=== PATIENT | female | born 1990 | race Caucasian/White ===

== ENCOUNTER 2017-08-19 09:55 | Inpatient (IN) | payer OTHER ==
[~2017-08-19] VITALS: Ht 152.4 cm; Wt 53.3 kg
[~2017-08-19 09:55] MED LIST: FLUO10CA48 PO; MULT-506 PO
[2017-08-19] MEDS ORDERED: BUSP-8 PO (10:30)
[2017-08-19] MEDS ORDERED: FLUO20CA35 PO (10:30)
[2017-08-19] MEDS ORDERED: [UNRECOGNIZED DRUG - CODE] PO (10:30)
[2017-08-19 11:17] LABS: URINE APPEARANCE CLEAR (CLEAR); URINE BILIRUBIN NEG (NEG); URINE COLOR YELLOW; URINE EPITHELIAL CELL AUTO >30 /lpf (0-5); URINE NITRITE NEG (NEG); URINE SPECIFIC GRAVITY 1.012 (1.000-1.030); UROBILINOGEN NEG (NEG)
[2017-08-19 11:21] LABS: MANUAL MICROSCOPIC REQUIRED? NO; REVIEW REQ? YES
[2017-08-19 11:46] LABS: BASO % 0.9 %; BASO ABS # 0.07 K/uL (0-0.2); COMPLETE YES; EOS % 10.1 %; HEMATOCRIT 40.1 % (37-47); IG% 0.3 %; LYMPH % 22.4 %; LYMPH ABS # 1.79 K/uL (1.2-3.4); MEAN CELL VOLUME 90.9 fL (80-100); MEAN CORPUSCULAR HEMOGLOBIN 32.9 pg (25-34); MEAN CORPUSCULAR HGB CONC 36.2 g/dl (32-36); MEAN PLATELET VOLUME 12.7 fL (7.4-10.4); MONO % 4.8 %; NEUT % 61.5 %; PLATELET COUNT 154 K/uL (130-400); RED BLOOD COUNT 4.41 M/uL (4.2-5.4); WHITE BLOOD COUNT 7.99 K/uL (4.8-10.8)
[2017-08-19 11:50] LABS: BENZODIAZEPINE, URINE NEG (NEG); COCAINE,URINE NEG (NEG); PHENCYCLIDINE, URINE NEG (NEG)
[2017-08-19 12:06] LABS: BUN/CREATININE RATIO 10.6 (10-20); CALCIUM 8.7 mg/dl (8.5-10.1); CREATININE 0.82 mg/dl (0.60-1.20); POTASSIUM 3.9 mmol/L (3.5-5.1)
[2017-08-19 12:17] LABS: ALB/GLOB RATIO 1.3 (0.9-2); THYROID STIMULATING HORMONE 1.3 uIu/ml (0.300-4.500)
[2017-08-19] MEDS ORDERED: MAGNESIUM HYDROXIDE SUSP 30 ML UDC PO PRN (13:15)
[2017-08-19] MEDS ORDERED: SODIUM CHLORIDE 0.65% NA SOLN 45 ML (OCEAN) PRN (13:15)
[2017-08-19] MEDS ORDERED: ALUMINUM/MAGNESIUM SUSP 30 ML UDC PO PRN (13:15)
[2017-08-19] MEDS ORDERED: BISMUTH SUBSALICYLATE PER ML OMNICELL CHARGE PO PRN (13:15)
[2017-08-19] MEDS ORDERED: hydrOXYzine HCL 25 MG TAB PO PRN ×2 (13:15)
[2017-08-19] MEDS ORDERED: NICOTINE 21 MG/24 HR TDSY ONE (13:43)
[2017-08-19 13:56] VITALS: O2SAT 97
--- NOTE | 2017-08-19 14:08 | Psychiatric History & Physical ---
History Date of Service Aug 19, 2017. Identifying Data Negra Mcclellan is a 27-year-old female who currently lives in [place], reports a history of depression, anxiety, and dissociative disorder for which she sees Dr. Lara, and was admitted on a 201 voluntary commitment after family brought her in for homicidal ideation. Chief Complaint "I've had different issues over the years...today I was hearing and feeling stuff I did not like, I was thinking of hurting somebody, and was thinking it might actually happen". History of Present Illness According to emergency room records, the patient presented to the emergency room with auditory hallucinations telling her to kill her coworker. She said she always hears voices that are usually mumbling and incoherent, but over the past 2 weeks they have been telling her to kill her coworker by stabbing him or pushing him down the steps. She does not like her coworker because he is lazy, but she says they've never had a confrontation, and he has no idea she feels this way about him. She did not feel safe leaving the hospital, as she was concerned she would act on the command hallucinations. She came in due to worsening thoughts about hurting a coworker, as she feels he doesn't do his job. These have been going on for 2 months, but worsened today, and was hearing voices telling her to hurt him. She felt she might actually act on them, as "I just felt like I really wanted it to happen." She had thought about pushing him down the stairs or stabbing him with something. She was at work today and felt unable to stop herself from acting, so left and called her mother, who brought her into the hospital. She says she is diagnosed with dissociative disorder, depression, and panic disorder for which she sees a psychiatrist at [facility], but has no therapist or case reviewer. She reports auditory hallucinations "since I was little, as long I can remember." They usually mumble incoherently, but have commanded her to hurt herself, others, and her pets in the past. Sometimes they make derogatory comments about her. They usually occur a few times a day. For the past month, they have been telling her that her male coworker is "useless, shouldn't be allowed to live or have a job, and I should get rid of him." She describes 7 voices, both male and female, and denies that they are people she knows. She also reports VH of "shadow people," as well as "scary shit," although she typically is aware that they are not there. She reports paranoia, says she often feels people are following her when she's driving, and has gotten paranoid about people plotting against her in the past (sometimes thinks friends are against her, for example a friend who is "acting really weird," and says she worries that he would hurt himself, as it seems like he is hiding something.") She denies thought insertion , thought reading, or ideas of reference. She reports uncertain mood, "I feel like nothing's real, just christ blah." She denies tearfulness, anhedonia ( enjoys writing, photography, watching movies, her animals- dogs, cats, hamster, and rats). She denies suicidal thoughts, changes in appetite (but thinks she lost a few lbs unintentionally), problems with sleep. She reports panic with shakiness, heart racing, inability to talk, which has occurred 5 times in the past 3 months. She usually calls her mother to pick her up when it happens, and says it is triggered by work. She says her mental health issues have been present all her life, but had gotten better once she started treatment, and then decompensated when she started working at [employer] about a year ago, which she attributes to being around a lot of people and feeling bored with her job. She says there is not enough work for you to do, but she has to stay in her building all day. She has been on fluoxetine for a year or two, and buspirone and haloperidol were just started a couple weeks ago. She says they were started for anxiety and voices, and she has not noticed any improvement. She denies a history of negra. Her goals of treatment are "to figure out what exactly is going on, why I feel this way." Outpatient records from some point [facility] reviewed: Patient saw Dr. Mathews there from June 2014 through December 2015. She was referred there after an emergency room visit for a panic attack. At her initial evaluation, she reported increasingly frequent and severe episodes of depression and anxiety, with mood swings, irritability, and anger outbursts. She also reported problems with focus, motivation, energy, memory, and self-criticism. She reported increasingly frequent "out of body" experiences since age 12, feeling like she did not have control of her body, which caused increased anxiety. She endorsed hearing auditory hallucinations of whispered voices for the past 5 years, usually incoherent, recently yelling obscenities at her, telling her she should , and that she should hurt herself. She reported eat having years of episodes where she loses time, had memory gaps, or would suddenly "come to" without recalling how she got where she was. She often looked into mirrors and did not recognize herself. She had been on sertraline 50 mg, which was increased to 100 mg daily. Diagnosis was panic disorder without agoraphobia and unspecified dissociative disorder. She saw Dr. Mathews for therapy and medications on a weekly basis, and after many months, told her that she thought she was having side effects from the sertraline which included "feeling like a zombie," so was switched to fluoxetine. When she left the clinic in December 2015, her diagnoses were recurrent depression, moderate, panic disorder without agoraphobia, and unspecified dissociative and conversion disorders. Past Psychiatric History Current OP Treatment: psychiatrist (Dr. Knight at [facility]; no therapist or case reviewer ) Prior OP Treatment: psychiatrist (Dr. Mathews at [facility] [phone], and some sort of treatment with mother at age 13 or 14) Prior Psych Hospitalizations: none (Has been seen in the ER for mental health evaluations in 2013 and 2015, but was discharged to home) Access to a Gun: No (family has guns, but they are locked and she doesn't have access.) Suicide Attempts: No Past Medication Trials sertraline - "zombie" for a month, then improved as adjusted to it. Additional Notes Life-long symptoms, but only started treatment 2 years ago, due to lack of insurance/financial concerns. Past Medical/Surgical History History of Concussion/Seizure: No (1) Pain, dental Not sexually active. No sexually active. Allergies Allergies: Coded Allergies: Codeine (Verified Allergy, Unknown, SOB-"RESTLESSNESS", 04/21/16) Home Medications Scheduled Buspirone Hcl (Buspirone Hcl), 10 MG PO BID Fluoxetine (Prozac), 30 MG PO DAILY Haloperidol (Haloperidol), 0.5 MG PO HS Family History FH: heart disease Hypertension History of Suicide: No History of Substance Abuse: Yes (on mother's side) Psychiatric History: Yes ("not sure, we don't really talk about it," but per [facility] records, mother has a history of depression and anxiety ) Alcohol Use Alcohol Use In Past 12 Months: Yes (drinks once a month, 2 beers, denies it has ever been a problem) Smoking Use Smoking Status: Former Smoker Substance History Denies other substance abuse. Personal History Lives in: [place] with her mother and "her , I don't need a dad." Childhood: From [place], then moved to [place] at age [age] years old. Raised by mother, and never knew father. Has sister who is 9 years older, doesn't like her. 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 Relationship History: never ("I don't date," but has dated both men and women in the past. Says no interest in romantic relationship currently, "I have no sexual feelings.") Children: None. Spiritual Affiliation: "I'm macdonald and a satanist." Legal History: none Psychological Trauma History: Denies Hx Traumatic Event ("Not that I'm aware of." ) Review of Systems 10 systems reviewed, negative except as stated above. Examination Physical Examination A physical exam was performed in the ER prior to admission to the unit. I accept that physical as correct/medical clearance for the inpatient physical exam. Vital Signs Vital Signs Past 12 Hours Date Time Temp Pulse Resp B/P (MAP) Pulse Ox O2 Delivery O2 Flow Rate FiO2 08/19/17 13:56 82 18 116/81 97 08/19/17 11:50 87 20 108/79 100 Room Air 08/19/17 09:57 36.5 110 16 128/85 96 Room Air Laboratory Results Last 24 Hours Test 08/19/17 10:23 08/19/17 11:04 08/19/17 11:05 Urine Color YELLOW Urine Appearance CLEAR Urine pH 5.0 Urine Specific [place] 1.012 Urine Protein NEG Urine Glucose (UA) NEG Urine Ketones NEG Urine Occult Blood NEG Urine Nitrite NEG Urine Bilirubin NEG Urine Urobilinogen NEG Urine Leukocyte Esterase SMALL Urine WBC (Auto) 10-30 /hpf Urine RBC (Auto) 5-10 /hpf Urine Hyaline Casts (Auto) 1-5 /lpf Urine Epithelial Cells (Auto) >30 /lpf Urine Bacteria (Auto) NEG Urine Yeast (Auto) BUDDING Urine Test NEG Urine Opiates Screen NEG Urine Methadone, Qualitative NEG Urine Barbiturates NEG Urine Phencyclidine (PCP) Level NEG Ur Amphetamine/Methamphetamine NEG MDMA (Ecstasy) Screen NEG Urine Benzodiazepines Screen NEG Urine Cocaine Metabolite NEG Urine Marijuana (THC) NEG Bedside Glucose 92 mg/dl White Blood Count 7.99 K/uL Red Blood Count 4.41 M/uL Hemoglobin 14.5 g/dL Hematocrit 40.1 % Mean Corpuscular Volume 90.9 fL Mean Corpuscular Hemoglobin 32.9 pg Mean Corpuscular Hemoglobin Concent 36.2 g/dl Platelet Count 154 K/uL Mean Platelet Volume 12.7 fL Neutrophils (%) (Auto) 61.5 % Lymphocytes (%) (Auto) 22.4 % Monocytes (%) (Auto) 4.8 % Eosinophils (%) (Auto) 10.1 % Basophils (%) (Auto) 0.9 % Neutrophils # (Auto) 4.92 K/uL Lymphocytes # (Auto) 1.79 K/uL Monocytes # (Auto) 0.38 K/uL Eosinophils # (Auto) 0.81 K/uL Basophils # (Auto) 0.07 K/uL RDW Standard Deviation 42.2 fL RDW Coefficient of Variation 12.7 % Immature Granulocyte % (Auto) 0.3 % Immature Granulocyte # (Auto) 0.02 K/uL Sodium Level 137 mmol/L Potassium Level 3.9 mmol/L Chloride Level 105 mmol/L Carbon Dioxide Level 26 mmol/L Anion Gap 6.0 mmol/L Blood Urea Nitrogen 9 mg/dl Creatinine 0.82 mg/dl Est Creatinine Clear Calc Drug Dose 73.4 ml/min Estimated GFR () 112.9 Estimated GFR (Non- 97.4 BUN/Creatinine Ratio 10.6 Random Glucose 85 mg/dl Calcium Level 8.7 mg/dl Total Bilirubin 0.4 mg/dl Direct Bilirubin 0.1 mg/dl Aspartate Amino Transf (AST/SGOT) 11 U/L Alanine Aminotransferase (ALT/SGPT) 11 U/L Alkaline Phosphatase 54 U/L Total Protein 6.9 gm/dl Albumin 3.9 gm/dl Globulin 3.0 gm/dl Albumin/Globulin Ratio 1.3 Thyroid Stimulating Hormone (TSH) 1.300 uIu/ml Ethyl Alcohol mg/dL < 3.0 mg/dl Mental Examination During interview pt is: alert and oriented, cooperative Appearance: disheveled, other (petite white female, wearing paper scrubs, smudged eye makeup, multiple piercings and tattoos.) Eye contact is: good Motor behavior is: steady gait & station, no abnormal motor movements Speech: normal in rate, rhythm & volume Affect: mood congruent, euthymic, other (incongruent with stated mood) Mood is: anxious Thought process: goal directed, linear, logical Thought content: reality based without delusions Suicidal thought are: denied Homicidal thoughts are: present, Plan: present, Intent: present Hallucinations: auditory, visual Cognition: memory grossly intact, attention grossly intact, language grossly intact Intelligence estimated to be: average Insight: impaired Judgement: impaired Impression / Recommendations Impression 27-year-old single female from [place], [place], who has a history of recurrent depression, panic disorder, and unspecified dissociative and conversion disorders, and presents with homicidal thoughts toward a coworker and command auditory hallucinations. She is unable to contract for safety outside of the hospital, and treatment is indicated due to the risk for harm to others. She was recently started on buspirone and haloperidol, and is on very low doses, so these can be titrated while coordinating with her outpatient psychiatrist. Inventory Assets Strengths: Willing for treatment, has an outpatient psychiatrist, supportive mother Risk Factors Assessment : Yes /single/: No Higher / Fall in social status: No Access to guns: No (states there are guns in the home, but they are locked) Health problems: No Mental Health Diagnoses: Yes Substance use disorders: No Previous attempt: No Family history of suicide: No Previous psychiatric stay: No Hopelessness: No Smoker: Yes Protective Factors Assessment Faith beliefs: Yes : No Responsible for young children: No Employed: Yes Stable relationships: No Supportive family: Yes Recommendations (1) Homicidal ideation Admit to the inpatient unit, safety checks. Encourage group attendance and participation. Work on healthy coping skills and the discharge safety plan. No need for a private room, as homicidal thoughts are directed toward a specific coworker. Continue to gather information to determine duty to warn. Request records from her outpatient psychiatrist, and coordinate care. (2) Psychosis Recently started on haloperidol 0.5 mg daily at bedtime, which she is tolerating well, but has not been effective. We will increase this to 1.5 mg daily at bedtime, and continue to titrate as tolerated. (3) Panic disorder without agoraphobia Increase fluoxetine to 40 mg daily, and continue buspirone 10 mg twice a day. (4) Dissociative and conversion disorder, unspecified Coordinate with outpatient provider. She would benefit from therapy, unclear what she does not have an individual therapist. (5) Depression The patient denies that mood has been depressed recently, but SSRI is being increased to target panic. CPT Code Initial Hospital Care: [id number]
[2017-08-19 15:19] VITALS: BP 118/82; PULSE 84; TEMP 36.7; Ht 152.4 cm; Wt 53.3 kg
--- NOTE | 2017-08-19 17:18 | EMERGENCY ROOM VISIT NOTE ---
History Report prepared by Dax: Ayleen Strange Under the Supervision of: Dr. Arias Chand M.D. First contact with patient: 10:14 Chief Complaint: MENTAL HEALTH EVALUATION Stated Complaint: NEGATIVE THOUGHTS, ANXIETY History of Present Illness The patient is a 27 year old female who presents to the Emergency Room with complaints of persistent thoughts of wanting to hurt others starting 0600 today. The patient has a history of anxiety, depression, and dissociative disorder. She has had thoughts of wanting to hurt others intermittently for several years. 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 She states that her symptoms have worsened since then. Her mother is concerned that she might be being exposed to something environmental. Her thoughts of hurting others today started soon after she arrived to work. A coworker made her angry today, making her have thoughts of hurting him. She has never acted on these thoughts or hurt others before. She has not been hospitalized for this before. She decided to come to the ED because she felt her thoughts were worse today. She is scheduled to see her psychiatrist in 3 days. She does not have any thoughts of hurting herself. She has been having more frequent anxiety attacks since working at this job. She is having a panic attack monthly. She is having auditory hallucinations that tell her to harm people. Her hallucinations have been attributed to dissociative disorder. She denies any fever, chills, cough, congestion, nausea, or vomiting. She denies any chance of . She denies any drug or alcohol use. She started 2 new psych medications 2 weeks ago. She was started on BuSpar and haloperidol for anxiety and negative thoughts. Source of History: patient Onset: 0600 today Position: other (mental health) Quality: other (thoughts of hurting others) Timing: other (persistent) Associated Symptoms: No fevers, No chills, No cough, No nausea, No vomiting Note: Pt reports anxiety, hallucinations. Pt denies congestion. Review of Systems See HPI for pertinent positives and negatives. A total of ten systems were reviewed and were otherwise negative. Past Medical & Surgical Medical Problems: (1) Depression (2) Dissociative and conversion disorder, unspecified (3) Homicidal ideation (4) Panic disorder without agoraphobia (5) Psychosis Family History FH: heart disease Hypertension Social History Smoking Status: Former Smoker Alcohol Use: none Drug Use: none Marital Status: single Housing Status: lives with family Occupation Status: employed Current/Historical Medications Scheduled Buspirone Hcl (Buspirone Hcl), 10 MG PO BID Fluoxetine (Prozac), 30 MG PO DAILY Haloperidol (Haloperidol), 0.5 MG PO HS Allergies Coded Allergies: Codeine (Verified Allergy, Unknown, SOB-"RESTLESSNESS", 04/21/16) Physical Exam Vital Signs Date Time Temp Pulse Resp B/P (MAP) Pulse Ox O2 Delivery O2 Flow Rate FiO2 08/19/17 11:50 87 20 108/79 100 Room Air 08/19/17 09:57 36.5 110 16 128/85 96 Room Air Physical Exam GENERAL: Awake, alert, somewhat colorful appearance, in no distress HENT: Normocephalic, atraumatic. Oropharynx unremarkable. EYES: Normal conjunctiva. Sclera non-icteric. NECK: Supple. No nuchal rigidity. FROM. No JVD. RESPIRATORY: Clear to auscultation. CARDIAC: Regular rate, normal rhythm. Extremities warm and well perfused. Pulses equal. ABDOMEN: Soft, non-distended. No tenderness to palpation. No rebound or guarding. No masses. RECTAL: Deferred. MUSCULOSKELETAL: Chest examination reveals no tenderness. The back is symmetrical on inspection without obvious abnormality. There is no CVA tenderness to palpation. No joint edema. LOWER EXTREMITIES: Calves are equal size bilaterally and non-tender. No edema. No discoloration. NEURO: Normal sensorium. No sensory or motor deficits noted. SKIN: No rash or jaundice noted. Medical Decision & Procedures Laboratory Results 08/19/17 11:05 Red Blood Count 4.41, Mean Corpuscular Volume 90.9, Mean Corpuscular Hemoglobin 32.9, Mean Corpuscular Hemoglobin Concent 36.2, Mean Platelet Volume 12.7, Neutrophils (%) (Auto) 61.5, Lymphocytes (%) (Auto) 22.4, Monocytes (%) (Auto) 4.8, Eosinophils (%) (Auto) 10.1, Basophils (%) (Auto) 0.9, Neutrophils # (Auto ) 4.92, Lymphocytes # (Auto) 1.79, Monocytes # (Auto) 0.38, Eosinophils # (Auto ) 0.81, Basophils # (Auto) 0.07 08/19/17 11:05 Test 08/19/17 10:23 08/19/17 11:04 08/19/17 11:05 Urine Color YELLOW Urine Appearance CLEAR (CLEAR) Urine pH 5.0 (4.5-7.5) Urine Specific [place] 1.012 (1.000-1.030) Urine Protein NEG (NEG) Urine Glucose (UA) NEG (NEG) Urine Ketones NEG (NEG) Urine Occult Blood NEG (NEG) Urine Nitrite NEG (NEG) Urine Bilirubin NEG (NEG) Urine Urobilinogen NEG (NEG) Urine Leukocyte Esterase SMALL (NEG) Urine WBC (Auto) 10-30 /hpf (0-5) Urine RBC (Auto) 5-10 /hpf (0-4) Urine Hyaline Casts (Auto) 1-5 /lpf (0-5) Urine Epithelial Cells (Auto) >30 /lpf (0-5) Urine Bacteria (Auto) NEG (NEG) Urine Yeast (Auto) BUDDING (NONE PRSENT) Urine Test NEG (NEG) Urine Opiates Screen NEG (NEG) Urine Methadone, Qualitative NEG (NEG) Urine Barbiturates NEG (NEG) Urine Phencyclidine (PCP) Level NEG (NEG) Ur Amphetamine/Methamphetamine NEG (NEG) MDMA (Ecstasy) Screen NEG (NEG) Urine Benzodiazepines Screen NEG (NEG) Urine Cocaine Metabolite NEG (NEG) Urine Marijuana (THC) NEG (NEG) Bedside Glucose 92 mg/dl (70-90) White Blood Count 7.99 K/uL (4.8-10.8) Red Blood Count 4.41 M/uL (4.2-5.4) Hemoglobin 14.5 g/dL (12.0-16.0) Hematocrit 40.1 % (37-47) Mean Corpuscular Volume 90.9 fL (80-100) Mean Corpuscular Hemoglobin 32.9 pg (25-34) Mean Corpuscular Hemoglobin Concent 36.2 g/dl (32-36) Platelet Count 154 K/uL (130-400) Mean Platelet Volume 12.7 fL (7.4-10.4) Neutrophils (%) (Auto) 61.5 % Lymphocytes (%) (Auto) 22.4 % Monocytes (%) (Auto) 4.8 % Eosinophils (%) (Auto) 10.1 % Basophils (%) (Auto) 0.9 % Neutrophils # (Auto) 4.92 K/uL (1.4-6.5) Lymphocytes # (Auto) 1.79 K/uL (1.2-3.4) Monocytes # (Auto) 0.38 K/uL (0.11-0.59) Eosinophils # (Auto) 0.81 K/uL (0-0.5) Basophils # (Auto) 0.07 K/uL (0-0.2) RDW Standard Deviation 42.2 fL (36.4-46.3) RDW Coefficient of Variation 12.7 % (11.5-14.5) Immature Granulocyte % (Auto) 0.3 % Immature Granulocyte # (Auto) 0.02 K/uL (0.00-0.02) Anion Gap 6.0 mmol/L (3-11) Est Creatinine Clear Calc Drug Dose 73.4 ml/min Estimated GFR () 112.9 Estimated GFR (Non- 97.4 BUN/Creatinine Ratio 10.6 (10-20) Calcium Level 8.7 mg/dl (8.5-10.1) Total Bilirubin 0.4 mg/dl (0.2-1) Direct Bilirubin 0.1 mg/dl (0-0.2) Aspartate Amino Transf (AST/SGOT) 11 U/L (15-37) Alanine Aminotransferase (ALT/SGPT) 11 U/L (12-78) Alkaline Phosphatase 54 U/L (45-117) Total Protein 6.9 gm/dl (6.4-8.2) Albumin 3.9 gm/dl (3.4-5.0) Globulin 3.0 gm/dl (2.5-4.0) Albumin/Globulin Ratio 1.3 (0.9-2) Thyroid Stimulating Hormone (TSH) 1.300 uIu/ml (0.300-4.500) Ethyl Alcohol mg/dL < 3.0 mg/dl (0-3) Laboratory results reviewed by mo Medications Administered ED Course 1031: The patient was evaluated in room A5. A complete history and physical exam was performed. 1301: The patient has been medically cleared. The psych oil field caser is preparing for a referral to [address] [place] [address]. 1343: Nicotine 1 patch TD. 1352: The patient has been accepted to [address] [place] [address]. Medical Decision I reviewed the patient's past medical history, medications, and the nursing notes as described above. Differential diagnosis: medication side effect, worsening psychosis, homicidal ideation. Patient is a 27-year-old woman with a past medical history of command hallucinations and homicidal ideation recently placed on BuSpar and Haldol by her doctor Gonzalez emergency department with episode of thoughts of hurting a coworker at work this morning per history of present illness. No rise in no acute distress, with a colorful affect, afebrile stable vital signs. She reports her symptoms of each eye and auditory hallucinations telling her to hurt people have increased over the past couple weeks. Patient denies ever acting on these thoughts. Patient denies any attempts to hurt herself recently. Otherwise the patient's exam is unremarkable. Psychiatric clearance labs done and also unremarkable. Patient was medically cleared and was assessed by mental health liaison who agrees for admission for the patient's suicidality. Accepted to 3 S. Medication Reconcilliation Current Medication List: was personally reviewed by me Blood Pressure Screening Patient's blood pressure: Normal blood pressure Blood pressure disposition: Did not require urgent referral Impression Primary Impression: Homicidal ideation Additional Impression: History of command hallucinations Scribe Attestation The scribe's documentation has been prepared under my direction and personally reviewed by me in its entirety. I confirm that the note above accurately reflects all work, treatment, procedures, and medical decision making performed by me. Departure Information Dispostion Mental Health Acute Care Referrals No Doctor, Assigned (PCP) Patient Instructions My [facility] Problem Qualifiers
[2017-08-19] MEDS ORDERED: HALOPERIDOL 1 MG TAB PO SCH (22:00)
[2017-08-20] MEDS: ACETAMINOPHEN 325 MG TAB PO PRN (06:30)
[2017-08-20 06:36] VITALS: BP_SYST 106; BP_SYST 107; BP_DIAS 69; BP_DIAS 71; PULSE 67; PULSE 87; TEMP 36.8
[2017-08-20] MEDS: FLUOXETINE HCL 20 MG CAP PO SCH (08:47)
[2017-08-20] MEDS ORDERED: NICOTINE 21 MG/24 HR TDSY TD SCH (09:00)
--- NOTE | 2017-08-20 09:27 | Psychiatric Progress Notes ---
Progress Note Date of Service Aug 20, 2017. Interval History Negra Mcclellan is a 27-year-old female who currently lives in [place], reports a history of depression, anxiety, and dissociative disorder for which she sees Dr. Lara, and was admitted on a 201 voluntary commitment after family brought her in for homicidal ideation. She submitted her 72 hour notice on the day of admission. Chief Complaint "Tired". Subjective Patient was seen & assessed interval progress reviewed with Nursing. Staff report she submitted her 72 hour notice yesterday shortly after admission to the unit. She attended and participated in group in the afternoon, but went to her room to rest after dinner, saying she was tired. Records were reviewed from [facility]: She is diagnosed with recurrent, severe depression, generalized anxiety disorder, and panic disorder without agoraphobia. She was last seen by Dr. Knight on 08/07/2017, at which point she reported not feeling well, increased anxiety, and thoughts of harming herself and others, specifically a coworker who bothered her. She denied any intent to act on these. She denied hallucinations. She stated she did not have insurance or money to pay for her medications, so was only taking fluoxetine 30 mg, which was continued. She was also given a voucher for Rexulti 0.5 mg every morning for hallucinations. According to her med list, the Rexulti was discontinued 2 days later, and she was prescribed Haldol 0.5 mg daily at bedtime and BuSpar 10 mg twice a day. When she was seen 06/07/2017, she reported having issues with a coworker and anxiety due to being moved around at work. Her fluoxetine was increased from 20 mg to 30 mg daily. Prior to that, she was seen 12/26/2016 and 10/31/2016, and continued on fluoxetine 20 mg. Her initial psychiatric evaluation was done on 08/29/2016, after she transferred her care from [facility] as she lost insurance. She endorsed symptoms of depression and anxiety, but denied psychotic and manic symptoms. She was continued on fluoxetine 20 mg daily. Today, she states she slept "awful," as she doesn't like sleeping in new places and had a headache. Tylenol was effective in alleviating her headache. Mood is "eh, okay, I'm just christ tired." She notes she slept most of the day yesterday as well, as she felt "stressed from being here." She says she doesn't like hospital. She continues to endorse AH of voices, which are less distinct today, "a lot of mumbling." She says she the thoughts of hurting her coworker are "christ going away," as "I don't work there anymore." She says she called the HR office yesterday and was told that [employer] requested her term there be ended. She has to call the HR office to place her in a different area. She says she would prefer not to go back to work, but needs to earn money. 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 Anxiety is "christ of average, it never really goes away." She says she submitted a 72 hour notice as "I don't want to stay here all week." She is willing to have a meeting with her mother, but has not called her to schedule it yet. She is willing for referrals to case management and therapy, and is not sure why she has not already been referred by her outpatient psychiatrist. She says she saw a therapist briefly at [facility] about a year ago, saw her twice, and "she wasn't good, wasn't listening to a word I was saying." She denies side effects to the Haldol and is willing to increase her dose to 5mg qhs. Sleep Information Total Hours of Sleep: 9.00 Meal Information Percent of Dinner Consumed: 100 Mental Status Exam During interview pt is: alert and oriented, cooperative Appearance: disheveled, other (petite white casually dressed, multiple piercings and tattoos.) Eye contact is: good Motor behavior is: steady gait & station, no abnormal motor movements Speech: normal in rate, rhythm & volume Affect: mood congruent, euthymic, other (incongruent with stated mood) Mood is: other ("eh") Thought process: goal directed, linear, logical Thought content: reality based without delusions Suicidal thought are: denied Homicidal thoughts are: present (less intense) Hallucinations: auditory, visual Cognition: memory grossly intact, attention grossly intact, language grossly intact Intelligence estimated to be: average Insight: impaired Judgement: impaired Medication Trials (1) Past Psych Meds sertraline Last Edited By: Charis Vela on Aug 20, 2017 09:12 Impression 27-year-old single female from [place], who has a history of recurrent depression , panic disorder, and unspecified dissociative and conversion disorders, and presents with homicidal thoughts toward a coworker and command auditory hallucinations. She is unable to contract for safety outside of the hospital, and inpatient treatment is indicated due to the risk for harm to others. On admission, fluoxetine was increased to target anxiety and depression. She was recently started on buspirone and low-dose haloperidol, and haloperidol is being increased to target auditory hallucinations. Plan (1) Homicidal ideation Admit to the inpatient unit, safety checks. Encourage group attendance and participation. Work on healthy coping skills and the discharge safety plan. No need for a private room, as homicidal thoughts are directed toward a specific coworker. Continue to gather information to determine duty to warn. Request records from her outpatient psychiatrist, and coordinate care. 08/20 - Continue to mitigate risk factors for harm to others by treating psychosis and anxiety. - Duty to warn coworker. - Family meeting with mother. Ensure no access to guns. - Work on coping skills and safety plan. - Refer for outpatient therapist and immigration case worker. (2) Psychosis Recently started on haloperidol 0.5 mg daily at bedtime, which she is tolerating well, but has not been effective. We will increase this to 1.5 mg daily at bedtime, and continue to titrate as tolerated. 08/20 - Increase Haldol to 5mg qhs to target AH of voices. (3) Panic disorder without agoraphobia Increase fluoxetine to 40 mg daily, and continue buspirone 10 mg twice a day. 08/20 - check cost of fluoxetine, as patient has no insurance and states cost is a barrier, and thinks she has been paying around $20 a month for it. Cost per pharmacy is $9, and buspirone is on the [employer] $4 list. (4) Depression The patient denies that mood has been depressed recently, but SSRI is being increased to target panic. (5) Dissociative and conversion disorder, unspecified Coordinate with outpatient provider. She would benefit from therapy, unclear what she does not have an individual therapist. Discharge / Aftercare Planning Primary Care Physician: Name: No PCP Psychiatrist: Name: Dr Mcneill Date of Appointment: Aug 22, 2017 Time of Appointment: 3:45pm Therapist: Name: None Soils Analyst: Name: None Visit Code E&M Code: 64754 Inventory Assets Strengths: Willing for treatment, has an outpatient psychiatrist, supportive mother Risk Factors Assessment : Yes /single/: No Higher / Fall in social status: No Health problems: No Mental Health Diagnoses: Yes Substance use disorders: No Previous attempt: No Family history of suicide: No Previous psychiatric stay: No Hopelessness: No Smoker: Yes Protective Factors Assessment Pentecostal beliefs: Yes : No Responsible for young children: No Employed: Yes Stable relationships: No Supportive family: Yes Data Vital Signs Last 24 Hrs: Date Time Temp Pulse Resp B/P (MAP) Pulse Ox O2 Delivery O2 Flow Rate FiO2 08/20/17 06:36 36.8 67 16 106/69 87 107/71 08/19/17 15:19 36.7 84 18 118/82 08/19/17 13:56 82 18 116/81 97 08/19/17 11:50 87 20 108/79 100 Room Air 08/19/17 09:57 36.5 110 16 128/85 96 Room Air Meds Administered Last 24 Hrs: Meds Administered (Past 24Hrs) Medications (Trade) Dose Ordered Sig/Karlie Route Start Time Stop Time Status Last Admin Dose Admin Acetaminophen (Tylenol Tab) 650 mg Q4H PRN PO 08/19/17 13:15 09/18/17 13:14 08/20/17 06:30 650 MG Nicotine (Nicoderm Cq 21MG Patch) 1 patch STK-MED ONCE .ROUTE 08/19/17 13:43 08/19/17 13:44 DC 08/19/17 13:45 1 PATCH Haloperidol (Haldol Tab) 1.5 mg HS PO 08/19/17 22:00 09/18/17 21:59 08/19/17 21:30 1.5 MG Buspirone HCl (Buspar Tab) 10 mg BID PO 08/19/17 22:00 09/18/17 21:59 08/19/17 21:30 10 MG Lab Results Last 24 Hrs: Last 24 Hours Test 08/19/17 10:23 08/19/17 11:04 08/19/17 11:05 Urine Color YELLOW Urine Appearance CLEAR Urine pH 5.0 Urine Specific [place] 1.012 Urine Protein NEG Urine Glucose (UA) NEG Urine Ketones NEG Urine Occult Blood NEG Urine Nitrite NEG Urine Bilirubin NEG Urine Urobilinogen NEG Urine Leukocyte Esterase SMALL Urine WBC (Auto) 10-30 /hpf Urine RBC (Auto) 5-10 /hpf Urine Hyaline Casts (Auto) 1-5 /lpf Urine Epithelial Cells (Auto) >30 /lpf Urine Bacteria (Auto) NEG Urine Yeast (Auto) BUDDING Urine Test NEG Urine Opiates Screen NEG Urine Methadone, Qualitative NEG Urine Barbiturates NEG Urine Phencyclidine (PCP) Level NEG Ur Amphetamine/Methamphetamine NEG MDMA (Ecstasy) Screen NEG Urine Benzodiazepines Screen NEG Urine Cocaine Metabolite NEG Urine Marijuana (THC) NEG Bedside Glucose 92 mg/dl White Blood Count 7.99 K/uL Red Blood Count 4.41 M/uL Hemoglobin 14.5 g/dL Hematocrit 40.1 % Mean Corpuscular Volume 90.9 fL Mean Corpuscular Hemoglobin 32.9 pg Mean Corpuscular Hemoglobin Concent 36.2 g/dl Platelet Count 154 K/uL Mean Platelet Volume 12.7 fL Neutrophils (%) (Auto) 61.5 % Lymphocytes (%) (Auto) 22.4 % Monocytes (%) (Auto) 4.8 % Eosinophils (%) (Auto) 10.1 % Basophils (%) (Auto) 0.9 % Neutrophils # (Auto) 4.92 K/uL Lymphocytes # (Auto) 1.79 K/uL Monocytes # (Auto) 0.38 K/uL Eosinophils # (Auto) 0.81 K/uL Basophils # (Auto) 0.07 K/uL RDW Standard Deviation 42.2 fL RDW Coefficient of Variation 12.7 % Immature Granulocyte % (Auto) 0.3 % Immature Granulocyte # (Auto) 0.02 K/uL Sodium Level 137 mmol/L Potassium Level 3.9 mmol/L Chloride Level 105 mmol/L Carbon Dioxide Level 26 mmol/L Anion Gap 6.0 mmol/L Blood Urea Nitrogen 9 mg/dl Creatinine 0.82 mg/dl Est Creatinine Clear Calc Drug Dose 73.4 ml/min Estimated GFR () 112.9 Estimated GFR (Non- 97.4 BUN/Creatinine Ratio 10.6 Random Glucose 85 mg/dl Calcium Level 8.7 mg/dl Total Bilirubin 0.4 mg/dl Direct Bilirubin 0.1 mg/dl Aspartate Amino Transf (AST/SGOT) 11 U/L Alanine Aminotransferase (ALT/SGPT) 11 U/L Alkaline Phosphatase 54 U/L Total Protein 6.9 gm/dl Albumin 3.9 gm/dl Globulin 3.0 gm/dl Albumin/Globulin Ratio 1.3 Thyroid Stimulating Hormone (TSH) 1.300 uIu/ml Ethyl Alcohol mg/dL < 3.0 mg/dl
[2017-08-20] MEDS ORDERED: NICOTINE 21 MG/24 HR TDSY TD ONE (13:21)
[2017-08-20] MEDS: HALOPERIDOL 5 MG TAB PO SCH (21:04)
[2017-08-21 06:45] VITALS: BP_SYST 108; BP_SYST 110; BP_DIAS 69; BP_DIAS 71; PULSE 78; PULSE 81; TEMP 36.4
[2017-08-21] MEDS: NICOTINE 21 MG/24 HR TDSY TD SCH (07:48)
[2017-08-21] MEDS: FLUOXETINE HCL 20 MG CAP PO SCH (07:48)
[2017-08-21] MEDS: ACETAMINOPHEN 325 MG TAB PO PRN (07:52)
--- NOTE | 2017-08-21 12:22 | Psychiatric Progress Notes ---
Progress Note Date of Service Aug 21, 2017. Interval History Negra Mcclellan is a 27-year-old female who currently lives in [place], reports a history of depression, anxiety, and dissociative disorder for which she sees Dr. Lara, and was admitted on a 201 voluntary commitment after family brought her in for homicidal ideation. She submitted her 72 hour notice on the day of admission. Chief Complaint "Ayo, pretty anxious". Subjective Patient was seen & assessed interval progress reviewed with Treatment Team. Staff report the patient has not been willing to rescind her 72 hour notice, stating that she wants to be discharged as soon as possible. She had a family meeting with her mother yesterday, who endorsed concerns about her, and encouraged her to stay in the hospital longer to get more treatment. Mother was very supportive of her, and patient stated she feels comfortable being honest with mother about what is going on with her. Mother also shared that the patient has been hoarding things, her room is full of items, she is not doing the dishes or taking care of the cat litter, which the patient admitted was true. Although she was interested in working with a therapist, she said she could not pay for one, and was unwilling for a referral to [employer] charities, as it conflicts with her Satanic beliefs. She was again informed of the duty to warn, but said she did not know the last name of her coworker whom she has had homicidal thoughts towards. Her mother admitted that there are guns in multiple rooms in the home, and agreed to secure them so the patient would not have access. Today, the patient states that she is feeling more anxious, because "I really want to go home." She states she does not like it in the hospital because she feels "closed in." She is unwilling to try coping skills for this, stating that the only thing that will help us to go outside. She continues to hear auditory hallucinations of voices, which are mumbling indistinctly, and occasionally scream. She denies command hallucinations. She is unable to review her safety plan or what she could do if things got worse after she left, stating "I don't think they will get worse, things will probably get better." She denies homicidal thoughts, and says that she is not having these anymore because she is not thinking about her coworker because she hasn't seen him. She is not sure what she would do if she did see him, eventually says she would "just walk away probably, I have to." She says that he is unaware that she dislikes him or has had thoughts about hurting him. She has not gotten any further information about her work situation, and states that she has to get in touch with her employer first, and won't do this until she leaves the hospital. She denies side effects to medications, and feels they 've been helpful. She was encouraged to work on her discharge safety plan. Sleep Information Total Hours of Sleep: 7.75 Meal Information Percent of Breakfast Consumed: 100 Percent of Lunch Consumed: 25 Percent of Dinner Consumed: 75 Mental Status Exam During interview pt is: alert and oriented, cooperative Appearance: other (petite white female, casually dressed, multiple piercings and tattoos.) Eye contact is: good Motor behavior is: steady gait & station, no abnormal motor movements Speech: normal in rate, rhythm & volume Affect: mood congruent, euthymic, other (incongruent with stated mood) Mood is: other ("ayo, anxious") Thought process: goal directed, linear, logical Thought content: reality based without delusions Suicidal thought are: denied Homicidal thoughts are: denied Hallucinations: auditory Cognition: memory grossly intact, attention grossly intact, language grossly intact Intelligence estimated to be: average Insight: impaired Judgement: impaired Medication Trials (1) Past Psych Meds sertraline Last Edited By: Charis Vela on Aug 20, 2017 09:12 Impression 27-year-old single female from [place], who has a history of recurrent depression , panic disorder, and unspecified dissociative and conversion disorders, and presents with homicidal thoughts toward a coworker and command auditory hallucinations. She was admitted voluntarily due to inability to contract for safety outside of the hospital, and inpatient treatment is indicated due to the risk for harm to others. On admission, fluoxetine was increased to target anxiety and depression. She was recently started on buspirone and low-dose haloperidol, and haloperidol is being increased to target auditory hallucinations. She has improved, but is still hearing voices, has demonstrated a limited ability to utilize healthy coping skills, and mother has expressed concerns about her discharging prematurely. In addition, we have to complete the duty to warn her coworker prior to discharge, and this has not yet been accomplished as we have been unable to identify and locate him. She also has very limited OP supports (only seeing a psychiatrist every 3-6 months, no therapist or case management social worker), and is being referred to the [facility] for case management , and hopefully they can assist with funding for therapy. Plan (1) Homicidal ideation Admit to the inpatient unit, safety checks. Encourage group attendance and participation. Work on healthy coping skills and the discharge safety plan. No need for a private room, as homicidal thoughts are directed toward a specific coworker. Continue to gather information to determine duty to warn. Request records from her outpatient psychiatrist, and coordinate care. 08/20 - Continue to mitigate risk factors for harm to others by treating psychosis and anxiety. - Duty to warn coworker. - Family meeting with mother. Ensure no access to guns. - Work on coping skills and safety plan. - Refer for outpatient therapist and case management social worker. 08/21 - Mother encouraged the patient to stay in the hospital for more treatment, but she remains unwilling to rescind her 72 hour notice, which expires tomorrow. - Mother agreed to secure all of the guns in the home and ensure patient would not have access, and will notify us once that is done. - Social work to complete duty to warn. (2) Psychosis Recently started on haloperidol 0.5 mg daily at bedtime, which she is tolerating well, but has not been effective. We will increase this to 1.5 mg daily at bedtime, and continue to titrate as tolerated. 08/20 - Increase Haldol to 5mg qhs to target AH of voices. (3) Panic disorder without agoraphobia Increase fluoxetine to 40 mg daily, and continue buspirone 10 mg twice a day. 08/20 - check cost of fluoxetine, as patient has no insurance and states cost is a barrier, and thinks she has been paying around $20 a month for it. Cost per pharmacy is $9, and buspirone is on the [employer] $4 list. (4) Depression The patient denies that mood has been depressed recently, but SSRI is being increased to target panic. (5) Dissociative and conversion disorder, unspecified Coordinate with outpatient provider. She would benefit from therapy, unclear what she does not have an individual therapist. Discharge / Aftercare Planning Primary Care Physician: Name: No PCP Psychiatrist: Name: Dr Mcneill Date of Appointment: Aug 22, 2017 Time of Appointment: 3:45pm Therapist: Name: [employer] Cashier: Name: None Visit Code E&M Code: 12190 Inventory Assets Strengths: Willing for treatment, has an outpatient psychiatrist, supportive mother Risk Factors Assessment : Yes /single/: No Higher / Fall in social status: No Health problems: No Mental Health Diagnoses: Yes Substance use disorders: No Previous attempt: No Family history of suicide: No Previous psychiatric stay: No Hopelessness: No Smoker: Yes Protective Factors Assessment Zoroastrianism beliefs: Yes : No Responsible for young children: No Employed: Yes Stable relationships: No Supportive family: Yes Data Vital Signs Last 24 Hrs: Date Time Temp Pulse Resp B/P (MAP) Pulse Ox O2 Delivery O2 Flow Rate FiO2 08/21/17 06:45 36.4 78 16 108/69 81 110/71 Meds Administered Last 24 Hrs: Meds Administered (Past 24Hrs) Medications (Trade) Dose Ordered Sig/Karlie Route Start Time Stop Time Status Last Admin Dose Admin Acetaminophen (Tylenol Tab) 650 mg Q4H PRN PO 08/19/17 13:15 09/18/17 13:14 08/21/17 07:52 650 MG Hydroxyzine HCl (Vistaril Tab) 25 mg Q4H PRN PO 08/19/17 13:15 09/18/17 13:14 08/21/17 09:14 25 MG Nicotine (Nicoderm Cq 21MG Patch) 1 patch STK-MED ONCE .ROUTE 08/19/17 13:43 08/19/17 13:44 DC 08/19/17 13:45 1 PATCH Fluoxetine HCl (Prozac Cap) 40 mg QAM PO 08/20/17 09:00 09/19/17 08:59 08/21/17 07:48 40 MG Haloperidol (Haldol Tab) 1.5 mg HS PO 08/19/17 22:00 08/20/17 09:45 DC 08/19/17 21:30 1.5 MG Buspirone HCl (Buspar Tab) 10 mg BID PO 08/19/17 22:00 09/18/17 21:59 08/21/17 07:48 10 MG Haloperidol (Haldol Tab) 5 mg HS PO 08/20/17 22:00 09/18/17 21:59 08/20/17 21:04 5 MG Nicotine (Nicoderm Cq 21MG Patch) 1 patch QAM TD 08/21/17 09:00 09/20/17 08:59 08/21/17 07:48 1 PATCH Nicotine (Nicoderm Cq 21MG Patch) 1 patch 1321 ONCE TD 08/20/17 13:21 08/20/17 13:29 DC 08/20/17 13:50 1 PATCH
[2017-08-21] MEDS: HALOPERIDOL 5 MG TAB PO SCH (21:10)
[2017-08-22 07:01] VITALS: BP_SYST 100; BP_SYST 104; BP_DIAS 66; BP_DIAS 70; PULSE 70; PULSE 84; TEMP 36.7
[2017-08-22] MEDS: FLUOXETINE HCL 20 MG CAP PO SCH (08:34)
[2017-08-22] MEDS: NICOTINE 21 MG/24 HR TDSY TD SCH (08:34)
[2017-08-22] MEDS ORDERED: HLD5 PO (09:29)
[2017-08-22] MEDS ORDERED: FLUO40CA8 PO (09:29)
--- NOTE | 2017-08-22 10:01 | Discharge Instructions ---
Discharge Information Report Includes Report will include the: Discharge Instructions & Summary Admission Admission Date / Time: Aug 19, 2017 at 13:08 Reason for Admission: Homicidal Ideation Discharge Discharge Diagnosis / Problem: Psychosis not otherwise specified, depression, panic disorder, dissociative Condition at Discharge: Good Discharge Goals Goal(s): Improve function, Improve disease control, Learn about illness, Therapeutic intervention Activity Recommendations Activity Limitations: per Instructions/Follow-up section . Instructions / Follow-Up Instructions / Follow-Up . SPECIAL CARE INSTRUCTIONS: 1. Follow through with your scheduled aftercare appointments. If unable to keep an appointment, please call to reschedule. 2. Take your medication only as prescribed. Medication should not be changed or stopped without the approval of your doctor. In the event of worsening symptoms or concerns about side effects, contact your doctor immediately. 3. Utilize new healthy coping skills, anger management skills, and stress management skills learned during your hospitalization. Journal feelings and process them with a support person. Identify stressors or situations that may result in relapse, deterioration or inappropriate behaviors and develop a plan to deal with those issues. 4. If your coping skills are ineffective and you are in crisis, contact your outpatient providers for direction. If unable to reach your providers, please call the CAN HELP LINE AT or go to the closest Emergency Room. 5. Avoid alcohol and un-prescribed drugs. 6. You have been provided with the Mental Health Advance Directives Pamphlet for your review. AFTERCARE APPOINTMENTS: * Please call your insurance company prior to your scheduled appointment to confirm your aftercare providers are covered. Take your insurance information to your appointments. . Discharge / Aftercare Planning Primary Care Physician: Name: No PCP Appointment Notes: Given copy of Urgent Care Walkin hours Psychiatrist: Name: Dr Mcneill Date of Appointment: Aug 22, 2017 Time of Appointment: 3:45pm Therapist: Name Of Therapist: .You will be referred to a therapist when you meet with Anamaria Specialist Employee Labor Relations: Name: Anamaria Blue Date of Appointment: Aug 23, 2017 Time of Appointment: 9:00am Appointment Notes: Bring in your most recent paystub to your appointment . Follow-Up Care Plan for Follow-Up Care: See above. Current Hospital Diet Patient's current hospital diet: Regular Diet Discharge Diet Recommended Diet: Regular Diet Procedures Procedures Performed: No Pending Studies Pending Studies at Discharge: No Medical Emergencies . Who to Call and When: Medical Emergencies: For questions or emergencies related to your hospital stay, please contact the Inpatient Behavioral Health Unit at [phone]. A vp emerging media is on-call 24/06 for the Behavioral Health Unit for emergencies At any time you feel your situation is an emergency, you may also call 911 immediately. . Non-Emergent Contact Non-Emergency issues call your: Primary Care Provider, Psychiatrist, Therapist , Specialist Employee Labor Relations Advance Directives Existing Advance Directive: No Do You Have an Existing Mental: No Existing Living Will: No Existing Power of Attic Blower: No Advance Directives Info Given: To Pt/S.O. Advance Directives Reason: Declines as Mental Health Visit. Discharge Summary Admission HPI Per the Admitting provider: According to emergency room records, the patient presented to the emergency room with auditory hallucinations telling her to kill her coworker. She said she always hears voices that are usually mumbling and incoherent, but over the past 2 weeks they have been telling her to kill her coworker by stabbing him or pushing him down the steps. She does not like her coworker because he is lazy, but she says they've never had a confrontation, and he has no idea she feels this way about him. She did not feel safe leaving the hospital, as she was concerned she would act on the command hallucinations. She came in due to worsening thoughts about hurting a coworker, as she feels he doesn't do his job. These have been going on for 2 months, but worsened today, and was hearing voices telling her to hurt him. She felt she might actually act on them, as "I just felt like I really wanted it to happen." She had thought about pushing him down the stairs or stabbing him with something. She was at work today and felt unable to stop herself from acting, so left and called her mother, who brought her into the hospital. She says she is diagnosed with dissociative disorder, depression, and panic disorder for which she sees a psychiatrist at [facility], but has no therapist or top case assembler. She reports auditory hallucinations "since I was little, as long I can remember." They usually mumble incoherently, but have commanded her to hurt herself, others, and her pets in the past. Sometimes they make derogatory comments about her. They usually occur a few times a day. For the past month, they have been telling her that her male coworker is "useless, shouldn't be allowed to live or have a job, and I should get rid of him." She describes 7 voices, both male and female, and denies that they are people she knows. She also reports VH of "shadow people," as well as "scary shit," although she typically is aware that they are not there. She reports paranoia, says she often feels people are following her when she's driving, and has gotten paranoid about people plotting against her in the past (sometimes thinks friends are against her, for example a friend who is "acting really weird," and says she worries that he would hurt himself, as it seems like he is hiding something.") She denies thought insertion , thought reading, or ideas of reference. She reports uncertain mood, "I feel like nothing's real, just christ blah." She denies tearfulness, anhedonia ( enjoys writing, photography, watching movies, her animals- dogs, cats, hamster, and rats). She denies suicidal thoughts, changes in appetite (but thinks she lost a few lbs unintentionally), problems with sleep. She reports panic with shakiness, heart racing, inability to talk, which has occurred 5 times in the past 3 months. She usually calls her mother to pick her up when it happens, and says it is triggered by work. She says her mental health issues have been present all her life, but had gotten better once she started treatment, and then decompensated when she started working at [employer] about a year ago, which she attributes to being around a lot of people and feeling bored with her job. She says there is not enough work for you to do, but she has to stay in her building all day. She has been on fluoxetine for a year or two, and buspirone and haloperidol were just started a couple weeks ago. She says they were started for anxiety and voices, and she has not noticed any improvement. She denies a history of negra. Her goals of treatment are "to figure out what exactly is going on, why I feel this way." Outpatient records from [facility] reviewed: Patient saw Dr. Mathews there from June 2014 through December 2015. She was referred there after an emergency room visit for a panic attack. At her initial evaluation, she reported increasingly frequent and severe episodes of depression and anxiety, with mood swings, irritability, and anger outbursts. She also reported problems with focus, motivation, energy, memory, and self-criticism. She reported increasingly frequent "out of body" experiences since age 12, feeling like she did not have control of her body, which caused increased anxiety. She endorsed hearing auditory hallucinations of whispered voices for the past 5 years, usually incoherent, recently yelling obscenities at her, telling her she should , and that she should hurt herself. She reported eat having years of episodes where she loses time, had memory gaps, or would suddenly "come to" without recalling how she got where she was. She often looked into mirrors and did not recognize herself. She had been on sertraline 50 mg, which was increased to 100 mg daily. Diagnosis was panic disorder without agoraphobia and unspecified dissociative disorder. She saw Dr. Mathews for therapy and medications on a weekly basis, and after many months, told her that she thought she was having side effects from the sertraline which included "feeling like a zombie," so was switched to fluoxetine. When she left the clinic in December 2015, her diagnoses were recurrent depression, moderate, panic disorder without agoraphobia, and unspecified dissociative and conversion disorders. Admission Exam Per the Admitting provider: Please see admission H&P. Hospital Course (1) Homicidal ideation Admit to the inpatient unit, safety checks. Encourage group attendance and participation. Work on healthy coping skills and the discharge safety plan. No need for a private room, as homicidal thoughts are directed toward a specific coworker. Continue to gather information to determine duty to warn. Request records from her outpatient psychiatrist, and coordinate care. 08/20 - Continue to mitigate risk factors for harm to others by treating psychosis and anxiety. - Duty to warn coworker. - Family meeting with mother. Ensure no access to guns. - Work on coping skills and safety plan. - Refer for outpatient therapist and top case assembler. 08/21 - Mother encouraged the patient to stay in the hospital for more treatment, but she remains unwilling to rescind her 72 hour notice, which expires tomorrow. - Mother agreed to secure all of the guns in the home and ensure patient would not have access, and will notify us once that is done. - Social work to complete duty to warn. 08/22 - garbage pick up worker contacted [place] police who will complete the duty to warn the patient's coworker. She is now denying thoughts of harming him, and states she does not think these will recur as long as she is not around him. Her employer is moving her to another work location. She is able to review her safety plan, and denies command auditory hallucinations. (2) Psychosis Recently started on haloperidol 0.5 mg daily at bedtime, which she is tolerating well, but has not been effective. We will increase this to 1.5 mg daily at bedtime, and continue to titrate as tolerated. 08/20 - Increase Haldol to 5mg qhs to target AH of voices. 08/22 - doing well on Haldol 5 mg, prescription issued for 30 day supply. Differential diagnosis of psychotic symptoms includes primary thought disorder, personality disorder, and psychotic depression. Psychotic depression is felt to be less likely, as she denies being depressed recently, and has not demonstrated depressive symptoms here in the hospital, with euthymic, bright affect. She does report a long history of auditory hallucinations and "paranormal" experiences, and her mother also believes in the paranormal and states she can see "shadow people," etc. Her auditory hallucinations have improved on the higher dose of Haldol, and her back to their baseline of indistinct whispering voices. She feels able to manage these with her coping skills. - Follow-up with Dr. Knight at [facility] this afternoon at 3:45 PM. Referred for case management services and will meet with Anamaria Blue tomorrow at 9 AM. (3) Panic disorder without agoraphobia Increase fluoxetine to 40 mg daily, and continue buspirone 10 mg twice a day. 08/20 - check cost of fluoxetine, as patient has no insurance and states cost is a barrier, and thinks she has been paying around $20 a month for it. Cost per pharmacy is $9, and buspirone is on the LOAG $4 list. (4) Depression The patient denies that mood has been depressed recently, but SSRI is being increased to target panic. (5) Dissociative and conversion disorder, unspecified Coordinate with outpatient provider. She would benefit from therapy, unclear what she does not have an individual therapist. 08/22 - patient referred to [facility] unit per case management, and hopefully they will be able to assist her in retaining an individual therapist. She does not currently have insurance, and states she cannot pay out of pocket for therapy. Risk Factors Assessment : Yes /single/: No Higher / Fall in social status: No Access to guns: No (mother confirmed that guns will be locked and the patient will not have access to them) Health problems: No Mental Health Diagnoses: Yes Substance use disorders: No Previous attempt: No Family history of suicide: No Previous psychiatric stay: No Hopelessness: No Smoker: Yes Protective Factors Assessment Voodoo beliefs: Yes : No Responsible for young children: No Employed: Yes Stable relationships: No Supportive family: Yes Absence of risk factors above: Yes (risk factors were mitigated by admission to the inpatient unit, adjusting medications to target anxiety and psychotic symptoms, involving her in groups and therapy on the unit, working on healthy coping skills and her discharge safety plan, family meeting with her mother who is her primary support, educating her about her diagnoses and the recommended treatment, referring her for increased outpatient services (case management, who can then assist her in getting an individual therapist), and ensuring that she would not have access to guns at home. Anxiety and psychotic symptoms have improved, she is tolerating medications well, has been calm and cooperative here , and is denying thoughts to harm herself or others. She's been moved to a different work location, so will no longer have to work around the individual whom she was having homicidal thoughts towards, duty to warn will be completed by police. She'll be following up with her outpatient psychiatrist this afternoon, and her new top case assembler tomorrow. She has submitted a 72 hour notice requesting to withdraw from treatment, and as she is no longer at acute risk of harm to herself or others, can be managed as an outpatient at this time. ) Day of Discharge Assessment Hospital course: On admission, the patient's fluoxetine was increased to target anxiety symptoms , and haloperidol was increased to target auditory hallucinations. Outpatient records were reviewed from both [facility] and [facility]. She has never had a diagnosis of a primary thought disorder, and the differential for her psychotic symptoms include psychotic depression, a primary thought disorder, and personality disorder. She consistently denied symptoms of depression while in the hospital, and her affect was bright and euthymic, which made the diagnosis of psychotic depression less likely. She reported a long history of experiencing auditory hallucinations, but stated they are typically of whispered , incoherent mumbling, and only recently became distinct, louder command auditory hallucinations. Her auditory hallucinations returned to baseline with medication adjustments. She also reported a long history of "paranormal" experiences, which was also supported by her mother, who believes she can see paranormal activity as well. The patient attended and participated in groups and activities on the unit, was able to work on healthy coping skills and her discharge safety plan, and completed ADLs independently. She contacted her employer, and stated that she was being moved to another work location, so would no longer be working with the individual whom she had homicidal thoughts about. Attempts were made to contact that individuals complete the duty to warn , but the social service worker was not able to get in touch with him, so instead [place] police were contacted to complete the duty to warn. A family meeting was held with the patient's mother and the social service worker on 08/20/2017. Mother encouraged patient to rescind her 72 hour notice and stay for a few more days, but stated she was comfortable with discharge on the day the noticed the patient was unwilling to do this. The patient shared that her mother is very supportive, and she trusts her and confides in her. Mother shared concerns about the patient's worsening at home, stating she had not been doing her dishes or taking care of the Letter, and the patient admitted that these things have been problems. She was willing to work with a therapist, but has no insurance and did not have the funds to pay for appointments. She declined a referral to [employer] charities as it conflicts with her Satanist beliefs. She was willing for a referral for case management services. Her work situation was discussed, and she stated that she had been informed she would be moved to a different work location, I would no longer have to work with a male coworker she had thoughts of harming. She stated that she had no intent to harm the individual and did not plan on seeing him after discharge. Mother confirmed that they have multiple guns in the home, and agreed to lock them so that the patient would not have access to them. Mother also shared that she believes in the paranormal, and that both of them can see spirits and shadow people. Day of discharge assessment: The patient reports that her mood is "good," and she is happy to be leaving today, as she does not like being in the hospital and feels claustrophobic. She is looking forward to returning home with mother, and denies any safety concerns. She denies thoughts of harming herself or anyone else, and is able to review her safety plan. She states that she will return to work after her employer assigns her a new building, and does not expect that she will see her former coworker again. She states that if she did see him, she would walk away. She continues to have auditory hallucinations of whispered, mumbling voices, but cannot make out they are saying, and denies command auditory hallucinations. Anxiety is improved from admission, and she denies panic attacks since coming into the hospital. She feels her anxiety will be even better when she leaves, as some of her anxiety here has been triggered by being in a closed in unit and around a lot of people. Her 72 hour notice will today. she has appointment with her outpatient psychiatrist this afternoon, and with her new top case assembler tomorrow. Well nourished, well developed WF appearing stated age. Casually dressed and adequately groomed. Calm and cooperative. Seated in NAD, with fair eye contact and no abnormal movements. Speech is normal rate, volume, and tone. Mood is "good," and affect is stable and congruent. Thoughts are linear, logical and goal directed. The patient denied suicidal and homicidal ideation and was able to safety plan. No paranoia or delusions, and did not appear to be responding to internal stimuli. She continues to experience auditory hallucinations of whispered voices, but cannot make out what they are saying, and denies command auditory hallucinations. Cognition was grossly intact. Alert and oriented to person, place and time. Intelligence is consistent with level of education. Insight and and judgment are fair. Laboratory Test 08/19/17 10:23 08/19/17 11:04 08/19/17 11:05 Urine Color YELLOW Urine Appearance CLEAR Urine pH 5.0 Urine Specific Riner 1.012 Urine Protein NEG Urine Glucose (UA) NEG Urine Ketones NEG Urine Occult Blood NEG Urine Nitrite NEG Urine Bilirubin NEG Urine Urobilinogen NEG Urine Leukocyte Esterase SMALL Urine WBC (Auto) 10-30 Urine RBC (Auto) 5-10 Urine Hyaline Casts (Auto) 1-5 Urine Epithelial Cells (Auto) >30 Urine Bacteria (Auto) NEG Urine Yeast (Auto) BUDDING Urine Test NEG Urine Opiates Screen NEG Urine Methadone, Qualitative NEG Urine Barbiturates NEG Urine Phencyclidine (PCP) Level NEG Ur Amphetamine/Methamphetamine NEG MDMA (Ecstasy) Screen NEG Urine Benzodiazepines Screen NEG Urine Cocaine Metabolite NEG Urine Marijuana (THC) NEG POC Glucose 92 White Blood Count 7.99 Red Blood Count 4.41 Hemoglobin 14.5 Hematocrit 40.1 Mean Corpuscular Volume 90.9 Mean Corpuscular Hemoglobin 32.9 Mean Corpuscular Hemoglobin Concent 36.2 Platelet Count 154 Mean Platelet Volume 12.7 Neutrophils (%) (Auto) 61.5 Lymphocytes (%) (Auto) 22.4 Monocytes (%) (Auto) 4.8 Eosinophils (%) (Auto) 10.1 Basophils (%) (Auto) 0.9 Neutrophils # (Auto) 4.92 Lymphocytes # (Auto) 1.79 Monocytes # (Auto) 0.38 Eosinophils # (Auto) 0.81 Basophils # (Auto) 0.07 RDW Standard Deviation 42.2 RDW Coefficient of Variation 12.7 Immature Granulocyte % (Auto) 0.3 Immature Granulocyte # (Auto) 0.02 Sodium Level 137 Potassium Level 3.9 Chloride Level 105 Carbon Dioxide Level 26 Anion Gap 6.0 Blood Urea Nitrogen 9 Creatinine 0.82 Est Creatinine Clear Calc Drug Dose 73.4 Estimated GFR () 112.9 Estimated GFR (Non- 97.4 BUN/Creatinine Ratio 10.6 Random Glucose 85 Calcium Level 8.7 Total Bilirubin 0.4 Direct Bilirubin 0.1 Aspartate Amino Transferase (AST) 11 Alanine Aminotransferase (ALT) 11 Alkaline Phosphatase 54 Total Protein 6.9 Albumin 3.9 Globulin 3.0 Albumin/Globulin Ratio 1.3 Thyroid Stimulating Hormone (TSH) 1.300 Ethyl Alcohol mg/dL < 3.0 Total Time Total Time Spent (min): Greater than 30 minutes Total Time Included: examination of the patient, discharge planning, medication reconciliation Tobacco Cessation at Discharge Smoking Status: Former Smoker FDA approved Prescription: non-smoker
== END 2017-08-22 10:27 | disposition home or self-care (01) | DRG 885 ==
LOC: C.EDB 09:56 → C.MHU 13:08
PROVIDERS: ADMIT Psychiatry & Neurology Psychiatry; ATTEND Psychiatry & Neurology Psychiatry
DX: F29 Unspecified psychosis not due to a substance or known physiological condition (principal); R45.850 Homicidal ideations; F41.0 Panic disorder [episodic paroxysmal anxiety]; F44.9 Dissociative and conversion disorder, unspecified; F32.9 Major depressive disorder, single episode, unspecified; Z79.899 Other long term (current) drug therapy; Z87.891 Personal history of nicotine dependence; Z81.8 Family history of other mental and behavioral disorders

== ENCOUNTER 2017-09-04 10:44 | Emergency (ER) | payer OTHER ==
[~2017-09-04] VITALS: Ht 152.4 cm; Wt 53.4 kg
[~2017-09-04 10:44] MED LIST changes: +BUSP-8 PO; -FLUO10CA48 PO; +FLUO40CA8 PO; +HLD5 PO; -MULT-506 PO
[2017-09-04 10:52] VITALS: TEMP 36.8; Ht 152.4 cm; Wt 53.4 kg
[2017-09-04] MEDS ORDERED: HYDR25CA PO (11:24)
[2017-09-04] MEDS ORDERED: SODIUM CHLORIDE 0.9% 1000ML 1,000 ML IV STA (11:49)
[2017-09-04] MEDS ORDERED: SODIUM CHLORIDE 0.9% 1000ML 1,000 ML IV ONE (11:49)
[2017-09-04] MEDS ORDERED: LORAZEPAM 1 MG TAB SL STA (11:55)
[2017-09-04 12:34] LABS: BASO % 0.8 %; BASO ABS # 0.08 K/uL (0-0.2); COMPLETE YES; EOS % 6.6 %; HEMATOCRIT 41.9 % (37-47); IG% 0.1 %; LYMPH % 21.9 %; MEAN CELL VOLUME 90.3 fL (80-100); MEAN CORPUSCULAR HEMOGLOBIN 32.3 pg (25-34); MEAN CORPUSCULAR HGB CONC 35.8 g/dl (32-36); MEAN PLATELET VOLUME 11.8 fL (7.4-10.4); MONO % 4.9 %; NEUT % 65.7 %; PLATELET COUNT 166 K/uL (130-400); RED BLOOD COUNT 4.64 M/uL (4.2-5.4); WHITE BLOOD COUNT 9.59 K/uL (4.8-10.8)
[2017-09-04 12:55] LABS: PREG INTERNAL NEGATIVE QC NEG CLEAR BACKGROUND; PREG INTERNAL POSITIVE QC POS CONTROL LINE
[2017-09-04 12:56] LABS: CALCIUM 8.9 mg/dl (8.5-10.1); POTASSIUM 3.6 mmol/L (3.5-5.1)
[2017-09-04] MEDS ORDERED: LORAZEPAM 0.5 MG TAB SL STA (13:07)
[2017-09-04] MEDS ORDERED: ATV/1 PO (14:04)
--- NOTE | 2017-09-04 14:10 | EMERGENCY ROOM VISIT NOTE ---
History Report prepared by Dax: Celestine Salinas Under the Supervision of: Dr. Ramiro Benton M.D. First contact with patient: 11:42 Chief Complaint: DIZZY Stated Complaint: DIZZY/CONFUSION Nursing Triage Summary: Pt reports onset of dizziness at work this morning. Pt is anxious, restless. Reports hx of anxiety. Is on medication for anxiety History of Present Illness The patient is a 27 year old female who presents to the Emergency Room with complaints of persistent anxiety beginning today. She has a history of anxiety and psychosis. She states "I just feel really fidgety". The patient notes that she was started on new medication three weeks ago. She also complains of dizziness. She denies any nausea, vomiting, numbness, weakness, headache, or urinary symptoms. The patient denies any recent falls or trauma. She denies any suicidal or homicidal ideation. She denies hallucinations. The patient denies any drug or alcohol use. She denies chance of . She has no history of thyroid problems. Source of History: patient Onset: Today Quality: other (anxiety) Timing: other (persistent) Associated Symptoms: No fevers, No nausea, No vomiting, No urinary symptoms , No weakness, No numbness Note: Additional symptoms: feeling fidgety. Review of Systems See HPI for pertinent positives & negatives. A total of 10 systems reviewed and were otherwise negative. Past Medical & Surgical Medical Problems: (1) Depression (2) Dissociative and conversion disorder, unspecified (3) Homicidal ideation (4) Panic disorder without agoraphobia (5) Past Psych Meds (6) Psychosis Old medical records were reviewed. Nurse's notes were reviewed and I agree with. Family History FH: heart disease Hypertension Social History Smoking Status: Former Smoker Alcohol Use: none Drug Use: none Marital Status: single Housing Status: lives with family Occupation Status: employed Current/Historical Medications Scheduled Buspirone Hcl (Buspirone Hcl), 10 MG PO BID Fluoxetine Hcl (Prozac), 1 CAP PO DAILY Haloperidol (Haloperidol), 5 MG PO HS Hydroxyzine Pamoate (Vistaril), 1 CAP PO BID Scheduled PRN Lorazepam (Ativan), 1 MG PO Q12 PRN for Anxiety/Agitation Allergies Coded Allergies: Codeine (Verified Allergy, Unknown, SOB-"RESTLESSNESS", 04/21/16) Physical Exam Vital Signs Date Time Temp Pulse Resp B/P (MAP) Pulse Ox O2 Delivery O2 Flow Rate FiO2 09/04/17 14:25 78 16 116/70 97 09/04/17 12:36 78 16 118/74 98 Room Air 09/04/17 12:11 71 09/04/17 10:52 36.8 73 18 118/73 98 Room Air Physical Exam General: Well developed well nourished in no acute distress, breathing comfortably on room air. Normal speech. Complaining of feeling anxious. No tremor. HEENT: Normal cephalic atraumatic. Pupils are equal round and reactive to light. Sclerae are anicteric. Extraocular movements are intact. Oropharynx is pink with moist mucous membranes. No swelling of the mouth lips or tongue. Neck: Supple with a midline trachea. No meningeal signs or stiffness, no JVD or bruits. No Stridor. Chest: Clear to auscultation bilaterally. No wheezes or rhonchi. No increased work of breathing. Heart: regular rate and rhythm. Abdomen: Soft nontender, nondistended without rebound guarding or rigidity. Extremities: No cyanosis clubbing or edema. No calf tenderness or assymetry Spine/Back. Non tender to palpation. No CVA tenderness Skin: Good turgor without rashes. Neurologic exam: Cranial nerves two through 12 are intact. Motor and sensation are intact and symmetrical throughout. No tremor. Psych: Denies hallucinations, suicidal ideation or homicidal ideation. Medical Decision & Procedures Laboratory Results 09/04/17 12:11 Red Blood Count 4.64, Mean Corpuscular Volume 90.3, Mean Corpuscular Hemoglobin 32.3, Mean Corpuscular Hemoglobin Concent 35.8, Mean Platelet Volume 11.8, Neutrophils (%) (Auto) 65.7, Lymphocytes (%) (Auto) 21.9, Monocytes (%) (Auto) 4.9, Eosinophils (%) (Auto) 6.6, Basophils (%) (Auto) 0.8, Neutrophils # (Auto) 6.30, Lymphocytes # (Auto) 2.10, Monocytes # (Auto) 0.47, Eosinophils # (Auto) 0.63, Basophils # (Auto) 0.08 09/04/17 12:11 Test 09/04/17 12:11 White Blood Count 9.59 K/uL (4.8-10.8) Red Blood Count 4.64 M/uL (4.2-5.4) Hemoglobin 15.0 g/dL (12.0-16.0) Hematocrit 41.9 % (37-47) Mean Corpuscular Volume 90.3 fL (80-100) Mean Corpuscular Hemoglobin 32.3 pg (25-34) Mean Corpuscular Hemoglobin Concent 35.8 g/dl (32-36) Platelet Count 166 K/uL (130-400) Mean Platelet Volume 11.8 fL (7.4-10.4) Neutrophils (%) (Auto) 65.7 % Lymphocytes (%) (Auto) 21.9 % Monocytes (%) (Auto) 4.9 % Eosinophils (%) (Auto) 6.6 % Basophils (%) (Auto) 0.8 % Neutrophils # (Auto) 6.30 K/uL (1.4-6.5) Lymphocytes # (Auto) 2.10 K/uL (1.2-3.4) Monocytes # (Auto) 0.47 K/uL (0.11-0.59) Eosinophils # (Auto) 0.63 K/uL (0-0.5) Basophils # (Auto) 0.08 K/uL (0-0.2) RDW Standard Deviation 41.1 fL (36.4-46.3) RDW Coefficient of Variation 12.5 % (11.5-14.5) Immature Granulocyte % (Auto) 0.1 % Immature Granulocyte # (Auto) 0.01 K/uL (0.00-0.02) Anion Gap 10.0 mmol/L (3-11) Est Creatinine Clear Calc Drug Dose 60.2 ml/min Estimated GFR () 88.8 Estimated GFR (Non- 76.6 BUN/Creatinine Ratio 11.0 (10-20) Calcium Level 8.9 mg/dl (8.5-10.1) Total Bilirubin 0.5 mg/dl (0.2-1) Direct Bilirubin 0.1 mg/dl (0-0.2) Aspartate Amino Transf (AST/SGOT) 10 U/L (15-37) Alanine Aminotransferase (ALT/SGPT) 20 U/L (12-78) Alkaline Phosphatase 56 U/L (45-117) Total Protein 7.3 gm/dl (6.4-8.2) Albumin 4.4 gm/dl (3.4-5.0) Lipase 142 U/L (73-393) Human Chorionic Gonadotropin, Qual NEG (NEG) Laboratory studies as stated above per my review. Medications Administered Medications (Trade) Dose Ordered Sig/Karlie Route Start Time Stop Time Status Last Admin Dose Admin Sodium Chloride 1,000 ml @ 999 mls/hr Q1H1M STAT IV 09/04/17 11:49 09/04/17 12:49 DC 09/04/17 12:05 999 MLS/HR Sodium Chloride 1,000 ml @ 150 mls/hr Q6H40M ONCE IV 09/04/17 11:49 09/04/17 15:45 DC 09/04/17 11:49 150 MLS/HR Lorazepam (Ativan Tab) 1 mg NOW STAT SL 09/04/17 11:55 09/04/17 11:56 DC 09/04/17 12:04 1 MG ECG Indication: other (anxiety) Rate (beats per minute): 67 Rhythm: normal sinus Findings: no acute ischemic change, no ectopy, other (No prolonged QT) Comparison ECG Date: no prior available ED Course 1145: Past medical records reviewed. The patient was evaluated in room C2, and a complete history and physical examination were performed. 1149: Ordered Sodium Chloride 1000 ml @ 150 mL/hr IV, Sodium Chloride 1000 ml @ 999 mls/hr IV. 1155: Ordered Ativan 1 mg SL. 1307: Ordered Ativan 0.5 mg SL. 1405: Upon reevaluation, the patient is resting comfortably. She feels better. I discussed the results and treatment plan with her. She verbalized agreement of the treatment plan. The patient was discharged home. Medical Decision Differentials include, but are not limited to; anxiety, mediation side effect and electrolyte or metabolic abnormality. This patient comes in as described above. She was placed in room C2. She says she feels anxious. She has been started on some psychiatric medications a couple weeks ago could be related that she is on Vistaril which would help any akathisia potentially. She is on Haldol. She has no evidence to suggest that she has a serotonin syndrome. She looks well otherwise . she denies any suicidal or homicidal ideations or hallucinations and does not feel that she needs acute psychiatric consultation. EKG does not suggest acute coronary syndrome or arrhythmia. she's no acute electrolyte or metabolic abnormalities. She was given Ativan 1 mg IV and felt quite a bit better was given an additional half milligram. I gave her small prescription that she can use if needed for anxiety. I recommend she follow up with her regular doctor or psychiatrist and return if : she has worsening symptoms, any problems concerns. She was happy with plan and discharged to home. Medication Reconcilliation Current Medication List: was personally reviewed by me Blood Pressure Screening Patient's blood pressure: Normal blood pressure Blood pressure disposition: Did not require urgent referral Impression Primary Impression: Anxiety Scribe Attestation The scribe's documentation has been prepared under my direction and personally reviewed by me in its entirety. I confirm that the note above accurately reflects all work, treatment, procedures, and medical decision making performed by me. Departure Information Dispostion Home / Self-Care Prescriptions Lorazepam (ATIVAN) 1 Mg Tab 1 MG PO Q12 Y for Anxiety/Agitation, #6 TAB Prov: Ramiro Benton M.D. 09/04/17 Referrals No Doctor, Assigned (PCP) Forms HOME CARE DOCUMENTATION FORM, IMPORTANT VISIT INFORMATION Patient Instructions My [facility] Additional Instructions Rest. Drink plenty of fluids. May use Ativan 1 mg every 12 hours if needed Do not take Ativan with alcohol or any other medications that make you sleepy Return if: Worsening of symptoms, thoughts of hurting yourself or others, any new problems or concerns.
[2017-09-04 14:25] VITALS: BP 116/70; PULSE 78; O2SAT 97
== END 2017-09-04 14:25 | disposition home or self-care (01) ==
LOC: C.EDB 10:45 → C.EDC 14:25
DX: F41.9 Anxiety disorder, unspecified (principal); R42 Dizziness and giddiness; R41.0 Disorientation, unspecified; F44.9 Dissociative and conversion disorder, unspecified; F32.9 Major depressive disorder, single episode, unspecified; Z79.899 Other long term (current) drug therapy; Z87.891 Personal history of nicotine dependence

== ENCOUNTER 2017-10-29 11:52 | Emergency (ER) | payer OTHER ==
[~2017-10-29] VITALS: Ht 152.4 cm; Wt 53.9 kg
[~2017-10-29 11:52] MED LIST changes: +HYDR25CA PO
[2017-10-29 12:01] VITALS: TEMP 37.2; Ht 152.4 cm; Wt 53.9 kg
[2017-10-29] MEDS ORDERED: BUSP-8 PO (12:17)
[2017-10-29] MEDS ORDERED: FLUO20CA35 PO (12:17)
[2017-10-29] MEDS ORDERED: CETI10TA84 PO (12:43)
[2017-10-29] MEDS ORDERED: PTDOPS OP (12:43)
--- NOTE | 2017-10-29 12:45 | EMERGENCY ROOM VISIT NOTE ---
ED Visit Note First contact with patient: 12:10 CHIEF COMPLAINT: Right eye swelling, allergy symptoms HISTORY OF PRESENT ILLNESS: This 27-year-old female patient presents to the emergency department ambulatory, complaining of itchy, watery eyes and right eye swelling which began this morning. The patient states she has been having issues with her allergies, which are flaring up over the past few weeks. She states last week, she had the same symptoms of left eye swelling, and the swelling improved by the end of the day. She states she woke this morning, and O2 sat her right eye was swollen. She states she does not typically take anything for her allergies, but did take which she believes to be Singulair this morning. The patient states her mother told her to come to the emergency department for evaluation of the swelling in her eye. The patient denies any purulent drainage or pain. She states there is copious watery discharge, but the eye does feel dry. She denies any foreign body sensation. The patient states the swelling is surrounding the eye. She denies any injury or foreign body. She states her symptoms have been associated with pressure behind the eyes, congestion, watery rhinorrhea, and some nausea. The patient denies any fever, chills, vomiting, diarrhea, constipation, sinus pain, otalgia, or other concerning symptoms. REVIEW OF SYSTEMS: A 6 system system review of systems was performed with positives and pertinent negatives listed in the history of present illness. All other systems were reviewed and are negative. ALLERGIES: Codeine MEDICATIONS: Buspirone, Prozac PMH: Anxiety SOCIAL HISTORY: The patient lives locally with family. She denies drug, alcohol use. She admits to smoking cigarettes. PHYSICAL EXAM: VITALS: Vitals are noted on the nurse's note and reviewed by myself. Vital signs stable. GENERAL: This is a 27-year-old white female, in no acute distress, nondiaphoretic, well-developed well-nourished. SKIN: The skin was without rashes, erythema, edema, or bruising. There is no tenting of the skin. Capillary reflex less than 2 seconds. HEAD: Normocephalic atraumatic. EARS: External auditory canals clear, tympanic membranes pearly white without erythema or effusion bilaterally. EYES: Pupils equal round and reactive to light and accommodation. Conjunctivae with mild injection, sclerae without icterus. Extraocular movements intact. There is mild watery drainage from bilateral eyes. There is periorbital swelling surrounding the right eye without evidence of cellulitis or abscess. Pterygiums noted in bilateral eyes, on the outer aspects of the eye, not encroaching over the iris or pupil. NOSE: Patent, turbinates pale, inflamed, and watery rhinorrhea noted. No purulent drainage. No sinus tenderness. MOUTH: Mucous membranes moist. Tonsils are not enlarged. Pharynx without erythema or exudate. Uvula midline. Airway patent. Tongue does not deviate. NECK: Supple without nuchal rigidity. No lymphadenopathy. No thyromegaly. Cervical spine is nontender. No JVD. HEART: Regular rate and rhythm without murmurs gallops or rubs. LUNGS: Clear to auscultation bilaterally without wheezes, rales or rhonchi. No dullness to percussion. No retractions or accessory muscle use. MUSCULOSKELETAL: No muscle atrophy, erythema, or edema noted. Full range of motion without joint tenderness in all extremities. No tenderness to palpation. Normal gait. Strength 5/5 throughout. NEURO: Patient was alert and oriented to person place and time. Normal sensation to light and sharp touch. No focal neurological deficits. EMERGENCY DEPARTMENT COURSE: The patient was seen and evaluated as above. Her symptoms appear to be allergic in nature. The patient has not been treating herself for allergies, despite her chronic history of allergies. I discussed proper management the patient, and encouraged her to follow up with primary care provider. The patient was provided with prescriptions for Zyrtec and Pataday drops. Discharge instructions reviewed, and the patient was discharged home in good condition. DIFFERENTIAL DIAGNOSIS: Allergic conjunctivitis, allergic rhinitis, Acute pharyngitis, URI, Acute conjunctivitis, conjunctival foreign body, tonsilitis, malignancy, and others DIAGNOSIS: Allergic rhinitis and allergic conjunctivitis Problem List Medical Problems: (1) Depression Status: Chronic Current/Historical Medications Scheduled Buspirone Hcl (Buspirone Hcl), 10 MG PO TID Cetirizine (Zyrtec), 10 MG PO DAILY Fluoxetine (Prozac), 20 MG PO DAILY Olopatadine Hydrochloride (Pataday), 1 DROPS OP DAILY Allergies Coded Allergies: Codeine (Verified Allergy, Unknown, SOB-"RESTLESSNESS", 10/29/17) Vital Signs Date Time Temp Pulse Resp B/P (MAP) Pulse Ox O2 Delivery O2 Flow Rate FiO2 10/29/17 12:01 37.2 76 18 124/79 99 Room Air Departure Information Impression Primary Impression: Allergic conjunctivitis and rhinitis Dispostion Home / Self-Care Condition GOOD Prescriptions Olopatadine Hydrochloride (PATADAY) 37 Drops/2.5 Ml Soln 1 DROPS OP DAILY for 30 Days, #1 BTL Prov: Cynthia Olivares PA-C 10/29/17 Cetirizine (Zyrtec) 10 Mg Tab 10 MG PO DAILY for 30 Days, #30 TAB Prov: Cynthia Olivares PA-C 10/29/17 Referrals No Doctor, Assigned (PCP) Patient Instructions ED Allergic Conjunctivitis, [facility] Additional Instructions You were seen and evaluated in the emergency department today for allergic conjunctivitis and rhinitis. Use Cetirizine (Zyrtec) 10mg daily for congestion/runny nose symptoms. Use Pataday as prescribed in the eyes to help with conjunctivitis symptoms. Drink warm tea with honey and lemon, as this will also help to soothe the throat. Gargle with salt water frequently. Ibuprofen(Motrin, Advil) may be used for fever or pain. Use 600mg every six hours as needed. Take with food. Avoid using more than 2400mg in a 24 hour period. Do not use 2400mg per day for more than three consecutive days without physician direction. Prolonged inappropriate use can lead to stomach upset or ulcers. You may take Naproxen 1-2 tablets twice daily in place of ibuprofen. This medication will help with the swelling in your sinuses. (AND/OR) Acetaminophen(Tylenol) may be used for fever or pain. Use 1000mg every six hours as needed. Avoid using more than 3000mg in a 24 hour period. For congestion, you may use Flonase OTC. You may want to consider zinc, echinacea, and vitamin C to help boost your immunity. Please get plenty of rest and drink plenty of fluids. Please return or follow-up with your PCP in 1 week regarding chronic allergy management. Consider follow-up with ophthalmology regarding chronic allergic conjunctivitis which could cause chronic eye problems. Return to the emergency department for coughing up blood, difficulty breathing, chest pain, worsening symptoms, or for other concerns. Problem Qualifiers Primary Impression: Allergic conjunctivitis and rhinitis Laterality: bilateral Qualified Codes: H10.13 - Acute atopic conjunctivitis , bilateral; J30.9 - Allergic rhinitis, unspecified
[2017-10-29 12:53] VITALS: BP 128/78; PULSE 81; O2SAT 100
== END 2017-10-29 12:55 | disposition home or self-care (01) ==
LOC: C.EDB 11:54 → C.EDD 12:55
DX: H10.13 Acute atopic conjunctivitis, bilateral (principal); J30.9 Allergic rhinitis, unspecified; F41.9 Anxiety disorder, unspecified; F32.9 Major depressive disorder, single episode, unspecified; F17.210 Nicotine dependence, cigarettes, uncomplicated; Z79.899 Other long term (current) drug therapy

== ENCOUNTER 2018-03-01 13:54 | Emergency (ER) | payer OTHER ==
[~2018-03-01] VITALS: Ht 152.4 cm; Wt 60.1 kg
[~2018-03-01 13:54] MED LIST changes: +FLUO20CA35 PO; -FLUO40CA8 PO; -HLD5 PO; -HYDR25CA PO
[2018-03-01 13:58] VITALS: TEMP 36.8; Ht 152.4 cm; Wt 60.1 kg
[2018-03-01] MEDS ORDERED: ALBUT/IPRATROP 3MG/0.5MG NEB 3 ML VIAL INH STA ×4 (14:28→15:26)
--- NOTE | 2018-03-01 15:00 | EMERGENCY ROOM VISIT NOTE ---
History Report prepared by Dax: Vincent Gonzalez Under the Supervision of: Dr. Gualberto Valdes M.D. First contact with patient: 14:07 Chief Complaint: CHEST PAIN Stated Complaint: CHEST PAIN,TROUBLE BREATHING Nursing Triage Summary: pt reports chest pain and sob has been fight cold sx has cough with white sputum. has allergies no asthma. no fevers History of Present Illness The patient is a 27 year old female who presents to the Emergency Room with complaints of pleuritic chest pain beginning this morning. The patient states that she first developed her chest pain yesterday, but reports that it was intermittent pain. She also complains of SOB, a cough, and wheezing. She reports that she is coughing up mucus but is not coughing up any blood. She denies any fever, nausea, vomiting, LOC, and chance of . She also denies any recent travel and is not on control. The patient states that her pain worsens when she coughs. She notes that she is not on any blood thinners or exogenous hormones but takes fluoxetine and Seroquel. She reports that she smokes half a pack of cigarettes a day. Source of History: patient Onset: this morning Position: chest Timing: constant Modifying Factors (Worsening): other (coughing) Associated Symptoms: + cough (productive for mucus), + SOB, No LOC, No fevers, No nausea, No vomiting Note: The patient also complains of wheezing. The patient denies coughing up any blood. Review of Systems See HPI for pertinent positives and negatives. A total of ten systems were reviewed and were otherwise negative. Past Medical & Surgical Medical Problems: (1) Depression (2) Dissociative and conversion disorder, unspecified (3) Homicidal ideation (4) Panic disorder without agoraphobia (5) Past Psych Meds (6) Psychosis Family History FH: heart disease Hypertension Social History Smoking Status: Current Every Day Smoker Alcohol Use: none Drug Use: none Marital Status: single Housing Status: lives with family Occupation Status: employed Current/Historical Medications Scheduled Albuterol (Ventolin Hfa), 2 PUFFS INH QID Benzonatate (Tessalon Perles), 100 MG PO TID Buspirone Hcl (Buspirone Hcl), 10 MG PO TID Fluoxetine (Prozac), 20 MG PO HS Prednisone (Prednisone), 50 MG PO DAILY Quetiapine Fumarate (Seroquel), 50 MG PO HS Allergies Coded Allergies: Codeine (Verified Allergy, Unknown, SOB-"RESTLESSNESS", 03/01/18) Physical Exam Vital Signs Date Time Temp Pulse Resp B/P (MAP) Pulse Ox O2 Delivery O2 Flow Rate FiO2 03/01/18 17:24 94 18 99/58 97 Room Air 03/01/18 15:44 91 18 116/68 100 Room Air 03/01/18 14:41 90 18 110/66 100 Room Air 03/01/18 14:18 81 03/01/18 13:58 36.8 91 18 115/76 97 Room Air Physical Exam Physical Exam GENERAL: She is oriented to person, place, and time. She appears well- developed and well-nourished. She does not appear distressed. HENT: Exam performed. Head: Normocephalic and atraumatic. Right Ear: External ear normal. No mastoid tenderness. Left Ear: External ear normal. No mastoid tenderness. Mouth/Throat: The oropharynx is clear and moist. No trismus in the jaw. No dental abscesses or uvula swelling. No oropharyngeal exudate or tonsillar abscesses. EYES: Conjunctivae and EOM are normal. Pupils are equal, round, and reactive to light. Right eye exhibits no discharge. Left eye exhibits no discharge. No scleral icterus. NECK: Normal range of motion. Neck supple. No JVD present. No spinous process tenderness present. No carotid bruit present. No rigidity. No tracheal deviation and normal range of motion present. No Brudzinski's sign and no Kernig 's sign noted. CV: Normal rate, regular rhythm, normal heart sounds and intact distal pulses. There is no peripheral edema. Palpable radial pulses bue. PULM/CHEST: Effort normal. No respiratory distress. No stridor. She has no rales. Diffuse expiratory wheezes. Chest Wall: She exhibits no tenderness. ABD: The abdomen is soft. Bowel sounds are normal. She has no distension. No mass is present. There is no tenderness. There is no rebound, no guarding, no Chung's sign and no tenderness at McBurney's point. Rovsig negative MUSC/SKEL: Normal range of motion. There is no peripheral edema, tenderness or deformity. LYMPH: No cervical adenopathy. NEURO: She is alert and oriented to person, place, and time. She has normal strength. No cranial nerve deficit or sensory deficit. Coordination and gait normal. GCS eye subscore is 4. GCS verbal subscore is 5. GCS motor subscore is 6. Cerebellar tests wnl. SKIN: Skin is warm and dry. She is not diaphoretic. PSYCH: She has a normal mood and affect. Her behavior is normal. Judgment and thought content normal. Medical Decision & Procedures ER Provider Diagnostic Interpretation: Radiology results as stated below per my review and radiologist interpretation: TWO VIEW CHEST FINDINGS: PA and lateral chest radiographs are obtained. No prior studies are available for comparison at the time of dictation. The cardiomediastinal silhouette is unremarkable. The lungs and pleural spaces are clear. Nipple shadows project over the lower lobes. There is no pneumothorax. The bony thorax appears intact. IMPRESSION: No active disease in the chest. Electronically signed by: Edi Gomez M.D. 03/01/2018 3:36 PM Laboratory Results Test 03/01/18 14:39 Influenza Type A Antigen Neg for Influ A (NEG) Influenza Type B Antigen Neg for Influ B (NEG) Laboratory results reviewed by me Medications Administered Medications (Trade) Dose Ordered Sig/Karlie Route Start Time Stop Time Status Last Admin Dose Admin Albuterol/ Ipratropium (Duoneb) 3 ml NOW STAT INH 03/01/18 14:28 03/01/18 14:31 DC 03/01/18 14:34 3 ML Prednisone (PredniSONE TAB) 60 mg NOW STAT PO 03/01/18 14:28 03/01/18 14:31 DC 03/01/18 14:34 60 MG Albuterol/ Ipratropium (Duoneb) 3 ml NOW STAT INH 03/01/18 15:19 03/01/18 15:20 DC 03/01/18 15:32 3 ML ECG Per My Interpretation Indication: chest pain Rate (beats per minute): 78 Rhythm: sinus rhythm Findings: other ([place]/QRS/QTC WNL, no ST elevation/depression) ED Course 1424: The patient was evaluated in room C2. A complete history and physical exam was performed. 1428: Prednisone 60mg PO, Duoneb 3ml INH 1519: Duoneb 3ml INH 1657: Vital signs stable. Influenza and chest x-ray negative. I reevaluated and updated the patient. Her vital signs are stable. Status post 2 Duonebs and all steroids, the patient is no longer wheezing. Feeling peak flow at 300. I will discharge the patient with an albuterol inhaler and prednisone. DISCHARGE - Plan of care discussed with patient and questions answered. The patient was given both verbal and printed discharge instructions. The patient verbalized understanding and ability to comply. The patient is to seek outpatient follow up as noted in the discharge instructions. The patient verbalized understanding and ability to comply. The patient is discharged in stable condition. The patient was instructed to return for worsening symptoms. Medical Decision Vital signs stable. Influenza and chest x-ray negative. I reevaluated and updated the patient. Her vital signs are stable. Status post 2 Duonebs and all steroids, the patient is no longer wheezing. Feeling peak flow at 300. I will discharge the patient with an albuterol inhaler and prednisone. DISCHARGE - Plan of care discussed with patient and questions answered. The patient was given both verbal and printed discharge instructions. The patient verbalized understanding and ability to comply. The patient is to seek outpatient follow up as noted in the discharge instructions. The patient verbalized understanding and ability to comply. The patient is discharged in stable condition. The patient was instructed to return for worsening symptoms. Medication Reconcilliation Current Medication List: was personally reviewed by me Blood Pressure Screening Patient's blood pressure: Normal blood pressure Blood pressure disposition: Did not require urgent referral Impression Primary Impression: URI (upper respiratory infection) Additional Impressions: Cough Wheezing Tobacco abuse Scribe Attestation The scribe's documentation has been prepared under my direction and personally reviewed by me in its entirety. I confirm that the note above accurately reflects all work, treatment, procedures, and medical decision making performed by me. The chart was completed utilizing [employer] Speech voice recognition software. Grammatical errors, random word insertions, pronoun errors, and incomplete sentences are an occasional consequence of this system due to software limitations, ambient noise, and hardware issues. Any formal questions or concerns about the content, text, or information contained within the body of this dictation should be directly addressed to the physician for clarification. Departure Information Dispostion Home / Self-Care Prescriptions Benzonatate (TESSALON PERLES) 100 Mg Cap 100 MG PO TID for Cough, #30 CAP Prov: Gualberto Valdes M.D. 03/01/18 Albuterol (Ventolin Hfa) 60 Puffs/5400 Mcg Aers 2 PUFFS INH QID for 5 Days, #1 INHALER Prov: Gualberto Valdes M.D. 03/01/18 Prednisone (Prednisone) 50 Mg Tab 50 MG PO DAILY for 4 Days, #4 TAB Prov: Gualberto Valdes M.D. 03/01/18 Referrals No Doctor, Assigned (PCP) Forms HOME CARE DOCUMENTATION FORM, IMPORTANT VISIT INFORMATION Patient Instructions [facility] Problem Qualifiers Primary Impression: URI (upper respiratory infection) URI type: unspecified viral URI Qualified Codes: J06.9 - Acute upper respiratory infection, unspecified
[2018-03-01] MEDS ORDERED: QUET5TAB PO (15:05)
[2018-03-01 15:06] LABS: INFLUENZA B ANTIGEN Neg for Influ B (NEG)
--- NOTE | 2018-03-01 15:37 | DIAGNOSTIC IMAGING REPORT ---
TWO VIEW CHEST CLINICAL HISTORY: Dyspnea. Atypical chest pain. FINDINGS: PA and lateral chest radiographs are obtained. No prior studies are available for comparison at the time of dictation. The cardiomediastinal silhouette is unremarkable. The lungs and pleural spaces are clear. Nipple shadows project over the lower lobes. There is no pneumothorax. The bony thorax appears intact. IMPRESSION: No active disease in the chest. Electronically signed by: Edi Gomez M.D. 03/01/2018 3:36 PM Dictated Date/Time: 03/01/2018 3:35 PM
[2018-03-01] MEDS ORDERED: PRVHFAIN INH (16:57)
[2018-03-01] MEDS ORDERED: BENZ100C18 PO (16:57)
[2018-03-01] MEDS ORDERED: PRED50TA PO (16:57)
[2018-03-01 17:24] VITALS: BP 99/58; PULSE 94; O2SAT 97
== END 2018-03-01 17:24 | disposition home or self-care (01) ==
LOC: C.EDB 13:55 → C.EDC 17:24
DX: J06.9 Acute upper respiratory infection, unspecified (principal); R05 Cough; R06.2 Wheezing; R07.81 Pleurodynia; R06.02 Shortness of breath; F32.9 Major depressive disorder, single episode, unspecified; Z79.899 Other long term (current) drug therapy; Z88.5 Allergy status to narcotic agent; Z82.49 Family history of ischemic heart disease and other diseases of the circulatory system; F17.200 Nicotine dependence, unspecified, uncomplicated

== ENCOUNTER 2019-03-05 11:14 | Inpatient (IN) ==
[2019-03-05] MEDS ORDERED: LORazepam 1 MG TAB PO STA (11:39)
[2019-03-05 12:05] LABS: Basophils # (auto) 0.04 K/uL (0-0.2); Basophils % (auto) 0.5 %; Eosinophils # (auto) 1.12 K/uL (0-0.5); Eosinophils % (auto) 13.2 %; Hematocrit (blood only) 40.3 % (37-47); Hemoglobin 14.1 g/dL (12.0-16.0); Immature Granulocytes # (auto) 0.01 K/uL (0.00-0.02); Immature Granulocytes % (auto) 0.1 %; Lymphocytes # (auto) 1.73 K/uL (1.2-3.4); Lymphocytes % (auto) 20.4 %; Mean Corpuscular Volume 92.2 fL (80-100); Mean Platelet Volume 11.3 fL (7.4-10.4); Monocytes % (auto) 4.7 %; Neutrophils # (auto) 5.16 K/uL (1.4-6.5); Neutrophils % (auto) 61.1 %; Platelet Count 184 K/uL (130-400); RDW Coefficient of Variation 12.9 % (11.5-14.5); RDW Standard Deviation 44.1 fL (36.4-46.3); Red Blood Count 4.37 M/uL (4.2-5.4); White Blood Count 8.46 K/uL (4.8-10.8)
[2019-03-05 12:25] LABS: Albumin Level 3.8 gm/dl (3.4-5.0); BUN Creatinine Ratio 8.2 (10-20); Calcium 8.9 mg/dl (8.5-10.1); Creatinine Clr Calc Pharmacy 79.9 ml/min; Est GFR (African American) 98.1; Est GFR (Non-African American) 84.7; Potassium 3.7 mmol/L (3.5-5.1)
[2019-03-05 12:26] LABS: Acetaminophen < 2 ug/ml (10-30); Salicylate < 1.7 mg/dl (2.8-20)
[2019-03-05 12:36] LABS: Albumin Globulin Ratio 1.1 (0.9-2); Bilirubin,Total 0.3 mg/dl (0.2-1); Globulin 3.4 gm/dl (2.5-4.0); Total Protein 7.2 gm/dl (6.4-8.2)
[2019-03-05 12:52] LABS: Appearance Urine Cloudy (Clear); Bilirubin Urine Negative (Negative); Blood Urine Negative (Negative); Color Urine Yellow; Epithelial Cell Urine Auto >30 /lpf (0-5); Glucose Urine UA Negative (Negative); Ketones Urine Negative (Negative); Leukocyte Esterase Urine Trace (Negative); Nitrite Urine Negative (Negative); Protein Urine Negative (Negative); Urobilinogen Urine Negative (Negative)
[2019-03-05 13:05] LABS: Calcium Oxalate Crystals Urine Present (None Prsent)
[2019-03-05 13:06] LABS: RBC Urine Automated 0-4 /hpf (0-4)
[2019-03-05 13:07] LABS: Bacteria Urine Automated 1+ (Negative)
[2019-03-05 13:40] LABS: Amphetamines+Metham, Urine Neg (Neg); Barbiturates, Urine Neg (Neg); Benzodiazepine, Urine Neg (Neg); Cocaine, Urine Neg (Neg); MDMA (Ecstacy), Urine Neg (Neg); Methadone, Urine Neg (Neg); Opiate, Urine Neg (Neg); Phencyclidine, Urine Neg (Neg)
--- NOTE | 2019-03-05 13:51 | Emergency Department Note ---
Entered by Sole Jiang acting as a scribe for Perez Doyle MD History of Present Illness General Chief complaint: Mental Health Evaluation Stated complaint: SUICIDAL,HOMICIDAL THOUGHTS & VOICES Time Seen by Provider: 03/05/19 11:38 Source: patient History of Present Illness Provider complaint: need for mental health evaluation Onset (ago): day(s) 3 Location: head Severity: similar to prior episodes Pain Consistency: + other (episode) Quality: + other (need for mental health evaluation) Associated symptoms: + other (auditory and visual hallucinations, irrational anger. Denies: self-harm) The patient is a 29 year old white female w/ PMHx of depression, anxiety, psychosis, bipolar disorder, and schizoaffective disorder, who presents to the ED w/ CC of an episode of need for mental health evaluation beginning 3 days ago. She reports she has been having auditory hallucinations, which tell her to kill herself and others, and are similar to voices she has heard in the past. The patient notes occasional visual hallucinations of shadowy figures. She notes recent irrational anger over the past 1 to 2 months. The patient states these symptoms are affecting her daily life. The patient denies any desire to harm herself currently, and denies history of self-harm. She notes she does not have access to weapons. The patient reports she began taking Trazodone about 1 month ago. She denies alcohol, tobacco, and drug use. 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 Home Medications Home Medications Medication Instructions Recorded Confirmed Type buspirone 10 mg PO TID 08/24/18 03/05/19 History fluoxetine 20 mg PO DAILY 08/24/18 03/05/19 History quetiapine [Seroquel] 100 mg PO HS 08/24/18 03/05/19 History mirtazapine [Remeron] 15 mg PO HS 03/05/19 03/05/19 History ziprasidone HCl [Geodon] 20 mg PO BID 03/05/19 03/05/19 History Allergies Allergy/AdvReac Type Severity Reaction Status Date / Time codeine Allergy Unknown SOB-"RESTLE Verified 08/08/18 14:03 SSNESS" Past Med/Surg History Medical History Depression (Chronic) Anxiety (Acute) Dissociative and conversion disorder, unspecified Homicidal ideation Panic disorder without agoraphobia Psychosis Thought disorder (Acute) Visual hallucinations (Acute) Family History Other Family history non-contributory Social History Preferred Language: Stateless Communication Ability: Effective Inpatient Pharmacist Required: No Beliefs That Will Affect Care: Spiritual (Catholic and Paganism) Feels Safe at Home: Yes Smoking Status: Former smoker ("on and off" x 14 years - has been tobacco-free for 2 months) Review of Systems See HPI for pertinent positives & negatives. and A total of 10 systems reviewed and were otherwise negative Physical Exam Vital Signs Vital Signs - 24 hr 03/05/19 11:16 03/05/19 13:14 03/05/19 15:00 Temperature 36.4 C L Temperature Source Oral Sepsis Recent Fever Within 48 Hours No Sepsis New/Unexplained Change in Mental Status No Sepsis Action Taken by Nursing No Action Required Pulse Rate 80 Pulse Rate [Left Brachial] Pulse Rate [Left Finger] 63 81 Pulse Rhythm [Left Brachial] Pulse Strength [Left Brachial] Respiratory Rate 20 18 18 Respiratory Effort / Characteristics Non-Labored Spontaneous Respiratory Depth Normal Respiratory Pattern Regular Blood Pressure 115/77 Blood Pressure [Left Arm] 110/69 124/65 Blood Pressure Mean 89 Blood Pressure Mean [Left Arm] 82 84 Blood Pressure Position [Left Arm] Lying Pulse Oximetry 98 100 97 Oxygen Delivery Method Room Air Room Air Room Air 03/05/19 18:15 03/06/19 06:49 03/06/19 06:50 Temperature 37.6 C H 36.7 C Temperature Source Oral Oral Sepsis Recent Fever Within 48 Hours Sepsis New/Unexplained Change in Mental Status Sepsis Action Taken by Nursing Pulse Rate Pulse Rate [Left Brachial] 74 80 Pulse Rate [Left Finger] 82 Pulse Rhythm [Left Brachial] Regular Regular Pulse Strength [Left Brachial] Normal Normal Respiratory Rate 18 16 Respiratory Effort / Characteristics Non-Labored Spontaneous Non-Labored Respiratory Depth Normal Normal Respiratory Pattern Regular Regular Blood Pressure Blood Pressure [Left Arm] 124/65 100/65 101/69 Blood Pressure Mean Blood Pressure Mean [Left Arm] 84 76 79 Blood Pressure Position [Left Arm] Sitting Lying Sitting Pulse Oximetry Oxygen Delivery Method GENERAL: Well appearing, well nourished, NAD, non-toxic. Wearing glasses. EYE EXAM: Normal conjunctiva. PERRL, no anisocoria and EOM's grossly intact w/o pain. OROPHARYNX: Moist MM. NECK: Supple, no nuchal rigidity, no adenopathy, non-tender. No signs of meningismus. LUNGS: Clear to auscultation. Normal chest wall mechanics. HEART: NSR, no MRG. ABDOMEN: Abdomen soft, non-tender, normo-active bowel sounds, no masses, no rebound or guarding. BACK: No CVA TTP. SKIN: No rashes and no bruising. UPPER EXTREMITIES: Upper extremities are grossly normal. LOWER EXTREMITIES: No pitting edema. No calf pain. NEURO EXAM: A and O x3. GCS 15. Moves all 4 extremities on command w/o issue. PSYCH: Depressed mood. Positive SI, positive HI, positive AVH Course 1146: Past medical records reviewed. The patient was evaluated in room A7, and a complete history and physical examination were performed. Administered Medications Buspirone HCl (Buspar) 10 mg PO TID FRANCES Stop: 04/04/19 20:59 Last Admin: 03/05/19 21:08 Dose: 10 mg Documented by: [id number] Mirtazapine (Remeron) 15 mg PO HS FRANCES Stop: 04/04/19 21:59 Last Admin: 03/05/19 21:57 Dose: 15 mg Documented by: [id number] Quetiapine Fumarate (Seroquel) 100 mg PO HS FRANCES Stop: 04/04/19 21:59 Last Admin: 03/05/19 21:08 Dose: 100 mg Documented by: [id number] Discontinued Medications Lorazepam (Ativan) 1 mg PO NOW [facility] Stop: 03/05/19 11:40 Last Admin: 03/05/19 12:00 Dose: 1 mg Documented by: [id number] Medical Decision Making Medical Records Attestation: I reviewed the patient's medical records. Home Medications Current Medication List: was personally reviewed by me Laboratory Data Attestation: I reviewed the patient's lab results. Result diagrams: 03/05/19 11:44 03/05/19 11:44 Lab Results 04/04/19 04/04/19 04/04/19 Range/Units 11:44 11:44 11:44 WBC 8.46 (4.8-10.8) K/uL RBC 4.37 (4.2-5.4) M/uL Hgb 14.1 (12.0-16.0) g/dL Hct 40.3 (37-47) % MCV 92.2 (80-100) fL MCH 32.3 (25-34) pg MCHC 35.0 (32-36) g/dL RDW Std Deviation 44.1 (36.4-46.3) fL RDW Coeff of Jalen 12.9 (11.5-14.5) % Plt Count 184 (130-400) K/uL MPV 11.3 H (7.4-10.4) fL Immature Gran % (Auto) 0.1 % Neut % (Auto) 61.1 % Lymph % (Auto) 20.4 % Metcalfe % (Auto) 4.7 % Eos % (Auto) 13.2 % Baso % (Auto) 0.5 % Immature Gran # (Auto) 0.01 (0.00-0.02) K/uL Neut # (Auto) 5.16 (1.4-6.5) K/uL Lymph # (Auto) 1.73 (1.2-3.4) K/uL Metcalfe # (Auto) 0.40 (0.11-0.59) K/uL Eos # (Auto) 1.12 H (0-0.5) K/uL Baso # (Auto) 0.04 (0-0.2) K/uL Sodium 138 (136-145) mmol/L Potassium 3.7 (3.5-5.1) mmol/L Chloride 106 (98-107) mmol/L Carbon Dioxide 26 (21-32) mmol/L Anion Gap 6.0 (3-11) BUN 8 (7-18) mg/dl Creatinine 0.91 (0.6-1.2) mg/dl Est Cr Clr Drug Dosing 79.9 ml/min Est GFR ( Amer) 98.1 Est GFR (Non-Af Amer) 84.7 BUN/Creatinine Ratio 8.2 L (10-20) Glucose 82 (70-99) mg/dl Calcium 8.9 (8.5-10.1) mg/dl Total Bilirubin 0.3 (0.2-1) mg/dl AST 45 H (15-37) U/L ALT 80 H (12-78) U/L Alkaline Phosphatase 80 (45-117) U/L Total Protein 7.2 (6.4-8.2) gm/dl Albumin 3.8 (3.4-5.0) gm/dl Globulin 3.4 (2.5-4.0) gm/dl Albumin/Globulin Ratio 1.1 (0.9-2) TSH 2.240 (0.300-4.500) uIu/ml Urine Color Urine Appearance (Clear) Urine pH (4.5-7.5) Ur Specific [place] (1.000-1.030) Urine Protein (Negative) Urine Glucose (UA) (Negative) Urine Ketones (Negative) Urine Blood (Negative) Urine Nitrite (Negative) Urine Bilirubin (Negative) Urine Urobilinogen (Negative) Ur Leukocyte Esterase (Negative) Urine WBC (Auto) (0-5) /hpf Urine RBC (Auto) (0-4) /hpf U Hyaline Cast (Auto) (0-5) /lpf U Epithel Cells (Auto) (0-5) /lpf Urine Bacteria (Auto) (Negative) Calcium Oxalate Crystal (None Prsent) Urine Yeast POC Ur Test (NEG) Salicylates < 1.7 L (2.8-20) mg/dl Urine Opiates Screen (Neg) Ur Methadone, Qual (Neg) Acetaminophen < 2 L (10-30) ug/ml Urine Barbiturates (Neg) Ur Phencyclidine (PCP) (Neg) U Amphetamin/Meth Scrn (Neg) MDMA (Ecstasy) Screen (Neg) U Benzodiazepines Scrn (Neg) Ur Cocaine Metabolite (Neg) U Marijuana (THC) Screen (Neg) Ethyl Alcohol mg/dL (0-3) mg/dl 03/05/19 03/05/19 03/05/19 Range/Units 11:44 12:35 12:35 WBC (4.8-10.8) K/uL RBC (4.2-5.4) M/uL Hgb (12.0-16.0) g/dL Hct (37-47) % MCV (80-100) fL MCH (25-34) pg MCHC (32-36) g/dL RDW Std Deviation (36.4-46.3) fL RDW Coeff of Jalen (11.5-14.5) % Plt Count (130-400) K/uL MPV (7.4-10.4) fL Immature Gran % (Auto) % Neut % (Auto) % Lymph % (Auto) % [place] % (Auto) % Eos % (Auto) % Baso % (Auto) % Immature Gran # (Auto) (0.00-0.02) K/uL Neut # (Auto) (1.4-6.5) K/uL Lymph # (Auto) (1.2-3.4) K/uL Metcalfe # (Auto) (0.11-0.59) K/uL Eos # (Auto) (0-0.5) K/uL Baso # (Auto) (0-0.2) K/uL Sodium (136-145) mmol/L Potassium (3.5-5.1) mmol/L Chloride (98-107) mmol/L Carbon Dioxide (21-32) mmol/L Anion Gap (3-11) BUN (7-18) mg/dl Creatinine (0.6-1.2) mg/dl Est Cr Clr Drug Dosing ml/min Est GFR ( Amer) Est GFR (Non-Af Amer) BUN/Creatinine Ratio (10-20) Glucose (70-99) mg/dl Calcium (8.5-10.1) mg/dl Total Bilirubin (0.2-1) mg/dl AST (15-37) U/L ALT (12-78) U/L Alkaline Phosphatase (45-117) U/L Total Protein (6.4-8.2) gm/dl Albumin (3.4-5.0) gm/dl Globulin (2.5-4.0) gm/dl Albumin/Globulin Ratio (0.9-2) TSH (0.300-4.500) uIu/ml Urine Color Urine Appearance (Clear) Urine pH (4.5-7.5) Ur Specific [place] (1.000-1.030) Urine Protein (Negative) Urine Glucose (UA) (Negative) Urine Ketones (Negative) Urine Blood (Negative) Urine Nitrite (Negative) Urine Bilirubin (Negative) Urine Urobilinogen (Negative) Ur Leukocyte Esterase (Negative) Urine WBC (Auto) (0-5) /hpf Urine RBC (Auto) (0-4) /hpf U Hyaline Cast (Auto) (0-5) /lpf U Epithel Cells (Auto) (0-5) /lpf Urine Bacteria (Auto) (Negative) Calcium Oxalate Crystal (None Prsent) Urine Yeast POC Ur Test NEG (NEG) Salicylates (2.8-20) mg/dl Urine Opiates Screen Neg (Neg) Ur Methadone, Qual Neg (Neg) Acetaminophen (10-30) ug/ml Urine Barbiturates Neg (Neg) Ur Phencyclidine (PCP) Neg (Neg) U Amphetamin/Meth Scrn Neg (Neg) MDMA (Ecstasy) Screen Neg (Neg) U Benzodiazepines Scrn Neg (Neg) Ur Cocaine Metabolite Neg (Neg) U Marijuana (THC) Screen Neg (Neg) Ethyl Alcohol mg/dL < 3.0 (0-3) mg/dl 03/05/19 Range/Units 12:35 WBC (4.8-10.8) K/uL RBC (4.2-5.4) M/uL Hgb (12.0-16.0) g/dL Hct (37-47) % MCV (80-100) fL MCH (25-34) pg MCHC (32-36) g/dL RDW Std Deviation (36.4-46.3) fL RDW Coeff of Jalen (11.5-14.5) % Plt Count (130-400) K/uL MPV (7.4-10.4) fL Immature Gran % (Auto) % Neut % (Auto) % Lymph % (Auto) % [place] % (Auto) % Eos % (Auto) % Baso % (Auto) % Immature Gran # (Auto) (0.00-0.02) K/uL Neut # (Auto) (1.4-6.5) K/uL Lymph # (Auto) (1.2-3.4) K/uL [place]fe # (Auto) (0.11-0.59) K/uL Eos # (Auto) (0-0.5) K/uL Baso # (Auto) (0-0.2) K/uL Sodium (136-145) mmol/L Potassium (3.5-5.1) mmol/L Chloride (98-107) mmol/L Carbon Dioxide (21-32) mmol/L Anion Gap (3-11) BUN (7-18) mg/dl Creatinine (0.6-1.2) mg/dl Est Cr Clr Drug Dosing ml/min Est GFR ( Amer) Est GFR (Non-Af Amer) BUN/Creatinine Ratio (10-20) Glucose (70-99) mg/dl Calcium (8.5-10.1) mg/dl Total Bilirubin (0.2-1) mg/dl AST (15-37) U/L ALT (12-78) U/L Alkaline Phosphatase (45-117) U/L Total Protein (6.4-8.2) gm/dl Albumin (3.4-5.0) gm/dl Globulin (2.5-4.0) gm/dl Albumin/Globulin Ratio (0.9-2) TSH (0.300-4.500) uIu/ml Urine Color Yellow Urine Appearance Cloudy H (Clear) Urine pH 6.0 (4.5-7.5) Ur Specific [place] 1.010 (1.000-1.030) Urine Protein Negative (Negative) Urine Glucose (UA) Negative (Negative) Urine Ketones Negative (Negative) Urine Blood Negative (Negative) Urine Nitrite Negative (Negative) Urine Bilirubin Negative (Negative) Urine Urobilinogen Negative (Negative) Ur Leukocyte Esterase Trace H (Negative) Urine WBC (Auto) 1-5 (0-5) /hpf Urine RBC (Auto) 0-4 (0-4) /hpf U Hyaline Cast (Auto) 1-5 (0-5) /lpf U Epithel Cells (Auto) >30 H (0-5) /lpf Urine Bacteria (Auto) 1+ H (Negative) Calcium Oxalate Crystal Present H (None Prsent) Urine Yeast Not Reportable POC Ur Test (NEG) Salicylates (2.8-20) mg/dl Urine Opiates Screen (Neg) Ur Methadone, Qual (Neg) Acetaminophen (10-30) ug/ml Urine Barbiturates (Neg) Ur Phencyclidine (PCP) (Neg) U Amphetamin/Meth Scrn (Neg) MDMA (Ecstasy) Screen (Neg) U Benzodiazepines Scrn (Neg) Ur Cocaine Metabolite (Neg) U Marijuana (THC) Screen (Neg) Ethyl Alcohol mg/dL (0-3) mg/dl Blood Pressure Blood Pressure Findings: Normal blood pressure Blood Pressure Disposition: did not require urgent referral MDM Narrative The patient is a 29 year old white female w/ PMHx of depression, anxiety, psychosis, bipolar disorder, and schizoaffective disorder, who presents to the ED w/ CC of an episode of need for mental health evaluation beginning 3 days ago. Etiologies such as psychiatric disorder, infection, hypoglycemia, electrolyte abnormalities, cardiac sources, intracerebral event, toxicological process, neurologic disorder, as well as others were entertained. Patient was seen and evaluated the bedside. The patient was complaining of SI, HI, and auditory hallucinations. The patient does state that she had some mild medication changes. The patient states that she is currently employed but that she has had increasing work related stresses. Patient denies any acute physical complaints. Patient did have blood work completed was deemed medically clear seen and evaluated by the psychiatric case management director and was subsequently admitted to the inpatient psychiatric service. Impression & Plan Suicidal ideation, Homicidal ideation, Auditory hallucinations Discharge Plan Visit Data *Final* Discharge Date/Time: 03/05/19 15:13 Chief Complaint: Mental Health Evaluation Stated Complaint: SUICIDAL,HOMICIDAL THOUGHTS & VOICES ED Provider: Perez Doyle Discharge Problem: Suicidal ideation, Homicidal ideation, Auditory hallucinations Patient Disposition: Still a Patient Discharge Instructions Interventions: ED Discharge Assessment Last Done: 03/05/19 15:13 The scribe's documentation has been prepared under my direction and personally reviewed by me in its entirety. I confirm that the note above accurately reflects all work, treatment, procedures, and medical decision making performed by me.
[2019-03-05] MEDS ORDERED: ALUMINUM/MAGNESIUM SUSP 30 ML UDC PO PRN (15:38)
[2019-03-05] MEDS ORDERED: BISMUTH SUBSALICYLATE PER ML OMNICELL CHARGE PO PRN (15:38)
[2019-03-05] MEDS ORDERED: ACETAMINOPHEN 325 MG TAB PO PRN (15:38)
[2019-03-05] MEDS ORDERED: MAGNESIUM HYDROXIDE SUSP 30 ML UDC PO PRN (15:38)
[2019-03-05] MEDS ORDERED: SODIUM CHLORIDE 0.65% NA SOLN 45 ML (OCEAN) PRN (15:38)
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
[2019-03-05] MEDS: QUETIAPINE FUMARATE 100 MG TABLET PO SCH (21:08)
[2019-03-05] MEDS: MIRTAZAPINE TAB 15 MG TAB PO SCH (21:57)
[2019-03-06 07:59] LABS: Glucose Fasting 87 mg/dl (70-99)
[2019-03-06] MEDS ORDERED: ZIPRASIDONE HCL 20 MG CAP PO SCH (08:00)
[2019-03-06 08:06] LABS: Chol HDL Ratio 3; Cholesterol 188 mg/dl (0-200); HDL Cholesterol 67 mg/dl; LDL Cholesterol Calculated 106 mg/dl; Triglycerides 73 mg/dl (0-150); VLDL Cholesterol 15 mg/dl
[2019-03-06] MEDS: FLUOXETINE HCL 20 MG CAP PO SCH (08:55)
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
[2019-03-06] MEDS ORDERED: ARIPiprazole 5 MG TAB PO ONE (10:56)
[2019-03-06] MEDS: MIRTAZAPINE TAB 15 MG TAB PO SCH (21:25)
[2019-03-06] MEDS: QUETIAPINE FUMARATE 100 MG TABLET PO SCH (21:25)
[2019-03-06] MEDS ORDERED: ZIPRASIDONE HCL 20 MG CAP PO ONE (22:00)
[2019-03-07] MEDS: ARIPiprazole 15 MG TAB PO SCH (08:50)
[2019-03-07] MEDS: TRIHEXYPHENIDYL HCL 2 MG TAB PO SCH (08:51)
[2019-03-07] MEDS: FLUOXETINE HCL 20 MG CAP PO SCH (08:51)
--- NOTE | 2019-03-07 15:18 | Psychiatric Progress Note ---
Date of Service March 07, 2019 Impression / Recommendations Impression 29-year-old female admitted voluntarily for inpatient psychiatric treatment due to worsening hallucinations with commands to harm herself and her co-workers, but also admits to episodic thoughts to harm strangers as well. Patient has been irritable with peers but not threatening per se, remains on MNPR. Geodon was discontinued in favor of a trial of Abilify. Dr. Art questioned dx of schizoaffective disorder vs bipolar. (1) Suicidal ideation: 03/05 - Admitted to a locked inpatient behavioral health unit, on q15 minute safety checks - Encourage medication initiation/adjustments as indicated - Encourage participation in group and recreational therapies - Gather collateral information from outpatient providers - Suggest family meeting to involve outpatient supports in safety planning - Arrange appropriate aftercare 4/5 - Currently taking Geodon 20 mg BID. Psychotic symptoms persist, as do mood alterations. Rarely effective at higher dosages. Offer a trial of Abilify 5 mg now, and then 15 mg daily. - H/O EPS reported. Include Artane 2 mg daily with Abilify. - Discontinue Geodon after a PM dose this evening. (2) Homicidal ideation: 03/05 - As above, homicide checks ordered - Will have patient in medically necessary private room given reports that thoughts to harm others extends beyond her co-workers; will reassess as patient gets acclimated to the unit and behavior can be observed - Encouraged development of healthy and effective coping strategies to manage anxiety and anger 03/06 - Currently taking Geodon 20 mg BID. Psychotic symptoms persist, as do mood alterations. Rarely effective at higher dosages. Offer a trial of Abilify 5 mg now, and then 15 mg daily. - H/O EPS reported. Include Artane 2 mg daily with Abilify. - Discontinue Geodon after a PM dose this evening. - Encourage patient to use her "Mind over matter" technique (used by her for smoking cessation) to prevent acting upon thoughts of causing physical harm to others. (3) Schizoaffective disorder: 03/05 - Reports diagnosis of schizoaffective disorder, bipolar type - history of manic/hypomanic behavior denied - Request records from outpatient prescriber to gather collateral information and clarify diagnosis; history of dissociative disorder and conversion disorder were also reported in patient's records - Continue current medication regimen through the evening - Explore prior-authorization for lurasidone to determine if it could be considered; recommended by outpatient psychiatrist but not enough formulary trials - Could also consider titration of ziprasidone - Fasting glucose and lipid panel ordered for tomorrow AM 03/06 - Currently taking Geodon 20 mg BID. Psychotic symptoms persist, as do mood alterations. Rarely effective at higher dosages. Offer a trial of Abilify 5 mg now, and then 15 mg daily. - H/O EPS reported. Include Artane 2 mg daily with Abilify. - Discontinue Geodon after a PM dose this evening. 03/07 --tolerating Abilify, appears improved with regards to irritability and thought processes. (4) Panic disorder without agoraphobia: 03/05 - Consider adjustments to fluoxetine, had previously been at 40mg unclear why tapered - Continue buspirone 10mg TID, consider titration - Encourage development of healthy and effective coping strategies Inventory Assets Strengths: support of family, willingness for treatment, outpatient prescriber Needs: Establish with individual therapy; treatment to reduce hallucinations; coping strategies to better manage work-related stressors Risk Factors Assessment Male: No : Yes Do You Have Access To A Gun?: No Health Problems: No Mental Health Diagnoses: Yes Substance Use Disorders: No Previous Attempt: Yes (polydrug overdose) Previous Attempt; Highly Lethal: No Previous Attempt; Planned: No Previous Attempt; Didn't Tell Anyone: Yes Family History of Suicide: No Previous Psychiatric Hospitalization: Yes Hopelessness: Yes (episodic ) Smoker: No (not presently; history of tobacco use "on and off") Protective Factors Assessment Scientology Beliefs: Yes : No Responsible for Young Children: No Employed: Yes (Employed at a local [employer]) Stable Relationships: No Supportive Family: Yes Good Rapport with Provider: Yes Absence of Any Risk Factors Above: No Interval History Chief Complaint "I'm not going to burn anything down, I just still can't tolerate people". Review of Systems Sleep Information Total Hours of Sleep: 6.75 Sleep Comments: pt NPO during the night. pt on q-15 minute checks Meal Information Percent Meal Consumed - Breakfast: 70 Percent Meal Consumed - Lunch: 50 Percent Meal Consumed - Dinner: 60 Subjective Subjective Patient was seen & assessed and interval progress reviewed with Nursing and social work. 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 Tolerating medication changes. Physical Exam Psychiatric Orientation: alert Apperance: appropriately dressed Eye Contact: + fair eye contact Motor Behavior: steady gait and station Speech: normal rate/rhythm/volume of speech Affect: euthymic affect Mood: + irritable mood Thought Process: clear/coherent thought process Thought Content: + preoccupation; no delusions Suicidal Thoughts: denies suicidal thoughts Homicidal Thoughts: denies homicidal thoughts Hallucinations: no auditory hallucinations and no visual hallucinations Cognition: recent memory grossly intact Estimated Intelligence: consistent with education level Insight: + limited insight Judgement: + limited judgement Vital Signs (Past 24 Hours) Last Vital Signs Temp 36.6 C 03/07/19 07:04 Pulse 82 03/07/19 07:05 Resp 18 03/07/19 07:04 BP 112/64 03/07/19 07:05 Pulse Ox 97 03/05/19 15:00 Results & Data Current Inpatient Medications Current Inpatient Medications: Current Inpatient Medications Acetaminophen (Tylenol) 650 mg PO Q4H PRN PRN Reason: Headache or Minor Fever Stop: 04/04/19 15:37 Last Admin: 03/06/19 08:56 Dose: 650 mg Documented by: Al Hydrox/Mg Hydrox/Simethicone (Maalox) 30 ml PO Q4H PRN PRN Reason: GI Upset Stop: 04/04/19 15:37 [facility]) [facility] [place] Stop: 04/06/19 08:59 Last Admin: 03/07/19 08:50 Dose: 15 mg Documented by: Bismuth Subsalicylate (Kaopectate) 15 ml PO PRN PRN PRN Reason: Loose Stool Stop: 04/04/19 15:37 Buspirone HCl (Buspar) 10 mg PO TID [facility] Stop: 04/04/19 20:59 Last Admin: 03/07/19 13:42 Dose: 10 mg Documented by: Fluoxetine HCl (Prozac) 20 mg PO QAM [facility] Stop: 04/05/19 08:59 Last Admin: 03/07/19 08:51 Dose: 20 mg Documented by: Hydroxyzine HCl (Vistaril) 50 mg PO HSZ PRN PRN Reason: Insomnia Stop: 04/04/19 15:37 Hydroxyzine HCl (Vistaril) 25 mg PO Q4H PRN PRN Reason: Anxiety Stop: 04/04/19 15:37 Magnesium Hydroxide (Milk Of Magnesia) 30 ml PO DAILY PRN PRN Reason: Heartburn Stop: 04/04/19 15:37 Mirtazapine (Remeron) 15 mg PO HS [facility] Stop: 04/04/19 21:59 Last Admin: 03/06/19 21:25 Dose: 15 mg Documented by: Quetiapine Fumarate (Seroquel) 100 mg PO HS [facility] Stop: 04/04/19 21:59 Last Admin: 03/06/19 21:25 Dose: 100 mg Documented by: Sodium Chloride (Haring Nasal) 1 - 2 sprays NA PRN PRN PRN Reason: Nasal Dryness/Congestion Stop: 04/04/19 15:37 Trihexyphenidyl HCl (Artane) 2 mg PO QAM [facility] Stop: 04/06/19 08:59 Last Admin: 03/07/19 08:51 Dose: 2 mg Documented by: Post Discharge Appointments Primary Care Physician Name Of Family Doctor: Dr. Danilo Vernon [facility] Psychiatrist Name of Psychiatrist: [facility] Miracle Lara Psychiatrist's Psychiatric Appointment Comment: [address] [facility], [place] [address] Contact Information Discharge Discharge Address: [address] [place] [address] CPT Code CPT Code 51115
[2019-03-07] MEDS: MIRTAZAPINE TAB 15 MG TAB PO SCH (21:16)
[2019-03-07] MEDS: QUETIAPINE FUMARATE 100 MG TABLET PO SCH (21:16)
[2019-03-08] MEDS: TRIHEXYPHENIDYL HCL 2 MG TAB PO SCH (08:35)
[2019-03-08] MEDS: ARIPiprazole 15 MG TAB PO SCH (08:35)
[2019-03-08] MEDS: FLUOXETINE HCL 20 MG CAP PO SCH (08:36)
[2019-03-08] MEDS ORDERED: ARIPiprazole 5 MG TAB PO ONE (09:37)
[2019-03-08] MEDS ORDERED: QUETIAPINE FUMARATE 25 MG TABLET PO PRN (09:37)
--- NOTE | 2019-03-08 09:57 | Psychiatric Progress Note ---
Date of Service March 08, 2019 Impression / Recommendations Impression 29-year-old female admitted voluntarily for inpatient psychiatric treatment due to worsening hallucinations with commands to harm herself and her co-workers, but also admitted to episodic thoughts to harm strangers as well. Patient has been irritable with peers but not threatening per se, remains on MNPR. Geodon was discontinued in favor of a trial of Abilify. Dr. Art questioned dx of schizoaffective disorder vs bipolar. (1) Suicidal ideation: 03/05 - Admitted to a locked inpatient behavioral health unit, on q15 minute safety checks - Encourage medication initiation/adjustments as indicated - Encourage participation in group and recreational therapies - Gather collateral information from outpatient providers - Suggest family meeting to involve outpatient supports in safety planning - Arrange appropriate aftercare 03/06 - Currently taking Geodon 20 mg BID. Psychotic symptoms persist, as do mood alterations. Rarely effective at higher dosages. Offer a trial of Abilify 5 mg now, and then 15 mg daily. - H/O EPS reported. Include Artane 2 mg daily with Abilify. - Discontinue Geodon after a PM dose this evening. (2) Homicidal ideation: 03/05 - As above, homicide checks ordered - Will have patient in medically necessary private room given reports that thoughts to harm others extends beyond her co-workers; will reassess as patient gets acclimated to the unit and behavior can be observed - Encouraged development of healthy and effective coping strategies to manage anxiety and anger 03/06 - Currently taking Geodon 20 mg BID. Psychotic symptoms persist, as do mood alterations. Rarely effective at higher dosages. Offer a trial of Abilify 5 mg now, and then 15 mg daily. - H/O EPS reported. Include Artane 2 mg daily with Abilify. - Discontinue Geodon after a PM dose this evening. - Encourage patient to use her "Mind over matter" technique (used by her for smoking cessation) to prevent acting upon thoughts of causing physical harm to others. 03/07 social service director to address duty to warn issues related to workplace. (3) Schizoaffective disorder: 03/05 - Reports diagnosis of schizoaffective disorder, bipolar type - history of manic/hypomanic behavior denied - Request records from outpatient prescriber to gather collateral information and clarify diagnosis; history of dissociative disorder and conversion disorder were also reported in patient's records - Continue current medication regimen through the evening - Explore prior-authorization for lurasidone to determine if it could be considered; recommended by outpatient psychiatrist but not enough formulary trials - Could also consider titration of ziprasidone - Fasting glucose and lipid panel ordered for tomorrow AM 03/06 - Currently taking Geodon 20 mg BID. Psychotic symptoms persist, as do mood alterations. Rarely effective at higher dosages. Offer a trial of Abilify 5 mg now, and then 15 mg daily. - H/O EPS reported. Include Artane 2 mg daily with Abilify. - Discontinue Geodon after a PM dose this evening. 03/07 --tolerating Abilify, appears improved with regards to irritability and thought processes. 03/08 --titrate Ablify to 20 mg, will provide an additional 50 mg prn Seroquel if disrupted sleep. (4) Panic disorder without agoraphobia: 03/05 - Consider adjustments to fluoxetine, had previously been at 40mg unclear why tapered - Continue buspirone 10mg TID, consider titration - Encourage development of healthy and effective coping strategies Inventory Assets Strengths: support of family, willingness for treatment, outpatient prescriber Needs: Establish with individual therapy; treatment to reduce hallucinations; coping strategies to better manage work-related stressors Risk Factors Assessment Male: No : Yes Do You Have Access To A Gun?: No Health Problems: No Mental Health Diagnoses: Yes Substance Use Disorders: No Previous Attempt: Yes (polydrug overdose) Previous Attempt; Highly Lethal: No Previous Attempt; Planned: No Previous Attempt; Didn't Tell Anyone: Yes Family History of Suicide: No Previous Psychiatric Hospitalization: Yes Hopelessness: Yes (episodic ) Smoker: No (not presently; history of tobacco use "on and off") Protective Factors Assessment Judaism Beliefs: Yes : No Responsible for Young Children: No 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 Review of Systems Sleep Information Total Hours of Sleep: 6 Sleep Comments: pt NPO during the night. pt on q-15 minute checks Meal Information Percent Meal Consumed - Breakfast: 70 Percent Meal Consumed - Lunch: 50 Percent Meal Consumed - Dinner: 100 Subjective Subjective Patient was seen & assessed and interval progress reviewed with Nursing and social work. Patient states that she heard same voice telling her to burn the [employer]. She also saw some orb like lights. She admits that unsure how awake she was and if just thinking about why she was here. Reviewed that breakthrough symptoms not unusual during med changes. She appeared bright and has been spending more time with co-patients. She may be able to come off medically necessary private room soon as progressing. She talked about not feeling ready to going back to work, what would make the job livable for her, and also about applying for disability. Physical Exam Psychiatric Orientation: alert, oriented x 3 and cooperative Apperance: appropriately dressed and appropriately groomed Eye Contact: good eye contact Motor Behavior: steady gait and station and no abnormal motor movements Speech: normal rate/rhythm/volume of speech Affect: euthymic affect Mood: + anxious mood Thought Process: clear/coherent thought process Thought Content: + preoccupation; no delusions Suicidal Thoughts: denies suicidal thoughts and denies suicidal intent Homicidal Thoughts: denies homicidal thoughts and denies homicidal intent Hallucinations: no auditory hallucinations and no visual hallucinations Cognition: recent memory grossly intact, remote memory grossly intact, attention grossly intact and language grossly intact Estimated Intelligence: consistent with education level Insight: + limited insight Judgement: + limited judgement Vital Signs (Past 24 Hours) Last Vital Signs Temp 36.6 C 03/08/19 06:49 Pulse 97 H 03/08/19 06:50 Resp 16 03/08/19 06:49 BP 109/74 03/08/19 06:50 Pulse Ox 97 03/05/19 15:00 Results & Data Current Inpatient Medications Current Inpatient Medications: Current Inpatient Medications Acetaminophen (Tylenol) 650 mg PO Q4H PRN PRN Reason: Headache or Minor Fever Stop: 04/04/19 15:37 Last Admin: 03/06/19 08:56 Dose: 650 mg Documented by: Al Hydrox/Mg Hydrox/Simethicone (Maalox) 30 ml PO Q4H PRN PRN Reason: GI Upset Stop: 04/04/19 15:37 Aripiprazole (Abilify) 20 mg PO QAM [facility] Stop: 04/08/19 08:59 Bismuth Subsalicylate (Kaopectate) 15 ml PO PRN PRN PRN Reason: Loose Stool Stop: 04/04/19 15:37 Buspirone HCl (Buspar) 10 mg PO TID [facility] Stop: 04/04/19 20:59 Last Admin: 03/08/19 08:35 Dose: 10 mg Documented by: Fluoxetine HCl (Prozac) 20 mg PO QAM [facility] Stop: 04/05/19 08:59 Last Admin: 03/08/19 08:36 Dose: 20 mg Documented by: Hydroxyzine HCl (Vistaril) 50 mg PO HSZ PRN PRN Reason: Insomnia Stop: 04/04/19 15:37 Hydroxyzine HCl (Vistaril) 25 mg PO Q4H PRN PRN Reason: Anxiety Stop: 04/04/19 15:37 Magnesium Hydroxide (Milk Of Magnesia) 30 ml PO DAILY PRN PRN Reason: Heartburn Stop: 04/04/19 15:37 Mirtazapine (Remeron) 15 mg PO HS [facility] Stop: 04/04/19 21:59 Last Admin: 03/07/19 21:16 Dose: 15 mg Documented by: Quetiapine Fumarate (Seroquel) 100 mg PO HS [facility] Stop: 04/04/19 21:59 Last Admin: 03/07/19 21:16 Dose: 100 mg Documented by: Quetiapine Fumarate (Seroquel) 50 mg PO HS PRN PRN Reason: Anxiety/Insomnia Stop: 04/07/19 21:59 Sodium Chloride (Hand Nasal) 1 - 2 sprays NA PRN PRN PRN Reason: Nasal Dryness/Congestion Stop: 04/04/19 15:37 Trihexyphenidyl HCl (Artane) 2 mg PO QAM [facility] Stop: 04/06/19 08:59 Last Admin: 03/08/19 08:35 Dose: 2 mg Documented by: Post Discharge Appointments Primary Care Physician Name Of Family Doctor: Dr. Danilo Vernon [facility] Psychiatrist Name of Psychiatrist: [facility] Miracle Lara Psychiatrist's Psychiatric Appointment Comment: [phone] [facility], [place] [id number] Contact Information Discharge Discharge Address: [address] [place] [address], [place] [facility] CPT Code CPT Code 65646
[2019-03-08] MEDS: QUETIAPINE FUMARATE 100 MG TABLET PO SCH (21:14)
[2019-03-08] MEDS: MIRTAZAPINE TAB 15 MG TAB PO SCH (21:14)
[2019-03-09] MEDS: TRIHEXYPHENIDYL HCL 2 MG TAB PO SCH (08:25)
[2019-03-09] MEDS: ARIPiprazole 5 MG TAB PO SCH (08:25)
[2019-03-09] MEDS: FLUOXETINE HCL 20 MG CAP PO SCH (08:26)
--- NOTE | 2019-03-09 10:01 | Psychiatric Progress Note ---
Date of Service March 09, 2019 Impression / Recommendations Impression 29-year-old female admitted voluntarily for inpatient psychiatric treatment due to worsening hallucinations with commands to harm herself and her co-workers. Geodon was discontinued in favor of a trial of Abilify. Dr. Art questioned dx of schizoaffective disorder vs bipolar. Suicidal thoughts have resolved, but she continues to have thoughts of harming coworkers at her job. She is, however, socializing appropriately with peers here, and has not been violent or aggressive, so we will discontinue her private room. (1) Suicidal ideation: 03/05 - Admitted to a locked inpatient behavioral health unit, on q15 minute safety checks - Encourage medication initiation/adjustments as indicated - Encourage participation in group and recreational therapies - Gather collateral information from outpatient providers - Suggest family meeting to involve outpatient supports in safety planning - Arrange appropriate aftercare 03/09 - Patient reports suicidal thoughts have resolved. She has a family meeting with her mother today. We are referring her for a higher level of outpatient care. (2) Homicidal ideation: 03/05 - As above, homicide checks ordered - Will have patient in medically necessary private room given reports that thoughts to harm others extends beyond her co-workers; will reassess as patient gets acclimated to the unit and behavior can be observed - Encouraged development of healthy and effective coping strategies to manage anxiety and anger 4 - Currently taking Geodon 20 mg BID. Psychotic symptoms persist, as do mood alterations. Rarely effective at higher dosages. Offer a trial of Abilify 5 mg now, and then 15 mg daily. - H/O EPS reported. Include Artane 2 mg daily with Abilify. - Discontinue Geodon after a PM dose this evening. - Encourage patient to use her "Mind over matter" technique (used by her for smoking cessation) to prevent acting upon thoughts of causing physical harm to others. 03/07 - psychotherapist social worker to address duty to warn issues related to workplace. 03/09 - Patient is socializing and interacting appropriately with staff and peers, denying thoughts to harm others while in the hospital. She continues to report thoughts to harm coworkers, and social work will contact her employer regarding the duty to warn. - Patient states she is going to quit her job and will not be returning to work at the [employer]. (3) Schizoaffective disorder: 03/05 - Reports diagnosis of schizoaffective disorder, bipolar type - history of m anic/hypomanic behavior denied - Request records from outpatient prescriber to gather collateral information and clarify diagnosis; history of dissociative disorder and conversion disorder were also reported in patient's records - Continue current medication regimen through the evening - Explore prior-authorization for lurasidone to determine if it could be considered; recommended by outpatient psychiatrist but not enough formulary trials - Could also consider titration of ziprasidone - Fasting glucose and lipid panel ordered for tomorrow AM 03/06 - Currently taking Geodon 20 mg BID. Psychotic symptoms persist, as do mood alterations. Rarely effective at higher dosages. Offer a trial of Abilify 5 mg now, and then 15 mg daily. - H/O EPS reported. Include Artane 2 mg daily with Abilify. - Discontinue Geodon after a PM dose this evening. 03/07 - tolerating Abilify, appears improved with regards to irritability and thought processes. 03/08 - titrate Abilify to 20 mg, will provide an additional 50 mg prn Seroquel if disrupted sleep. 03/09 - Continue aripiprazole 20 mg daily and trihexyphenidyl 2 mg every morning, which has been helpful for restlessness. - Fasting lipid profile and fasting glucose from 03/06/2019 reviewed for monitoring on an atypical antipsychotic; all values within normal limits. (4) Panic disorder without agoraphobia: 03/05 - Consider adjustments to fluoxetine, had previously been at 40mg unclear why tapered - Continue buspirone 10mg TID, consider titration - Encourage development of healthy and effective coping strategies Inventory Assets Strengths: support of family, willingness for treatment, outpatient prescriber Needs: Establish with individual therapy; treatment to reduce hallucinations; coping strategies to better manage work-related stressors Risk Factors Assessment Male: No : Yes Do You Have Access To A Gun?: No Health Problems: No Mental Health Diagnoses: Yes Substance Use Disorders: No Previous Attempt: Yes (polydrug overdose) Previous Attempt; Highly Lethal: No Previous Attempt; Planned: No Previous Attempt; Didn't Tell Anyone: Yes Family History of Suicide: No Previous Psychiatric Hospitalization: Yes Hopelessness: Yes (episodic ) Smoker: No (not presently; history of tobacco use "on and off") Protective Factors Assessment Taoist Beliefs: Yes : No Responsible for Young Children: No Employed: Yes (Employed at a local [employer]) Stable Relationships: No Supportive Family: Yes Good Rapport with Provider: Yes Absence of Any Risk Factors Above: No Interval History Identifying Information GENE ORTEGA is a 29-year-old F who currently lives in [place], [place] with her mother and stepfather. She has a history of carrying the diagnosis of schizoaffective disorder, and was admitted on 03/05/19 15:15 on a 201 voluntary agreement. Chief Complaint "A lot better". Review of Systems Sleep Information Total Hours of Sleep: 7.25 Sleep Comments: pt NPO during the night. pt on q-15 minute checks Meal Information Percent Meal Consumed - Breakfast: 90 Percent Meal Consumed - Lunch: 90 Percent Meal Consumed - Dinner: 90 Subjective Subjective Patient was seen & assessed and interval progress reviewed with Treatment Team. Staff report she has been calm and cooperative with treatment, is going to groups, and interacting appropriately with staff and peers. The psychotherapist social worker met with her yesterday to discuss the duty to warn the coworker, and she expressed understanding. Yesterday she reported hearing a voice telling her to burn down her place of employment. On my assessment, the patient states she feels a "lot better," as she has decided to quit her job at the [employer], as "I don't work for nice people." She has not informed her employer yet, saying she is "procastinating" and plans to call them a day or two after she leaves. She denies SI since admission, and says she is not have "as much" HI. She says she has "negative feelings towards people," specifically "people at the [employer], and Gerald, one of my coworkers." She denies thoughts about harming anyone here in the hospital, and says she is getting along with her peers well. She is going to groups and finds them helpful. Sleep is "fine," and appetite is "not as hungry, which is good because I was eating everything in sight." She denies side effects to medications and feel she is tolerating them well. She has been taking Artane qam and says it is helping for restlessness. She has a meeting with her mother and the psychotherapist social worker today, but says she isn't sure what she wants to discuss. Although she says her mother is supportive, she also says "we don't talk often." She denies auditory hallucinations, and feels safe here on the unit. Physical Exam Mental Examination [facility]NWD WF appearing her stated age, casually dressed in street clothes and a bathrobe, with very short hair, glasses, large gauges in ears, and upper lip/face piercing. Seated in NAD, good eye contact and no abnormal movements. Calm and cooperative with the assessment. Mood is "much better," and affect is stable, mildly blunted, but reactive and appropriate. Thoughts are linear and goal directed. Denies SI, hallucinations, and paranoia; denies HI, but reports some thoughts to harm coworkers at her job. Alert and oriented. Insight and judgment are fair. Vital Signs (Past 24 Hours) Last Vital Signs Temp 36.7 C 03/09/19 06:44 Pulse 82 03/09/19 06:45 Resp 16 03/09/19 06:44 BP 105/70 03/09/19 06:45 Pulse Ox 97 03/05/19 15:00 Results & Data Current Inpatient Medications Current Inpatient Medications: Current Inpatient Medications Acetaminophen (Tylenol) 650 mg PO Q4H PRN PRN Reason: Headache or Minor Fever Stop: 04/04/19 15:37 Last Admin: 03/06/19 08:56 Dose: 650 mg Documented by: Al Hydrox/Mg Hydrox/Simethicone (Maalox) 30 ml PO Q4H PRN PRN Reason: GI Upset Stop: 04/04/19 15:37 Aripiprazole (Abilify) 20 mg PO QAM [facility] Stop: 04/08/19 08:59 Last Admin: 03/09/19 08:25 Dose: 20 mg Documented by: Bismuth Subsalicylate (Kaopectate) 15 ml PO PRN PRN PRN Reason: Loose Stool Stop: 04/04/19 15:37 Buspirone HCl (Buspar) 10 mg PO TID [facility] Stop: 04/04/19 20:59 Last Admin: 03/09/19 08:25 Dose: 10 mg Documented by: Fluoxetine HCl (Prozac) 20 mg PO QAM [facility] Stop: 04/05/19 08:59 Last Admin: 03/09/19 08:26 Dose: 20 mg Documented by: Hydroxyzine HCl (Vistaril) 50 mg PO HSZ PRN PRN Reason: Insomnia Stop: 04/04/19 15:37 Hydroxyzine HCl (Vistaril) 25 mg PO Q4H PRN PRN Reason: Anxiety Stop: 04/04/19 15:37 Magnesium Hydroxide (Milk Of Magnesia) 30 ml PO DAILY PRN PRN Reason: Heartburn Stop: 04/04/19 15:37 Mirtazapine (Remeron) 15 mg PO HS [facility] Stop: 04/04/19 21:59 Last Admin: 03/08/19 21:14 Dose: 15 mg Documented by: Quetiapine Fumarate (Seroquel) 100 mg PO HS [facility] Stop: 04/04/19 21:59 Last Admin: 03/08/19 21:14 Dose: 100 mg Documented by: Quetiapine Fumarate (Seroquel) 50 mg PO HS PRN PRN Reason: Anxiety/Insomnia Stop: 04/07/19 21:59 Sodium Chloride ([place] Nasal) 1 - 2 sprays NA PRN PRN PRN Reason: Nasal Dryness/Congestion Stop: 04/04/19 15:37 Trihexyphenidyl HCl (Artane) 2 mg PO QAM [facility] Stop: 04/06/19 08:59 Last Admin: 03/09/19 08:25 Dose: 2 mg Documented by: Post Discharge Appointments Primary Care Physician Name Of Family Doctor: Dr. Danilo Vernon [facility] Psychiatrist Name of Psychiatrist: [facility] Miracle Lara Psychiatrist's Psychiatric Appointment Comment: [address] [facility], [place] [address] Contact Information Discharge Discharge Address: [address] [place] [address] [place] [id number] CPT Code CPT Code 13293
[2019-03-09] MEDS: QUETIAPINE FUMARATE 100 MG TABLET PO SCH (21:07)
[2019-03-09] MEDS: MIRTAZAPINE TAB 15 MG TAB PO SCH (21:07)
[2019-03-10] MEDS: ARIPiprazole 5 MG TAB PO SCH (07:51)
[2019-03-10] MEDS: TRIHEXYPHENIDYL HCL 2 MG TAB PO SCH (07:52)
[2019-03-10] MEDS: FLUOXETINE HCL 20 MG CAP PO SCH (07:54)
--- NOTE | 2019-03-10 09:37 | Psychiatric Progress Note ---
Date of Service March 10, 2019 Impression / Recommendations Impression The patient is progressing in her recovery, continuing to deny symptomatology. She would like to consider discharge as early as tomorrow if all of her aftercare plans are in place. This sounds reasonable. Will continue current meds. (1) Suicidal ideation: 03/05 - Admitted to a locked inpatient behavioral health unit, on q15 minute safety checks - Encourage medication initiation/adjustments as indicated - Encourage participation in group and recreational therapies - Gather collateral information from outpatient providers - Suggest family meeting to involve outpatient supports in safety planning - Arrange appropriate aftercare 03/09 - Patient reports suicidal thoughts have resolved. She has a family meeting with her mother today. We are referring her for a higher level of outpatient care. 03/10 - Finalize aftercare plans - Duty to warn completed by social work (2) Homicidal ideation: 03/05 - As above, homicide checks ordered - Will have patient in medically necessary private room given reports that thoughts to harm others extends beyond her co-workers; will reassess as patient gets acclimated to the unit and behavior can be observed - Encouraged development of healthy and effective coping strategies to manage anxiety and anger 03/06 - Currently taking Geodon 20 mg BID. Psychotic symptoms persist, as do mood alterations. Rarely effective at higher dosages. Offer a trial of Abilify 5 mg now, and then 15 mg daily. - H/O EPS reported. Include Artane 2 mg daily with Abilify. - Discontinue Geodon after a PM dose this evening. - Encourage patient to use her "Mind over matter" technique (used by her for smoking cessation) to prevent acting upon thoughts of causing physical harm to others. 03/07 - nursing home social worker to address duty to warn issues related to workplace. 03/09 - Patient is socializing and interacting appropriately with staff and peers, denying thoughts to harm others while in the hospital. She continues to report thoughts to harm coworkers, and social work will contact her employer regarding the duty to warn. - Patient states she is going to quit her job and will not be returning to work at the [employer]. 03/10 - Duty to warn completed by social work (3) Schizoaffective disorder: 03/05 - Reports diagnosis of schizoaffective disorder, bipolar type - history of manic/hypomanic behavior denied - Request records from outpatient prescriber to gather collateral information and clarify diagnosis; history of dissociative disorder and conversion disorder were also reported in patient's records - Continue current medication regimen through the evening - Explore prior-authorization for lurasidone to determine if it could be considered; recommended by outpatient psychiatrist but not enough formulary trials - Could also consider titration of ziprasidone - Fasting glucose and lipid panel ordered for tomorrow AM 03/06 - Currently taking Geodon 20 mg BID. Psychotic symptoms persist, as do mood alterations. Rarely effective at higher dosages. Offer a trial of Abilify 5 mg now, and then 15 mg daily. - H/O EPS reported. Include Artane 2 mg daily with Abilify. - Discontinue Geodon after a PM dose this evening. 03/07 - tolerating Abilify, appears improved with regards to irritability and thought processes. 03/08 - titrate Abilify to 20 mg, will provide an additional 50 mg prn Seroquel if disrupted sleep. 03/09 - Continue aripiprazole 20 mg daily and trihexyphenidyl 2 mg every morning, which has been helpful for restlessness. - Fasting lipid profile and fasting glucose from 03/06/2019 reviewed for monitoring on an atypical antipsychotic; all values within normal limits. (4) Panic disorder without agoraphobia: 03/05 - Consider adjustments to fluoxetine, had previously been at 40mg unclear why tapered - Continue buspirone 10mg TID, consider titration - Encourage development of healthy and effective coping strategies Inventory Assets Strengths: support of family, willingness for treatment, outpatient prescriber Needs: Establish with individual therapy; treatment to reduce hallucinations; coping strategies to better manage work-related stressors Risk Factors Assessment Male: No : Yes Do You Have Access To A Gun?: No Health Problems: No Mental Health Diagnoses: Yes Substance Use Disorders: No Previous Attempt: Yes (polydrug overdose) Previous Attempt; Highly Lethal: No Previous Attempt; Planned: No Previous Attempt; Didn't Tell Anyone: Yes Family History of Suicide: No Previous Psychiatric Hospitalization: Yes Hopelessness: Yes (episodic ) Smoker: No (not presently; history of tobacco use "on and off") Protective Factors Assessment Holiness Beliefs: Yes : No Responsible for Young Children: No 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 She has a history of carrying the diagnosis of schizoaffective disorder, and was admitted on 03/05/19 15:15 on a 201 voluntary agreement. Chief Complaint "I'm good. ". Review of Systems Sleep Information Total Hours of Sleep: 7.5 Sleep Comments: pt on q-15 minute checks Meal Information Percent Meal Consumed - Breakfast: 100 Percent Meal Consumed - Lunch: 90 Percent Meal Consumed - Dinner: 100 Subjective Subjective Patient was seen & assessed and interval progress reviewed with Treatment Team. The patient says that she is doing well. She is aware that our duty to warn her employer ([employer]) and the specific employee, has been completed. She plans to call her boss to schedule a meeting with him to talk about it after discharge. 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 She is planning also to clean up her room at home, saying that "I was becoming a hoarder", describing her room full of trash and old food. She is thinking about adding a second garbage can by her bed so that she doesn't just throw it on the floor. She offers no concerns about going home, saying that she feels ready and is looking forward to it. She hopes that by tomorrow all of her aftercare appts will be made and she wants to have a therapist at discharge. She denies SI/HI, denies psychosis, denies side effects to meds. Physical Exam Vital Signs (Past 24 Hours) Last Vital Signs Temp 36.6 C 03/10/19 07:02 Pulse 85 03/10/19 07:03 Resp 16 03/10/19 07:02 BP 122/82 03/10/19 07:03 Pulse Ox 97 03/05/19 15:00 Results & Data Current Inpatient Medications Current Inpatient Medications: Current Inpatient Medications Acetaminophen (Tylenol) 650 mg PO Q4H PRN PRN Reason: Headache or Minor Fever Stop: 04/04/19 15:37 Last Admin: 03/06/19 08:56 Dose: 650 mg Documented by: Al Hydrox/Mg Hydrox/Simethicone (Maalox) 30 ml PO Q4H PRN PRN Reason: GI Upset Stop: 04/04/19 15:37 Aripiprazole (Abilify) 20 mg PO QAM [facility] Stop: 04/08/19 08:59 Last Admin: 03/10/19 07:51 Dose: 20 mg Documented by: Bismuth Subsalicylate (Kaopectate) 15 ml PO PRN PRN PRN Reason: Loose Stool Stop: 04/04/19 15:37 Buspirone HCl (Buspar) 10 mg PO TID [facility] Stop: 04/04/19 20:59 Last Admin: 03/10/19 07:52 Dose: 10 mg Documented by: Fluoxetine HCl (Prozac) 20 mg PO QAM [facility] Stop: 04/05/19 08:59 Last Admin: 03/10/19 07:54 Dose: 20 mg Documented by: Hydroxyzine HCl (Vistaril) 50 mg PO HSZ PRN PRN Reason: Insomnia Stop: 04/04/19 15:37 Hydroxyzine HCl (Vistaril) 25 mg PO Q4H PRN PRN Reason: Anxiety Stop: 04/04/19 15:37 Magnesium Hydroxide (Milk Of Magnesia) 30 ml PO DAILY PRN PRN Reason: Heartburn Stop: 04/04/19 15:37 Mirtazapine (Remeron) 15 mg PO HS [facility] Stop: 04/04/19 21:59 Last Admin: 03/09/19 21:07 Dose: 15 mg Documented by: Quetiapine Fumarate (Seroquel) 100 mg PO HS [facility] Stop: 04/04/19 21:59 Last Admin: 03/09/19 21:07 Dose: 100 mg Documented by: Quetiapine Fumarate (Seroquel) 50 mg PO HS PRN PRN Reason: Anxiety/Insomnia Stop: 04/07/19 21:59 Sodium Chloride ([place] Nasal) 1 - 2 sprays NA PRN PRN PRN Reason: Nasal Dryness/Congestion Stop: 04/04/19 15:37 Trihexyphenidyl HCl (Artane) 2 mg PO QAM [facility] Stop: 04/06/19 08:59 Last Admin: 03/10/19 07:52 Dose: 2 mg Documented by: Post Discharge Appointments Primary Care Physician Name Of Family Doctor: Madan Lilly Psychiatrist Name of Psychiatrist: [facility] Miracle Lara Psychiatrist's Psychiatric Appointment Comment: [address] [facility], [place] [id number] Contact Information Discharge Discharge Address: [address] [place] [address], [place] Agrawal44 CPT Code CPT Code 34545
[2019-03-10] MEDS: MIRTAZAPINE TAB 15 MG TAB PO SCH (21:05)
[2019-03-10] MEDS: QUETIAPINE FUMARATE 100 MG TABLET PO SCH (21:05)
[2019-03-11] MEDS: ARIPiprazole 5 MG TAB PO SCH (09:22)
[2019-03-11] MEDS: FLUOXETINE HCL 20 MG CAP PO SCH (09:22)
[2019-03-11] MEDS: TRIHEXYPHENIDYL HCL 2 MG TAB PO SCH (09:22)
--- NOTE | 2019-03-11 10:14 | Discharge Summary ---
Date of Service March 11, 2019 History of Present Illness Negra Mcclellan is a 29-year-old female admitted voluntarily for inpatient psychiatric treatment due to reports of worsening command hallucinations, providing instructions to harm both herself as well as others. Pt reports a history of schizoaffective disorder, bipolar type - and reports a history of auditory and visual hallucinations since childhood. Pt reports 5-7 distinct voices. Pt was last seen in 08/2017 when she was admitted to our unit for homi cidal ideation with intent to harm a co-worker. This was the patient's only other inpatient psychiatric hospitalization. Pt has presented to the ED on other occasions, but has been safety planned home. Pt brought herself to the ED due to concern regarding recent symptoms, states she has communicated concerns with her mother. Pt reports "building up" of panic and A/V hallucinations over the past 3-4 days. She admits to increased stress at work, which has historically been a trigger for her. 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 She states, "it's call the [email or web address] for a reason, everyone brings their drama there." She reports increased command hallucinations with her increased stress. Pt states one of her voices drives the command hallucinations - "one kelsey is really bad, he tells me to hurt myself and other people." Pt states, "I got to the point that I thought about burning the whole place down. That's when I decided to come in." Pt states the remainder of her voices are "nasty, but more just that they put me down. Negative talk." Visual hallucinations are described as "shadowy figures, but in my mind I can see their faces, the face that goes with the v oice." Pt was started on ziprasidone 1 month ago to "give me a daytime medication for hallucinations, without the side effects of Seroquel" - specifically excessive fatigue. Pt reports depressive symptoms of low mood for the past "few weeks", increased appetite, 30lb weight gain in 2 months (believed to be related to the mirtazapine), difficulty staying asleep, decreased energy, chronic fatigue, and episodic hopelessness. Pt states she has been experiencing SI recently, even outside of the context of command hallucinations - but denies plan or intent. Pt states she has recently been tempted to give her mother her medications, as her previous suicide attempt was an intention overdose. Pt reports anxiety "constantly", specifically desire to avoid social situations and "never leave my house". Pt reports panic attacks in social situations, and with stress at work. Physical symptoms include tachycardia, SOB, headache, and feeling "uncomfortable overall" - typically lasting 1/2 - 1 hour before symptoms resolve. Pt denies recent SIB, paranoia, negra/hypomania, other symptoms more suggestive of a bipolar presentation, OCD, PTSD, eating disorder, and other specific psychiatric symptoms. Physical Exam Psychiatric Orientation: alert, oriented x 3 and cooperative Apperance: appropriately dressed, appropriately groomed and appeared stated age Eye Contact: good eye contact Motor Behavior: steady gait and station and no abnormal motor movements Speech: normal rate/rhythm/volume of speech Affect: euthymic affect; no depressed affect and no anxious affect Mood: no depressed mood and no anxious mood "I'm feeling good, I'm so ready to go home" Thought Process: goal directed thought process, linear/logical thought process and clear/coherent thought process Thought Content: reality based without delusions; no delusions Suicidal Thoughts: denies suicidal thoughts, denies suicidal plan and denies suicidal intent Homicidal Thoughts: denies homicidal thoughts, denies homicidal plan and denies homicidal intent Hallucinations: no auditory hallucinations and no visual hallucinations Cognition: recent memory grossly intact, remote memory grossly intact, attention grossly intact and language grossly intact Estimated Intelligence: average estimated intelligence and consistent with education level Insight: good insight Judgement: good judgement Vital Signs (Past 24 Hours) Last Vital Signs Temp 36.8 C 03/11/19 09:53 Pulse 76 03/11/19 09:53 Resp 96 H 03/11/19 06:46 BP 112/77 03/11/19 09:53 Pulse Ox 97 03/11/19 09:53 Principal Diagnosis Schizoaffective disorder, panic disorder Psychiatric Data 29-year-old female admitted voluntarily for inpatient psychiatric treatment due to reported worsening of depression, auditory/visual hallucinations, and command hallucinations with thoughts to hurt herself and her coworkers. Pt had last been seen on our unit for similar reports in 08/2017. Pt reported compliance with medications, but with increasing work stress found herself to be decompensating psychiatrically. She was agreeable to medication adjustments and ziprasidone was tapered in favor of initiating aripiprazole. Artane was also initiated due to reports of EPS with previous trials of atypical antipsychotic trials. Over the course of the patient's admission, she denied suicidality and homicidality, and auditory and visual hallucinations eventually resolved. Pt participated in group and recreational programming. She was willing to involve her mother in a family meeting to discuss safety and discharge planning. Mother remains a support to the patient. Pt's place of employment was notified of patient's thoughts to "burn the place down" on admission. Pt is not sure that she would be interested in returning to work there, even if able. She plans to seek alternative employment and focus on activities which allow for mental health stability. Pt denies safety concerns and reports feeling ready for discharge. She completed safety plan prior to discharge which was personally reviewed by this provider. At time of discharge, patient does not appear to be at acute risk of harm to self, and appears appropriate for ongoing psychiatric treatment on an outpatient basis. Day of Discharge Assessment Pt's case was reviewed and discussed during treatment team. Pt was reportedly denying any concerns and rated herself a "7/10 and feeling excited" last evening. Pt was seen today to assess readiness for discharge. Pt tells this pr ovider that she is "so ready to go home!" She appears happy and states that she has noticed improvement in her mood. Pt denies A/V hallucinations for the past few days. She does admit to some nausea after taking her morning medications, we reviewed possibility to take her medications with food in order to reduce this risk. Pt shares with this provider a plan to join a gym and focus on her physical health, as well as thoughts to increase her journaling - with eventual desire to write a "self-help book of my own." Pt states she is not likely to return to work at the [employer], but would prefer to discuss this with her boss [id number]. She verbalizes several other options for employment she may consider. Pt denies SI/HI, and is able to contract for safety outside of the hospital setting. We reviewed "red flags" as well as coping strategies patient feels she is able to utilize. At this time, patient is requesting discharge to home, where she resides with her parents. Based on review of records and current presentation, patient appears to be at reduced risk of harm to self or others and seems appropriate for discharge home with ongoing outpatient mental health treatment. ROS: Constitutional: reports mild nausea after taking medications Cardiovascular: denied Respiratory: denied Gastrointestinal: denied Neurological: denied Psychiatric: denies symptoms other than stated above Total of at least 10 systems reviewed, pertinent positives as above and in HPI. Transition of Care Transition Of Care Record: was reviewed with the patient Advance Directives Advance Directives Information Provided: Yes Advance Directives: No Mental Health Advance Directive: No Advance Directives on File: No Living Will: No Power of Patcher Wood Welder: No Advance Directives Reason:: Declines as Mental Health Visit. Risk Factors Assessment Male: No : Yes Do You Have Access To A Gun?: No Health Problems: No Mental Health Diagnoses: Yes Substance Use Disorders: No Previous Attempt: Yes (polydrug overdose) Previous Attempt; Highly Lethal: No Previous Attempt; Planned: No Previous Attempt; Didn't Tell Anyone: Yes Family History of Suicide: No Previous Psychiatric Hospitalization: Yes Hopelessness: Yes (episodic ) Smoker: No (not presently; history of tobacco use "on and off") Protective Factors Assessment Religion Beliefs: Yes : No Responsible for Young Children: No Employed: Yes (Employed at a local [place] [employer]) Stable Relationships: No Supportive Family: Yes Good Rapport with Provider: Yes Absence of Any Risk Factors Above: No Tobacco Cessation at Discharge Tobacco Cessation Medication Prescribed at Discharge: Not Applicable/Non-Smoker Antipsychotic Medications Current medication regimen includes quetiapine in combination with aripiprazole due to failure of monotherapy with at least four atypical antipsychotics. Total Time Total Time Spent: Greater Than 30 Minutes Total Time Includes: Examination of the patient, Discharge Planning, Medication Reconciliation and Communication with other providers Discharge Data Lab Results 03/05/19 03/05/19 03/05/19 11:44 11:44 11:44 WBC 8.46 RBC 4.37 Hgb 14.1 Hct 40.3 MCV 92.2 MCH 32.3 MCHC 35.0 RDW Std Deviation 44.1 RDW Coeff of Jalen 12.9 Plt Count 184 MPV 11.3 H Immature Gran % (Auto) 0.1 Neut % (Auto) 61.1 Lymph % (Auto) 20.4 [place] % (Auto) 4.7 Eos % (Auto) 13.2 Baso % (Auto) 0.5 Immature Gran # (Auto) 0.01 Neut # (Auto) 5.16 Lymph # (Auto) 1.73 [place] # (Auto) 0.40 Eos # (Auto) 1.12 H Baso # (Auto) 0.04 Sodium 138 Potassium 3.7 Chloride 106 Carbon Dioxide 26 Anion Gap 6.0 BUN 8 Creatinine 0.91 Est Cr Clr Drug Dosing 79.9 Est GFR ( Amer) 98.1 Est GFR (Non-Af Amer) 84.7 BUN/Creatinine Ratio 8.2 L Glucose 82 Fasting Glucose Calcium 8.9 Total Bilirubin 0.3 AST 45 H ALT 80 H Alkaline Phosphatase 80 Total Protein 7.2 Albumin 3.8 Globulin 3.4 Albumin/Globulin Ratio 1.1 Triglycerides Cholesterol LDL Cholesterol, Calc VLDL Cholesterol, Calc HDL Cholesterol Cholesterol/HDL Ratio TSH 2.240 Urine Color Urine Appearance Urine pH Ur Specific [place] Urine Protein Urine Glucose (UA) Urine Ketones Urine Blood Urine Nitrite Urine Bilirubin Urine Urobilinogen Ur Leukocyte Esterase Urine WBC (Auto) Urine RBC (Auto) U Hyaline Cast (Auto) U Epithel Cells (Auto) Urine Bacteria (Auto) Calcium Oxalate Crystal Urine Yeast POC Ur Test Salicylates < 1.7 L Urine Opiates Screen Ur Methadone, Qual Acetaminophen < 2 L Urine Barbiturates Ur Phencyclidine (PCP) U Amphetamin/Meth Scrn MDMA (Ecstasy) Screen U Benzodiazepines Scrn Ur Cocaine Metabolite U Marijuana (THC) Screen Ethyl Alcohol mg/dL 03/05/19 03/05/19 03/05/19 11:44 12:35 12:35 WBC RBC Hgb Hct MCV MCH MCHC RDW Std Deviation RDW Coeff of Jalen Plt Count MPV Immature Gran % (Auto) Neut % (Auto) Lymph % (Auto) [place] % (Auto) Eos % (Auto) Baso % (Auto) Immature Gran # (Auto) Neut # (Auto) Lymph # (Auto) [place] # (Auto) Eos # (Auto) Baso # (Auto) Sodium Potassium Chloride Carbon Dioxide Anion Gap BUN Creatinine Est Cr Clr Drug Dosing Est GFR ( Amer) Est GFR (Non-Af Amer) BUN/Creatinine Ratio Glucose Fasting Glucose Calcium Total Bilirubin AST ALT Alkaline Phosphatase Total Protein Albumin Globulin Albumin/Globulin Ratio Triglycerides Cholesterol LDL Cholesterol, Calc VLDL Cholesterol, Calc HDL Cholesterol Cholesterol/HDL Ratio TSH Urine Color Urine Appearance Urine pH Ur Specific [place] Urine Protein Urine Glucose (UA) Urine Ketones Urine Blood Urine Nitrite Urine Bilirubin Urine Urobilinogen Ur Leukocyte Esterase Urine WBC (Auto) Urine RBC (Auto) U Hyaline Cast (Auto) U Epithel Cells (Auto) Urine Bacteria (Auto) Calcium Oxalate Crystal Urine Yeast POC Ur Test NEG Salicylates Urine Opiates Screen Neg Ur Methadone, Qual Neg Acetaminophen Urine Barbiturates Neg Ur Phencyclidine (PCP) Neg U Amphetamin/Meth Scrn Neg MDMA (Ecstasy) Screen Neg U Benzodiazepines Scrn Neg Ur Cocaine Metabolite Neg U Marijuana (THC) Screen Neg Ethyl Alcohol mg/dL < 3.0 03/05/19 03/06/19 12:35 07:21 WBC RBC Hgb Hct MCV MCH MCHC RDW Std Deviation RDW Coeff of Jalen Plt Count MPV Immature Gran % (Auto) Neut % (Auto) Lymph % (Auto) [place] % (Auto) Eos % (Auto) Baso % (Auto) Immature Gran # (Auto) Neut # (Auto) Lymph # (Auto) [place] # (Auto) Eos # (Auto) Baso # (Auto) Sodium Potassium Chloride Carbon Dioxide Anion Gap BUN Creatinine Est Cr Clr Drug Dosing Est GFR ( Amer) Est GFR (Non-Af Amer) BUN/Creatinine Ratio Glucose Fasting Glucose 87 Calcium Total Bilirubin AST ALT Alkaline Phosphatase Total Protein Albumin Globulin Albumin/Globulin Ratio Triglycerides 73 Cholesterol 188 LDL Cholesterol, Calc 106 VLDL Cholesterol, Calc 15 HDL Cholesterol 67 Cholesterol/HDL Ratio 3 TSH Urine Color Yellow Urine Appearance Cloudy H Urine pH 6.0 Ur Specific [place]cano 1.010 Urine Protein Negative Urine Glucose (UA) Negative Urine Ketones Negative Urine Blood Negative Urine Nitrite Negative Urine Bilirubin Negative Urine Urobilinogen Negative Ur Leukocyte Esterase Trace H Urine WBC (Auto) 1-5 Urine RBC (Auto) 0-4 U Hyaline Cast (Auto) 1-5 U Epithel Cells (Auto) >30 H Urine Bacteria (Auto) 1+ H Calcium Oxalate Crystal Present H Urine Yeast Not Reportable POC Ur Test Salicylates Urine Opiates Screen Ur Methadone, Qual Acetaminophen Urine Barbiturates Ur Phencyclidine (PCP) U Amphetamin/Meth Scrn MDMA (Ecstasy) Screen U Benzodiazepines Scrn Ur Cocaine Metabolite U Marijuana (THC) Screen Ethyl Alcohol mg/dL Hospital Course (1) Suicidal ideation: 03/05 - Admitted to a locked inpatient behavioral health unit, on q15 minute safety checks - Encourage medication initiation/adjustments as indicated - Encourage participation in group and recreational therapies - Gather collateral information from outpatient providers - Suggest family meeting to involve outpatient supports in safety planning - Arrange appropriate aftercare 03/09 - Patient reports suicidal thoughts have resolved. She has a family meeting with her mother today. We are referring her for a higher level of outpatient care. 03/10 - Finalize aftercare plans - Duty to warn completed by social work (2) Homicidal ideation: 03/05 - As above, homicide checks ordered - Will have patient in medically necessary private room given reports that thoughts to harm others extends beyond her co-workers; will reassess as patient gets acclimated to the unit and behavior can be observed - Encouraged development of healthy and effective coping strategies to manage anxiety and anger 03/06 - Currently taking Geodon 20 mg BID. Psychotic symptoms persist, as do mood alterations. Rarely effective at higher dosages. Offer a trial of Abilify 5 mg now, and then 15 mg daily. - H/O EPS reported. Include Artane 2 mg daily with Abilify. - Discontinue Geodon after a PM dose this evening. - Encourage patient to use her "Mind over matter" technique (used by her for smoking cessation) to prevent acting upon thoughts of causing physical harm to others. 03/07 - social security specialist to address duty to warn issues related to workplace. 03/09 - Patient is socializing and interacting appropriately with staff and peers, denying thoughts to harm others while in the hospital. She continues to report thoughts to harm coworkers, and social work will contact her employer regarding the duty to warn. - Patient states she is going to quit her job and will not be returning to work at the [employer]. 03/10 - Duty to warn completed by social work (3) Schizoaffective disorder: 03/05 - Reports diagnosis of schizoaffective disorder, bipolar type - history of manic/hypomanic behavior denied - Request records from outpatient prescriber to gather collateral information and clarify diagnosis; history of dissociative disorder and conversion disorder were also reported in patient's records - Continue current medication regimen through the evening - Explore prior-authorization for lurasidone to determine if it could be considered; recommended by outpatient psychiatrist but not enough formulary trials - Could also consider titration of ziprasidone - Fasting glucose and lipid panel ordered for tomorrow AM 03/06 - Currently taking Geodon 20 mg BID. Psychotic symptoms persist, as do mood alterations. Rarely effective at higher dosages. Offer a trial of Abilify 5 mg now, and then 15 mg daily. - H/O EPS reported. Include Artane 2 mg daily with Abilify. - Discontinue Geodon after a PM dose this evening. 03/07 - tolerating Abilify, appears improved with regards to irritability and thought processes. 03/08 - titrate Abilify to 20 mg, will provide an additional 50 mg prn Seroquel if disrupted sleep. 03/09 - Continue aripiprazole 20 mg daily and trihexyphenidyl 2 mg every morning, which has been helpful for restlessness. - Fasting lipid profile and fasting glucose from 03/06/2019 reviewed for monitoring on an atypical antipsychotic; all values within normal limits. (4) Panic disorder without agoraphobia: 03/05 - Consider adjustments to fluoxetine, had previously been at 40mg unclear why tapered - Continue buspirone 10mg TID, consider titration - Encourage development of healthy and effective coping strategies Post Discharge Appointments Primary Care Physician Name Of Family Doctor: Dr. Danilo Vernon [facility] Psychiatrist Name of Psychiatrist: [facility] Miracle [facility] Psychiatrist's Psychiatric App[facility]ment [facility] [address] [facility] [place] [address] Therapist Name of Therapist: OKSANA White Therapist's Date of Therapist Appointment: 04/03/19 Time of Therapist Appointment: 1pm Therapy Appointment Comment: [address] [facility] [facility] [place] [address] Concrete Pump Operator Helper Name of Concrete Pump Operator Helper: [employer] - will contact you Phone Number for Concrete Pump Operator Helper: [phone] Case Management Appointment Comment: [address], [address], [place], [place] Smoking Cessation Counseling Tobacco Cessation Medication Prescribed at Discharge: Not Applicable/Non-Smoker Contact Information Discharge Discharge Address: [address] [place] [address], [place] [address] Discharge Plan Discharge Items Patient Disposition: Home - Self-Care Reason For Visit: SCHIZOAFFECTIVE DISORDER,BIPOLAR TYPE Discharge Diagnosis: Schizoaffective disorder Condition: Good Discharge Goals: Decrease discomfort, Improve function, Increase independence, Learn about illness and Therapeutic intervention Activity: Resume your previous activity Non-emergency contact: Primary Care Provider, Psychiatrist and Therapist Call non-emergency contact if: you have any medication questions and your symptoms worsen Follow-up/Referrals: Danilo Elliott DO [Primary Care Provider] - Diet: Regular Addtl Provider Instructions: SPECIAL CARE INSTRUCTIONS: 1. Follow through with your scheduled aftercare appointments. If unable to keep an appointment, please call to reschedule. 2. Take your medication only as prescribed. Medication should not be changed or stopped without the approval of your doctor. In the event of worsening symptoms or concerns about side effects, contact your doctor immediately. 3. Utilize new healthy coping skills, anger management skills, and stress management skills learned during your hospitalization. Journal feelings and process them with a support person. Identify stressors or situations that may result in relapse, deterioration or inappropriate behaviors and develop a plan to deal with those issues. 4. If your coping skills are ineffective and you are in crisis, contact your outpatient providers for direction. If unable to reach your providers, please call the CAN HELP LINE AT or go to the closest Emergency Room. 5. Avoid alcohol and un-prescribed drugs. 6. You have been provided with the Mental Health Advance Directives Pamphlet for your review. AFTERCARE APPOINTMENTS: * Please call your insurance company prior to your scheduled appointment to confirm your aftercare providers are covered. Take your insurance information to your a ppointments. WHO TO CALL AND WHEN: Medical Emergencies: For questions or emergencies related to your hospital stay, please contact the Inpatient Behavioral Health Unit at [phone]. A outreach clinician is on-call 24/06 for the Behavioral Health Unit for emergencies At any time you feel your situation is an emergency, you may also call 911 immediately. Your Doctors Instructions noted above were prepared by provider Meg Bazan PA-C. Prescriptions: New aripiprazole 20 mg tablet 20 mg PO QAM 30 Days Qty: 30 RF: 0 trihexyphenidyl 2 mg Tablet 2 mg PO QAM 30 Days Qty: 30 RF: 0 Continued quetiapine [Seroquel] 100 mg Tablet 100 mg PO HS RF: 0 fluoxetine 20 mg Capsule 20 mg PO DAILY RF: 0 buspirone tablet 10 mg PO TID RF: 0 mirtazapine [Remeron] 15 mg tablet 15 mg PO HS RF: 0 Discontinued ziprasidone HCl [Geodon] 20 mg Capsule 20 mg PO BID RF: 0 Stand-Alone Forms: [facility] Discharge Orders: Discharge Order (Routine); Ordered 03/11/19 Ordered By: Meg Bazan Admission Data Admit Date/Time: 03/05/19 15:15 Attending Provider: Charis Vela Admit Provider: Charis Vela Primary Care Provider: Danilo Elliott Service: Psychiatry Other Interventions: Discharge Summary Assessment (RN) Last Done: 03/11/19 09:53 PSY Interdisciplinary Discharge Planning Last Done: 03/11/19 09:54 Pending Studies at Discharge: No DC Date/Time DO NOT enter until pt leaves facility: 03/11/19 11:26
== END 2019-03-11 11:26 | disposition home or self-care (01) | DRG 880 ==
LOC: ED 11:14 → 3S 15:13

== ENCOUNTER 2020-07-24 11:47 | Inpatient (IN) ==
--- NOTE | 2020-07-24 12:09 | Emergency Department Note ---
Impression & Plan Depression with suicidal ideation ED Provider Note Provider: Evans Verma MD DATE OF SERVICE: 07/24/2020 CHIEF COMPLAINT: Suicidal thoughts HISTORY OF PRESENT ILLNESS: Patient is a 30-year-old female with a history of anxiety and schizoaffective disorder presenting today stating of the past 2 to 3 weeks she had worsening depression and suicidal thoughts. Of the past week of the continuous. Not having thoughts plan to harm her self and take pills to overdose. Patient states about years ago she had similar thoughts in the actually attempt at that time. Denies actual attempt at this point to try to harm her self. Patient states she is been sleeping okay but having some nightmares she believes. Also states that she is hearing some auditory hallucinations but not clear commanding voices. Denies any HI. States she is been eating well. Patient states few days ago she had a bit of a cough and a fever 100 degrees and was tested in the outpatient setting that was negative for coronavirus. Patient states he symptoms have resolved at this time. Patient also reports she has recently been on Chantix and stop for several days ago and thinks may be contributing. States, of other psychotropic medications. Patient states she does have an outpatient counselor or therapist through [facility]. REVIEW OF SYSTEMS: A total of 10 review of systems was obtained and negative except as stated above in the HPI. PAST MEDICAL HISTORY: As noted above MEDICATIONS: Reviewed home medications with her. SOCIAL HISTORY: Former smokerstates she just quit smoking. Lives at home with her parents PHYSICAL EXAM: GENERAL: alert and oriented in no acute distress on stretcher Head: normocephalic and atraumatic EYES: No injection, discharge or icterus. NECK: Trachea midline. ENT: Mucous membranes pink and moist. LUNGS: Airway patent. No retractions. Breath sounds clear HEART: Regular rate and rhythm. No chest wall tenderness SKIN: Acyanotic, warm, dry EXTREMITIES: Without swelling, tenderness or deformity NEUROLOGICAL: No focal deficits. No aphasia. No facial droop or slurred speech. Ambulatory. Psych: Endorses SI with plan but denies HI. Endorses auditory hallucinations. Denies visual hallucinations. Flattened affect. Patient's hypertension was referred to PCP Patient's laboratory studies and imaging reviewed. Differential includes Mood disorder, infection, hypoglycemia, electrolyte abnormalities, cardiac sources, intracerebral event, toxicologic, trauma, neur ologic, as well as other pathologies. IMPRESSION/MEDICAL DECISION MAKING: Patient presents today complaining of worsening suicidal thoughts. Prior history. Endorses suicidal thoughts with auditory hallucinations and with a plan to harm her self. Denies attempt. Medical clearance was initiated. Patient had several days ago she had a fever and a cough but this has resolved. Negative coronavirus testing several days ago. Medical clearance labs without acute findings. Patient does have SI with plan and wants voluntary inpatient treatment. Case manger assisted in evaluation. Will make referrals with the SI and plan. Accepted to on [facility] for further mental health care. DIAGNOSIS: depression with suicidal ideation DISPOSITION: placement in inpatient psychiatric unit, voluntary Past Med/Surg History Medical History (Updated 07/24/20 @ 13:31 by Evans Verma M.D.) Anxiety Depression Dissociative and conversion disorder, unspecified Homicidal ideation Panic disorder without agoraphobia Psychosis Schizoaffective disorder Thought disorder Visual hallucinations Family History Other Family history non-contributory Social History Smoking Status: Former smoker Preferred Language: Upper Sorbian Communication Ability: Effective Tennis Court Attendant Required: No Beliefs That Will Affect Care: Spiritual Feels Safe at Home: Yes Allergies Allergies Allergy/AdvReac Type Severity Reaction Status Date / Time codeine Allergy Intermediate SOB-"RESTLE Verified 10/22/19 13:06 SSNESS" Home Meds Home Medications Medication Instructions Recorded Confirmed aripiprazole [Abilify] 20 mg PO QAM 06/11/19 07/24/20 trihexyphenidyl 2 mg PO QAM 06/11/19 07/24/20 fluoxetine 40 mg PO DAILY 10/22/19 07/24/20 mirtazapine [Remeron] 15 mg PO QPM 10/22/19 07/24/20 Results & Data (ED) Vital Signs Vital Signs - 24 hr 07/24/20 11:50 Temperature 36.6 C Temperature Source Oral Pulse Rate 73 Respiratory Rate 16 Blood Pressure 112/72 Blood Pressure Mean 85 Pulse Oximetry 98 Oxygen Delivery Method Room Air Sepsis Recent Fever Within 48 Hours No Sepsis New/Unexplained Change in Mental Status N/A Sepsis Action Taken by Nursing No Action Required Laboratory Data Result diagrams: 07/24/20 12:05 07/24/20 12:05 Lab Results 07/24/20 07/24/20 07/24/20 Range/Units 11:58 11:58 12:05 WBC 11.66 H (4.8-10.8) K/uL RBC 4.54 (4.2-5.4) M/uL Hgb 14.8 (12.0-16.0) g/dL Hct 42.2 (37-47) % MCV 93.0 (80-100) fL MCH 32.6 (25-34) pg MCHC 35.1 (32-36) g/dL RDW Std Deviation 43.2 (36.4-46.3) fL RDW Coeff of Jalen 12.6 (11.5-14.5) % Plt Count 191 (130-400) K/uL MPV 11.5 H (7.4-10.4) fL Immature Gran % (Auto) 0.2 % Neut % (Auto) 74.5 % Lymph % (Auto) 19.2 % Tripp % (Auto) 4.2 % Eos % (Auto) 1.6 % Baso % (Auto) 0.3 % Neut # (Auto) 8.69 H (1.4-6.5) K/uL Lymph # (Auto) 2.24 (1.2-3.4) K/uL Tripp # (Auto) 0.49 (0.11-0.59) K/uL Eos # (Auto) 0.19 (0-0.5) K/uL Baso # (Auto) 0.03 (0-0.2) K/uL Immature Gran # (Auto) 0.02 (0.00-0.02) K/uL Sodium (136-145) mmol/L Potassium (3.5-5.1) mmol/L Chloride (98-107) mmol/L Carbon Dioxide (21-32) mmol/L Anion Gap (3-11) BUN (7-18) mg/dl Creatinine (0.6-1.2) mg/dl Est Cr Clr Drug Dosing ml/min Est GFR ( Amer) Est GFR (Non-Af Amer) BUN/Creatinine Ratio (10-20) Glucose (70-99) mg/dl Calcium (8.5-10.1) mg/dl Total Bilirubin (0.2-1) mg/dl AST (15-37) U/L ALT (12-78) U/L Alkaline Phosphatase (45-117) U/L Total Protein (6.4-8.2) gm/dl Albumin (3.4-5.0) gm/dl Globulin (2.5-4.0) gm/dl Albumin/Globulin Ratio (0.9-2) TSH (0.300-4.500) uIu/ml HCG, Qual (Negative) Urine Color Yellow Urine Appearance Cloudy A (Clear) Urine pH 7.0 (4.5-7.5) Ur Specific [place] 1.007 (1.000-1.030) Urine Protein Negative (Negative) Urine Glucose (UA) Negative (Negative) Urine Ketones Negative (Negative) Urine Blood Negative (Negative) Urine Nitrite Negative (Negative) Urine Bilirubin Negative (Negative) Urine Urobilinogen Negative (Negative) Ur Leukocyte Esterase 1+ H (Negative) Urine WBC (Auto) 1-5 (0-5) /hpf Urine RBC (Auto) 5-10 H (0-4) /hpf U Hyaline Cast (Auto) 1-5 (0-5) /lpf U Epithel Cells (Auto) >30 H (0-5) /lpf Urine Bacteria (Auto) 2+ H (Negative) Urine Yeast Not Reportable Salicylates (2.8-20) mg/dl Urine Opiates Screen Neg (Neg) Ur Methadone, Qual Neg (Neg) Acetaminophen (10-30) ug/ml Urine Barbiturates Neg (Neg) Ur Phencyclidine (PCP) Neg (Neg) U Amphetamin/Meth Scrn Neg (Neg) MDMA (Ecstasy) Screen Neg (Neg) U Benzodiazepines Scrn Neg (Neg) Ur Cocaine Metabolite Neg (Neg) U Marijuana (THC) Screen Neg (Neg) Ethyl Alcohol mg/dL (0-3) mg/dl 07/24/20 07/24/20 07/24/20 Range/Units 12:05 12:05 12:05 WBC (4.8-10.8) K/uL RBC (4.2-5.4) M/uL Hgb (12.0-16.0) g/dL Hct (37-47) % MCV (80-100) fL MCH (25-34) pg MCHC (32-36) g/dL RDW Std Deviation (36.4-46.3) fL RDW Coeff of Jalen (11.5-14.5) % Plt Count (130-400) K/uL MPV (7.4-10.4) fL Immature Gran % (Auto) % Neut % (Auto) % Lymph % (Auto) % Tripp % (Auto) % Eos % (Auto) % Baso % (Auto) % Neut # (Auto) (1.4-6.5) K/uL Lymph # (Auto) (1.2-3.4) K/uL Tripp # (Auto) (0.11-0.59) K/uL Eos # (Auto) (0-0.5) K/uL Baso # (Auto) (0-0.2) K/uL Immature Gran # (Auto) (0.00-0.02) K/uL Sodium 138 (136-145) mmol/L Potassium 3.7 (3.5-5.1) mmol/L Chloride 108 H (98-107) mmol/L Carbon Dioxide 23 (21-32) mmol/L Anion Gap 7.0 (3-11) BUN 6 L (7-18) mg/dl Creatinine 1.06 (0.6-1.2) mg/dl Est Cr Clr Drug Dosing 69.6 ml/min Est GFR ( Amer) 81.0 Est GFR (Non-Af Amer) 69.9 BUN/Creatinine Ratio 5.7 L (10-20) Glucose 81 (70-99) mg/dl Calcium 8.0 L (8.5-10.1) mg/dl Total Bilirubin 0.4 (0.2-1) mg/dl AST 12 L (15-37) U/L ALT 22 (12-78) U/L Alkaline Phosphatase 66 (45-117) U/L Total Protein 6.9 (6.4-8.2) gm/dl Albumin 3.6 (3.4-5.0) gm/dl Globulin 3.3 (2.5-4.0) gm/dl Albumin/Globulin Ratio 1.1 (0.9-2) TSH 1.280 (0.300-4.500) uIu/ml HCG, Qual (Negative) Urine Color Urine Appearance (Clear) Urine pH (4.5-7.5) Ur Specific [place] (1.000-1.030) Urine Protein (Negative) Urine Glucose (UA) (Negative) Urine Ketones (Negative) Urine Blood (Negative) Urine Nitrite (Negative) Urine Bilirubin (Negative) Urine Urobilinogen (Negative) Ur Leukocyte Esterase (Negative) Urine WBC (Auto) (0-5) /hpf Urine RBC (Auto) (0-4) /hpf U Hyaline Cast (Auto) (0-5) /lpf U Epithel Cells (Auto) (0-5) /lpf Urine Bacteria (Auto) (Negative) Urine Yeast Salicylates < 1.7 L (2.8-20) mg/dl Urine Opiates Screen (Neg) Ur Methadone, Qual (Neg) Acetaminophen < 2 L (10-30) ug/ml Urine Barbiturates (Neg) Ur Phencyclidine (PCP) (Neg) U Amphetamin/Meth Scrn (Neg) MDMA (Ecstasy) Screen (Neg) U Benzodiazepines Scrn (Neg) Ur Cocaine Metabolite (Neg) U Marijuana (THC) Screen (Neg) Ethyl Alcohol mg/dL < 3.0 (0-3) mg/dl 07/24/20 Range/Units 12:05 WBC (4.8-10.8) K/uL RBC (4.2-5.4) M/uL Hgb (12.0-16.0) g/dL Hct (37-47) % MCV (80-100) fL MCH (25-34) pg MCHC (32-36) g/dL RDW Std Deviation (36.4-46.3) fL RDW Coeff of Jalen (11.5-14.5) % Plt Count (130-400) K/uL MPV (7.4-10.4) fL Immature Gran % (Auto) % Neut % (Auto) % Lymph % (Auto) % Tripp % (Auto) % Eos % (Auto) % Baso % (Auto) % Neut # (Auto) (1.4-6.5) K/uL Lymph # (Auto) (1.2-3.4) K/uL Tripp # (Auto) (0.11-0.59) K/uL Eos # (Auto) (0-0.5) K/uL Baso # (Auto) (0-0.2) K/uL Immature Gran # (Auto) (0.00-0.02) K/uL Sodium (136-145) mmol/L Potassium (3.5-5.1) mmol/L Chloride (98-107) mmol/L Carbon Dioxide (21-32) mmol/L Anion Gap (3-11) BUN (7-18) mg/dl Creatinine (0.6-1.2) mg/dl Est Cr Clr Drug Dosing ml/min Est GFR ( Amer) Est GFR (Non-Af Amer) BUN/Creatinine Ratio (10-20) Glucose (70-99) mg/dl Calcium (8.5-10.1) mg/dl Total Bilirubin (0.2-1) mg/dl AST (15-37) U/L ALT (12-78) U/L Alkaline Phosphatase (45-117) U/L Total Protein (6.4-8.2) gm/dl Albumin (3.4-5.0) gm/dl Globulin (2.5-4.0) gm/dl Albumin/Globulin Ratio (0.9-2) TSH (0.300-4.500) uIu/ml HCG, Qual Negative (Negative) Urine Color Urine Appearance (Clear) Urine pH (4.5-7.5) Ur Specific [place] (1.000-1.030) Urine Protein (Negative) Urine Glucose (UA) (Negative) Urine Ketones (Negative) Urine Blood (Negative) Urine Nitrite (Negative) Urine Bilirubin (Negative) Urine Urobilinogen (Negative) Ur Leukocyte Esterase (Negative) Urine WBC (Auto) (0-5) /hpf Urine RBC (Auto) (0-4) /hpf U Hyaline Cast (Auto) (0-5) /lpf U Epithel Cells (Auto) (0-5) /lpf Urine Bacteria (Auto) (Negative) Urine Yeast Salicylates (2.8-20) mg/dl Urine Opiates Screen (Neg) Ur Methadone, Qual (Neg) Acetaminophen (10-30) ug/ml Urine Barbiturates (Neg) Ur Phencyclidine (PCP) (Neg) U Amphetamin/Meth Scrn (Neg) MDMA (Ecstasy) Screen (Neg) U Benzodiazepines Scrn (Neg) Ur Cocaine Metabolite (Neg) U Marijuana (THC) Screen (Neg) Ethyl Alcohol mg/dL (0-3) mg/dl Discharge Plan Visit Data Chief Complaint: Mental Health Evaluation Stated Complaint: SUICIDAL THOUGHTS ED Provider: Evans Verma Discharge Problem: Depression with suicidal ideation Patient Disposition: Admitted As Inpatient Discharge Instructions Interventions: ED Discharge Assessment Last Done: 07/24/20 14:37
[2020-07-24 12:24] LABS: Appearance Urine Cloudy (Clear); Bilirubin Urine Negative (Negative); Blood Urine Negative (Negative); Color Urine Yellow; Epithelial Cell Urine Auto >30 /lpf (0-5); Glucose Urine UA Negative (Negative); Ketones Urine Negative (Negative); Leukocyte Esterase Urine 1+ (Negative); Nitrite Urine Negative (Negative); Protein Urine Negative (Negative); Specific Gravity Urine 1.007 (1.000-1.030); Urobilinogen Urine Negative (Negative)
[2020-07-24 12:26] LABS: Basophils # (auto) 0.03 K/uL (0-0.2); Basophils % (auto) 0.3 %; Eosinophils # (auto) 0.19 K/uL (0-0.5); Eosinophils % (auto) 1.6 %; Hematocrit (blood only) 42.2 % (37-47); Hemoglobin 14.8 g/dL (12.0-16.0); Immature Granulocytes # (auto) 0.02 K/uL (0.00-0.02); Immature Granulocytes % (auto) 0.2 %; Lymphocytes # (auto) 2.24 K/uL (1.2-3.4); Lymphocytes % (auto) 19.2 %; Mean Corpuscular Hemoglobin 32.6 pg (25-34); Mean Corpuscular Hgb Conc 35.1 g/dL (32-36); Mean Platelet Volume 11.5 fL (7.4-10.4); Monocytes # (auto) 0.49 K/uL (0.11-0.59); Monocytes % (auto) 4.2 %; Neutrophils # (auto) 8.69 K/uL (1.4-6.5); Neutrophils % (auto) 74.5 %; Platelet Count 191 K/uL (130-400); RDW Coefficient of Variation 12.6 % (11.5-14.5); RDW Standard Deviation 43.2 fL (36.4-46.3); Red Blood Count 4.54 M/uL (4.2-5.4); White Blood Count 11.66 K/uL (4.8-10.8)
[2020-07-24 12:36] LABS: Bacteria Urine Automated 2+ (Negative)
[2020-07-24 12:45] LABS: Albumin Level 3.6 gm/dl (3.4-5.0); BUN Creatinine Ratio 5.7 (10-20); Creatinine Clr Calc Pharmacy 69.6 ml/min; Est GFR (Non-African American) 69.9; Potassium 3.7 mmol/L (3.5-5.1)
[2020-07-24 12:48] LABS: Salicylate < 1.7 mg/dl (2.8-20)
[2020-07-24 12:49] LABS: Acetaminophen < 2 ug/ml (10-30)
[2020-07-24 12:50] LABS: Pregnancy Test, Serum Negative (Negative)
[2020-07-24 12:51] LABS: Amphetamines+Metham, Urine Neg (Neg); Barbiturates, Urine Neg (Neg); Benzodiazepine, Urine Neg (Neg); Cocaine, Urine Neg (Neg); MDMA (Ecstacy), Urine Neg (Neg); Methadone, Urine Neg (Neg); Opiate, Urine Neg (Neg); Phencyclidine, Urine Neg (Neg)
[2020-07-24 12:55] LABS: Albumin Globulin Ratio 1.1 (0.9-2); Bilirubin,Total 0.4 mg/dl (0.2-1); Globulin 3.3 gm/dl (2.5-4.0); Thyroid Stimulating Hormone 1.28 uIu/ml (0.300-4.500); Total Protein 6.9 gm/dl (6.4-8.2)
[2020-07-24] MEDS ORDERED: ACETAMINOPHEN 325 MG TAB PO PRN (14:16)
[2020-07-24] MEDS ORDERED: MAGNESIUM HYDROXIDE SUSP 30 ML UDC PO PRN (14:16)
[2020-07-24] MEDS ORDERED: SODIUM CHLORIDE 0.65% NA SOLN 45 ML (OCEAN) PRN (14:16)
[2020-07-24] MEDS ORDERED: ALUMINUM/MAGNESIUM SUSP 30 ML UDC PO PRN (14:16)
[2020-07-24] MEDS ORDERED: BISMUTH SUBSALICYLATE PER ML OMNICELL CHARGE PO PRN (14:16)
[2020-07-24] MEDS ORDERED: LORazepam 1 MG TAB PO PRN (14:20)
[2020-07-24] MEDS: MIRTAZAPINE TAB 15 MG TAB PO SCH (21:04)
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
[2020-07-25] MEDS: ARIPiprazole 10 MG TAB PO SCH (08:50)
[2020-07-25] MEDS: TRIHEXYPHENIDYL HCL 2 MG TAB PO SCH (08:50)
[2020-07-25] MEDS ORDERED: FLUOXETINE HCL 20 MG CAP PO SCH (09:00)
[2020-07-25] MEDS: MIRTAZAPINE TAB 15 MG TAB PO SCH (21:01)
[2020-07-26 08:50] LABS: Glucose Fasting 91 mg/dl (70-99)
[2020-07-26] MEDS: ARIPiprazole 10 MG TAB PO SCH (08:51)
[2020-07-26] MEDS: TRIHEXYPHENIDYL HCL 2 MG TAB PO SCH (08:52)
[2020-07-26 08:56] LABS: Chol HDL Ratio 4; Cholesterol 182 mg/dl (0-200); HDL Cholesterol 43 mg/dl; LDL Cholesterol Calculated 124 mg/dl; Triglycerides 73 mg/dl (0-150); VLDL Cholesterol 15 mg/dl
[2020-07-26] MEDS ORDERED: FLUOXETINE HCL 20 MG CAP PO SCH (09:00)
--- NOTE | 2020-07-26 12:09 | Discharge Summary ---
Date of Service July 26, 2020 History of Present Illness Patient is known to us from multiple previous hospitalizations, most recently in March 2019 for command auditory hallucinations telling her to harm herself and others. At that time she was switched from ziprasidone to aripiprazole, and was discharged on aripiprazole 20mg, quetiapine 100mg, trihexyphenidyl 2 mg every morning, fluoxetine 20 mg daily, buspirone 10 mg 3 times daily, and mirtazapine 15 mg at bedtime. with follow-up at [facility] and referred to the [facility] for a binder caser. She presented to the ER yesterday, 07/24/2020, reporting suicidal thoughts for the past week, with a plan to overdose on her medications. She endorsed auditory hallucinations, nightmares, and worsening symptoms since starting Chantix, which she had stopped several days prior. Admission labs notable for WBC 11.66, normal TSH, negative hCG and UDS, contaminated UA (culture showed 3 types of organisms present, all high counts probable skin inder). She requested voluntary admission, and signed in on a 201, but submitted a 72-hour notice requesting to withdrawal from treatment this morning. On my assessment, she reports depression for "a couple months now," and increased SI for 3 weeks since she started Chantix 3 weeks ago (stopped it several days ago). Has plans to overdose on medications. 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 She states her psychiatrist wouldn't fill out disability paperwork, and she hasn't been able to find someone else to do it. She hasn't worked since Jan., states she stopped due to panic attacks. Spends most of her time at home, parents moved to [place] recently. She talks to friends online, and only rarely sees friends. Doesn't leave the house much, spends most of her time on social media "just looking at posts," estimates 4-5 hours a day, and rest of time watching TV. Does not have concerns about the amount of time she is spending online. Sleep is impaired, waking up frequently overnight. Denies changes in appetite and weight. Energy and motivation are fair. Has daily AH "mumbling in the back of my head," which has gotten louder over the past couple of weeks. States she wants to go back on Seroquel, as her psychiatrist "took me off it for some reason." Is not sure when it was stopped, last or maybe Jan. States she was started on propranolol a couple months ago for anxiety, but doesn't think it works, so stopped it last week. She reports she has been taking aripiprazole, trihexphenidyl, fluoxetine, and mirtazapine regularly. Thinks she has been on these medications at least a year, and denies ever being on higher doses of fluoxetine. Denies recent manic symptoms and other psychotic symptoms. She states she wants to be back on Seroquel, as it helped with sleep. She only followed up with her BCM a couple times and stopped as "it wasn't doing anything for me." States her mother and one friend are her only supports. States she submitted a 72 hour notice because "I'm really uncomfortable here, really lonely." States she is bored and would like to leave "soon," but not necessarily today, "just as soon as possible." She states she "just doesn't feel comfortable here," and that she feels highly anxious whenever she leaves her house. States her mother and step father are both retired and home all the time, and thinks they could help support her by "just talking to me." Physical Exam Psychiatric Orientation: alert and cooperative Apperance: appropriately dressed, appropriately groomed and appeared stated age Overweight female appearing her stated age. Dressed in a long printed skirt, tank top and cardigan sweater. Large gauges in her ears, 3 lip/facial piercings. Tattoo on upper chest. Hair cut short and dyed blue. Wearing glasses. Good hygiene. Seated in no acute distress. Eye Contact: good eye contact Motor Behavior: steady gait and station and no abnormal motor movements Speech: normal rate/rhythm/volume of speech Mildly blunted affect. "Pretty good." Thought Process: goal directed thought process Thought Content: reality based without delusions Suicidal Thoughts: denies suicidal thoughts Homicidal Thoughts: denies homicidal thoughts Hallucinations: no auditory hallucinations and no visual hallucinations Cognition: recent memory grossly intact, attention grossly intact and language grossly intact Estimated Intelligence: average estimated intelligence Insight: + limited insight Judgement: + limited judgement Vital Signs (Past 24 Hours) Last Vital Signs Temp 36.5 C 07/26/20 06:30 Pulse 75 07/26/20 06:30 Resp 18 07/26/20 06:30 BP 119/84 07/26/20 06:30 Pulse Ox 98 07/24/20 11:50 Principal Diagnosis Schizoaffective disorder, bipolar type Panic disorder with agoraphobia Limited adherence with treatment recommendations (case management, day progr amming) Psychiatric Data Patient was hospitalized for 2 days. On admission, she was continued on home medications and fluoxetine was increased to 60 mg daily to target depressive symptoms. She wanted to resume quetiapine, but as she reported it was discontinued for unknown reasons and she is already on another atypical antipsychotic, advised her we would need to speak with her outpatient psychiatrist first. Requested records but have not yet received them. Patient reported improved mood and resolution of suicidal thoughts and command auditory hallucinations. She was focused on wanting rapid discharge, stating she felt very anxious being away from home, and was unable to use some of her coping skills as they are only available to her in her house (snuggling with her cat, social media). She reported spending 5 hours/day on social media, and the rest of her time watching TV, and did not have any concerns about this pattern, and was anxious to return to it. She was encouraged to work on relationships with other people in the area and recommendations for case management, day programming, and OV ER with eventual return to work were discussed, all of which she refused. She stated that she had had a binder caser in the past and "it didn't do anything for me." She appeared to benefit from socializing with staff and peers, was seen on the unit talking with others with brightened affect. She attended and participated in groups and therapy. Her mother was contacted for collateral information and reported that she would like the patient to participate in groups as an outpatient, as she would benefit from increased supports and would not be as lonely. Her mother stated that the patient has been spending 23 hours/day alone in her room. A family meeting was held with the social media marketing manager, patient, and her mother on the day of discharge. The patient reported that her "dark thoughts" had gotten better and that she felt safe outside of the hospital. She and her mother both indicated that symptoms appeared to worsen when she was taking the Chantix. Her mother denied any acute safety concerns and was supportive of patient's request for discharge. They denied concerns about medication adherence, and denied access to weapons in the home. Day of Discharge Assessment Staff report the patient and her mother are both in favor of discharge and deny acute safety concerns. On my assessment, patient states mood has improved since admission, denies suicidal thoughts and command hallucinations, and is tolerating the increased dose of fluoxetine well. She says it has been helpful to "have people to talk to here," but remains unwilling for return to case management and day programming/psych rehab, wanting to instead return home and spend time on social media and with her. She agrees to continue outpatient therapy and psychiatric care. Sleep and appetite have been good here, and denies side effects to medication. Transition of Care Transition Of Care Record: was reviewed with the patient Advance Directives Advance Directives Information Provided: Yes Advance Directives: No Mental Health Advance Directive: No Advance Directives on File: No Living Will: No Power of C D Still Operator: No Advance Directives Reason:: Declines as Mental Health Visit. Risk Factors Assessment Risk factors mitigated by admission to the inpatient unit, adjusting medications to target depressive symptoms, labs for monitoring on an atypical antipsychotic, participation in groups and therapy, working on healthy coping skills and discharge safety plan, family meeting with her mother, and encouraging her to increase her outpatient services/supports by resuming case management and day programming through psych rehab and/or [facility], which she unfortunately declined. She is reporting improved mood and denying suicidal thoughts and command auditory hallucinations, is eating and sleeping well, taking medications as prescribed, and has actively engaged in treatment. Both she and her mother deny acute safety concerns and are in favor of discharge. She is requesting discharge, and as she is no longer at acute risk of harm to herself, can be managed as an outpatient at this time. Male: No : Yes Do You Have Access To A Gun?: No Health Problems: No Mental Health Diagnoses: Yes Substance Use Disorders: No Previous Attempt: Yes Previous Psychiatric Hospitalization: Yes Hopelessness: Yes Smoker: No Protective Factors Assessment Rastafarian Beliefs: No : No Responsible for Young Children: No Employed: No Stable Relationships: No Supportive Family: Yes Good Rapport with Provider: Yes Tobacco Cessation at Discharge Tobacco Cessation Medication Prescribed at Discharge: Not Applicable/Non-Smoker Total Time Total Time Spent: Greater Than 30 Minutes Total Time Includes: Examination of the patient, Discharge Planning and Medication Reconciliation Discharge Data Lab Results 07/24/20 07/24/20 07/24/20 11:58 11:58 12:05 WBC 11.66 H RBC 4.54 Hgb 14.8 Hct 42.2 MCV 93.0 MCH 32.6 MCHC 35.1 RDW Std Deviation 43.2 RDW Coeff of Jalen 12.6 Plt Count 191 MPV 11.5 H Immature Gran % (Auto) 0.2 Neut % (Auto) 74.5 Lymph % (Auto) 19.2 [place] % (Auto) 4.2 Eos % (Auto) 1.6 Baso % (Auto) 0.3 Neut # (Auto) 8.69 H Lymph # (Auto) 2.24 [place] # (Auto) 0.49 Eos # (Auto) 0.19 Baso # (Auto) 0.03 Immature Gran # (Auto) 0.02 Sodium Potassium Chloride Carbon Dioxide Anion Gap BUN Creatinine Est Cr Clr Drug Dosing Est GFR ( Amer) Est GFR (Non-Af Amer) BUN/Creatinine Ratio Glucose Fasting Glucose Calcium Total Bilirubin AST ALT Alkaline Phosphatase Total Protein Albumin Globulin Albumin/Globulin Ratio Triglycerides Cholesterol LDL Cholesterol, Calc VLDL Cholesterol, Calc HDL Cholesterol Cholesterol/HDL Ratio TSH HCG, Qual Urine Color Yellow Urine Appearance Cloudy A Urine pH 7.0 Ur Specific [place] 1.007 Urine Protein Negative Urine Glucose (UA) Negative Urine Ketones Negative Urine Blood Negative Urine Nitrite Negative Urine Bilirubin Negative Urine Urobilinogen Negative Ur Leukocyte Esterase 1+ H Urine WBC (Auto) 1-5 Urine RBC (Auto) 5-10 H U Hyaline Cast (Auto) 1-5 U Epithel Cells (Auto) >30 H Urine Bacteria (Auto) 2+ H Urine Yeast Not Reportable Salicylates Urine Opiates Screen Neg Ur Methadone, Qual Neg Acetaminophen Urine Barbiturates Neg Ur Phencyclidine (PCP) Neg U Amphetamin/Meth Scrn Neg MDMA (Ecstasy) Screen Neg U Benzodiazepines Scrn Neg Ur Cocaine Metabolite Neg U Marijuana (THC) Screen Neg Ethyl Alcohol mg/dL 07/24/20 07/24/20 07/24/20 12:05 12:05 12:05 WBC RBC Hgb Hct MCV MCH MCHC RDW Std Deviation RDW Coeff of Jalen Plt Count MPV Immature Gran % (Auto) Neut % (Auto) Lymph % (Auto) [place] % (Auto) Eos % (Auto) Baso % (Auto) Neut # (Auto) Lymph # (Auto) [place] # (Auto) Eos # (Auto) Baso # (Auto) Immature Gran # (Auto) Sodium 138 Potassium 3.7 Chloride 108 H Carbon Dioxide 23 Anion Gap 7.0 BUN 6 L Creatinine 1.06 Est Cr Clr Drug Dosing 69.6 Est GFR ( Amer) 81.0 Est GFR (Non-Af Amer) 69.9 BUN/Creatinine Ratio 5.7 L Glucose 81 Fasting Glucose Calcium 8.0 L Total Bilirubin 0.4 AST 12 L ALT 22 Alkaline Phosphatase 66 Total Protein 6.9 Albumin 3.6 Globulin 3.3 Albumin/Globulin Ratio 1.1 Triglycerides Cholesterol LDL Cholesterol, Calc VLDL Cholesterol, Calc HDL Cholesterol Cholesterol/HDL Ratio TSH 1.280 HCG, Qual Urine Color Urine Appearance Urine pH Ur Specific [place] Urine Protein Urine Glucose (UA) Urine Ketones Urine Blood Urine Nitrite Urine Bilirubin Urine Urobilinogen Ur Leukocyte Esterase Urine WBC (Auto) Urine RBC (Auto) U Hyaline Cast (Auto) U Epithel Cells (Auto) Urine Bacteria (Auto) Urine Yeast Salicylates < 1.7 L Urine Opiates Screen Ur Methadone, Qual Acetaminophen < 2 L Urine Barbiturates Ur Phencyclidine (PCP) U Amphetamin/Meth Scrn MDMA (Ecstasy) Screen U Benzodiazepines Scrn Ur Cocaine Metabolite U Marijuana (THC) Screen Ethyl Alcohol mg/dL < 3.0 07/24/20 07/26/20 12:05 08:14 WBC RBC Hgb Hct MCV MCH MCHC RDW Std Deviation RDW Coeff of Jalen Plt Count MPV Immature Gran % (Auto) Neut % (Auto) Lymph % (Auto) [place] % (Auto) Eos % (Auto) Baso % (Auto) Neut # (Auto) Lymph # (Auto) [place] # (Auto) Eos # (Auto) Baso # (Auto) Immature Gran # (Auto) Sodium Potassium Chloride Carbon Dioxide Anion Gap BUN Creatinine Est Cr Clr Drug Dosing Est GFR ( Amer) Est GFR (Non-Af Amer) BUN/Creatinine Ratio Glucose Fasting Glucose 91 Calcium Total Bilirubin AST ALT Alkaline Phosphatase Total Protein Albumin Globulin Albumin/Globulin Ratio Triglycerides 73 Cholesterol 182 LDL Cholesterol, Calc 124 VLDL Cholesterol, Calc 15 HDL Cholesterol 43 Cholesterol/HDL Ratio 4 TSH HCG, Qual Negative Urine Color Urine Appearance Urine pH Ur Specific [place] Urine Protein Urine Glucose (UA) Urine Ketones Urine Blood Urine Nitrite Urine Bilirubin Urine Urobilinogen Ur Leukocyte Esterase Urine WBC (Auto) Urine RBC (Auto) U Hyaline Cast (Auto) U Epithel Cells (Auto) Urine Bacteria (Auto) Urine Yeast Salicylates Urine Opiates Screen Ur Methadone, Qual Acetaminophen Urine Barbiturates Ur Phencyclidine (PCP) U Amphetamin/Meth Scrn MDMA (Ecstasy) Screen U Benzodiazepines Scrn Ur Cocaine Metabolite U Marijuana (THC) Screen Ethyl Alcohol mg/dL Hospital Course (1) Schizoaffective disorder: 07/25 -continue home dose of aripiprazole. Patient is asking to go back on quetiapine, unclear why it was discontinued by her outpatient psychiatrist. Records have been requested, staff to follow-up today and asked that they be sent JOVANA. -Fasting labs for monitoring on an atypical antipsychotic: Last done 03/2019 and were within normal limits. Will order for tomorrow, as they are overdue. -Increase fluoxetine to 60 mg daily to target depressive and anxiety symptoms. Reviewed risks, benefits, and side effects, including risk of activation/mood destabilization. -Continue home dose of mirtazapine 15 mg at bedtime, and trihexyphenidyl 2 mg every morning. 07/26 -outpatient records were not received. Patient advised she will need to discuss the use of a second atypical antipsychotic with her outpatient psychiatrist, as it is not clear to me why it was discontinued, and there are significant risks. -Home meds continued unchanged with the exception of increase in fluoxetine; prescription for 20 mg tab sent to her pharmacy, to be taken in addition to her 40 mg tab. -Patient declined recommendations to increase her outpatient supports by adding a binder caser and day programming through psych rehab and/or clubhouse. She could also benefit from OVR and engagement in work activity, but is also unwilling for that, wanting to pursue disability. -Family meeting held with mother, who denies acute safety concerns. Patient has submitted a 72-hour notice requesting to withdrawal from treatment, and as she does not meet 302 criteria and is no longer at acute risk of harm to herself, she can be discharged and managed as an outpatient at this time. (2) Panic disorder with agoraphobia: 07/25 -patient reports anxiety is exacerbated whenever she leaves the house, and that she has been isolating at home and spending all of her time on social media/watching TV. -Very resistant to suggestions for altering her routine, adding structure or additional outpatient treatment/supports. Recommendations are for a BCM, psych rehab and/or clubhouse, and OVR with transition to employment. She does not want to pursue these things, and would like to go on disability. -Encourage group attendance and participation, work on healthy coping skills and discharge safety plan. -Family meeting with mother and stepfather. Mental Health & Subst Abuse Tx Psychiatrist Name of Psychiatrist: Nati Lara Psychiatrist's Date of Appointment with Psychiatrist: 08/10/20 Time of Appointment with Psychiatrist: 9:15 a.m. Psychiatric Appointment Comment: [phone], [place] [id number] Therapist Name of Therapist: Nati Potts Therapist's Date of Therapist Appointment: 07/29/20 Time of Therapist Appointment: 11:00 a.m. Therapy Appointment Comment: [phone], [place] [id number] Post Discharge Appointments Primary Care Physician Name Of Family Doctor: Neetu Masterson Primary [facility] Time of Appointment with PCP: Please follow up as needed Provider Appointment Comment: [address] [place] [address] [place] [id number] Smoking Cessation Counseling Tobacco Cessation Medication Prescribed at Discharge: Not Applicable/Non-Smoker Contact Information Discharge Discharge [address]: [address] [place] [id number] Discharge Plan Discharge Items Patient Disposition: Home - Self-Care Reason For Visit: SUICIDAL THOUGHTS Discharge Diagnosis: Schizoaffective disorder, bipolar type Activity: Per Instructions section Non-emergency contact: Primary Care Provider, Psychiatrist and Therapist Call non-emergency contact if: you have any medication questions and your symptoms worsen Follow-up/Referrals: Carmen Yoo MD [Primary Care Provider] - Diet: Regular Addtl Attending Provider Instructions: SPECIAL CARE INSTRUCTIONS: 1. Follow through with your scheduled aftercare appointments. If unable to keep an appointment, please call to reschedule. We recommended you work with a blended binder caser and attend psych rehab, clubhouse, or some other day programming, as well as OVR with a goal to work, but you declined these services. 2. Take your medication only as prescribed. Medication should not be changed or stopped without the approval of your doctor. In the event of worsening symptoms or concerns about side effects, contact your doctor immediately. 3. Utilize new healthy coping skills, anger management skills, and stress management skills learned during your hospitalization. Journal feelings and process them with a support person. Identify stressors or situations that may result in relapse, deterioration or inappropriate behaviors and develop a plan to deal with those issues. 4. If your coping skills are ineffective and you are in crisis, contact your outpatient providers for direction. If unable to reach your providers, please call the CAN HELP LINE AT or go to the closest Emergency Room. 5. Avoid alcohol and un-prescribed drugs. 6. You have been provided with the Mental Health Advance Directives Pamphlet for your review. AFTERCARE APPOINTMENTS: * Please call your insurance company prior to your scheduled appointment to confirm your aftercare providers are covered. Take your insurance information to your appointments. WHO TO CALL AND WHEN: Medical Emergencies: For questions or emergencies related to your hospital stay, please contact the [facility] at [phone]. A route returner is on-call 24/06 for the Behavioral Health Unit for emergencies At any time you feel your situation is an emergency, you may also call 911 immediately. Your Doctors Instructions noted above were prepared by provider Charis Vela MD. Pending Studies at Discharge: No Stand-Alone Forms: My [facility], Smoking Cessation, Suicide Prevention Resources Medications and DC Order Prescriptions: New fluoxetine 20 mg Capsule 20 mg PO DAILY Qty: 30 RF: 0 Continued trihexyphenidyl 2 mg Tablet 2 mg PO QAM RF: 0 aripiprazole [Abilify] 20 mg Tablet 20 mg PO QAM RF: 0 mirtazapine [Remeron] 30 mg Tablet 15 mg PO QPM RF: 0 fluoxetine 40 mg PO DAILY RF: 0 Discharge Orders: Discharge Order (Routine); Ordered 07/26/20 Ordered By: Charis Vela Admission Data Admit Date/Time: 07/24/20 14:16 Attending Provider: Charis Vela Admit Provider: Tasha Ramos Primary Care Provider: Carmen Yoo Other Interventions: PSY Interdisciplinary Discharge Planning Last Done: 07/25/20 11:39 Coding Level of Care Code 89831 D/C day mgmt > 30 min Diagnoses Schizoaffective disorder F25.0 Schizoaffective disorder type: bipolar Panic disorder with agoraphobia F40.01
== END 2020-07-26 14:35 | disposition home or self-care (01) | DRG 885 ==
LOC: ED 11:47 → 3S 14:16

== ENCOUNTER 2020-09-10 13:23 | Inpatient (IN) ==
[2020-09-10 14:07] LABS: Appearance Urine Clear (Clear); Bilirubin Urine Negative (Negative); Blood Urine Negative (Negative); Color Urine Yellow; Glucose Urine UA Negative (Negative); Ketones Urine Negative (Negative); Leukocyte Esterase Urine Negative (Negative); Nitrite Urine Negative (Negative); Protein Urine Negative (Negative); Specific Gravity Urine 1.006 (1.000-1.030); Urobilinogen Urine Negative (Negative); pH Urine 6.5 (4.5-7.5)
[2020-09-10] MEDS ORDERED: LORazepam 0.5 MG TAB PO STA (14:10)
--- NOTE | 2020-09-10 14:31 | Emergency Department Note ---
Impression & Plan Depression with suicidal ideation, Auditory hallucination ED Provider Note NAME: GENE ORTEGA AGE: 30 SEX: F : 1990 ARRIVES VIA: Walk-In INFORMANT: Patient, ED PROVIDER(S): Tacho Bar DO CHIEF COMPLAINT: Mental health problems HPI: The patient is a 30-year-old female who presented to the emergency department for mental health evaluation. The patient states that she is been having problems over the last 24 hours with suicidal ideation. She has been having thoughts that she wants to take all of her medications and overdose. She denies having any nausea or vomiting. She has no medical complaints. She also has auditory hallucinations with commands to harm himself. She denies having any recent traveling or COVID-19 exposures. She denies having any overdose attempts over the last 24 hours. She denies any recent drug or alcohol use. She states her symptoms are moderate to severe. She is been admitted to our facility in the past for similar complaints although she has not been admitted to an inpatient facility for quite some time. She states that she has been compliant with her medications. She had recent changes to her medications as well. ROS: See above HPI for pertinent positives & negatives. A total of 10 systems reviewed and were otherwise negative. PAST MEDICAL HISTORY: See Below PAST SURGICAL HISTORY: See Below FAMILY HISTORY: See Below SOCIAL HISTORY: See Below HOME MEDICATIONS: See Below ALLERGIES: See Below VITALS: See Below PHYSICAL EXAMINATION: GENERAL: Patient is awake alert in no acute distress patient is resting comfortably and showing no signs of anxiety EYES: The conjunctivae are clear. The pupils are round and reactive. EARS, NOSE, MOUTH AND THROAT: The nose is without any evidence of any deformity. Mucous membranes are moist. Tongue is midline. NECK: The neck is nontender and supple. RESPIRATORY: Normal respiratory effort is noted there is no evidence of wheezing rhonchi or rales CARDIOVASCULAR: Regular rate and rhythm noted there no murmurs rubs or gallops normal S1 normal S2. GASTROINTESTINAL: The abdomen is soft. Abdomen is nontender. MUSCULOSKELETAL/EXTREMITIES: There is no evidence of gross deformity full range of motion is noted in the hips and shoulders. SKIN: There is no obvious evidence of any rash. There are no petechiae, pallor or cyanosis noted. NEUROLOGIC: Patient is awake alert and oriented x3 strength is symmetric patellar reflexes are 2+ bilaterally. PSYCH: The patient is awake and alert. She makes good eye contact for most of the evaluation. The patient is currently continuing to admit to suicidal ideation with a plan to overdose on her medications. MEDICAL DECISION MAKING: The patient is a 30-year-old female who presented to the emergency department for an evaluation of mental health problems. The patient has a history of depression and suicidal ideation. She started having worsening symptoms over the last 24 hours. The patient was treated with medication for anxiety in the emergency department. She was reevaluated multiple times. On subsequent reevaluation she was somewhat improved however she still has very significant symptoms. She was evaluated by the mental health case packer. She was felt to be a good candidate for inpatient management. The patient was evaluated by [facility]. She was felt to be a good candidate for further inpatient management on [facility]. She was agreeable to this plan. Triage Nursing notes reviewed. Prior medical records reviewed Vital Signs: reviewed and remarkable for no significant abnormalities Differential diagnosis: Mood disorder, infection, hypoglycemia, electrolyte abnormalities, cardiac sources, intracerebral event, toxicologic, trauma, neurologic, as well as other pathologies. ER treatment provided: See below Diagnostics interpreted by me: ECG: none Laboratory studies: As stated above and show below. Imaging studies: See below Consultation(s): none Past Med/Surg History Medical History Anxiety Depression Dissociative and conversion disorder, unspecified Homicidal ideation Panic disorder with agoraphobia Schizoaffective disorder Family History Other Family history non-contributory Social History Smoking Status: Former smoker Preferred Language: Togolese Communication Ability: Effective [employer] Inspector Required: No Beliefs That Will Affect Care: Spiritual Feels Safe at Home: Yes Assistive Devices: None Allergies Allergies Allergy/AdvReac Type Severity Reaction Status Date / Time codeine Allergy Intermediate SOB-"RESTLE Verified 09/10/20 14:23 SSNESS" Home Meds Home Medications Medication Instructions Recorded Confirmed aripiprazole [Abilify] 20 mg PO QAM 06/11/19 09/10/20 trihexyphenidyl 2 mg PO QAM 06/11/19 09/10/20 mirtazapine [Remeron] 15 mg PO QPM 10/22/19 09/10/20 fluoxetine 20 mg PO DAILY 09/10/20 09/10/20 fluoxetine 40 mg PO DAILY 09/10/20 09/10/20 quetiapine [Seroquel] 100 mg PO HS 09/10/20 09/10/20 Results & Data (ED) Vital Signs Vital Signs - 24 hr 09/10/20 13:36 Temperature 37.1 C Temperature Source Oral Pulse Rate 74 Respiratory Rate 18 Respiratory Effort / Characteristics Non-Labored Spontaneous Respiratory Depth Normal Respiratory Pattern Regular Blood Pressure 112/74 Blood Pressure Mean 86 Pulse Oximetry 97 Oxygen Delivery Method Room Air Sepsis Recent Fever Within 48 Hours No Sepsis New/Unexplained Change in Mental Status No Sepsis Action Taken by Nursing No Action Required Home Medications Current Medication List: was personally reviewed by me Laboratory Data Attestation: I reviewed the patient's lab results. Result diagrams: 09/10/20 14:25 09/10/20 14:25 Lab Results 09/10/20 09/10/20 09/10/20 Range/Units 13:58 13:58 14:25 WBC 7.24 (4.8-10.8) K/uL RBC 4.59 (4.2-5.4) M/uL Hgb 14.7 (12.0-16.0) g/dL Hct 42.7 (37-47) % MCV 93.0 (80-100) fL MCH 32.0 (25-34) pg MCHC 34.4 (32-36) g/dL RDW Std Deviation 44.4 (36.4-46.3) fL RDW Coeff of Jalen 12.9 (11.5-14.5) % Plt Count 172 (130-400) K/uL MPV 12.5 H (7.4-10.4) fL Immature Gran % (Auto) 0.1 % Neut % (Auto) 56.7 % Lymph % (Auto) 34.3 % Gates % (Auto) 5.8 % Eos % (Auto) 2.5 % Baso % (Auto) 0.6 % Neut # (Auto) 4.11 (1.4-6.5) K/uL Lymph # (Auto) 2.48 (1.2-3.4) K/uL Gates # (Auto) 0.42 (0.11-0.59) K/uL Eos # (Auto) 0.18 (0-0.5) K/uL Baso # (Auto) 0.04 (0-0.2) K/uL Immature Gran # (Auto) 0.01 (0.00-0.02) K/uL Sodium (136-145) mmol/L Potassium (3.5-5.1) mmol/L Chloride (98-107) mmol/L Carbon Dioxide (21-32) mmol/L Anion Gap (3-11) BUN (7-18) mg/dl Creatinine (0.6-1.2) mg/dl Est Cr Clr Drug Dosing ml/min Est GFR ( Amer) Est GFR (Non-Af Amer) BUN/Creatinine Ratio (10-20) Glucose (70-99) mg/dl Calcium (8.5-10.1) mg/dl Total Bilirubin (0.2-1) mg/dl AST (15-37) U/L ALT (12-78) U/L Alkaline Phosphatase (45-117) U/L Total Protein (6.4-8.2) gm/dl Albumin (3.4-5.0) gm/dl Globulin (2.5-4.0) gm/dl Albumin/Globulin Ratio (0.9-2) TSH (0.300-4.500) uIu/ml HCG, Qual (Negative) Urine Color Yellow Urine Appearance Clear (Clear) Urine pH 6.5 (4.5-7.5) Ur Specific [place] 1.006 (1.000-1.030) Urine Protein Negative (Negative) Urine Glucose (UA) Negative (Negative) Urine Ketones Negative (Negative) Urine Blood Negative (Negative) Urine Nitrite Negative (Negative) Urine Bilirubin Negative (Negative) Urine Urobilinogen Negative (Negative) Ur Leukocyte Esterase Negative (Negative) Salicylates (2.8-20) mg/dl Urine Opiates Screen Neg (Neg) Ur Methadone, Qual Neg (Neg) Acetaminophen (10-30) ug/ml Urine Barbiturates Neg (Neg) Ur Phencyclidine (PCP) Neg (Neg) U Amphetamin/Meth Scrn Neg (Neg) MDMA (Ecstasy) Screen Neg (Neg) U Benzodiazepines Scrn Neg (Neg) Ur Cocaine Metabolite Neg (Neg) U Marijuana (THC) Screen Neg (Neg) Ethyl Alcohol mg/dL (0-3) mg/dl 09/10/20 09/10/20 09/10/20 Range/Units 14:25 14:25 14:25 WBC (4.8-10.8) K/uL RBC (4.2-5.4) M/uL Hgb (12.0-16.0) g/dL Hct (37-47) % MCV (80-100) fL MCH (25-34) pg MCHC (32-36) g/dL RDW Std Deviation (36.4-46.3) fL RDW Coeff of Jalen (11.5-14.5) % Plt Count (130-400) K/uL MPV (7.4-10.4) fL Immature Gran % (Auto) % Neut % (Auto) % Lymph % (Auto) % Gates % (Auto) % Eos % (Auto) % Baso % (Auto) % Neut # (Auto) (1.4-6.5) K/uL Lymph # (Auto) (1.2-3.4) K/uL Gates # (Auto) (0.11-0.59) K/uL Eos # (Auto) (0-0.5) K/uL Baso # (Auto) (0-0.2) K/uL Immature Gran # (Auto) (0.00-0.02) K/uL Sodium 135 L (136-145) mmol/L Potassium 3.6 (3.5-5.1) mmol/L Chloride 103 (98-107) mmol/L Carbon Dioxide 28 (21-32) mmol/L Anion Gap 4.0 (3-11) BUN 6 L (7-18) mg/dl Creatinine 1.02 (0.6-1.2) mg/dl Est Cr Clr Drug Dosing 72.2 ml/min Est GFR ( Amer) 84.9 Est GFR (Non-Af Amer) 73.2 BUN/Creatinine Ratio 6.1 L (10-20) Glucose 90 (70-99) mg/dl Calcium 8.5 (8.5-10.1) mg/dl Total Bilirubin 0.2 (0.2-1) mg/dl AST 11 L (15-37) U/L ALT 18 (12-78) U/L Alkaline Phosphatase 85 (45-117) U/L Total Protein 7.1 (6.4-8.2) gm/dl Albumin 3.8 (3.4-5.0) gm/dl Globulin 3.3 (2.5-4.0) gm/dl Albumin/Globulin Ratio 1.2 (0.9-2) TSH 1.690 (0.300-4.500) uIu/ml HCG, Qual (Negative) Urine Color Urine Appearance (Clear) Urine pH (4.5-7.5) Ur Specific [place] (1.000-1.030) Urine Protein (Negative) Urine Glucose (UA) (Negative) Urine Ketones (Negative) Urine Blood (Negative) Urine Nitrite (Negative) Urine Bilirubin (Negative) Urine Urobilinogen (Negative) Ur Leukocyte Esterase (Negative) Salicylates < 1.7 L (2.8-20) mg/dl Urine Opiates Screen (Neg) Ur Methadone, Qual (Neg) Acetaminophen < 2 L (10-30) ug/ml Urine Barbiturates (Neg) Ur Phencyclidine (PCP) (Neg) U Amphetamin/Meth Scrn (Neg) MDMA (Ecstasy) Screen (Neg) U Benzodiazepines Scrn (Neg) Ur Cocaine Metabolite (Neg) U Marijuana (THC) Screen (Neg) Ethyl Alcohol mg/dL < 3.0 (0-3) mg/dl 09/10/20 Range/Units 14:25 WBC (4.8-10.8) K/uL RBC (4.2-5.4) M/uL Hgb (12.0-16.0) g/dL Hct (37-47) % MCV (80-100) fL MCH (25-34) pg MCHC (32-36) g/dL RDW Std Deviation (36.4-46.3) fL RDW Coeff of Jalen (11.5-14.5) % Plt Count (130-400) K/uL MPV (7.4-10.4) fL Immature Gran % (Auto) % Neut % (Auto) % Lymph % (Auto) % Gates % (Auto) % Eos % (Auto) % Baso % (Auto) % Neut # (Auto) (1.4-6.5) K/uL Lymph # (Auto) (1.2-3.4) K/uL Gates # (Auto) (0.11-0.59) K/uL Eos # (Auto) (0-0.5) K/uL Baso # (Auto) (0-0.2) K/uL Immature Gran # (Auto) (0.00-0.02) K/uL Sodium (136-145) mmol/L Potassium (3.5-5.1) mmol/L Chloride (98-107) mmol/L Carbon Dioxide (21-32) mmol/L Anion Gap (3-11) BUN (7-18) mg/dl Creatinine (0.6-1.2) mg/dl Est Cr Clr Drug Dosing ml/min Est GFR ( Amer) Est GFR (Non-Af Amer) BUN/Creatinine Ratio (10-20) Glucose (70-99) mg/dl Calcium (8.5-10.1) mg/dl Total Bilirubin (0.2-1) mg/dl AST (15-37) U/L ALT (12-78) U/L Alkaline Phosphatase (45-117) U/L Total Protein (6.4-8.2) gm/dl Albumin (3.4-5.0) gm/dl Globulin (2.5-4.0) gm/dl Albumin/Globulin Ratio (0.9-2) TSH (0.300-4.500) uIu/ml HCG, Qual Negative (Negative) Urine Color Urine Appearance (Clear) Urine pH (4.5-7.5) Ur Specific [place] (1.000-1.030) Urine Protein (Negative) Urine Glucose (UA) (Negative) Urine Ketones (Negative) Urine Blood (Negative) Urine Nitrite (Negative) Urine Bilirubin (Negative) Urine Urobilinogen (Negative) Ur Leukocyte Esterase (Negative) Salicylates (2.8-20) mg/dl Urine Opiates Screen (Neg) Ur Methadone, Qual (Neg) Acetaminophen (10-30) ug/ml Urine Barbiturates (Neg) Ur Phencyclidine (PCP) (Neg) U Amphetamin/Meth Scrn (Neg) MDMA (Ecstasy) Screen (Neg) U Benzodiazepines Scrn (Neg) Ur Cocaine Metabolite (Neg) U Marijuana (THC) Screen (Neg) Ethyl Alcohol mg/dL (0-3) mg/dl Administered Medications Discontinued Medications Lorazepam (Lorazepam 0.5 Mg Tab) 0.5 mg PO NOW STA Stop: 09/10/20 14:11 Last Admin: 09/10/20 14:25 Dose: 0.5 mg Documented by: [id number] Blood Pressure Blood Pressure Findings: Normal blood pressure Discharge Plan Visit Data Chief Complaint: Mental Health Evaluation Stated Complaint: SUICIDAL THOUGHTS ED Provider: Tacho Bar Discharge Problem: Depression with suicidal ideation, Auditory hallucination Patient Disposition: Transfer Behavioral Health Fac Condition: Good Forms Stand Alone Forms: My [facility], Suicide Prevention Resources Prescriptions Prescriptions: No Action trihexyphenidyl 2 mg Tablet 2 mg PO QAM RF: 0 aripiprazole [Abilify] 20 mg Tablet 20 mg PO QAM RF: 0 mirtazapine [Remeron] 30 mg Tablet 15 mg PO QPM RF: 0 quetiapine [Seroquel] 100 mg Tablet 100 mg PO HS RF: 0 fluoxetine 40 mg capsule 40 mg PO DAILY RF: 0 fluoxetine 20 mg capsule 20 mg PO DAILY RF: 0 Referrals Referrals: Carmen Yoo MD [Primary Care Provider] -
[2020-09-10 14:38] LABS: Basophils # (auto) 0.04 K/uL (0-0.2); Basophils % (auto) 0.6 %; Eosinophils # (auto) 0.18 K/uL (0-0.5); Eosinophils % (auto) 2.5 %; Hematocrit (blood only) 42.7 % (37-47); Hemoglobin 14.7 g/dL (12.0-16.0); Immature Granulocytes # (auto) 0.01 K/uL (0.00-0.02); Immature Granulocytes % (auto) 0.1 %; Lymphocytes # (auto) 2.48 K/uL (1.2-3.4); Lymphocytes % (auto) 34.3 %; Mean Corpuscular Hgb Conc 34.4 g/dL (32-36); Mean Platelet Volume 12.5 fL (7.4-10.4); Monocytes # (auto) 0.42 K/uL (0.11-0.59); Monocytes % (auto) 5.8 %; Neutrophils # (auto) 4.11 K/uL (1.4-6.5); Neutrophils % (auto) 56.7 %; Platelet Count 172 K/uL (130-400); RDW Coefficient of Variation 12.9 % (11.5-14.5); RDW Standard Deviation 44.4 fL (36.4-46.3); Red Blood Count 4.59 M/uL (4.2-5.4); White Blood Count 7.24 K/uL (4.8-10.8)
[2020-09-10 14:39] LABS: Amphetamines+Metham, Urine Neg (Neg); Barbiturates, Urine Neg (Neg); Benzodiazepine, Urine Neg (Neg); Cocaine, Urine Neg (Neg); MDMA (Ecstacy), Urine Neg (Neg); Methadone, Urine Neg (Neg); Opiate, Urine Neg (Neg); Phencyclidine, Urine Neg (Neg)
[2020-09-10 14:47] LABS: Pregnancy Test, Serum Negative (Negative)
[2020-09-10 14:57] LABS: Albumin Level 3.8 gm/dl (3.4-5.0); BUN Creatinine Ratio 6.1 (10-20); Calcium 8.5 mg/dl (8.5-10.1); Creatinine Clr Calc Pharmacy 72.2 ml/min; Est GFR (African American) 84.9; Est GFR (Non-African American) 73.2; Potassium 3.6 mmol/L (3.5-5.1)
[2020-09-10 15:07] LABS: Albumin Globulin Ratio 1.2 (0.9-2); Bilirubin,Total 0.2 mg/dl (0.2-1); Globulin 3.3 gm/dl (2.5-4.0); Thyroid Stimulating Hormone 1.69 uIu/ml (0.300-4.500); Total Protein 7.1 gm/dl (6.4-8.2)
[2020-09-10 15:46] LABS: Acetaminophen < 2 ug/ml (10-30); Salicylate < 1.7 mg/dl (2.8-20)
[2020-09-10] MEDS ORDERED: ALUMINUM/MAGNESIUM SUSP 30 ML UDC PO PRN (16:56)
[2020-09-10] MEDS ORDERED: hydrOXYzine HCl 25 MG TAB PO PRN ×2 (16:56)
[2020-09-10] MEDS ORDERED: BISMUTH SUBSALICYLATE LIQD 236 ML PO PRN (16:56)
[2020-09-10] MEDS ORDERED: SODIUM CHLORIDE 0.65% NA SOLN 45 ML (OCEAN) PRN (16:56)
[2020-09-10] MEDS ORDERED: ACETAMINOPHEN 325 MG TAB PO PRN (16:56)
[2020-09-10] MEDS ORDERED: MAGNESIUM HYDROXIDE SUSP 30 ML UDC PO PRN (16:56)
[2020-09-10] MEDS ORDERED: QUEtiapine FUMARATE 100 MG TABLET PO SCH (21:00)
[2020-09-10] MEDS: MIRTAZAPINE TAB 15 MG TAB PO SCH (21:35)
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
[2020-09-11] MEDS: TRIHEXYPHENIDYL HCL 2 MG TAB PO SCH (08:55)
[2020-09-11] MEDS: FLUoxetine HCL 20 MG CAP PO SCH (08:55)
[2020-09-11] MEDS ORDERED: FLUoxetine HCL 20 MG CAP PO SCH (09:00)
[2020-09-11] MEDS ORDERED: ARIPiprazole 10 MG TAB PO SCH (09:00)
[2020-09-11] MEDS ORDERED: ARIPiprazole 5 MG TAB PO ONE (11:00)
[2020-09-11] MEDS: MIRTAZAPINE TAB 15 MG TAB PO SCH (21:09)
[2020-09-12] MEDS: FLUoxetine HCL 20 MG CAP PO SCH (09:03)
[2020-09-12] MEDS: TRIHEXYPHENIDYL HCL 2 MG TAB PO SCH (09:03)
[2020-09-12] MEDS: ARIPiprazole 5 MG TAB PO SCH (09:03)
--- NOTE | 2020-09-12 12:58 | Psychiatric Progress Note ---
Date of Service September 12, 2020 Impression / Recommendations Impression 30-year-old single female who lives with her mother and stepfather in [place], has a history of schizoaffective disorder bipolar type and panic disorder, and presented with suicidal ideation in the context of depression and command auditory hallucinations, and was admitted voluntarily. She has had a good response to aripiprazole, and quetiapine was recently added as a second antipsychotic, but was not beneficial. Her fluoxetine has been titrated as an outpatient, with improvement in anxiety, but not mood. We will titrate her aripiprazole further to target bipolar depression and auditory hallucinations. She would benefit from increased outpatient supports, structure, and socialization, but is resistant to this. Inpatient treatment is medically necessary due to the severity of symptoms and risk for suicide if discharged. (1) Schizoaffective disorder: 09/11 -Historical diagnosis of schizoaffective disorder bipolar type, current episode depressed, with command auditory hallucinations. -Continue inpatient treatment, every 15 minute checks for safety, encourage participation in groups and therapy, schedule family meeting with mother and stepfather, and ensure coordination of care and outpatient follow-up at [facility]. -Reviewed diagnoses and treatment options, including further titration of aripiprazole to target depression and hallucinations, switch to another medication for bipolar depression/psychosis (such as lurasidone, paliperidone, or olanzapine, as olanzapine/fluoxetine combination has an indication for this). Will avoid olanzapine due to the high risk of weight gain/metabolic syndrome, given the patient's BMI is > 30. Could increase fluoxetine, but less evidence that this will be beneficial for mood given her bipolar diagnosis. She opted to increase aripiprazole as she's had a good response to it and is tolerating her current dose well. Reviewed risks, benefits and side effects, and will increase to 25mg daily. Will d/c quetiapine as has not been helpful, and is sedating and increases risk of metabolic syndrome. -Patient on 2 atypical antipsychotics at her request, feels quetiapine is helpful for sleep and anxiety so her outpatient psychiatrist added it about 2 weeks ago. -Monitoring on an atypical antipsychotic: Fasting lipid profile and glucose performed 07/26/2020 and within normal limits. 09/12 - Continue current medication regimen, aripiprazole increased to 25mg today. Reviewed medication regimen and provided education on current prescriptions. Pt reports a preference for aripiprazole as she is less sedated on the medication and has found it helpful for hallucinations in the past. Pt did at one point question changing to another antipsychotic medication, but is now agreeable to continue trial of aripiprazole for the time being - Continue to encourage participation in group programming - Pt has reached out to her mother to schedule a family meeting - Continue to encourage additional outpatient supports, which she remains unwilling for (2) Panic disorder with agoraphobia: 09/11 - Work on behavioral techniques for managing anxiety, encourage patient to engage in activities out of the home. Continue to encourage case management and psych rehab or [facility], explore options for increasing structure and socialization, such as a virtual day program. -Continue fluoxetine 60 mg daily. Offer hydroxyzine as needed for anxiety. 09/12 - Pt has been tolerating group programming and has been out of her room quite a bit so far this admission - Continue to encourage group participation during her stay - PRN hydroxyzine for anxiety (3) Obesity (BMI 30-39.9): 09/11 -encourage nutritious diet, physical activity. Monitor for metabolic syndrome given use of atypical antipsychotics. Risk Factors Assessment Male: No : Yes Do You Have Access To A Gun?: No Health Problems: No Mental Health Diagnoses: Yes Substance Use Disorders: No Previous Attempt: Yes Previous Attempt; Highly Lethal: No Previous Attempt; Didn't Tell Anyone: Yes Family History of Suicide: No Previous Psychiatric Hospitalization: Yes Hopelessness: No Smoker: No Protective Factors Assessment Anabaptism Beliefs: No : No Responsible for Young Children: No Employed: No Stable Relationships: No Supportive Family: Yes Interval History Identifying Information GENE ORTEGA is a 30-year-old F who currently lives in [place] with her mother and stepfather, has a history of schizoaffective disorder, bipolar type, panic disorder, and multiple psychiatric hospitalizations and was admitted on 09/10/20 16:57 on a 201 voluntary commitment for suicidal thoughts and command auditory hallucinations telling her to hurt herself. Chief Complaint "Um, I think I'm feeling better, but I'm still hearing that male voice." Review of Systems Notes Constitutional: denied Cardiovascular: denied Respiratory: denied Gastrointestinal: denied Neurological: denied Psychiatric: denies symptoms other than stated above Total of at least 10 systems reviewed, pertinent positives as above and in HPI. Sleep Information Total Hours of Sleep: 7.25 Sleep Comments: pt on q-15 minute checks Meal Information Percent Meal Consumed - Breakfast: 100 Percent Meal Consumed - Lunch: 100 Percent Meal Consumed - Dinner: 100 Subjective Subjective Patient was seen & assessed and interval progress reviewed with treatment team. Staff report the patient has been participating in group programming without issues. She rated her mood a 4/10 and "depressed" last evening. Staff report patient's reported mood is incongruent with her affect, as she has been bright, smiling, and interactive in groups. Pt was seen today to assess progress since admission. Pt states "I think I'm feeling better, but I'm still hearing that male voice." Pt does admit the voice is presenting with somewhat less frequency and she is feeling mildly less compelled to act on the thoughts. Pt reports she continues to experience suicidal ideation "here and there." She is hopeful her mother will help her with safety planning by keeping her excess medications. Pt continues to state she is agreeable to additional outpatient supports, but then verbalizes barriers that would prevent her from following through with referrals. She simultaneously states that she suffers from "agoraphobia" but then also admits that she benefits from group programming "when it's the right group of people." Pt denies acute needs at this time. She does believe aripiprazole has been helpful for her mood and hallucinations in the past and is hopeful the dose titration will be beneficial as well. Physical Exam Psychiatric Orientation: alert, oriented x 3 and cooperative Apperance: appropriately dressed, appropriately groomed and appeared stated age Asymmetric hair cut, hair dyed blue and blonde. Multiple facial piercings. Eye Contact: good eye contact Motor Behavior: steady gait and station and no abnormal motor movements Speech: normal rate/rhythm/volume of speech Affect: + blunted affect (appearing subdued, but not overtly depressed); + mood not congruent with affect appearing far less anxious and depressed than patient reports she is feeling Mood: + depressed mood and + anxious mood Thought Process: goal directed thought process and + concrete thought process Thought Content: reality based without delusions; no hopelessness Suicidal Thoughts: + reports suicidal thoughts ("still happening here and there") Homicidal Thoughts: denies homicidal thoughts Hallucinations: + auditory hallucinations (continues to hear a male voice, somewhat less frequent today); no visual hallucinations Cognition: attention grossly intact and language grossly intact Estimated Intelligence: consistent with education level Insight: + fair insight Judgement: + fair judgement Vital Signs (Past 24 Hours) Last Vital Signs Temp 36.6 C 09/12/20 06:42 Pulse 80 09/12/20 06:42 Resp 16 09/12/20 06:42 BP 114/77 09/12/20 06:42 Pulse Ox 100 09/10/20 17:59 Results & Data ([facility]) Current Inpatient Medications Current Inpatient Medications: Current Inpatient Medications Acetaminophen (Acetaminophen 325 Mg Tab) 650 mg PO Q4H PRN PRN Reason: Headache or Minor Fever Stop: 10/10/20 16:55 Al Hydrox/Mg Hydrox/Simethicone (Aluminum/Magnesium Susp 30 Ml Udc) 30 ml PO Q4H PRN PRN Reason: GI Upset Stop: 10/10/20 16:55 Aripiprazole (Aripiprazole 5 Mg Tab) 25 mg PO QAM FRANCES Stop: 10/12/20 08:59 Last Admin: 09/12/20 09:03 Dose: 25 mg Documented by: Bismuth Subsalicylate (Bismuth Subsalicylate Liqd 236 Ml) 15 ml PO PRN PRN PRN Reason: Loose Stool Stop: 10/10/20 16:55 Fluoxetine HCl (Fluoxetine Hcl 20 Mg Cap) 60 mg PO DAILY FRANCES Stop: 10/11/20 08:59 Last Admin: 09/12/20 09:03 Dose: 60 mg Documented by: Hydroxyzine HCl (Hydroxyzine Hcl 25 Mg Tab) 50 mg PO HSZ PRN PRN Reason: Insomnia Stop: 10/10/20 16:55 Hydroxyzine HCl (Hydroxyzine Hcl 25 Mg Tab) 25 mg PO Q4H PRN PRN Reason: Anxiety Stop: 10/10/20 16:55 Magnesium Hydroxide (Magnesium Hydroxide Susp 30 Ml Udc) 30 ml PO DAILY PRN PRN Reason: Constipation Stop: 10/10/20 16:55 Mirtazapine (Mirtazapine Tab 15 Mg Tab) 15 mg PO QPM FRANCES Stop: 10/10/20 20:59 Last Admin: 09/11/20 21:09 Dose: 15 mg Documented by: Sodium Chloride (Sodium Chloride 0.65% Na Soln 45 Ml ([place])) 1 - 2 sprays NA PRN PRN PRN Reason: Nasal Dryness/Congestion Stop: 10/10/20 16:55 Trihexyphenidyl HCl (Trihexyphenidyl Hcl 2 Mg Tab) 2 mg PO QAM FRANCES Stop: 10/11/20 08:59 Last Admin: 09/12/20 09:03 Dose: 2 mg Documented by: Mental Health & Subst Abuse Tx Therapist Name of Therapist: Ge Post Discharge Appointments Primary Care Physician Name Of Family Doctor: Tiffanie Gee (1) Schizoaffective disorder Schizoaffective disorder type: bipolar Qualified Code(s): F25.0 - Schizoaffective disorder, bipolar type
[2020-09-12] MEDS: MIRTAZAPINE TAB 15 MG TAB PO SCH (20:19)
[2020-09-13] MEDS: ARIPiprazole 5 MG TAB PO SCH (08:55)
[2020-09-13] MEDS: FLUoxetine HCL 20 MG CAP PO SCH (08:56)
[2020-09-13] MEDS: TRIHEXYPHENIDYL HCL 2 MG TAB PO SCH (08:56)
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
--- NOTE | 2020-09-13 12:49 | Psychiatric Progress Note ---
Date of Service September 13, 2020 Impression / Recommendations Impression 30-year-old single female who lives with her mother and stepfather in [place], has a history of schizoaffective disorder bipolar type and panic disorder, and presented with suicidal ideation in the context of depression and command auditory hallucinations, and was admitted voluntarily. She has had a good response to aripiprazole, and quetiapine was recently added as a second antipsychotic, but was not beneficial. Her fluoxetine has been titrated as an outpatient, with improvement in anxiety, but not mood. We will titrate her aripiprazole further to target bipolar depression and auditory hallucinations. She would benefit from increased outpatient supports, structure, and socialization, but is resistant to this. Family meeting held with mom via phone, with discussion of safety planning and steps to improve socialization. Inpatient treatment is medically necessary due to the severity of symptoms and risk for suicide if discharged. (1) Schizoaffective disorder: 09/11 -Historical diagnosis of schizoaffective disorder bipolar type, current episode depressed, with command auditory hallucinations. -Continue inpatient treatment, every 15 minute checks for safety, encourage participation in groups and therapy, schedule family meeting with mother and stepfather, and ensure coordination of care and outpatient follow-up at [facility]. -Reviewed diagnoses and treatment options, including further titration of aripiprazole to target depression and hallucinations, switch to another medication for bipolar depression/psychosis (such as lurasidone, paliperidone, or olanzapine, as olanzapine/fluoxetine combination has an indication for this). Will avoid olanzapine due to the high risk of weight gain/metabolic syndrome, given the patient's BMI is > 30. Could increase fluoxetine, but less evidence that this will be beneficial for mood given her bipolar diagnosis. She opted to increase aripiprazole as she's had a good response to it and is tolerating her current dose well. Reviewed risks, benefits and side effects, and will increase to 25mg daily. Will d/c quetiapine as has not been helpful, and is sedating and increases risk of metabolic syndrome. -Patient on 2 atypical antipsychotics at her request, feels quetiapine is helpful for sleep and anxiety so her outpatient psychiatrist added it about 2 weeks ago. -Monitoring on an atypical antipsychotic: Fasting lipid profile and glucose performed 07/26/2020 and within normal limits. 09/12 - Continue current medication regimen, aripiprazole increased to 25mg today. Reviewed medication regimen and provided education on current prescriptions. Pt reports a preference for aripiprazole as she is less sedated on the medication and has found it helpful for hallucinations in the past. Pt did at one point question changing to another antipsychotic medication, but is now agreeable to continue trial of aripiprazole for the time being - Continue to encourage participation in group programming - Pt has reached out to her mother to schedule a family meeting - Continue to encourage additional outpatient supports, which she remains unwilling for 09/13 - Continue current medication regimen - Family meeting held today with mother via phone. Mother will secure medications and dispense to patient daily. - Pt continues to decline referrals for formal outpatient psychiatric supports, but at least discussed plans to improve socialization and spend more time out of her room during the day - Pt reports feeling she may be ready for discharge as soon as tomorrow - denying SI and command AH today (2) Panic disorder with agoraphobia: 09/11 - Work on behavioral techniques for managing anxiety, encourage patient to engage in activities out of the home. Continue to encourage case management and psych rehab or [facility], explore options for increasing structure and socialization, such as a virtual day program. -Continue fluoxetine 60 mg daily. Offer hydroxyzine as needed for anxiety. 09/12 - Pt has been tolerating group programming and has been out of her room quite a bit so far this admission - Continue to encourage group participation during her stay - PRN hydroxyzine for anxiety 09/13 - Pt continue to tolerate and benefit from group programming - She discussed small steps she plans to take toward improving social interactions outside of the hospital (3) Obesity (BMI 30-39.9): 09/11 -encourage nutritious diet, physical activity. Monitor for metabolic syndrome given use of atypical antipsychotics. Risk Factors Assessment Male: No : Yes Do You Have Access To A Gun?: No Health Problems: No Mental Health Diagnoses: Yes Substance Use Disorders: No Previous Attempt: Yes Previous Attempt; Highly Lethal: No Previous Attempt; Didn't Tell Anyone: Yes Family History of Suicide: No Previous Psychiatric Hospitalization: Yes Hopelessness: No Smoker: No Protective Factors Assessment Confucianism Beliefs: No : No Responsible for Young Children: No Employed: No Stable Relationships: No Supportive Family: Yes Interval History Identifying Information GENE ORTEGA is a 30-year-old F who currently lives in [place] with her mother and stepfather, has a history of schizoaffective disorder, bipolar type, panic disorder, and multiple psychiatric hospitalizations and was admitted on 09/10/20 16:57 on a 201 voluntary commitment for suicidal thoughts and command auditory hallucinations telling her to hurt herself. Chief Complaint "I got to talk to my mom today, so that was nice." Review of Systems Notes Constitutional: denied Cardiovascular: denied Respiratory: denied Gastrointestinal: denied Neurological: denied Psychiatric: denies symptoms other than stated above Total of at least 10 systems reviewed, pertinent positives as above and in HPI. Sleep Information Total Hours of Sleep: 8.5 Sleep Comments: pt on q-15 minute checks Meal Information Percent Meal Consumed - Breakfast: 50 Percent Meal Consumed - Lunch: 100 Percent Meal Consumed - Dinner: 10 Subjective Subjective Patient was seen & assessed and interval progress reviewed with nursing and social work. Staff report the patient has been out of her room, attending groups, and interacting appropriately with peers. It has been consistently observed that, although patient reports she has social anxiety, she actually seems to respond well to the group setting and does seem to be benefitting from the current milieu. Pt was seen today to assess progress since admission. She had just completed a family meeting via phone with her mother. Pt states that they discussed safety planning, with plan for mother to distribute medications to the patient daily. They also discussed ways to improve socialization during the day. Pt states she is planning to spend more time out of her room and engaging with her parents. She also states, "the first thing I'm going to do when I leave the hospital is FaceTime my friend." We discussed that these steps will likely allow her to feel more comfortable engaging in social activities, and can build a foundation for willingness to explore other social activities that will add structure to the patient's day. Pt reports desire to continue to explore other hobbies as well. Pt states she continues to her "like mumbling in the background" which she states is the "normal" state of her auditory hallucinations. Pt states she has not heard the commanding male voice telling her to harm herself since yesterday. Pt also denies SI since yesterday as well. She reports consideration of discharge as soon as tomorrow, stating she is planning to work on continuing to develop additional coping skills in the interim. Pt denied other needs or concerns today. Physical Exam Psychiatric Orientation: alert, oriented x 3 and cooperative Apperance: appropriately dressed, + disheveled (appearing somewhat unkempt) and appeared stated age Eye Contact: + fair eye contact Motor Behavior: steady gait and station and no abnormal motor movements Speech: normal rate/rhythm/volume of speech Affect: euthymic affect Mood: no depressed mood and no anxious mood "I'm feeling good today" Thought Process: goal directed thought process, clear/coherent thought process and thought association intact Thought Content: reality based without delusions; no hopelessness and no worthlessness Suicidal Thoughts: denies suicidal thoughts Homicidal Thoughts: denies homicidal thoughts Hallucinations: + auditory hallucinations (ongoing "mumbling" which is baseline, no command AH); no visual hallucinations Cognition: attention grossly intact and language grossly intact Estimated Intelligence: consistent with education level Insight: + fair insight Judgement: + fair judgement Vital Signs (Past 24 Hours) Last Vital Signs Temp 36.7 C 09/13/20 06:38 Pulse 68 09/13/20 06:39 Resp 16 09/13/20 06:38 BP 99/68 L 09/13/20 06:39 Pulse Ox 100 09/10/20 17:59 Results & Data ([facility]) Current Inpatient Medications Current Inpatient Medications: Current Inpatient Medications Acetaminophen (Acetaminophen 325 Mg Tab) 650 mg PO Q4H PRN PRN Reason: Headache or Minor Fever Stop: 10/10/20 16:55 Al Hydrox/Mg Hydrox/Simethicone (Aluminum/Magnesium Susp 30 Ml Udc) 30 ml PO Q4H PRN PRN Reason: GI Upset Stop: 10/10/20 16:55 Aripiprazole (Aripiprazole 5 Mg Tab) 25 mg PO QAM FRANCES Stop: 10/12/20 08:59 Last Admin: 09/13/20 08:55 Dose: 25 mg Documented by: Bismuth Subsalicylate (Bismuth Subsalicylate Liqd 236 Ml) 15 ml PO PRN PRN PRN Reason: Loose Stool Stop: 10/10/20 16:55 Fluoxetine HCl (Fluoxetine Hcl 20 Mg Cap) 60 mg PO DAILY FRANCES Stop: 10/11/20 08:59 Last Admin: 09/13/20 08:56 Dose: 60 mg Documented by: Hydroxyzine HCl (Hydroxyzine Hcl 25 Mg Tab) 50 mg PO HSZ PRN PRN Reason: Insomnia Stop: 10/10/20 16:55 Hydroxyzine HCl (Hydroxyzine Hcl 25 Mg Tab) 25 mg PO Q4H PRN PRN Reason: Anxiety Stop: 10/10/20 16:55 Magnesium Hydroxide (Magnesium Hydroxide Susp 30 Ml Udc) 30 ml PO DAILY PRN PRN Reason: Constipation Stop: 10/10/20 16:55 Mirtazapine (Mirtazapine Tab 15 Mg Tab) 15 mg PO QPM FRANCES Stop: 10/10/20 20:59 Last Admin: 09/12/20 20:19 Dose: 15 mg Documented by: Sodium Chloride (Sodium Chloride 0.65% Na Soln 45 Ml ([place])) 1 - 2 sprays NA PRN PRN PRN Reason: Nasal Dryness/Congestion Stop: 10/10/20 16:55 Trihexyphenidyl HCl (Trihexyphenidyl Hcl 2 Mg Tab) 2 mg PO QAM FRANCES Stop: 10/11/20 08:59 Last Admin: 09/13/20 08:56 Dose: 2 mg Documented by: Mental Health & Subst Abuse Tx Psychiatrist Name of Psychiatrist: Nati Lara Psychiatrist's Date of Appointment with Psychiatrist: 09/26/20 Time of Appointment with Psychiatrist: 8:45 a.m. Psychiatric Appointment Comment: [id number], [place] [id number] Therapist Name of Therapist: Nati Potts Therapist's Date of Therapist Appointment: 09/16/20 Time of Therapist Appointment: 11:00 a.m. Therapy Appointment Comment: [phone], [place] [id number] Post Discharge Appointments Primary Care Physician Name Of Family Doctor: Neetu Gee Primary Care Time of Appointment with PCP: Please follow up as needed Provider Appointment Comment: [address] [place] [id number] Contact Information Discharge Discharge Address: [address] [place] [address] (1) Schizoaffective disorder Schizoaffective disorder type: bipolar Qualified Code(s): F25.0 - Schizoaf fective disorder, bipolar type
[2020-09-13] MEDS: MIRTAZAPINE TAB 15 MG TAB PO SCH (20:32)
[2020-09-14] MEDS: FLUoxetine HCL 20 MG CAP PO SCH (08:32)
[2020-09-14] MEDS: TRIHEXYPHENIDYL HCL 2 MG TAB PO SCH (08:33)
[2020-09-14] MEDS: ARIPiprazole 5 MG TAB PO SCH (08:33)
--- NOTE | 2020-09-14 09:41 | Discharge Summary ---
Date of Service September 14, 2020 History of Present Illness The patient is known to me from multiple previous hospitalizations, most recently on our unit in 07/21/2020 for depression and suicidal ideation. She was hospitalized for 2 days as she immediately submitted a request to withdraw from treatment, stated she felt anxious being in the hospital and would prefer to be at home. She refused recommendations for increased outpatient services including a BCM, OVR, and day programming. She was discharged on fluoxetine 60 mg daily (increased from her home dose of 40 mg), aripiprazole 20 mg daily, trihexyphenidyl 2 mg daily, and mirtazapine 50 mg at bedtime, with follow-up at [facility] with her psychiatrist and therapist. She presented to the ER 09/10/2020 reporting suicidal ideation for the past 24 hours, with a plan to take all of her medications. She reported command auditory hallucinations to harm herself, and was unable to contract for safety outside of the hospital. She reported the same home medications with the addition of quetiapine 100 mg at bedtime, started by her outpatient psychiatrist on 08/28/2020. Admission labs notable for normal CBC, CMP, TSH, negative , UA, UDS, and COVID screen. She was admitted voluntarily. On my assessment, the patient reports she has been stressed due to financial problems and relationship issues (stopped being friends with someone who was treating her badly). States she was getting unemployment benefits, but stopped receiving them and can't find out why, hasn't been able to contact anyone. This has prevented her from getting her car inspected, hasn't been able to pay her family (contributes to household expenses), and paying on her car loan. She continues to isolate at home, spends a lot of time alone in her room, and feels lonely. She states quetiapine was added last month to target hallucinations, but it hasn't helped and "just made me tired." She is experiencing AH most days, often mumbling, at times screaming, which is distressing. Describes mood as "depressed, frustrated, a little anxious," and worsened acutely yesterday when AH of voices became "really prominent, yelling" and telling her to end her life. Has visual hallucinations of shadow people which occurs daily, lasts a couple of minutes, but denies other modalities of hallucinations. Paranoia at times when out of the house, feels someone is following or watching her. She has been making an effort to get out of the house several times a week, for walks. Appetite has been decreased for a few months, but denies changes in weight. Energy is decreased, has felt more sedated since Seroquel was added. She reports anxiety related to "the frustration of money problems." Denies panic attacks, OCD, PTSD, and eating disorder. She just quit smoking a week or so ago. Physical Exam Psychiatric Orientation: alert, oriented x 3 and cooperative Apperance: appropriately dressed, appropriately groomed and appeared stated age Eye Contact: good eye contact Motor Behavior: steady gait and station and no abnormal motor movements Speech: normal rate/rhythm/volume of speech Affect: euthymic affect and mood congruent with affect Mood: no depressed mood ("I'm doing ok") and no anxious mood Thought Process: goal directed thought process and clear/coherent thought process Thought Content: reality based without delusions; no hopelessness and no worthlessness Suicidal Thoughts: denies suicidal thoughts Homicidal Thoughts: denies homicidal thoughts Hallucinations: + auditory hallucinations (denies command AH, ongoing baseline "mumbling"); no visual hallucinations Cognition: attention grossly intact and language grossly intact Estimated Intelligence: consistent with education level Insight: + fair insight Judgement: + fair judgement Vital Signs (Past 24 Hours) Last Vital Signs Temp 36.7 C 09/14/20 06:51 Pulse 66 09/14/20 06:52 Resp 16 09/14/20 06:51 BP 127/83 09/14/20 06:52 Pulse Ox 100 09/10/20 17:59 Principal Diagnosis - Schizoaffective disorder, depressed type - Panic disorder with agoraphobia Psychiatric Data 30-year-old single female who lives with her mother and stepfather in [place], has a history of schizoaffective disorder bipolar type and panic disorder. She presented with suicidal ideation in the context of depression and command auditory hallucinations, and was admitted voluntarily. Pt was last admitted to our unit for a brief admission in 07/2020 for similar concerns. She has had a good response to aripiprazole, and stated quetiapine was recently added as a second antipsychotic, but was not beneficial. Her fluoxetine has been titrated as an outpatient, with improvement in anxiety, but not mood. Aripiprazole was titrated further during this admission to target bipolar depression and auditory hallucinations. She reported favorable response to this adjustment. Pt has consistently been encouraged to consider increased outpatient supports, structure, and socialization, but is resistant to this. She did agree to participate in a family meeting held with mom via phone, with discussion of safety planning and small initial steps to improve socialization. Pt was able to report several consecutive days of no suicidal ideation, and eventually tresa tory hallucinations returned to baseline "mumbling." Although patient consistently reports social anxiety as a barrier to being able to explore outpatient group support, she does appear to benefit from the group milieu and was an active participant of group programming. Based on review of patient's case and their current presentation, risk of harm to self or others is no longer perceived to be acute. Management of symptoms on an outpatient basis seems the most appropriate and least restrictive setting. Pt seems appropriate for discharge with recommendation for consistent follow-up with outpatient psychiatric prescriber and therapist. Pt verbalized understanding of discharge plan reviewed and is agreeable with plan to be discharged home with mother today. Day of Discharge Assessment Patient's case was reviewed and discussed during treatment team. Staff report patient has continued to report improvement in mood and resolution of SI. She continues to request to go home today. Pt was seen today to assess readiness for discharge. Pt reports she continues to have improved mood and reduced anxiety. She feels that the meeting with her mother yesterday was productive and is pleased with the plan to engage more in family activities. Pt reports feeling comfortable with medication adjustments made during her admission. Pt denies SI as well as continued command auditory hallucinations, stating voices have returned to baseline "mumbling". Pt is able to verbalize a safety plan. She reports feeling safe and comfortable to be discharged today to home. ROS: Constitutional: denied Cardiovascular: denied Respiratory: denied Gastrointestinal: denied Neurological: denied Psychiatric: denies symptoms other than stated above Total of at least 10 systems reviewed, pertinent positives as above and in HPI. Transition of Care Transition Of Care Record: was reviewed with the patient Advance Directives Advance Directives Information Provided: Yes Advance Directives: No Mental Health Advance Directive: No Advance Directives on File: No Living Will: No Power of Assignment Desk Editor: No Advance Directives Reason:: Declines as Mental Health Visit. Risk Factors Assessment Presenting risk factors reviewed on discharge. Precipitating stressors mitigated by: admission for inpatient psychiatric observation and treatment, appropriate adjustments to medications to target symptoms, attendance of therapeutic treatment groups, development of healthy and effective coping strategies, involvement of outpatient supports, completion of a safety plan, confirmation of extra medications being secured, and education on diagnoses. Pt has demonstrated improvement in condition with regard to resolution of SI, improvement in mood and anxiety, medication adjustments to target AH, involvement of mother is safety/discharge planning meeting. At this time, patient is requesting discharge and is no longer considered to be at acute risk of harm to herself or others. Pt will be discharged with recommendation for ongoing outpatient psychiatric treatment. Male: No : Yes Do You Have Access To A Gun?: No Health Problems: No Mental Health Diagnoses: Yes Substance Use Disorders: No Previous Attempt: Yes Previous Attempt; Highly Lethal: No Previous Attempt; Didn't Tell Anyone: Yes Family History of Suicide: No Previous Psychiatric Hospitalization: Yes Hopelessness: No Smoker: No Protective Factors Assessment Evangelical Beliefs: No : No Responsible for Young Children: No Employed: No Stable Relationships: No Supportive Family: Yes Tobacco Cessation at Discharge Tobacco Cessation Medication Prescribed at Discharge: Not Applicable/Non-Smoker Total Time Total Time Spent: Greater Than 30 Minutes Total Time Includes: Examination of the patient, Discharge Planning, Medication Reconciliation and Communication with other providers Discharge Data Lab Results 09/10/20 09/10/20 09/10/20 13:58 13:58 14:25 WBC 7.24 RBC 4.59 Hgb 14.7 Hct 42.7 MCV 93.0 MCH 32.0 MCHC 34.4 RDW Std Deviation 44.4 RDW Coeff of Jalen 12.9 Plt Count 172 MPV 12.5 H Immature Gran % (Auto) 0.1 Neut % (Auto) 56.7 Lymph % (Auto) 34.3 Leon % (Auto) 5.8 Eos % (Auto) 2.5 Baso % (Auto) 0.6 Neut # (Auto) 4.11 Lymph # (Auto) 2.48 Leon # (Auto) 0.42 Eos # (Auto) 0.18 Baso # (Auto) 0.04 Immature Gran # (Auto) 0.01 Sodium Potassium Chloride Carbon Dioxide Anion Gap BUN Creatinine Est Cr Clr Drug Dosing Est GFR ( Amer) Est GFR (Non-Af Amer) BUN/Creatinine Ratio Glucose Calcium Total Bilirubin AST ALT Alkaline Phosphatase Total Protein Albumin Globulin Albumin/Globulin Ratio TSH HCG, Qual Urine Color Yellow Urine Appearance Clear Urine pH 6.5 Ur Specific [place] 1.006 Urine Protein Negative Urine Glucose (UA) Negative Urine Ketones Negative Urine Blood Negative Urine Nitrite Negative Urine Bilirubin Negative Urine Urobilinogen Negative Ur Leukocyte Esterase Negative Salicylates Urine Opiates Screen Neg Ur Methadone, Qual Neg Acetaminophen Urine Barbiturates Neg Ur Phencyclidine (PCP) Neg U Amphetamin/Meth Scrn Neg MDMA (Ecstasy) Screen Neg U Benzodiazepines Scrn Neg Ur Cocaine Metabolite Neg U Marijuana (THC) Screen Neg Ethyl Alcohol mg/dL COVID-19 Eval Order SARS-CoV-2, RNA, NAAT 09/10/20 09/10/20 09/10/20 14:25 14:25 14:25 WBC RBC Hgb Hct MCV MCH MCHC RDW Std Deviation RDW Coeff of Jalen Plt Count MPV Immature Gran % (Auto) Neut % (Auto) Lymph % (Auto) Leon % (Auto) Eos % (Auto) Baso % (Auto) Neut # (Auto) Lymph # (Auto) Leon # (Auto) Eos # (Auto) Baso # (Auto) Immature Gran # (Auto) Sodium 135 L Potassium 3.6 Chloride 103 Carbon Dioxide 28 Anion Gap 4.0 BUN 6 L Creatinine 1.02 Est Cr Clr Drug Dosing 72.2 Est GFR ( Amer) 84.9 Est GFR (Non-Af Amer) 73.2 BUN/Creatinine Ratio 6.1 L Glucose 90 Calcium 8.5 Total Bilirubin 0.2 AST 11 L ALT 18 Alkaline Phosphatase 85 Total Protein 7.1 Albumin 3.8 Globulin 3.3 Albumin/Globulin Ratio 1.2 TSH 1.690 HCG, Qual Urine Color Urine Appearance Urine pH Ur Specific [place] Urine Protein Urine Glucose (UA) Urine Ketones Urine Blood Urine Nitrite Urine Bilirubin Urine Urobilinogen Ur Leukocyte Esterase Salicylates < 1.7 L Urine Opiates Screen Ur Methadone, Qual Acetaminophen < 2 L Urine Barbiturates Ur Phencyclidine (PCP) U Amphetamin/Meth Scrn MDMA (Ecstasy) Screen U Benzodiazepines Scrn Ur Cocaine Metabolite U Marijuana (THC) Screen Ethyl Alcohol mg/dL < 3.0 COVID-19 Eval Order SARS-CoV-2, RNA, NAAT 09/10/20 09/10/20 09/10/20 14:25 16:20 16:20 WBC RBC Hgb Hct MCV MCH MCHC RDW Std Deviation RDW Coeff of Jalen Plt Count MPV Immature Gran % (Auto) Neut % (Auto) Lymph % (Auto) Leon % (Auto) Eos % (Auto) Baso % (Auto) Neut # (Auto) Lymph # (Auto) Leon # (Auto) Eos # (Auto) Baso # (Auto) Immature Gran # (Auto) Sodium Potassium Chloride Carbon Dioxide Anion Gap BUN Creatinine Est Cr Clr Drug Dosing Est GFR ( Amer) Est GFR (Non-Af Amer) BUN/Creatinine Ratio Glucose Calcium Total Bilirubin AST ALT Alkaline Phosphatase Total Protein Albumin Globulin Albumin/Globulin Ratio TSH HCG, Qual Negative Urine Color Urine Appearance Urine pH Ur Specific [place] Urine Protein Urine Glucose (UA) Urine Ketones Urine Blood Urine Nitrite Urine Bilirubin Urine Urobilinogen Ur Leukocyte Esterase Salicylates Urine Opiates Screen Ur Methadone, Qual Acetaminophen Urine Barbiturates Ur Phencyclidine (PCP) U Amphetamin/Meth Scrn MDMA (Ecstasy) Screen U Benzodiazepines Scrn Ur Cocaine Metabolite U Marijuana (THC) Screen Ethyl Alcohol mg/dL COVID-19 Eval Order Covid19 IDNow [facility] SARS-CoV-2, RNA, NAAT NEGATIVE Hospital Course (1) Schizoaffective disorder: 09/11 -Historical diagnosis of schizoaffective disorder bipolar type, current episode depressed, with command auditory hallucinations. -Continue inpatient treatment, every 15 minute checks for safety, encourage participation in groups and therapy, schedule family meeting with mother and stepfather, and ensure coordination of care and outpatient follow-up at [facility]. -Reviewed diagnoses and treatment options, including further titration of aripiprazole to target depression and hallucinations, switch to another medication for bipolar depression/psychosis (such as lurasidone, paliperidone, or olanzapine, as olanzapine/fluoxetine combination has an indication for this). Will avoid olanzapine due to the high risk of weight gain/metabolic syndrome, given the patient's BMI is > 30. Could increase fluoxetine, but less evidence that this will be beneficial for mood given her bipolar diagnosis. She opted to increase aripiprazole as she's had a good response to it and is tolerating her current dose well. Reviewed risks, benefits and side effects, and will increase to 25mg daily. Will d/c quetiapine as has not been helpful, and is sedating and increases risk of metabolic syndrome. -Patient on 2 atypical antipsychotics at her request, feels quetiapine is helpful for sleep and anxiety so her outpatient psychiatrist added it about 2 weeks ago. -Monitoring on an atypical antipsychotic: Fasting lipid profile and glucose performed 07/26/2020 and within normal limits. 09/12 - Continue current medication regimen, aripiprazole increased to 25mg today. Reviewed medication regimen and provided education on current prescriptions. Pt reports a preference for aripiprazole as she is less sedated on the medication and has found it helpful for hallucinations in the past. Pt did at one point question changing to another antipsychotic medication, but is now agreeable to continue trial of aripiprazole for the time being - Continue to encourage participation in group programming - Pt has reached out to her mother to schedule a family meeting - Continue to encourage additional outpatient supports, which she remains unwilling for 09/13 - Continue current medication regimen - Family meeting held today with mother via phone. Mother will secure medications and dispense to patient daily. - Pt continues to decline referrals for formal outpatient psychiatric supports, but at least discussed plans to improve socialization and spend more time out of her room during the day - Pt reports feeling she may be ready for discharge as soon as tomorrow - denying SI and command AH today (2) Panic disorder with agoraphobia: 09/11 - Work on behavioral techniques for managing anxiety, encourage patient to engage in activities out of the home. Continue to encourage case management and psych rehab or [facility], explore options for increasing structure and socialization, such as a virtual day program. -Continue fluoxetine 60 mg daily. Offer hydroxyzine as needed for anxiety. 09/12 - Pt has been tolerating group programming and has been out of her room quite a bit so far this admission - Continue to encourage group participation during her stay - PRN hydroxyzine for anxiety 09/13 - Pt continue to tolerate and benefit from group programming - She discussed small steps she plans to take toward improving social interactions outside of the hospital (3) Obesity (BMI 30-39.9): 09/11 -encourage nutritious diet, physical activity. Monitor for metabolic syndrome given use of atypical antipsychotics. Mental Health & Subst Abuse Tx Psychiatrist Name of Psychiatrist: Nati Knight Psychiatrist's Date of Appointment with Psychiatrist: 09/26/20 Time of Appointment with Psychiatrist: 8:45 a.m. Psychiatric Appointment Comment: [address], [place] [address] Therapist Name of Therapist: Nati Potts Therapist's Date of Therapist Appointment: 09/16/20 Time of Therapist Appointment: 11:00 a.m. Therapy Appointment Comment: [address], [place] [address] Post Discharge Appointments Primary Care Physician Name Of Family Doctor: Neetu Gee Primary [facility] Time of Appointment with PCP: Please follow up as needed Provider Appointment Comment: [address] [place] [id number] Smoking Cessation Counseling Tobacco Cessation Medication Prescribed at Discharge: Not Applicable/Non-Smoker Contact Information Discharge Discharge Address: [address] [place] [address] Discharge Plan Discharge Items Patient Disposition: Home - Self-Care Reason For Visit: AUDITORY HALLUCINATIONS Discharge Diagnosis: - Schizoaffective disorder, depressed type - Panic disorder Condition on Discharge: Fair Activity: Resume your previous activity Non-emergency contact: Primary Care Provider, Psychiatrist and Therapist Call non-emergency contact if: you have any medication questions and your symptoms worsen Follow-up/Referrals: Carmen Yoo MD [Primary Care Provider] - Diet: Regular Addtl Attending Provider Instructions: SPECIAL CARE INSTRUCTIONS: 1. Follow through with your scheduled aftercare appointments. If unable to keep an appointment, please call to reschedule. 2. Take your medication only as prescribed. Medication should not be changed or stopped without the approval of your doctor. In the event of worsening symptoms or concerns about side effects, contact your doctor immediately. 3. Utilize new healthy coping skills, anger management skills, and stress management skills learned during your hospitalization. Journal feelings and process them with a support person. Identify stressors or situations that may result in relapse, deterioration or inappropriate behaviors and develop a plan to deal with those issues. 4. If your coping skills are ineffective and you are in crisis, contact your outpatient providers for direction. If unable to reach your providers, please call the [facility] CRISIS LINE AT , go to the [facility] walk-in center at [address] [place] [address], [address], [place], or go to the closest Emergency Room. 5. Avoid alcohol and un-prescribed drugs. 6. You have been provided with the Mental Health Advance Directives Pamphlet for your review. AFTERCARE APPOINTMENTS: * Please call your insurance company prior to your scheduled appointment to confirm your aftercare providers are covered. Take your insurance information to your appointments. WHO TO CALL AND WHEN: Medical Emergencies: For questions or emergencies related to your hospital stay, please contact the Inpatient Behavioral Health Unit at [phone]. A elevator service mechanic is on-call 24/06 for the Behavioral Health Unit for emergencies At any time you feel your situation is an emergency, you may also call 911 immediately. Pending Studies at Discharge: No Stand-Alone Forms: My [facility] [employer], Smoking Cessation, Suicide Prevention Resources Medications and DC Order Prescriptions: New aripiprazole 10 mg tablet 25 mg PO DAILY 30 Days Qty: 75 RF: 0 Continued trihexyphenidyl 2 mg Tablet 2 mg PO QAM RF: 0 mirtazapine [Remeron] 30 mg Tablet 15 mg PO QPM RF: 0 fluoxetine 40 mg capsule 40 mg PO DAILY RF: 0 fluoxetine 20 mg capsule 20 mg PO DAILY RF: 0 Discontinued aripiprazole [Abilify] 20 mg Tablet 20 mg PO QAM RF: 0 quetiapine [Seroquel] 100 mg Tablet 100 mg PO HS RF: 0 Discharge Orders: Discharge Order (Routine); Ordered 09/14/20 Ordered By: Meg Bazan Admission Data Admit Date/Time: 09/10/20 16:57 Attending Provider: Charis Vela Admit Provider: Charis Vela Primary Care Provider: Carmen Yoo Other Interventions: Discharge Summary Assessment (RN) Last Done: 09/14/20 09:42 PSY Interdisciplinary Discharge Planning Last Done: 09/14/20 09:47 Coding Level of Care Code 14059 D/C day mgmt > 30 min Diagnoses Schizoaffective disorder F25.0 Schizoaffective disorder type: bipolar Panic disorder with agoraphobia F40.01 Obesity (BMI 30-39.9) E66.9
== END 2020-09-14 11:23 | disposition home or self-care (01) | DRG 885 ==
LOC: ED 13:23 → 3S 16:57

== ENCOUNTER 2021-03-28 12:45 | Inpatient (IN) ==
[2021-03-28 13:22] LABS: Appearance Urine Clear (Clear); Bilirubin Urine Negative (Negative); Blood Urine Negative (Negative); Color Urine Yellow; Glucose Urine UA Negative (Negative); Ketones Urine Negative (Negative); Leukocyte Esterase Urine Negative (Negative); Nitrite Urine Negative (Negative); Protein Urine Negative (Negative); Specific Gravity Urine 1.006 (1.000-1.030); Urobilinogen Urine Negative (Negative)
--- NOTE | 2021-03-28 13:23 | Emergency Department Note ---
Impression & Plan Depression with suicidal ideation, Auditory hallucinations ED Provider Note Provider: Evans Verma MD DATE OF SERVICE: 03/28/2021 CHIEF COMPLAINT: Auditory hallucinations, thoughts of self-harm HISTORY OF PRESENT ILLNESS: Patient is a 31-year-old female with a past medical history of schizoaffective disorder presenting here today with her mother reporting that over the past month or so she has had a decline in her mental health. States has been having some periods of dissociation and feeling more anxious and depressed. States over the past approximately 2 to 3 days she has been experiencing worsening now auditory hallucinations commanding her to harm herself and screaming. Patient states she has acutely seen in peripheral vision some shadows. Patient states has not been sleeping the best and was started about a month ago on some trazodone which is mildly helpful. Denies any fever or cough symptoms. Denies any nausea or abdominal symptoms. Patient denies thoughts of going to harm others. States she is working on establishing with a counselor this coming week but has been following with an outpatient psychiatrist. No recent medication changes besides the trazodone a month ago added. Patient states she believes she needs inpatient treatment again. Patient has states she has been having some increased skin picking related to her anxiety. Patient denies trying to harm her self currently. REVIEW OF SYSTEMS: A total of 10 review of systems was obtained and negative except as stated above in the HPI. PAST MEDICAL HISTORY: As noted above MEDICATIONS: Reviewed her medications with the patient SOCIAL HISTORY: Denies drug or alcohol use, lives with mother PHYSICAL EXAM: GENERAL: alert and oriented in no acute distress on stretcher Head: normocephalic and atraumatic EYES: No injection, discharge or icterus. NECK: Trachea midline. LUNGS: Airway patent. No retractions. Breath sounds clear HEART: Regular rate and rhythm. No chest wall tenderness SKIN: Acyanotic, warm, dry however there are several small scabs on the posterior neck, right forearm, and anterior chest less than a centimeter in size without significant surrounding erythema. EXTREMITIES: Without swelling, tenderness or deformity except skin lesions as above NEUROLOGICAL: No focal deficits. No aphasia. No facial droop or slurred speech. Ambulatory. Psych: Patient appears somewhat anxious and states she has some thoughts of wanting to harm her self and feels depressed. Responding to external stimuli but the patient does states she hears some auditory voices. Patient denies wish ing to harm anyone else. Patient's laboratory studies reviewed. Differential includes Mood disorder, infection, hypoglycemia, electrolyte abnormalities, cardiac sources, intracerebral event, toxicologic, trauma, neurologic, as well as other pathologies. IMPRESSION/MEDICAL DECISION MAKING: Patient presents with a long history of psychiatric issues no recent reduction in medications but trazodone was added a month ago. Some decline reported by her and her mother of the past 3 to 4 weeks worsening symptoms in the last 2 to 3 days with auditory commands to harm her self. Patient states he feels anxious and somewhat depressed. Basic labs were obtained. Has a few skin picking sites that do not appear superinfected at this time. Basic wound care would be appropriate for these. Basic labs were obtained. Seen with continuous pillowcase cutter. Patient requesting inpatient treatment given these thoughts and auditory primarily hallucinations. Referrals were made for inpatient treatment given the patient's request and depression with hallucinations. Patient evaluated by 3 S. here and accepted on a 201. DIAGNOSIS: Depression with suicidal ideation, auditory hallucinations DISPOSITION: Transfer to S for further inpatient psychiatric care Past Med/Surg History Medical History (Updated 03/28/21 @ 18:59 by Evans Verma M.D.) Dissociative and conversion disorder, unspecified Homicidal ideation Panic disorder with agoraphobia Schizoaffective disorder Family History Other Family history non-contributory Social History Smoking Status: Former smoker Preferred Language: Italian Communication Ability: Effective Executive Associate Required: No Beliefs That Will Affect Care: None Feels Safe at Home: Yes Assistive Devices: Glasses and Hearing Aid - Left Allergies Allergies Allergy/AdvReac Type Severity Reaction Status Date / Time codeine Allergy Intermediate SOB-"RESTLE Verified 03/28/21 16:54 SSNESS" Home Meds Home Medications Medication Instructions Recorded Confirmed trihexyphenidyl 2 mg PO QAM 06/11/19 03/28/21 fluoxetine 20 mg PO DAILY 09/10/20 03/28/21 fluoxetine 40 mg PO DAILY 09/10/20 03/28/21 aripiprazole 5 mg PO DAILY 03/28/21 03/28/21 aripiprazole 20 mg PO DAILY 03/28/21 03/28/21 trazodone 150 mg PO HS 03/28/21 03/28/21 Results & Data (ED) Vital Signs Vital Signs - 24 hr 03/28/21 12:52 Temperature 37.0 C Temperature Source Temporal Artery Scan Pulse Rate 70 Respiratory Rate 20 Blood Pressure 115/76 Blood Pressure Mean 89 Pulse Oximetry 99 Oxygen Delivery Method Room Air Sepsis Recent Fever Within 48 Hours No Sepsis New/Unexplained Change in Mental Status N/A Sepsis Action Taken by Nursing No Action Required Laboratory Data Result diagrams: 03/28/21 13:13 03/28/21 13:13 Lab Results 03/28/21 03/28/21 03/28/21 Range/Units 13:05 13:05 13:05 WBC (4.8-10.8) K/uL RBC (4.2-5.4) M/uL Hgb (12.0-16.0) g/dL Hct (37-47) % MCV (80-100) fL MCH (25-34) pg MCHC (32-36) g/dL RDW Std Deviation (36.4-46.3) fL RDW Coeff of Jalen (11.5-14.5) % Plt Count (130-400) K/uL MPV (7.4-10.4) fL Immature Gran % (Auto) % Neut % (Auto) % Lymph % (Auto) % [place] % (Auto) % Eos % (Auto) % Baso % (Auto) % Neut # (Auto) (1.4-6.5) K/uL Lymph # (Auto) (1.2-3.4) K/uL [place] # (Auto) (0.11-0.59) K/uL Eos # (Auto) (0-0.5) K/uL Baso # (Auto) (0-0.2) K/uL Immature Gran # (Auto) (0.00-0.02) K/uL Sodium (136-145) mmol/L Potassium (3.5-5.1) mmol/L Chloride (98-107) mmol/L Carbon Dioxide (21-32) mmol/L Anion Gap (3-11) BUN (7-18) mg/dl Creatinine (0.6-1.2) mg/dl Est Cr Clr Drug Dosing ml/min Est GFR ( Amer) Est GFR (Non-Af Amer) BUN/Creatinine Ratio (10-20) Glucose (70-99) mg/dl Calcium (8.5-10.1) mg/dl Total Bilirubin (0.2-1) mg/dl AST (15-37) U/L ALT (12-78) U/L Alkaline Phosphatase (45-117) U/L Total Protein (6.4-8.2) gm/dl Albumin (3.4-5.0) gm/dl Globulin (2.5-4.0) gm/dl Albumin/Globulin Ratio (0.9-2) TSH (0.300-4.500) uIu/ml Urine Color Yellow Urine Appearance Clear (Clear) Urine pH 6.0 (4.5-7.5) Ur Specific [place] 1.006 (1.000-1.030) Urine Protein Negative (Negative) Urine Glucose (UA) Negative (Negative) Urine Ketones Negative (Negative) Urine Blood Negative (Negative) Urine Nitrite Negative (Negative) Urine Bilirubin Negative (Negative) Urine Urobilinogen Negative (Negative) Ur Leukocyte Esterase Negative (Negative) POC Ur Test NEG (NEG) Salicylates (2.8-20) mg/dl Urine Opiates Screen Neg (Neg) Ur Methadone, Qual Neg (Neg) Acetaminophen (10-30) ug/ml Urine Barbiturates Neg (Neg) Ur Phencyclidine (PCP) Neg (Neg) U Amphetamin/Meth Scrn Neg (Neg) MDMA (Ecstasy) Screen Neg (Neg) U Benzodiazepines Scrn Neg (Neg) Ur Cocaine Metabolite Neg (Neg) U Marijuana (THC) Screen Neg (Neg) Ethyl Alcohol mg/dL (0-3) mg/dl COVID-19 Eval Order SARS-CoV-2 (PCR) (Negative) Influenza Type A (PCR) (Neg) Influenza Type B (PCR) (Neg) RSV (RT-PCR) (Neg) 03/28/21 03/28/21 03/28/21 Range/Units 13:09 13:09 13:13 WBC 7.68 (4.8-10.8) K/uL RBC 4.65 (4.2-5.4) M/uL Hgb 15.0 (12.0-16.0) g/dL Hct 42.8 (37-47) % MCV 92.0 (80-100) fL MCH 32.3 (25-34) pg MCHC 35.0 (32-36) g/dL RDW Std Deviation 42.3 (36.4-46.3) fL RDW Coeff of Jalen 12.6 (11.5-14.5) % Plt Count 149 (130-400) K/uL MPV 12.4 H (7.4-10.4) fL Immature Gran % (Auto) 0.0 % Neut % (Auto) 63.0 % Lymph % (Auto) 28.3 % [place] % (Auto) 6.4 % Eos % (Auto) 1.6 % Baso % (Auto) 0.7 % Neut # (Auto) 4.85 (1.4-6.5) K/uL Lymph # (Auto) 2.17 (1.2-3.4) K/uL [place] # (Auto) 0.49 (0.11-0.59) K/uL Eos # (Auto) 0.12 (0-0.5) K/uL Baso # (Auto) 0.05 (0-0.2) K/uL Immature Gran # (Auto) 0.00 (0.00-0.02) K/uL Sodium (136-145) mmol/L Potassium (3.5-5.1) mmol/L Chloride (98-107) mmol/L Carbon Dioxide (21-32) mmol/L Anion Gap (3-11) BUN (7-18) mg/dl Creatinine (0.6-1.2) mg/dl Est Cr Clr Drug Dosing ml/min Est GFR ( Amer) Est GFR (Non-Af Amer) BUN/Creatinine Ratio (10-20) Glucose (70-99) mg/dl Calcium (8.5-10.1) mg/dl Total Bilirubin (0.2-1) mg/dl AST (15-37) U/L ALT (12-78) U/L Alkaline Phosphatase (45-117) U/L Total Protein (6.4-8.2) gm/dl Albumin (3.4-5.0) gm/dl Globulin (2.5-4.0) gm/dl Albumin/Globulin Ratio (0.9-2) TSH (0.300-4.500) uIu/ml Urine Color Urine Appearance (Clear) Urine pH (4.5-7.5) Ur Specific [place] (1.000-1.030) Urine Protein (Negative) Urine Glucose (UA) (Negative) Urine Ketones (Negative) Urine Blood (Negative) Urine Nitrite (Negative) Urine Bilirubin (Negative) Urine Urobilinogen (Negative) Ur Leukocyte Esterase (Negative) POC Ur Test (NEG) Salicylates (2.8-20) mg/dl Urine Opiates Screen (Neg) Ur Methadone, Qual (Neg) Acetaminophen (10-30) ug/ml Urine Barbiturates (Neg) Ur Phencyclidine (PCP) (Neg) U Amphetamin/Meth Scrn (Neg) MDMA (Ecstasy) Screen (Neg) U Benzodiazepines Scrn (Neg) Ur Cocaine Metabolite (Neg) U Marijuana (THC) Screen (Neg) Ethyl Alcohol mg/dL (0-3) mg/dl COVID-19 Eval Order [facility] at [facility] SARS-CoV-2 (PCR) NEGATIVE (Negative) Influenza Type A (PCR) Negative (Neg) Influenza Type B (PCR) Negative (Neg) RSV (RT-PCR) Negative (Neg) 03/28/21 03/28/21 03/28/21 Range/Units 13:13 13:13 13:13 WBC (4.8-10.8) K/uL RBC (4.2-5.4) M/uL Hgb (12.0-16.0) g/dL Hct (37-47) % MCV (80-100) fL MCH (25-34) pg MCHC (32-36) g/dL RDW Std Deviation (36.4-46.3) fL RDW Coeff of Jalen (11.5-14.5) % Plt Count (130-400) K/uL MPV (7.4-10.4) fL Immature Gran % (Auto) % Neut % (Auto) % Lymph % (Auto) % [place] % (Auto) % Eos % (Auto) % Baso % (Auto) % Neut # (Auto) (1.4-6.5) K/uL Lymph # (Auto) (1.2-3.4) K/uL [place] # (Auto) (0.11-0.59) K/uL Eos # (Auto) (0-0.5) K/uL Baso # (Auto) (0-0.2) K/uL Immature Gran # (Auto) (0.00-0.02) K/uL Sodium 139 (136-145) mmol/L Potassium 4.0 (3.5-5.1) mmol/L Chloride 109 H (98-107) mmol/L Carbon Dioxide 24 (21-32) mmol/L Anion Gap 5.0 (3-11) BUN 7 (7-18) mg/dl Creatinine 0.91 (0.6-1.2) mg/dl Est Cr Clr Drug Dosing 82.7 ml/min Est GFR ( Amer) 96.8 Est GFR (Non-Af Amer) 83.5 BUN/Creatinine Ratio 7.2 L (10-20) Glucose 77 (70-99) mg/dl Calcium 8.9 (8.5-10.1) mg/dl Total Bilirubin 0.3 (0.2-1) mg/dl AST 10 L (15-37) U/L ALT 17 (12-78) U/L Alkaline Phosphatase 75 (45-117) U/L Total Protein 6.9 (6.4-8.2) gm/dl Albumin 3.7 (3.4-5.0) gm/dl Globulin 3.2 (2.5-4.0) gm/dl Albumin/Globulin Ratio 1.2 (0.9-2) TSH 1.430 (0.300-4.500) uIu/ml Urine Color Urine Appearance (Clear) Urine pH (4.5-7.5) Ur Specific [place] (1.000-1.030) Urine Protein (Negative) Urine Glucose (UA) (Negative) Urine Ketones (Negative) Urine Blood (Negative) Urine Nitrite (Negative) Urine Bilirubin (Negative) Urine Urobilinogen (Negative) Ur Leukocyte Esterase (Negative) POC Ur Test (NEG) Salicylates < 1.7 L (2.8-20) mg/dl Urine Opiates Screen (Neg) Ur Methadone, Qual (Neg) Acetaminophen < 2 L (10-30) ug/ml Urine Barbiturates (Neg) Ur Phencyclidine (PCP) (Neg) U Amphetamin/Meth Scrn (Neg) MDMA (Ecstasy) Screen (Neg) U Benzodiazepines Scrn (Neg) Ur Cocaine Metabolite (Neg) U Marijuana (THC) Screen (Neg) Ethyl Alcohol mg/dL < 3.0 (0-3) mg/dl COVID-19 Eval Order SARS-CoV-2 (PCR) (Negative) Influenza Type A (PCR) (Neg) Influenza Type B (PCR) (Neg) RSV (RT-PCR) (Neg) Discharge Plan Visit Data Chief Complaint: Mental Health Evaluation Stated Complaint: auditory hallucinations ED Provider: Evans Verma Discharge Problem: Depression with suicidal ideation, Auditory hallucinations Patient Disposition: Admitted As Inpatient Discharge Instructions Interventions: ED Discharge Assessment Last Done: 03/28/21 17:53
[2021-03-28 13:31] LABS: Basophils # (auto) 0.05 K/uL (0-0.2); Basophils % (auto) 0.7 %; Eosinophils # (auto) 0.12 K/uL (0-0.5); Eosinophils % (auto) 1.6 %; Hematocrit (blood only) 42.8 % (37-47); Lymphocytes # (auto) 2.17 K/uL (1.2-3.4); Lymphocytes % (auto) 28.3 %; Mean Corpuscular Hemoglobin 32.3 pg (25-34); Mean Platelet Volume 12.4 fL (7.4-10.4); Monocytes # (auto) 0.49 K/uL (0.11-0.59); Monocytes % (auto) 6.4 %; Neutrophils # (auto) 4.85 K/uL (1.4-6.5); Platelet Count 149 K/uL (130-400); RDW Coefficient of Variation 12.6 % (11.5-14.5); RDW Standard Deviation 42.3 fL (36.4-46.3); Red Blood Count 4.65 M/uL (4.2-5.4); White Blood Count 7.68 K/uL (4.8-10.8)
[2021-03-28 13:48] LABS: Acetaminophen < 2 ug/ml (10-30); Albumin Level 3.7 gm/dl (3.4-5.0); BUN Creatinine Ratio 7.2 (10-20); Calcium 8.9 mg/dl (8.5-10.1); Creatinine Clr Calc Pharmacy 82.7 ml/min; Est GFR (African American) 96.8; Est GFR (Non-African American) 83.5; Salicylate < 1.7 mg/dl (2.8-20)
[2021-03-28 13:59] LABS: Albumin Globulin Ratio 1.2 (0.9-2); Bilirubin,Total 0.3 mg/dl (0.2-1); Globulin 3.2 gm/dl (2.5-4.0); Thyroid Stimulating Hormone 1.43 uIu/ml (0.300-4.500); Total Protein 6.9 gm/dl (6.4-8.2)
[2021-03-28 14:07] LABS: Amphetamines+Metham, Urine Neg (Neg); Barbiturates, Urine Neg (Neg); Benzodiazepine, Urine Neg (Neg); Cocaine, Urine Neg (Neg); MDMA (Ecstacy), Urine Neg (Neg); Methadone, Urine Neg (Neg); Opiate, Urine Neg (Neg); Phencyclidine, Urine Neg (Neg)
[2021-03-28 14:17] LABS: Influenza A virus by PCR Negative (Neg); Influenza B virus by PCR Negative (Neg); RSV by PCR Negative (Neg); SARS CoV2 RNA(COVID-19) InHosp NEGATIVE (Negative)
[2021-03-28] MEDS ORDERED: BISMUTH SUBSALICYLATE LIQD 236 ML PO PRN (17:45)
[2021-03-28] MEDS ORDERED: hydrOXYzine HCl 25 MG TAB PO PRN ×2 (17:45)
[2021-03-28] MEDS ORDERED: SODIUM CHLORIDE 0.65% NA SOLN 45 ML (OCEAN) PRN (17:45)
[2021-03-28] MEDS ORDERED: MAGNESIUM HYDROXIDE SUSP 30 ML UDC PO PRN (17:45)
[2021-03-28] MEDS ORDERED: ALUMINUM/MAGNESIUM SUSP 30 ML UDC PO PRN (17:45)
[2021-03-28] MEDS ORDERED: ACETAMINOPHEN 325 MG TAB PO PRN (17:45)
[2021-03-28] MEDS ORDERED: traZODone HCL 50 MG TAB PO SCH (22:00)
--- NOTE | 2021-03-29 08:08 | History & Physical ---
Date of Service March 29, 2021 Impression / Recommendations Impression 31-year-old female with schizoaffective disorder bipolar type (although does not provide a history that is consistent with manic episodes, and may be depressive type) as well as panic disorder with agoraphobia who presents voluntarily for hospitalization in the context of worsening mood and anxiety with command auditory hallucinations. She is requesting multiple medication changes, and would also benefit from more robust outpatient services, which she is typically resistant to. Inpatient treatment is medically necessary due to severity of symptoms and risk for harm to self if discharged prematurely. (1) Schizoaffective disorder: 03/29 - Continue inpatient treatment, encourage group attendance and participation, work on healthy coping skills and discharge safety plan. -Get records from outpatient SWING MANAGER. She reports she is scheduled to start with a new therapist later this week, may need to reschedule appointment. We have repeatedly recommended case management and psych rehab/clubhouse, which the patient declines. -Family meeting with mother whom she lives with. -AH are prominent and worsening, patient does not think Abilify is helping and would like to try a different medication. Taper off aripiprazole over the next few days. Discussed options including another atypical (olanzapine, lurasidone, paliperidone), or typical (has only tried haldol), including the risks and benefits, metabolic syndrome/weight gain as well as abnormal involuntary movements/tardive dyskinesia. After review of the options, she opted for a trial of lurasidone. Reviewed risk, benefits, and side effects, need to take with at least 350 gabrielle and monitor cholesterol levels and blood sugar. Will order fasting labs for tomorrow. Start 40 mg daily with lunch (patient states she does intermittent fasting and does not eat after lunch, so prefers to take the medication then). -She would also like to try different sleep medication, reports no benefit from trazodone, hydroxyzine, and although mirtazapine helped, appetite was increased and she gained weight. Discontinue trazodone and start trial of doxepin 12.5 mg at bedtime. Unfortunately the hospital does not carry a lower dose, could transition to 10 mg at bedtime as outpatient if effective. Schizoaffective disorder type: bipolar Qualified Code(s): F25.0 - Schizoaffective disorder, bipolar type (2) Panic disorder with agoraphobia: 03/29 -discussed the option of increasing her dose to 80 mg daily, but patient has lost debby in fluoxetine and would like to try different medication. Discontinue fluoxetine as it will self taper, and discussed trial of a different antidepressant/SSRI, as she has had benefit from the 2 SSRIs she has taken in the past, although it later seem to "wear off." She agreed to a trial of escitalopram after review of risks, benefits, and side effects; start 10 mg daily. -Patient is scheduled to start therapy, would benefit from IOP/day programming and case management as well. Risk Factors Assessment Male: No : Yes Do You Have Access To A Gun?: No Health Problems: No Mental Health Diagnoses: Yes Substance Use Disorders: No Previous Attempt: Yes Previous Attempt; Highly Lethal: No Family History of Suicide: No Previous Psychiatric Hospitalization: Yes Hopelessness: No Smoker: No Protective Factors Assessment : No Responsible for Young Children: No Employed: No Stable Relationships: No Supportive Family: Yes Psychiatric History Identifying Data GENE ORTEGA is a 31-year-old F who currently lives in [place] with her mother, has a history of schizoaffective disorder and panic disorder, and was admitted on 03/28/21 17:45 on a 201 voluntary commitment for command auditory hallucinations to hurt himself. Chief Complaint "It was going okay for a while, then started going downhill again, because I don't have any friends". History of Present Illness Pt known to us from multiple previous hospitalizations, has repeatedly refused recommendations for a higher level of outpatient care (BCM, psych rehab). She was last here in 09/2020, discharge on Abilify 25mg, Remeron 30mg, Prozac 60mg, and Artane 2mg, with care at [facility] with a psychiatrist (Dr. Lara) and therapist. She returned to the ER reporting command AH to harm herself and requested inpatient treatment. In the interim she stopped going to [facility] and started seeing an SWING MANAGER at [facility], and is scheduled to see a new therapist later this week. She has been out of therapy for a couple of months. Remeron was stopped a month and half ago as appetite was increased and she gained weight, and trazodone started instead. Mood has become more depressed, stressors include not having friends, only friends online, one of whom recently told her he didn't want to be her friend anymore. Sleep has been disrupted, started trazodone and has titrated up to 150mg HS a couple weeks ago, but still not staying asleep, waking up a few times overnight, getting 3-5 hours a night. Interest is decreased, not engaging in hobbies (knitting, painting) as much, spends most time watching tv. Energy is decreased, appetite is "fine." Has suicidal thoughts every couple of days, usually in response to command auditory hallucinations of voices telling her "you're worthless, you might as well end it," or screaming. She also sees "shadow figures" in her peripheral vision, but when she looks at them, they disappear. She denies drug use and reports good medication adherence. Her mother has been holding her prescriptions and she fills a med box weekly. Denies manic symptoms and cannot recall when she last had a manic episode. Describes past negra as "when I'm thinking of doing something, I have to do it right away," for example going shopping. These only last a couple of hours at most. Anxiety "is through the roof," doesn't like being away from home, doesn't drive as feels fearful/anxious, and feels anxious even riding with someone else. Doesn't trust others and doesn't want to be out in public, and doesn't like to be away from mother. Can tolerate going to [employer] with mother, but gets anxious and wants to get home quickly. Anxiety has been increased recently. She wants to "change all my meds." Past Psychiatric History Current Psychiatric Diagnosis: Schizoaffective disorder, bipolar type; panic disorder Outpatient Services: Nurse practitioner at [facility] heel caser or therapist, but scheduled to see Yasemin at [facility] office later this week. Previous Psych Admissions: Multiple, most recent here 09/2020, also 2018, 2016 Do You Have Access To A Gun?: No History of Previous Suicide Attempt: Yes Describe Attempts in the Past: Overdose. Past Medication Trials: Include but not limited to (from records, patient cannot recall): Chantix -worsening mood symptoms Ziprasidone Aripiprazole -started during 2019 hospitalization here Haloperidol -EPS Quetiapine Buspirone Mirtazapine Propanolol -ineffective for anxiety Sertraline mirtazapine - weight gain, inc appetite hydroxyzine - ineffective for sleep Allergies Allergy/AdvReac Type Severity Reaction Status Date / Time codeine Allergy Intermediate SOB-"RESTLE Verified 03/28/21 16:54 SSNESS" Home Medications Medication Instructions Recorded Confirmed Type trihexyphenidyl 2 mg PO QAM 06/11/19 03/28/21 History fluoxetine 20 mg PO DAILY 09/10/20 03/28/21 History fluoxetine 40 mg PO DAILY 09/10/20 03/28/21 History aripiprazole 5 mg PO DAILY 03/28/21 03/28/21 History aripiprazole 20 mg PO DAILY 03/28/21 03/28/21 History trazodone 150 mg PO HS 03/28/21 03/28/21 History Family History Family History of: None Alcohol History Hx of Alcohol Use Over the Past 12 Months: No AUDIT Total Score: 0 Smoking Use tobacco type: cigarettes Smoking Status: Former smoker Substance History Hx of Prescription Med Misuse Over the Past 12 Months: No Hx of Over the Counter Med Misuse Over the Past 12 Months: No Hx of Inhalent Misuse Over the Past 12 Months: No Hx of Organic Substance Use Over the Past 12 Months: No Hx of Illegal Substances/Street Drug Use Over Past 12 Months: No Problems as a Result of Past Substance Use: None Identified Personal History Living Arrangements: Home Living Arrangements Comments: in [place] with mother and step father Employment Status: Unemployed Marital Status: Single Beliefs That Will Affect Care: None Hx Legal Problems: No Hx Traumatic Life Events: No Patient History Medical History (Updated 03/29/21 @ 08:43 by Charis Vela MD) Dissociative and conversion disorder, unspecified Homicidal ideation Panic disorder with agoraphobia Schizoaffective disorder Family History Other Family history non-contributory Social History Smoking Status: Former smoker Preferred Language: Marshallese Communication Ability: Effective Dough Machine Operator Required: No Beliefs That Will Affect Care: None Feels Safe at Home: Yes Assistive Devices: Glasses and Hearing Aid - Left Review of Systems Review of Systems: All systems reviewed & are unremarkable except as noted in HPI & below Physical Exam Psychiatric: Orientation: alert and oriented x 3 Overweight white female appearing her stated age. Wearing a dress, with a cardigan sweater over it. Hair is shaved short, wearing large earrings, with eyebrow, lip, nose, and facial piercings. Seated in no acute distress, pleasant and cooperative. Eye Contact: + fair eye contact Motor Behavior: steady gait and station and no abnormal motor movements Speech: normal rate/rhythm/volume of speech Affect: euthymic affect; + mood not congruent with affect Mood: + depressed mood and + anxious mood Thought Process: goal directed thought process Thought Content: reality based without delusions Suicidal Thoughts: + reports suicidal thoughts Occur when experiencing command auditory hallucinations Homicidal Thoughts: denies homicidal thoughts Hallucinations: + auditory hallucinations; no visual hallucinations (Reports seeing "shadow people" in her peripheral vision, not true hallucina) Cognition: recent memory grossly intact, attention grossly intact and language grossly intact Insight: + limited insight Judgement: + limited judgement Vital Signs (Past 24 Hours): Last Vital Signs Temp 36.4 C L 03/29/21 06:51 Pulse 66 03/29/21 06:51 Resp 16 03/29/21 06:51 BP 106/72 03/29/21 06:51 Pulse Ox 100 03/28/21 17:53 Exam Statement: A physical exam was performed in the ER prior to admission to the unit by Dr. Evans Verma. I accept that physical as correct/medical clearance for the inpatient physical exam. Results & Data ([facility]) Laboratory Results Laboratory Results - last 24 hr 03/28/21 03/28/21 03/28/21 13:05 13:05 13:05 WBC RBC Hgb Hct MCV MCH MCHC RDW Std Deviation RDW Coeff of Jalen Plt Count MPV Immature Gran % (Auto) Neut % (Auto) Lymph % (Auto) Alpine % (Auto) Eos % (Auto) Baso % (Auto) Neut # (Auto) Lymph # (Auto) Alpine # (Auto) Eos # (Auto) Baso # (Auto) Immature Gran # (Auto) Sodium Potassium Chloride Carbon Dioxide Anion Gap BUN Creatinine Est Cr Clr Drug Dosing Est GFR ( Amer) Est GFR (Non-Af Amer) BUN/Creatinine Ratio Glucose Calcium Total Bilirubin AST ALT Alkaline Phosphatase Total Protein Albumin Globulin Albumin/Globulin Ratio TSH Urine Color Yellow Urine Appearance Clear Urine pH 6.0 Ur Specific Rawlings 1.006 Urine Protein Negative Urine Glucose (UA) Negative Urine Ketones Negative Urine Blood Negative Urine Nitrite Negative Urine Bilirubin Negative Urine Urobilinogen Negative Ur Leukocyte Esterase Negative POC Ur Test NEG Salicylates Urine Opiates Screen Neg Ur Methadone, Qual Neg Acetaminophen Urine Barbiturates Neg Ur Phencyclidine (PCP) Neg U Amphetamin/Meth Scrn Neg MDMA (Ecstasy) Screen Neg U Benzodiazepines Scrn Neg Ur Cocaine Metabolite Neg U Marijuana (THC) Screen Neg Ethyl Alcohol mg/dL COVID-19 Eval Order SARS-CoV-2 (PCR) Influenza Type A (PCR) Influenza Type B (PCR) RSV (RT-PCR) 03/28/21 03/28/21 03/28/21 13:09 13:09 13:13 WBC 7.68 RBC 4.65 Hgb 15.0 Hct 42.8 MCV 92.0 MCH 32.3 MCHC 35.0 RDW Std Deviation 42.3 RDW Coeff of Jalen 12.6 Plt Count 149 MPV 12.4 H Immature Gran % (Auto) 0.0 Neut % (Auto) 63.0 Lymph % (Auto) 28.3 Alpine % (Auto) 6.4 Eos % (Auto) 1.6 Baso % (Auto) 0.7 Neut # (Auto) 4.85 Lymph # (Auto) 2.17 Alpine # (Auto) 0.49 Eos # (Auto) 0.12 Baso # (Auto) 0.05 Immature Gran # (Auto) 0.00 Sodium Potassium Chloride Carbon Dioxide Anion Gap BUN Creatinine Est Cr Clr Drug Dosing Est GFR ( Amer) Est GFR (Non-Af Amer) BUN/Creatinine Ratio Glucose Calcium Total Bilirubin AST ALT Alkaline Phosphatase Total Protein Albumin Globulin Albumin/Globulin Ratio TSH Urine Color Urine Appearance Urine pH Ur Specific Rawlings Urine Protein Urine Glucose (UA) Urine Ketones Urine Blood Urine Nitrite Urine Bilirubin Urine Urobilinogen Ur Leukocyte Esterase POC Ur Test Salicylates Urine Opiates Screen Ur Methadone, Qual Acetaminophen Urine Barbiturates Ur Phencyclidine (PCP) U Amphetamin/Meth Scrn MDMA (Ecstasy) Screen U Benzodiazepines Scrn Ur Cocaine Metabolite U Marijuana (THC) Screen Ethyl Alcohol mg/dL COVID-19 Eval Order CovFluRsv at [facility] SARS-CoV-2 (PCR) NEGATIVE Influenza Type A (PCR) Negative Influenza Type B (PCR) Negative RSV (RT-PCR) Negative 03/28/21 03/28/21 03/28/21 13:13 13:13 13:13 WBC RBC Hgb Hct MCV MCH MCHC RDW Std Deviation RDW Coeff of Jalen Plt Count MPV Immature Gran % (Auto) Neut % (Auto) Lymph % (Auto) Alpine % (Auto) Eos % (Auto) Baso % (Auto) Neut # (Auto) Lymph # (Auto) Alpine # (Auto) Eos # (Auto) Baso # (Auto) Immature Gran # (Auto) Sodium 139 Potassium 4.0 Chloride 109 H Carbon Dioxide 24 Anion Gap 5.0 BUN 7 Creatinine 0.91 Est Cr Clr Drug Dosing 82.7 Est GFR ( Amer) 96.8 Est GFR (Non-Af Amer) 83.5 BUN/Creatinine Ratio 7.2 L Glucose 77 Calcium 8.9 Total Bilirubin 0.3 AST 10 L ALT 17 Alkaline Phosphatase 75 Total Protein 6.9 Albumin 3.7 Globulin 3.2 Albumin/Globulin Ratio 1.2 TSH 1.430 Urine Color Urine Appearance Urine pH Ur Specific Rawlings Urine Protein Urine Glucose (UA) Urine Ketones Urine Blood Urine Nitrite Urine Bilirubin Urine Urobilinogen Ur Leukocyte Esterase POC Ur Test Salicylates < 1.7 L Urine Opiates Screen Ur Methadone, Qual Acetaminophen < 2 L Urine Barbiturates Ur Phencyclidine (PCP) U Amphetamin/Meth Scrn MDMA (Ecstasy) Screen U Benzodiazepines Scrn Ur Cocaine Metabolite U Marijuana (THC) Screen Ethyl Alcohol mg/dL < 3.0 COVID-19 Eval Order SARS-CoV-2 (PCR) Influenza Type A (PCR) Influenza Type B (PCR) RSV (RT-PCR) Current Inpatient Medications Current Inpatient Medications: Current Inpatient Medications Acetaminophen (Acetaminophen 325 Mg Tab) 650 mg PO Q4H PRN PRN Reason: Headache or Minor Fever Stop: 04/27/21 17:44 Al Hydrox/Mg Hydrox/Simethicone (Aluminum/Magnesium Susp 30 Ml Udc) 30 ml PO Q4H PRN PRN Reason: GI Upset Stop: 04/27/21 17:44 Aripiprazole (Aripiprazole 15 Mg Tab) 15 mg PO QAM FRANCES Stop: 04/28/21 08:59 Aripiprazole (Aripiprazole 10 Mg Tab) 10 mg PO QAM FRANCES Stop: 04/28/21 08:59 Bismuth Subsalicylate (Bismuth Subsalicylate Liqd 236 Ml) 15 ml PO PRN PRN PRN Reason: Loose Stool Stop: 04/27/21 17:44 Fluoxetine HCl (Fluoxetine Hcl 20 Mg Cap) 60 mg PO QAM [facility] Stop: 04/28/21 08:59 Hydroxyzine HCl (Hydroxyzine Hcl 25 Mg Tab) 50 mg PO HSZ PRN PRN Reason: Insomnia Stop: 04/27/21 17:44 Hydroxyzine HCl (Hydroxyzine Hcl 25 Mg Tab) 25 mg PO Q4H PRN PRN Reason: Anxiety Stop: 04/27/21 17:44 Magnesium Hydroxide (Magnesium Hydroxide Susp 30 Ml Udc) 30 ml PO DAILY PRN PRN Reason: Constipation Stop: 04/27/21 17:44 Sodium Chloride (Sodium Chloride 0.65% Na Soln 45 Ml ([place])) 1 - 2 sprays NA PRN PRN PRN Reason: Nasal Dryness/Congestion Stop: 04/27/21 17:44 Trazodone HCl (Trazodone Hcl 50 Mg Tab) 150 mg PO HS FRANCES Stop: 04/27/21 21:59 Last Admin: 03/28/21 21:10 Dose: 150 mg Documented by: Trihexyphenidyl HCl (Trihexyphenidyl Hcl 2 Mg Tab) 2 mg PO QAM [facility] Stop: 04/28/21 08:59
[2021-03-29] MEDS ORDERED: ARIPiprazole 15 MG TAB PO SCH (09:00)
[2021-03-29] MEDS ORDERED: ARIPiprazole 10 MG TAB PO SCH (09:00)
[2021-03-29] MEDS ORDERED: FLUoxetine HCL 20 MG CAP PO SCH ×5 (09:00)
[2021-03-29] MEDS: ESCITALOPRAM OXALATE 10 MG TAB PO SCH (11:04)
[2021-03-29] MEDS: TRIHEXYPHENIDYL HCL 2 MG TAB PO SCH (11:04)
[2021-03-29] MEDS: ARIPiprazole 5 MG TAB PO SCH (11:05)
[2021-03-29] MEDS: LURASIDONE HCL 40 MG TAB PO SCH (13:06)
[2021-03-29] MEDS ORDERED: DOXEPIN HCL 25 MG CAPSULE PO SCH (22:00)
[2021-03-29] MEDS: DOXEPIN HCL 10 MG CAPSULE PO SCH (22:10)
[2021-03-30 08:44] LABS: Glucose Fasting 89 mg/dl (70-99)
[2021-03-30] MEDS: ARIPiprazole 5 MG TAB PO SCH (08:48)
[2021-03-30] MEDS: ESCITALOPRAM OXALATE 10 MG TAB PO SCH (08:48)
[2021-03-30] MEDS: TRIHEXYPHENIDYL HCL 2 MG TAB PO SCH (08:48)
[2021-03-30 08:50] LABS: Chol HDL Ratio 4; Cholesterol 182 mg/dl (0-200); HDL Cholesterol 47 mg/dl; LDL Cholesterol Calculated 121 mg/dl; Triglycerides 72 mg/dl (0-150); VLDL Cholesterol 14 mg/dl
[2021-03-30] MEDS ORDERED: ARIPiprazole 5 MG TAB PO SCH (09:00)
[2021-03-30] MEDS: LURASIDONE HCL 40 MG TAB PO SCH (12:37)
--- NOTE | 2021-03-30 12:44 | Psychiatric Progress Note ---
Date of Service March 30, 2021 Impression / Recommendations Impression 31-year-old female with schizoaffective disorder bipolar type (although does not provide a history that is consistent with manic episodes, and may be depressive type) as well as panic disorder with agoraphobia who presents voluntarily for hospitalization in the context of worsening mood and anxiety with command auditory hallucinations. She is requesting multiple medication changes, and would also benefit from more robust outpatient services, which she is typically resistant to. Inpatient treatment is medically necessary due to severity of symptoms and risk for harm to self if discharged prematurely. (1) Schizoaffective disorder: 03/29 - Continue inpatient treatment, encourage group attendance and participation, work on healthy coping skills and discharge safety plan. -Get records from outpatient [facility] [employer]. She reports she is scheduled to start with a new therapist later this week, may need to reschedule appointment. We have repeatedly recommended case management and psych rehab/clubhouse, which the patient declines. -Family meeting with mother whom she lives with. -AH are prominent and worsening, patient does not think Abilify is helping and would like to try a different medication. Taper off aripiprazole over the next few days. Discussed options including another atypical (olanzapine, lurasidone, paliperidone), or typical (has only tried haldol), including the risks and benefits, metabolic syndrome/weight gain as well as abnormal involuntary movements/tardive dyskinesia. After review of the options, she opted for a trial of lurasidone. Reviewed risk, benefits, and side effects, need to take with at least 350 gabrielle and monitor cholesterol levels and blood sugar. Will order fasting labs for tomorrow. Start 40 mg daily with lunch (patient states she does intermittent fasting and does not eat after lunch, so prefers to take the medication then). -She would also like to try different sleep medication, reports no benefit from trazodone, hydroxyzine, and although mirtazapine helped, appetite was increased and she gained weight. Discontinue trazodone and start trial of doxepin 12.5 mg at bedtime. Unfortunately the hospital does not carry a lower dose, could transition to 10 mg at bedtime as outpatient if effective. 03/30 - Continue aripiprazole taper, will receive 5mg tomorrow. Pt agreeable with titration of lurasidone to 60mg tomorrow with lunch. Requesting Artane just as needed given that she is hoping the akathisia related to aripiprazole use will resolve as the medication is tapered. Discussed that similar risks are present with lurasidone. - Pt continues to decline case management and day programming opportunities on discharge, but admits to consideration for a communicable disease specialist. - Fasting glucose and lipid panel reviewed - all values WNL (2) Panic disorder with agoraphobia: 03/29 -discussed the option of increasing her dose to 80 mg daily, but patient has lost debby in fluoxetine and would like to try different medication. Discontinue fluoxetine as it will self taper, and discussed trial of a different antidepressant/SSRI, as she has had benefit from the 2 SSRIs she has taken in the past, although it later seem to "wear off." She agreed to a trial of escitalopram after review of risks, benefits, and side effects; start 10 mg daily. -Patient is scheduled to start therapy, would benefit from IOP/day programming and case management as well. 03/30 - Reports panic attack this morning related to "all I think about is 'I want to be home, I want to be home'." Utilized coping strategies and prn medications. - Continue with medication adjustments outlined above. Risk Factors Assessment Male: No : Yes Do You Have Access To A Gun?: No Health Problems: No Mental Health Diagnoses: Yes Substance Use Disorders: No Previous Attempt: Yes Previous Attempt; Highly Lethal: No Family History of Suicide: No Previous Psychiatric Hospitalization: Yes Hopelessness: No Smoker: No Protective Factors Assessment : No Responsible for Young Children: No Employed: No Stable Relationships: No Supportive Family: Yes Interval History Identifying Information GENE ORTEGA is a 31-year-old F who currently lives in [place] with her mother, has a history of schizoaffective disorder and panic disorder, and was admitted on 03/28/21 17:45 on a 201 voluntary commitment for command auditory hallucinations to hurt herself. Chief Complaint "Um, I'm not great. I had a panic attack earlier." Review of Systems Notes Constitutional: denied Cardiovascular: denied Respiratory: denied Gastrointestinal: denied Neurological: denied Psychiatric: denies symptoms other than stated above Total of at least 10 systems reviewed, pertinent positives as above and in HPI. Sleep Information Total Hours of Sleep: 8.25 Sleep Comments: pt on q-15 minute checks Meal Information Percent Meal Consumed - Breakfast: 100 Percent Meal Consumed - Lunch: 50 Percent Meal Consumed - Dinner: 50 Subjective Subjective Patient was seen & assessed and interval progress reviewed with nursing and social work. Staff report the patient has been attending group programming, but generally sits on the periphery. She continues to refuse recommendations for increased outpatient supports. Pt was seen today to assess progress since admission. She admits "I'm not great. I had a panic attack earlier." Initially, the patient stated she could not identify a clear cause for the francesca c, but later reported "I think it's my agoraphobia. I just keep thinking 'I want to be home, I want to be home'." Pt denies concerns related to recent medication changes. She admits sleep was improved last evening, although still a reduced number of interruptions. Pt verbalizes desire for rapid discharge, which is not an uncommon pattern for her. We discussed desire to ensure she is tolerating medication adjustments. Pt was agreeable with continuing to titrate lurasidone as aripiprazole is being tapered. She denies current SI. We reviewed recommendations for outpatient professional supports. She states she is only interested at this point in exploring a communicable disease specialist - "either to get one or to be one", and is unwilling for case management. Pt denied other needs or concerns today. Physical Exam Psychiatric Orientation: alert, oriented x 3 and cooperative Apperance: appeared stated age excentric dress, wearing multiple patterns, numerous facial piercings, and large earrings. Hair is shaved short. Eye Contact: + fair eye contact Motor Behavior: steady gait and station and no abnormal motor movements Speech: normal rate/rhythm/volume of speech Affect: + anxious affect Mood: + depressed mood and + anxious mood Thought Process: goal directed thought process Thought Content: reality based without delusions; no hopelessness Suicidal Thoughts: denies suicidal thoughts Homicidal Thoughts: denies homicidal thoughts Hallucinations: no auditory hallucinations and no visual hallucinations Cognition: attention grossly intact and language grossly intact Estimated Intelligence: consistent with education level Insight: + limited insight Judgement: + fair judgement Vital Signs (Past 24 Hours) Last Vital Signs Temp 36.3 C L 03/30/21 06:44 Pulse 62 03/30/21 06:45 Resp 16 03/30/21 06:44 BP 100/66 03/30/21 06:45 Pulse Ox 100 03/28/21 17:53 Results & Data ([facility]) Laboratory Results Laboratory Results - last 24 hr 03/30/21 07:41 Fasting Glucose 89 Triglycerides 72 Cholesterol 182 LDL Cholesterol, Calc 121 VLDL Cholesterol, Calc 14 HDL Cholesterol 47 Cholesterol/HDL Ratio 4 Current Inpatient Medications Current Inpatient Medications: Current Inpatient Medications Acetaminophen (Acetaminophen 325 Mg Tab) 650 mg PO Q4H PRN PRN Reason: Headache or Minor Fever Stop: 04/27/21 17:44 Al Hydrox/Mg Hydrox/Simethicone (Aluminum/Magnesium Susp 30 Ml Udc) 30 ml PO Q4H PRN PRN Reason: GI Upset Stop: 04/27/21 17:44 Aripiprazole (Aripiprazole 5 Mg Tab) 10 mg PO QAM FRANCES; Taper Stop: 04/01/21 10:59 Last Admin: 03/30/21 08:48 Dose: 15 mg Documented by: Bismuth Subsalicylate (Bismuth Subsalicylate Liqd 236 Ml) 15 ml PO PRN PRN PRN Reason: Loose Stool Stop: 04/27/21 17:44 Doxepin HCl (Doxepin Hcl 10 Mg Capsule) 10 mg PO HS FRANCES Stop: 04/28/21 21:59 Last Admin: 03/29/21 22:10 Dose: 10 mg Documented by: Escitalopram Oxalate (Escitalopram Oxalate 10 Mg Tab) 10 mg PO QAM FRANCES Stop: 04/28/21 09:59 Last Admin: 03/30/21 08:48 Dose: 10 mg Documented by: Hydroxyzine HCl (Hydroxyzine Hcl 25 Mg Tab) 50 mg PO HSZ PRN PRN Reason: Insomnia Stop: 04/27/21 17:44 Hydroxyzine HCl (Hydroxyzine Hcl 25 Mg Tab) 25 mg PO Q4H PRN PRN Reason: Anxiety Stop: 04/27/21 17:44 Last Admin: 03/30/21 12:36 Dose: 25 mg Documented by: Lurasidone HCl (Lurasidone Hcl 40 Mg Tab) 40 mg PO DAILYBL FRANCES Stop: 04/28/21 11:59 Last Admin: 03/30/21 12:37 Dose: 40 mg Documented by: Magnesium Hydroxide (Magnesium Hydroxide Susp 30 Ml Udc) 30 ml PO DAILY PRN PRN Reason: Constipation Stop: 04/27/21 17:44 Sodium Chloride (Sodium Chloride 0.65% Na Soln 45 Ml ([place])) 1 - 2 sprays NA PRN PRN PRN Reason: Nasal Dryness/Congestion Stop: 04/27/21 17:44 Trihexyphenidyl HCl (Trihexyphenidyl Hcl 2 Mg Tab) 2 mg PO QAM FRANCES Stop: 04/28/21 08:59 Last Admin: 03/30/21 08:48 Dose: 2 mg Documented by: Mental Health & Subst Abuse Tx Psychiatrist Name of Psychiatrist: [facility] Psychiatrist's Date of Appointment with Psychiatrist: 04/07/21 Time of Appointment with Psychiatrist: 12:15pm Psychiatric Appointment Comment: [id number] [place] [address] Therapist Name of Therapist: [facility] Therapist's Date of Therapist Appointment: 04/07/21 Time of Therapist Appointment: 12:15pm Therapy Appointment Comment: [phone] [place] [address] Post Discharge Appointments Primary Care Physician Name Of Family Doctor: Neetu - Dr. Carmen Gee Primary Care Provider Appointment Comment: [address] [place] [address] [place] [address] Other #1: Name of Aftercare Appointment: Dr. Vonda Hicks Phone Number of Aftercare Appointment: [phone] Date of Aftercare Appointment: 04/06/21 Time of Aftercare Appointment: 11am Aftercare Appointment Comment: [phone] [place] [address] Contact Information Discharge Discharge Address: [address] [place] [address] (1) Schizoaffective disorder Schizoaffective disorder type: bipolar Qualified Code(s): F25.0 - Schizoaffective disorder, bipolar type
[2021-03-30] MEDS ORDERED: TRIHEXYPHENIDYL HCL 2 MG TAB PO PRN (14:57)
[2021-03-30] MEDS: DOXEPIN HCL 10 MG CAPSULE PO SCH (20:50)
[2021-03-31] MEDS: ARIPiprazole 5 MG TAB PO SCH (08:55)
[2021-03-31] MEDS: ESCITALOPRAM OXALATE 10 MG TAB PO SCH (08:56)
--- NOTE | 2021-03-31 09:33 | Psychiatric Progress Note ---
Date of Service March 31, 2021 Impression / Recommendations Impression 31-year-old female with schizoaffective disorder bipolar type (although does not provide a history that is consistent with manic episodes, and may be depressive type) as well as panic disorder with agoraphobia who presents voluntarily for hospitalization in the context of worsening mood and anxiety with command auditory hallucinations. She is requesting multiple medication changes, and would also benefit from more robust outpatient services, which she is typically resistant to. Inpatient treatment is medically necessary due to severity of symptoms and risk for harm to self if discharged prematurely. (1) Schizoaffective disorder: 03/29 - Continue inpatient treatment, encourage group attendance and participation, work on healthy coping skills and discharge safety plan. -Get records from outpatient [facility]. She reports she is scheduled to start with a new therapist later this week, may need to reschedule appointment. We have repeatedly recommended case management and psych rehab/clubhouse, which the patient declines. -Family meeting with mother whom she lives with. -AH are prominent and worsening, patient does not think Abilify is helping and would like to try a different medication. Taper off aripiprazole over the next few days. Discussed options including another atypical (olanzapine, lurasidone, paliperidone), or typical (has only tried haldol), including the risks and benefits, metabolic syndrome/weight gain as well as abnormal involuntary movements/tardive dyskinesia. After review of the options, she opted for a trial of lurasidone. Reviewed risk, benefits, and side effects, need to take with at least 350 gabrielle and monitor cholesterol levels and blood sugar. Will order fasting labs for tomorrow. Start 40 mg daily with lunch (patient states she does intermittent fasting and does not eat after lunch, so prefers to take the medication then). -She would also like to try different sleep medication, reports no benefit from trazodone, hydroxyzine, and although mirtazapine helped, appetite was increased and she gained weight. Discontinue trazodone and start trial of doxepin 12.5 mg at bedtime. Unfortunately the hospital does not carry a lower dose, could transition to 10 mg at bedtime as outpatient if effective. 03/30 - Continue aripiprazole taper, will receive 5mg tomorrow. Pt agreeable with titration of lurasidone to 60mg tomorrow with lunch. Requesting Artane just as needed given that she is hoping the akathisia related to aripiprazole use will resolve as the medication is tapered. Discussed that similar risks are present with lurasidone. - Pt continues to decline case management and day programming opportunities on discharge, but admits to consideration for a dental billing specialist. - Fasting glucose and lipid panel reviewed - all values WNL 03/31 - Insurance contacted regarding plans to continue lurasidone, which unfortunately requires a prior authorization. This provider submitted PA today; however, uncertain that it will be approved prior to patient's desired discharge timeline. This was explained to the patient, who was agreeable with returning to aripiprazole for the time being, with recommendation cross-taper to lurasidone be completed with her outpatient provider once medication use has been approved. Pt verbalized understanding and did verbalize this would be her desired plan. - Lurasidone has been discontinued and aripiprazole titrated back to 15mg daily. - Continue to encourage group participation - Patient willing to consider Peer Support, but remains unwilling to consider case management or day programming (2) Panic disorder with agoraphobia: 03/29 -discussed the option of increasing her dose to 80 mg daily, but patient has lost debby in fluoxetine and would like to try different medication. Discontinue fluoxetine as it will self taper, and discussed trial of a different antidepressant/SSRI, as she has had benefit from the 2 SSRIs she has t aken in the past, although it later seem to "wear off." She agreed to a trial of escitalopram after review of risks, benefits, and side effects; start 10 mg daily. -Patient is scheduled to start therapy, would benefit from IOP/day programming and case management as well. 03/30 - Reports panic attack this morning related to "all I think about is 'I want to be home, I want to be home'." Utilized coping strategies and prn medications. - Continue with medication adjustments outlined above. Risk Factors Assessment Male: No : Yes Do You Have Access To A Gun?: No Health Problems: No Mental Health Diagnoses: Yes Substance Use Disorders: No Previous Attempt: Yes Previous Attempt; Highly Lethal: No Family History of Suicide: No Previous Psychiatric Hospitalization: Yes Hopelessness: No Smoker: No Protective Factors Assessment : No Responsible for Young Children: No Employed: No Stable Relationships: No Supportive Family: Yes Interval History Identifying Information GENE ORTEGA is a 31-year-old F who currently lives in [place] with her mother, has a history of schizoaffective disorder and panic disorder, and was admitted on 03/28/21 17:45 on a 201 voluntary commitment for command auditory hallucinations to hurt herself. Chief Complaint "Things are ok, yesterday went pretty slow." Review of Systems Notes Constitutional: reports improved sleep, fewer interruptions last evening Cardiovascular: denied Respiratory: denied Gastrointestinal: denied Neurological: denied Psychiatric: denies symptoms other than stated above Total of at least 10 systems reviewed, pertinent positives as above and in HPI. Sleep Information Total Hours of Sleep: 6.5 Sleep Comments: pt on q-15 minute checks Meal Information Percent Meal Consumed - Breakfast: 100 Percent Meal Consumed - Lunch: 100 Percent Meal Consumed - Dinner: 100 Subjective Subjective Patient was seen & assessed and interval progress reviewed with treatment team. Staff report the patient has been participating in group and recreational programming. She has been out of her room often and has been supportive of peers. Pt was seen today to assess progress since admission. Pt states she is doing well, admitting that yesterday "went pretty slow." Pt reports overall improvements since admission, stating her mood had been a 4/10 at time of presentation, but is now a 7/10. She reports her concern for poor sleep has been addressed. We reviewed concern related to prior authorization being necessary for lurasidone, and the impact this may have on either the discharge timeline or on her ability to reasonably continue the medication outpatient. Pt verbalized agreement with temporarily returning to aripiprazole and discontinuing lurasidone, with the hope being the medication is approved and cross-taper could be resumed with her outpatient providers. Pt continues to deny SI and denies concerns related to AH. Pt denied other needs or concerns today. Physical Exam Psychiatric Orientation: alert, oriented x 3 and cooperative Apperance: appropriately dressed, appropriately groomed and appeared stated age somewhat excentric dress, large earrings, nearly shaved head Eye Contact: + fair eye contact Motor Behavior: steady gait and station and no abnormal motor movements Speech: normal rate/rhythm/volume of speech Affect: + anxious affect (timid, reserved) Mood: + anxious mood Thought Process: goal directed thought process and clear/coherent thought process Thought Content: reality based without delusions; no hopelessness and no wort hlessness Suicidal Thoughts: denies suicidal thoughts and denies suicidal intent Homicidal Thoughts: denies homicidal thoughts Hallucinations: no auditory hallucinations and no visual hallucinations Cognition: attention grossly intact and language grossly intact Estimated Intelligence: consistent with education level Insight: + fair insight Judgement: + fair judgement Vital Signs (Past 24 Hours) Last Vital Signs Temp 36.7 C 03/31/21 06:47 Pulse 70 03/31/21 06:48 Resp 16 03/31/21 06:47 BP 98/67 L 03/31/21 06:48 Pulse Ox 100 03/28/21 17:53 Results & Data ([facility]) Current Inpatient Medications Current Inpatient Medications: Current Inpatient Medications Acetaminophen (Acetaminophen 325 Mg Tab) 650 mg PO Q4H PRN PRN Reason: Headache or Minor Fever Stop: 04/27/21 17:44 Al Hydrox/Mg Hydrox/Simethicone (Aluminum/Magnesium Susp 30 Ml Udc) 30 ml PO Q4H PRN PRN Reason: GI Upset Stop: 04/27/21 17:44 Aripiprazole (Aripiprazole 5 Mg Tab) 10 mg PO QAM FRANCES; Taper Stop: 04/01/21 10:59 Last Admin: 03/31/21 08:55 Dose: 10 mg Documented by: Bismuth Subsalicylate (Bismuth Subsalicylate Liqd 236 Ml) 15 ml PO PRN PRN PRN Reason: Loose Stool Stop: 04/27/21 17:44 Doxepin HCl (Doxepin Hcl 10 Mg Capsule) 10 mg PO HS FRANCES Stop: 04/28/21 21:59 Last Admin: 03/30/21 20:50 Dose: 10 mg Documented by: Escitalopram Oxalate (Escitalopram Oxalate 10 Mg Tab) 10 mg PO QAM FRANCES Stop: 04/28/21 09:59 Last Admin: 03/31/21 08:56 Dose: 10 mg Documented by: Hydroxyzine HCl (Hydroxyzine Hcl 25 Mg Tab) 50 mg PO HSZ PRN PRN Reason: Insomnia Stop: 04/27/21 17:44 Hydroxyzine HCl (Hydroxyzine Hcl 25 Mg Tab) 25 mg PO Q4H PRN PRN Reason: Anxiety Stop: 04/27/21 17:44 Last Admin: 03/30/21 12:36 Dose: 25 mg Documented by: Lurasidone HCl (Lurasidone Hcl 40 Mg Tab) 60 mg PO DAILYBL FRANCES Stop: 04/30/21 11:59 Magnesium Hydroxide (Magnesium Hydroxide Susp 30 Ml Udc) 30 ml PO DAILY PRN PRN Reason: Constipation Stop: 04/27/21 17:44 Sodium Chloride (Sodium Chloride 0.65% Na Soln 45 Ml ([place])) 1 - 2 sprays NA PRN PRN PRN Reason: Nasal Dryness/Congestion Stop: 04/27/21 17:44 Trihexyphenidyl HCl (Trihexyphenidyl Hcl 2 Mg Tab) 2 mg PO DAILY PRN PRN Reason: EPS/akathisia Stop: 04/29/21 14:56 Mental Health & Subst Abuse Tx Psychiatrist Name of Psychiatrist: [facility] Psychiatrist's Date of Appointment with Psychiatrist: 04/07/21 Time of Appointment with Psychiatrist: 12:15pm Psychiatric Appointment Comment: [phone] [place] [address] Therapist Name of Therapist: [facility] Therapist's Date of Therapist Appointment: 04/07/21 Time of Therapist Appointment: 12:15pm Therapy Appointment Comment: [address] [place] [address] Post Discharge Appointments Primary Care Physician Name Of Family Doctor: Neetu Gee Primary Care Provider Appointment Comment: [address] [place], [place] [address] [id number] Other #1: Name of Aftercare Appointment: Dr. Vonda Hicks Phone Number of Aftercare Appointment: [phone] Date of Aftercare Appointment: 04/06/21 Time of Aftercare Appointment: 11am Aftercare Appointment Comment: [address] [place] [address] Contact Information Discharge Discharge Address: [address] [place] [address] (1) Schizoaffective disorder Schizoaffective disorder type: bipolar Qualified Code(s): F25.0 - Schizoaffective disorder, bipolar type
[2021-03-31] MEDS ORDERED: LURASIDONE HCL 40 MG TAB PO SCH (12:00)
[2021-03-31] MEDS ORDERED: ARIPiprazole 5 MG TAB PO ONE (12:30)
[2021-03-31] MEDS ORDERED: ARIPiprazole 10 MG TAB PO ONE (12:30)
[2021-03-31] MEDS: DOXEPIN HCL 10 MG CAPSULE PO SCH (21:04)
[2021-04-01] MEDS ORDERED: ARIPiprazole 15 MG TAB PO SCH (09:00)
[2021-04-01] MEDS ORDERED: TRIHEXYPHENIDYL HCL 2 MG TAB PO SCH (09:00)
[2021-04-01] MEDS: ESCITALOPRAM OXALATE 10 MG TAB PO SCH (09:03)
--- NOTE | 2021-04-01 09:33 | Discharge Summary ---
Date of Service April 01, 2021 History of Present Illness per admitting clinician: Pt known to us from multiple previous hospitalizations, has repeatedly refused recommendations for a higher level of outpatient care (BCM, psych rehab). She was last here in 09/2020, discharge on Abilify 25mg, Remeron 30mg, Prozac 60mg, and Artane 2mg, with care at [facility] with a psychiatrist (Dr. Lara) and therapist. She returned to the ER reporting command AH to harm herself and requested inpatient treatment. In the interim she stopped going to [facility] and started seeing an [facility] at [facility], and is scheduled to see a new therapist later this week. She has been out of therapy for a couple of months. Remeron was stopped a month and half ago as appetite was increased and she gained weight, and trazodone started instead. Mood has become more depressed, stressors include not having friends, only friends online, one of whom recently told her he didn't want to be her friend anymore. Sleep has been disrupted, started trazodone and has titrated up to 150mg HS a couple weeks ago, but still not staying asleep, waking up a few times overnight, getting 3-5 hours a night. Interest is decreased, not engaging in hobbies (knitting, painting) as much, spends most time watching tv. Energy is decreased, appetite is "fine." Has suicidal thoughts every couple of days, usually in response to command auditory hallucinations of voices telling her "you're worthless, you might as well end it," or screaming. She also sees "shadow figures" in her peripheral vision, but when she looks at them, they disappear. She denies drug use and reports good medication adherence. Her mother has been holding her prescriptions and she fills a med box weekly. Denies manic symptoms and cannot recall when she last had a manic episode. Describes past negra as "when I'm thinking of doing something, I have to do it right away," for example going shopping. These only last a couple of hours at most. Anxiety "is through the roof," doesn't like being away from home, doesn't drive as feels fearful/anxious, and feels anxious even riding with someone else. Doesn't trust others and doesn't want to be out in public, and doesn't like to be away from mother. Can tolerate going to [facility] with mother, but gets anxious and wants to get home quickly. Anxiety has been increased recently. She wants to "change all my meds." Physical Exam Mental Examination See admission H&P and DOD summary. Vital Signs (Past 24 Hours) Last Vital Signs Temp 36.6 C 04/01/21 06:00 Pulse 69 04/01/21 06:41 Resp 16 04/01/21 06:00 BP 103/72 04/01/21 06:41 Pulse Ox 100 03/28/21 17:53 Principal Diagnosis schizoaffective disorder, bipolar type Psychiatric Data See daily stay summary. In short, safety was maintained and the patient was cooperative with care. Medication changes included taper of Prozac to Lexapro, discontinuation of trazodone in favor of doxepin, and decrease in Abilify in preparation for Latuda trial. There were issues with regards to authorization and patient is wanting to leave the hospital on a weekend so this change, if necessary, will need to be considered by outpatient prescriber at [facility], [place]. They tolerated this well. Day of Discharge Assessment Today the patient voices readiness for discharge. They note improvement in mood and deny thoughts to harm self or others. Thoughts remain organized and they are improved from admission. There is no evidence of psychosis and hallucinations are resolved. They agree to take mediations as prescribed and keep follow-up appointments. They are stable for discharge to outpatient level of care. Transition of Care Transition Of Care Record: was reviewed with the patient Advance Directives Advance Directives Information Provided: Yes Advance Directives: No Mental Health Advance Directive: No Advance Directives on File: No Living Will: No Power of Final Inspector Paper: No Advance Directives Reason:: Declines as Mental Health Visit. Risk Factors Assessment Male: No : Yes Do You Have Access To A Gun?: No Health Problems: No Mental Health Diagnoses: Yes Substance Use Disorders: No Previous Attempt: Yes Previous Attempt; Highly Lethal: No Family History of Suicide: No Previous Psychiatric Hospitalization: Yes Hopelessness: No Smoker: No Protective Factors Assessment : No Responsible for Young Children: No Employed: No Stable Relationships: No Supportive Family: Yes Tobacco Cessation at Discharge Tobacco Cessation Medication Prescribed at Discharge: Not Applicable/Non-Smoker Total Time Total Time Spent: Greater Than 30 Minutes Total Time Includes: Examination of the patient, Discharge Planning and Medication Reconciliation Discharge Data Lab Results 03/28/21 03/28/21 03/28/21 13:05 13:05 13:05 WBC RBC Hgb Hct MCV MCH MCHC RDW Std Deviation RDW Coeff of Jalen Plt Count MPV Immature Gran % (Auto) Neut % (Auto) Lymph % (Auto) Stephens % (Auto) Eos % (Auto) Baso % (Auto) Neut # (Auto) Lymph # (Auto) Stephens # (Auto) Eos # (Auto) Baso # (Auto) Immature Gran # (Auto) Sodium Potassium Chloride Carbon Dioxide Anion Gap BUN Creatinine Est Cr Clr Drug Dosing Est GFR ( Amer) Est GFR (Non-Af Amer) BUN/Creatinine Ratio Glucose Fasting Glucose Calcium Total Bilirubin AST ALT Alkaline Phosphatase Total Protein Albumin Globulin Albumin/Globulin Ratio Triglycerides Cholesterol LDL Cholesterol, Calc VLDL Cholesterol, Calc HDL Cholesterol Cholesterol/HDL Ratio TSH Urine Color Yellow Urine Appearance Clear Urine pH 6.0 Ur Specific Tofte 1.006 Urine Protein Negative Urine Glucose (UA) Negative Urine Ketones Negative Urine Blood Negative Urine Nitrite Negative Urine Bilirubin Negative Urine Urobilinogen Negative Ur Leukocyte Esterase Negative POC Ur Test NEG Salicylates Urine Opiates Screen Neg Ur Methadone, Qual Neg Acetaminophen Urine Barbiturates Neg Ur Phencyclidine (PCP) Neg U Amphetamin/Meth Scrn Neg MDMA (Ecstasy) Screen Neg U Benzodiazepines Scrn Neg Ur Cocaine Metabolite Neg U Marijuana (THC) Screen Neg Ethyl Alcohol mg/dL COVID-19 Eval Order SARS-CoV-2 (PCR) Influenza Type A (PCR) Influenza Type B (PCR) RSV (RT-PCR) 03/28/21 03/28/21 03/28/21 13:09 13:09 13:13 WBC 7.68 RBC 4.65 Hgb 15.0 Hct 42.8 MCV 92.0 MCH 32.3 MCHC 35.0 RDW Std Deviation 42.3 RDW Coeff of Jalen 12.6 Plt Count 149 MPV 12.4 H Immature Gran % (Auto) 0.0 Neut % (Auto) 63.0 Lymph % (Auto) 28.3 Stephens % (Auto) 6.4 Eos % (Auto) 1.6 Baso % (Auto) 0.7 Neut # (Auto) 4.85 Lymph # (Auto) 2.17 Stephens # (Auto) 0.49 Eos # (Auto) 0.12 Baso # (Auto) 0.05 Immature Gran # (Auto) 0.00 Sodium Potassium Chloride Carbon Dioxide Anion Gap BUN Creatinine Est Cr Clr Drug Dosing Est GFR ( Amer) Est GFR (Non-Af Amer) BUN/Creatinine Ratio Glucose Fasting Glucose Calcium Total Bilirubin AST ALT Alkaline Phosphatase Total Protein Albumin Globulin Albumin/Globulin Ratio Triglycerides Cholesterol LDL Cholesterol, Calc VLDL Cholesterol, Calc HDL Cholesterol Cholesterol/HDL Ratio TSH Urine Color Urine Appearance Urine pH Ur Specific Tofte Urine Protein Urine Glucose (UA) Urine Ketones Urine Blood Urine Nitrite Urine Bilirubin Urine Urobilinogen Ur Leukocyte Esterase POC Ur Test Salicylates Urine Opiates Screen Ur Methadone, Qual Acetaminophen Urine Barbiturates Ur Phencyclidine (PCP) U Amphetamin/Meth Scrn MDMA (Ecstasy) Screen U Benzodiazepines Scrn Ur Cocaine Metabolite U Marijuana (THC) Screen Ethyl Alcohol mg/dL COVID-[address] Cov[address]sv [address] [facility] SARS-CoV-2 (PCR) NEGATIVE Influenza Type A (PCR) Negative Influenza Type B (PCR) Negative RSV (RT-PCR) Negative 03/28/21 03/28/21 03/28/21 13:13 13:13 13:13 WBC RBC Hgb Hct MCV MCH MCHC RDW Std Deviation RDW Coeff of Jalen Plt Count MPV Immature Gran % (Auto) Neut % (Auto) Lymph % (Auto) Stephens % (Auto) Eos % (Auto) Baso % (Auto) Neut # (Auto) Lymph # (Auto) Stephens # (Auto) Eos # (Auto) Baso # (Auto) Immature Gran # (Auto) Sodium 139 Potassium 4.0 Chloride 109 H Carbon Dioxide 24 Anion Gap 5.0 BUN 7 Creatinine 0.91 Est Cr Clr Drug Dosing 82.7 Est GFR ( Amer) 96.8 Est GFR (Non-Af Amer) 83.5 BUN/Creatinine Ratio 7.2 L Glucose 77 Fasting Glucose Calcium 8.9 Total Bilirubin 0.3 AST 10 L ALT 17 Alkaline Phosphatase 75 Total Protein 6.9 Albumin 3.7 Globulin 3.2 Albumin/Globulin Ratio 1.2 Triglycerides Cholesterol LDL Cholesterol, Calc VLDL Cholesterol, Calc HDL Cholesterol Cholesterol/HDL Ratio TSH 1.430 Urine Color Urine Appearance Urine pH Ur Specific Tofte Urine Protein Urine Glucose (UA) Urine Ketones Urine Blood Urine Nitrite Urine Bilirubin Urine Urobilinogen Ur Leukocyte Esterase POC Ur Test Salicylates < 1.7 L Urine Opiates Screen Ur Methadone, Qual Acetaminophen < 2 L Urine Barbiturates Ur Phencyclidine (PCP) U Amphetamin/Meth Scrn MDMA (Ecstasy) Screen U Benzodiazepines Scrn Ur Cocaine Metabolite U Marijuana (THC) Screen Ethyl Alcohol mg/dL < 3.0 COVID-19 Eval Order SARS-CoV-2 (PCR) Influenza Type A (PCR) Influenza Type B (PCR) RSV (RT-PCR) 03/30/21 07:41 WBC RBC Hgb Hct MCV MCH MCHC RDW Std Deviation RDW Coeff of Jalen Plt Count MPV Immature Gran % (Auto) Neut % (Auto) Lymph % (Auto) Stephens % (Auto) Eos % (Auto) Baso % (Auto) Neut # (Auto) Lymph # (Auto) Stephens # (Auto) Eos # (Auto) Baso # (Auto) Immature Gran # (Auto) Sodium Potassium Chloride Carbon Dioxide Anion Gap BUN Creatinine Est Cr Clr Drug Dosing Est GFR ( Amer) Est GFR (Non-Af Amer) BUN/Creatinine Ratio Glucose Fasting Glucose 89 Calcium Total Bilirubin AST ALT Alkaline Phosphatase Total Protein Albumin Globulin Albumin/Globulin Ratio Triglycerides 72 Cholesterol 182 LDL Cholesterol, Calc 121 VLDL Cholesterol, Calc 14 HDL Cholesterol 47 Cholesterol/HDL Ratio 4 TSH Urine Color Urine Appearance Urine pH Ur Specific Tofte Urine Protein Urine Glucose (UA) Urine Ketones Urine Blood Urine Nitrite Urine Bilirubin Urine Urobilinogen Ur Leukocyte Esterase POC Ur Test Salicylates Urine Opiates Screen Ur Methadone, Qual Acetaminophen Urine Barbiturates Ur Phencyclidine (PCP) U Amphetamin/Meth Scrn MDMA (Ecstasy) Screen U Benzodiazepines Scrn Ur Cocaine Metabolite U Marijuana (THC) Screen Ethyl Alcohol mg/dL COVID-19 Eval Order SARS-CoV-2 (PCR) Influenza Type A (PCR) Influenza Type B (PCR) RSV (RT-PCR) Hospital Course (1) Schizoaffective disorder: 03/29 - Continue inpatient treatment, encourage group attendance and participation, work on healthy coping skills and discharge safety plan. -Get records from outpatient [facility]GEMENT [facility]. She reports she is scheduled to start with a new therapist later this week, may need to reschedule appointment. We have repeatedly recommended case management and psych rehab/clubhouse, which the patient declines. -Family meeting with mother whom she lives with. -AH are prominent and worsening, patient does not think Abilify is helping and would like to try a different medication. Taper off aripiprazole over the next few days. Discussed options including another atypical (olanzapine, lurasidone, paliperidone), or typical (has only tried haldol), including the risks and benefits, metabolic syndrome/weight gain as well as abnormal involuntary movements/tardive dyskinesia. After review of the options, she opted for a trial of lurasidone. Reviewed risk, benefits, and side effects, need to take with at least 350 gabrielle and monitor cholesterol levels and blood sugar. Will ord er fasting labs for tomorrow. Start 40 mg daily with lunch (patient states she does intermittent fasting and does not eat after lunch, so prefers to take the medication then). -She would also like to try different sleep medication, reports no benefit from trazodone, hydroxyzine, and although mirtazapine helped, appetite was increased and she gained weight. Discontinue trazodone and start trial of doxepin 12.5 mg at bedtime. Unfortunately the hospital does not carry a lower dose, could transition to 10 mg at bedtime as outpatient if effective. 03/30 - Continue aripiprazole taper, will receive 5mg tomorrow. Pt agreeable with titration of lurasidone to 60mg tomorrow with lunch. Requesting Artane just as needed given that she is hoping the akathisia related to aripiprazole use will resolve as the medication is tapered. Discussed that similar risks are present with lurasidone. - Pt continues to decline case management and day programming opportunities on discharge, but admits to consideration for a ehs specialist. - Fasting glucose and lipid panel reviewed - all values WNL 03/31 - Insurance contacted regarding plans to continue lurasidone, which unfortunately requires a prior authorization. This provider submitted PA today; however, uncertain that it will be approved prior to patient's desired discharge timeline. This was explained to the patient, who was agreeable with returning to aripiprazole for the time being, with recommendation cross-taper to lurasidone be completed with her outpatient provider once medication use has been approved. Pt verbalized understanding and did verbalize this would be her desired plan. - Lurasidone has been discontinued and aripiprazole titrated back to 15mg daily. - Continue to encourage group participation - Patient willing to consider Peer Support, but remains unwilling to consider case management or day programming (2) Panic disorder with agoraphobia: 03/29 -discussed the option of increasing her dose to 80 mg daily, but patient has lost debby in fluoxetine and would like to try different medication. Discontinue fluoxetine as it will self taper, and discussed trial of a diffe rent antidepressant/SSRI, as she has had benefit from the 2 SSRIs she has taken in the past, although it later seem to "wear off." She agreed to a trial of escitalopram after review of risks, benefits, and side effects; start 10 mg daily. -Patient is scheduled to start therapy, would benefit from IOP/day programming and case management as well. 03/30 - Reports panic attack this morning related to "all I think about is 'I want to be home, I want to be home'." Utilized coping strategies and prn medications. - Continue with medication adjustments outlined above. Mental Health & Subst Abuse Tx Psychiatrist Name of Psychiatrist: [facility] Psychiatrist's Date of Appointment with Psychiatrist: 04/07/21 Time of Appointment with Psychiatrist: 12:15pm Psychiatric Appointment Comment: [id number], [place] [address] Therapist Name of Therapist: [facility] Therapist's Date of Therapist Appointment: 04/07/21 Time of Therapist Appointment: 12:15pm Therapy Appointment Comment: [id number], [place] [address] Post Discharge Appointments Primary Care Physician Name Of Family Doctor: Neetu Gee Primary Care Provider Appointment Comment: [address] [place] [id number] Smoking Cessation Counseling Tobacco Cessation Medication Prescribed at Discharge: Not Applicable/Non-Smoker Other #1: Name of Aftercare Appointment: Dr. Vonda Hicks Phone Number of Aftercare Appointment: [phone] Date of Aftercare Appointment: 04/06/21 Time of Aftercare Appointment: 11am Aftercare Appointment Comment: [phone] [place] [address] Contact Information Discharge Discharge Address: [address] [place] [address] Discharge Plan Discharge Items Patient Disposition: Home - Self-Care Reason For Visit: schizoeffective bipolar type Discharge Diagnosis: same Activity: Resume your previous activity Non-emergency contact: Primary Care Provider, Psychiatrist and Therapist Call non-emergency contact if: you have any medication questions and your symptoms worsen Follow-up/Referrals: Carmen Yoo MD [Primary Care Provider] - Diet: Regular Addtl Attending Provider Instructions: SPECIAL CARE INSTRUCTIONS: 1. Follow through with your scheduled aftercare appointments. If unable to keep an appointment, please call to reschedule. 2. Take your medication only as prescribed. Medication should not be changed or stopped without the approval of your doctor. In the event of worsening symptoms or concerns about side effects, contact your doctor immediately. 3. Utilize new healthy coping skills, anger management skills, and stress management skills learned during your hospitalization. Journal feelings and process them with a support person. Identify stressors or situations that may result in relapse, deterioration or inappropriate behaviors and develop a plan to deal with those issues. 4. If your coping skills are ineffective and you are in crisis, contact your outpatient providers for direction. If unable to reach your providers, please call the [facility] CRISIS LINE AT , go to the [facility] walk-in center at [address] [facility] [address], [place], or go to the closest Emergency Room. 5. Avoid alcohol and un-prescribed drugs. 6. You have been provided with the Mental Health Advance Directives Pamphlet for your review. AFTERCARE APPOINTMENTS: * Please call your insurance company prior to your scheduled appointment to confirm your aftercare providers are covered. Take your insurance information to your appointments. WHO TO CALL AND WHEN: Medical Emergencies: For questions or emergencies related to your hospital stay, please contact the Inpatient Behavioral Health Unit at [phone]. A obstetrics specialist is on-call 24/06 for the Behavioral Health Unit for emergencies At any time you feel your situation is an emergency, you may also call 911 immediately. Pending Studies at Discharge: No Stand-Alone Forms: My KeyMe, Smoking Cessation Medications and DC Order Prescriptions: New doxepin 10 mg Capsule 10 mg PO HS 30 Days Qty: 30 RF: 0 trihexyphenidyl 2 mg Tablet 2 mg PO QAM 30 Days Qty: 30 RF: 0 escitalopram oxalate 10 mg Tablet 10 mg PO QAM 30 Days Qty: 30 RF: 0 aripiprazole [Abilify] 15 mg Tablet 15 mg PO QAM 30 Days Qty: 30 RF: 0 Discontinued trihexyphenidyl 2 mg Tablet 2 mg PO QAM RF: 0 fluoxetine 40 mg capsule 40 mg PO DAILY RF: 0 fluoxetine 20 mg capsule 20 mg PO DAILY RF: 0 trazodone 150 mg tablet 150 mg PO HS RF: 0 aripiprazole 20 mg tablet 20 mg PO DAILY RF: 0 aripiprazole 5 mg tablet 5 mg PO DAILY RF: 0 Discharge Orders: Discharge Order (Routine); Ordered 04/01/21 Ordered By: Tasha Ramos Admission Data Admit Date/Time: 03/28/21 17:45 Attending Provider: Charis Vela Admit Provider: Jose F Lowry Primary Care Provider: Carmen Yoo Coding Level of Care Code 79505 D/C day mgmt > 30 min Diagnoses Schizoaffective disorder F25.0 Schizoaffective disorder type: bipolar Panic disorder with agoraphobia F40.01
[2021-04-01] MEDS ORDERED: DESTROY THIS MEDICATION ONE (15:52)
== END 2021-04-01 12:02 | disposition home or self-care (01) | DRG 885 ==
LOC: ED 12:45 → 3S 17:45

== ENCOUNTER 2021-07-22 18:10 | Inpatient (IN) ==
[2021-07-22] MEDS ORDERED: LORazepam 1 MG TAB PO STA (18:48)
--- NOTE | 2021-07-22 19:00 | Emergency Department Note ---
Impression & Plan Depression with suicidal ideation ED Provider Note NAME: GENE ROTEGA AGE: 31 SEX: F : 1990 ARRIVES VIA: Walk-In INFORMANT: Patient, ED PROVIDER(S): Tacho Bar DO CHIEF COMPLAINT: Depression and suicidal ideation HPI: The patient is a 31-year-old female who presented to the emergency department for mental health evaluation. The patient has a long history of mental health disorder. She was admitted to our facility at the beginning of spring with similar complaints. The patient had some recent changes to her m edications over the course the last few weeks. The patient states that over the last few days she is also been experiencing significant suicidal ideation. The patient did not do anything over the last 24 hours to hurt her self including cutting herself or taking pills. She states she has had symptoms similar to this in the past and required admission. The patient is requesting to be admitted to the hospital so she can have all of her medications stopped and then restart them so she can have different medication started. She feels her medications are not helping at this point. ROS: See above HPI for pertinent positives & negatives. A total of 10 systems reviewed and were otherwise negative. PAST MEDICAL HISTORY: See Below PAST SURGICAL HISTORY: See Below FAMILY HISTORY: See Below SOCIAL HISTORY: See Below HOME MEDICATIONS: See Below ALLERGIES: See Below VITALS: See Below PHYSICAL EXAMINATION: GENERAL: The patient is awake and alert. She is somewhat anxious appearing. EYES: The conjunctivae are clear. The pupils are round and reactive. EARS, NOSE, MOUTH AND THROAT: The nose is without any evidence of any deformity. Mucous membranes are moist. Tongue is midline. NECK: The neck is nontender and supple. RESPIRATORY: Normal respiratory effort is noted there is no evidence of wheezing rhonchi or rales CARDIOVASCULAR: Regular rate and rhythm noted there no murmurs rubs or gallops normal S1 normal S2. GASTROINTESTINAL: The abdomen is soft. Abdomen is nontender. MUSCULOSKELETAL/EXTREMITIES: There is no evidence of gross deformity full range of motion is noted in the hips and shoulders. SKIN: There is no obvious evidence of any rash. There are no petechiae, pallor or cyanosis noted. NEUROLOGIC: Patient is awake alert and oriented x3. PSYCH: The patient makes good eye contact for most evaluation. She continues to admit to suicidal ideation. MEDICAL DECISION MAKING: The patient is a 31-year-old female who presented to the emergency department for mental health evaluation. The patient was medically cleared in the emergency department. She was treated with Ativan. She was feeling much better on subsequent reevaluation. The patient was evaluated by the mental health case resource manager and was felt to meet criteria for inpatient management. She was agreeable to this plan. She was evaluated by the delegate from [facility] and was felt to be a good candidate for admission to our unit. I did sign the patient's 201 paperwork. The patient was taken to [facility] for further inpatient work-up and management. Triage Nursing notes reviewed. Prior medical records reviewed Vital Signs: reviewed and remarkable for no significant abnormalities Differential diagnosis: Mood disorder, infection, hypoglycemia, electrolyte abnormalities, cardiac sources, intracerebral event, toxicologic, trauma, neurologic, as well as other pathologies. ER treatment provided: See below Diagnostics interpreted by me: ECG: none Laboratory studies: As stated above and show below. Imaging studies: See below Consultation(s): none Past Med/Surg History Medical History Dissociative and conversion disorder, unspecified Homicidal ideation Panic disorder with agoraphobia Schizoaffective disorder Family History Other Family history non-contributory Social History Smoking Status: Former smoker Tobacco Type: Cigarettes Preferred Language: Hebrew Communication Ability: Effective Supervisor Salvage Required: No Beliefs That Will Affect Care: None Feels Safe at Home: Yes Assistive Devices: Glasses and Hearing Aid - Left Allergies Allergies Allergy/AdvReac Type Severity Reaction Status Date / Time codeine Allergy Intermediate SOB-"RESTLE Verified 03/28/21 16:54 SSNESS" Home Meds Home Medications Medication Instructions Recorded Confirmed Abilify 15 mg PO DAILY 07/22/21 07/22/21 Artane 2 mg PO DAILY 07/22/21 07/22/21 BuSpar 10 mg PO BID 07/22/21 07/22/21 Lexapro 20 mg PO DAILY 07/22/21 07/22/21 doxepin 50 mg PO HS 07/22/21 07/22/21 Results & Data (ED) Vital Signs Vital Signs - 24 hr 07/22/21 18:14 07/22/21 18:22 07/22/21 20:15 Temperature 36.6 C Temperature Source Oral Oral Pulse Rate 84 Pulse Rate [Finger] 70 Respiratory Rate 18 15 Respiratory Effort / Characteristics Non-Labored Spontaneous Non-Labored Spontaneous Respiratory Depth Normal Normal Respiratory Pattern Regular Blood Pressure 123/87 Blood Pressure [Right Arm] 120/78 Blood Pressure Mean 99 Blood Pressure Mean [Right Arm] 92 Pulse Oximetry 98 97 Oxygen Delivery Method Room Air Room Air Sepsis Recent Fever Within 48 Hours No Sepsis New/Unexplained Change in Mental Status No Sepsis Action Taken by Nursing No Action Required 07/22/21 22:05 Temperature Temperature Source Pulse Rate Pulse Rate [Finger] Respiratory Rate 18 Respiratory Effort / Characteristics Respiratory Depth Respiratory Pattern Blood Pressure Blood Pressure [Right Arm] Blood Pressure Mean Blood Pressure Mean [Right Arm] Pulse Oximetry Oxygen Delivery Method Room Air Sepsis Recent Fever Within 48 Hours Sepsis New/Unexplained Change in Mental Status Sepsis Action Taken by [facility] Medications Current Medication List: was personally reviewed by me Laboratory Data Attestation: I reviewed the patient's lab results. Result diagrams: 07/22/21 19:00 07/22/21 19:00 Lab Results 07/22/21 07/22/21 07/22/21 Range/Units 18:25 18:25 19:00 WBC 11.85 H (4.8-10.8) K/uL RBC 4.80 (4.2-5.4) M/uL Hgb 15.6 (12.0-16.0) g/dL Hct 44.5 (37-47) % MCV 92.7 (80-100) fL MCH 32.5 (25-34) pg MCHC 35.1 (32-36) g/dL RDW Std Deviation 43.1 (36.4-46.3) fL RDW Coeff of Jalen 12.7 (11.5-14.5) % Plt Count 159 (130-400) K/uL MPV 12.3 H (7.4-10.4) fL Immature Gran % (Auto) 0.2 % Neut % (Auto) 60.4 % Lymph % (Auto) 28.0 % [place] % (Auto) 6.0 % Eos % (Auto) 5.0 % Baso % (Auto) 0.4 % Neut # (Auto) 7.16 H (1.4-6.5) K/uL Lymph # (Auto) 3.32 (1.2-3.4) K/uL [place] # (Auto) 0.71 H (0.11-0.59) K/uL Eos # (Auto) 0.59 H (0-0.5) K/uL Baso # (Auto) 0.05 (0-0.2) K/uL Immature Gran # (Auto) 0.02 (0.00-0.02) K/uL Sodium (136-145) mmol/L Potassium (3.5-5.1) mmol/L Chloride (98-107) mmol/L Carbon Dioxide (21-32) mmol/L Anion Gap (3-11) BUN (7-18) mg/dl Creatinine (0.6-1.2) mg/dl Est Cr Clr Drug Dosing ml/min Est GFR ( Amer) ml/min Est GFR (Non-Af Amer) ml/min BUN/Creatinine Ratio (10-20) Glucose (70-99) mg/dl Calcium (8.5-10.1) mg/dl Total Bilirubin (0.2-1) mg/dl AST (15-37) U/L ALT (12-78) U/L Alkaline Phosphatase (45-117) U/L Total Protein (6.4-8.2) gm/dl Albumin (3.4-5.0) gm/dl Globulin (2.5-4.0) gm/dl Albumin/Globulin Ratio (0.9-2) TSH (0.300-4.500) uIu/ml Free T4 (0.8-1.6) ng/dl HCG, Qual (Negative) Urine Color Yellow Urine Appearance Clear (Clear) Urine pH 6.0 (4.5-7.5) Ur Specific [place] 1.005 (1.000-1.030) Urine Protein Negative (Negative) Urine Glucose (UA) Negative (Negative) Urine Ketones Negative (Negative) Urine Blood Negative (Negative) Urine Nitrite Negative (Negative) Urine Bilirubin Negative (Negative) Urine Urobilinogen Negative (Negative) Ur Leukocyte Esterase Negative (Negative) Salicylates (2.8-20) mg/dl Urine Opiates Screen Neg (Neg) Ur Methadone, Qual Neg (Neg) Acetaminophen (10-30) ug/ml Urine Barbiturates Neg (Neg) Ur Phencyclidine (PCP) Neg (Neg) U Amphetamin/Meth Scrn Neg (Neg) MDMA (Ecstasy) Screen Neg (Neg) U Benzodiazepines Scrn Neg (Neg) Ur Cocaine Metabolite Neg (Neg) U Marijuana (THC) Screen Pos H (Neg) Ethyl Alcohol mg/dL (0-3) mg/dl COVID-19 Eval Order SARS-CoV-2 (PCR) (Negative) 07/22/21 07/22/21 07/22/21 Range/Units 19:00 19:00 19:00 WBC (4.8-10.8) K/uL RBC (4.2-5.4) M/uL Hgb (12.0-16.0) g/dL Hct (37-47) % MCV (80-100) fL MCH (25-34) pg MCHC (32-36) g/dL RDW Std Deviation (36.4-46.3) fL RDW Coeff of Jalen (11.5-14.5) % Plt Count (130-400) K/uL MPV (7.4-10.4) fL Immature Gran % (Auto) % Neut % (Auto) % Lymph % (Auto) % [place] % (Auto) % Eos % (Auto) % Baso % (Auto) % Neut # (Auto) (1.4-6.5) K/uL Lymph # (Auto) (1.2-3.4) K/uL [place] # (Auto) (0.11-0.59) K/uL Eos # (Auto) (0-0.5) K/uL Baso # (Auto) (0-0.2) K/uL Immature Gran # (Auto) (0.00-0.02) K/uL Sodium 139 (136-145) mmol/L Potassium 3.7 (3.5-5.1) mmol/L Chloride 110 H (98-107) mmol/L Carbon Dioxide 26 (21-32) mmol/L Anion Gap 3.0 (3-11) BUN 11 (7-18) mg/dl Creatinine 1.01 (0.6-1.2) mg/dl Est Cr Clr Drug Dosing 76.3 ml/min Est GFR ( Amer) 85.3 ml/min Est GFR (Non-Af Amer) 73.6 ml/min BUN/Creatinine Ratio 11.0 (10-20) Glucose 82 (70-99) mg/dl Calcium 8.6 (8.5-10.1) mg/dl Total Bilirubin 0.3 (0.2-1) mg/dl AST 14 L (15-37) U/L ALT 25 (12-78) U/L Alkaline Phosphatase 71 (45-117) U/L Total Protein 7.3 (6.4-8.2) gm/dl Albumin 3.6 (3.4-5.0) gm/dl Globulin 3.7 (2.5-4.0) gm/dl Albumin/Globulin Ratio 1.0 (0.9-2) TSH 4.940 H (0.300-4.500) uIu/ml Free T4 0.88 (0.8-1.6) ng/dl HCG, Qual (Negative) Urine Color Urine Appearance (Clear) Urine pH (4.5-7.5) Ur Specific [place] (1.000-1.030) Urine Protein (Negative) Urine Glucose (UA) (Negative) Urine Ketones (Negative) Urine Blood (Negative) Urine Nitrite (Negative) Urine Bilirubin (Negative) Urine Urobilinogen (Negative) Ur Leukocyte Esterase (Negative) Salicylates < 1.7 L (2.8-20) mg/dl Urine Opiates Screen (Neg) Ur Methadone, Qual (Neg) Acetaminophen < 2 L (10-30) ug/ml Urine Barbiturates (Neg) Ur Phencyclidine (PCP) (Neg) U Amphetamin/Meth Scrn (Neg) MDMA (Ecstasy) Screen (Neg) U Benzodiazepines Scrn (Neg) Ur Cocaine Metabolite (Neg) U Marijuana (THC) Screen (Neg) Ethyl Alcohol mg/dL < 3.0 (0-3) mg/dl COVID-19 Eval Order SARS-CoV-2 (PCR) (Negative) 07/22/21 07/22/21 07/22/21 Range/Units 19:00 19:09 19:09 WBC (4.8-10.8) K/uL RBC (4.2-5.4) M/uL Hgb (12.0-16.0) g/dL Hct (37-47) % MCV (80-100) fL MCH (25-34) pg MCHC (32-36) g/dL RDW Std Deviation (36.4-46.3) fL RDW Coeff of Jalen (11.5-14.5) % Plt Count (130-400) K/uL MPV (7.4-10.4) fL Immature Gran % (Auto) % Neut % (Auto) % Lymph % (Auto) % [place] % (Auto) % Eos % (Auto) % Baso % (Auto) % Neut # (Auto) (1.4-6.5) K/uL Lymph # (Auto) (1.2-3.4) K/uL [place] # (Auto) (0.11-0.59) K/uL Eos # (Auto) (0-0.5) K/uL Baso # (Auto) (0-0.2) K/uL Immature Gran # (Auto) (0.00-0.02) K/uL Sodium (136-145) mmol/L Potassium (3.5-5.1) mmol/L Chloride (98-107) mmol/L Carbon Dioxide (21-32) mmol/L Anion Gap (3-11) BUN (7-18) mg/dl Creatinine (0.6-1.2) mg/dl Est Cr Clr Drug Dosing ml/min Est GFR ( Amer) ml/min Est GFR (Non-Af Amer) ml/min BUN/Creatinine Ratio (10-20) Glucose (70-99) mg/dl Calcium (8.5-10.1) mg/dl Total Bilirubin (0.2-1) mg/dl AST (15-37) U/L ALT (12-78) U/L Alkaline Phosphatase (45-117) U/L Total Protein (6.4-8.2) gm/dl Albumin (3.4-5.0) gm/dl Globulin (2.5-4.0) gm/dl Albumin/Globulin Ratio (0.9-2) TSH (0.300-4.500) uIu/ml Free T4 (0.8-1.6) ng/dl HCG, Qual Negative (Negative) Urine Color Urine Appearance (Clear) Urine pH (4.5-7.5) Ur Specific [place] (1.000-1.030) Urine Protein (Negative) Urine Glucose (UA) (Negative) Urine Ketones (Negative) Urine Blood (Negative) Urine Nitrite (Negative) Urine Bilirubin (Negative) Urine Urobilinogen (Negative) Ur Leukocyte Esterase (Negative) Salicylates (2.8-20) mg/dl Urine Opiates Screen (Neg) Ur Methadone, Qual (Neg) Acetaminophen (10-30) ug/ml Urine Barbiturates (Neg) Ur Phencyclidine (PCP) (Neg) U Amphetamin/Meth Scrn (Neg) MDMA (Ecstasy) Screen (Neg) U Benzodiazepines Scrn (Neg) Ur Cocaine Metabolite (Neg) U Marijuana (THC) Screen (Neg) Ethyl Alcohol mg/dL (0-3) mg/dl COVID-19 Eval Order Covid19 at [facility] SARS-CoV-2 (PCR) NEGATIVE (Negative) Administered Medications Discontinued Medications Lorazepam (Lorazepam 1 Mg Tab) 1 mg PO NOW STA Stop: 07/22/21 18:49 Last Admin: 07/22/21 19:03 Dose: 1 mg Documented by: [id number] Discharge Plan Visit Data Chief Complaint: Mental Health Evaluation Stated Complaint: SUICIDAL THOUGHTS ED Provider: Tacho Bar Discharge Problem: Depression with suicidal ideation Patient Disposition: Admitted As Inpatient Discharge Instructions Interventions: ED Discharge Assessment Last Done: 07/22/21 22:05
[2021-07-22 19:10] LABS: Appearance Urine Clear (Clear); Bilirubin Urine Negative (Negative); Blood Urine Negative (Negative); Color Urine Yellow; Glucose Urine UA Negative (Negative); Ketones Urine Negative (Negative); Leukocyte Esterase Urine Negative (Negative); Nitrite Urine Negative (Negative); Protein Urine Negative (Negative); Specific Gravity Urine 1.005 (1.000-1.030); Urobilinogen Urine Negative (Negative)
[2021-07-22 19:13] LABS: Basophils # (auto) 0.05 K/uL (0-0.2); Basophils % (auto) 0.4 %; Eosinophils # (auto) 0.59 K/uL (0-0.5); Hematocrit (blood only) 44.5 % (37-47); Hemoglobin 15.6 g/dL (12.0-16.0); Immature Granulocytes # (auto) 0.02 K/uL (0.00-0.02); Immature Granulocytes % (auto) 0.2 %; Lymphocytes # (auto) 3.32 K/uL (1.2-3.4); Mean Corpuscular Hemoglobin 32.5 pg (25-34); Mean Corpuscular Hgb Conc 35.1 g/dL (32-36); Mean Corpuscular Volume 92.7 fL (80-100); Mean Platelet Volume 12.3 fL (7.4-10.4); Monocytes # (auto) 0.71 K/uL (0.11-0.59); Neutrophils # (auto) 7.16 K/uL (1.4-6.5); Neutrophils % (auto) 60.4 %; Platelet Count 159 K/uL (130-400); RDW Coefficient of Variation 12.7 % (11.5-14.5); RDW Standard Deviation 43.1 fL (36.4-46.3); White Blood Count 11.85 K/uL (4.8-10.8)
[2021-07-22 19:34] LABS: Albumin Level 3.6 gm/dl (3.4-5.0); Calcium 8.6 mg/dl (8.5-10.1); Creatinine Clr Calc Pharmacy 76.3 ml/min; Est GFR (African American) 85.3 ml/min; Est GFR (Non-African American) 73.6 ml/min; Potassium 3.7 mmol/L (3.5-5.1)
[2021-07-22 19:45] LABS: Bilirubin,Total 0.3 mg/dl (0.2-1); Globulin 3.7 gm/dl (2.5-4.0); Thyroid Stimulating Hormone 4.94 uIu/ml (0.300-4.500); Total Protein 7.3 gm/dl (6.4-8.2)
[2021-07-22 19:48] LABS: Pregnancy Test, Serum Negative (Negative)
[2021-07-22 19:51] LABS: Acetaminophen < 2 ug/ml (10-30); Salicylate < 1.7 mg/dl (2.8-20)
[2021-07-22 19:58] LABS: T4 Free Thyroxine 0.88 ng/dl (0.8-1.6)
[2021-07-22 20:00] LABS: Amphetamines+Metham, Urine Neg (Neg); Barbiturates, Urine Neg (Neg); Benzodiazepine, Urine Neg (Neg); Cocaine, Urine Neg (Neg); MDMA (Ecstacy), Urine Neg (Neg); Methadone, Urine Neg (Neg); Opiate, Urine Neg (Neg); Phencyclidine, Urine Neg (Neg)
[2021-07-22] MEDS ORDERED: SODIUM CHLORIDE 0.65% NA SOLN 45 ML (OCEAN) PRN (22:15)
[2021-07-22] MEDS ORDERED: hydrOXYzine HCl 25 MG TAB PO PRN ×2 (22:15)
[2021-07-22] MEDS ORDERED: ACETAMINOPHEN 325 MG TAB PO PRN (22:15)
[2021-07-22] MEDS ORDERED: ALUMINUM/MAGNESIUM SUSP 30 ML UDC PO PRN (22:15)
[2021-07-22] MEDS ORDERED: MAGNESIUM HYDROXIDE SUSP 30 ML UDC PO PRN (22:15)
[2021-07-22] MEDS ORDERED: BISMUTH SUBSALICYLATE LIQD 236 ML PO PRN (22:15)
[2021-07-23] MEDS ORDERED: ARIPiprazole 15 MG TAB PO SCH (09:00)
[2021-07-23] MEDS ORDERED: busPIRone 5 MG TAB PO SCH (09:00)
[2021-07-23] MEDS ORDERED: ESCITALOPRAM OXALATE 20 MG TAB PO SCH (09:00)
[2021-07-23] MEDS: clonazePAM 0.5 MG TAB PO SCH ×2 (12:28→20:24)
[2021-07-23] MEDS: NICOTINE 21 MG/24 HR TDSY TD SCH (14:14)
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
[2021-07-23] MEDS: OLANZAPINE 2.5 MG TAB PO SCH (20:23)
[2021-07-24] MEDS: clonazePAM 0.5 MG TAB PO SCH ×2 (09:24→20:53)
[2021-07-24] MEDS: NICOTINE 21 MG/24 HR TDSY TD SCH (09:24)
[2021-07-24] MEDS: FLUoxetine HCL 10 MG CAP PO SCH (09:24)
[2021-07-24] MEDS: OLANZAPINE 2.5 MG TAB PO SCH ×2 (09:25→20:54)
--- NOTE | 2021-07-24 14:22 | Psychiatric Progress Note ---
Date of Service July 24, 2021 Impression / Recommendations Impression This is a 31-year-old female with a reported history of schizoaffective disorder who presents to the hospital with worsening depression and suicidal ideation. Patient will benefit from inpatient hospitalization for purposes of safety, stabilization, and medication management. Patient talks remarkably clear for someone with a diagnosis of schizoaffective disorder. Furthermore her report of visual and audio hallucinations from age 10 onward seem to be quite unlikely, at this time advertising copywriter is unsure if patient is exaggerating her symptoms. Regardless she does appear depressed and will benefit from some medication changes to target this. We will start Zyprexa along with Prozac in order to address her mood and hope to stabilize her symptoms. (1) Depression with suicidal ideation: The patient was admitted to the [facility] ([facility] mental health unit) on every 15 minute checks (behavioral with suicide precautions for safety. The patient will participate in group, recreational, and milieu therapies and will be offered additional individual and family sessions as clinically appropriate. 07/24/2021atient making incremental progress. Will lower dose of clonazepam to 0.25 mg p.o. twice daily starting tomorrow. 07/23/2021-Will discontinue her home regimen of Abilify and Lexapro and BuSpar in favor of a regimen of clonazepam, Zyprexa, Prozac. We will start clonazepam at 0.5 mg twice daily. We will start Prozac at 10 mg p.o., tomorrow morning. We will start Zyprexa 2.5 mg p.o. twice daily Protective Factors Assessment Employed: No Interval History Chief Complaint "I'm okay, i feel better but tired". Review of Systems Sleep Information Total Hours of Sleep: 7 Sleep Comments: pt on q-15 minute checks Meal Information Percent Meal Consumed - Breakfast: 90 Percent Meal Consumed - Lunch: 100 Percent Meal Consumed - Dinner: 100 Subjective Subjective Patient seen, chart reviewed and case discussed with treatment team, nursing and social work. Patient reports a good night of sleep and strong appetite. Patient does complain about feeling tired, and was told that this is to be expected given starting to newly sedating medications. Was also informed that we will start to lower her clonazepam dosage since her anxiety is better and to better address the drowsiness. Regarding mood, patient reports some improvement which they attribute to the medications as well as the therapy they have received on the unit. I spent 30 minutes with the patient, 50% of which was dedicated to counselling and coordination of care. Physical Exam Psychiatric Orientation: alert and oriented x 3 Apperance: appropriately dressed Eye Contact: + fair eye contact Motor Behavior: no abnormal motor movements Speech: normal rate/rhythm/volume of speech Affect: + depressed affect and + tearful affect Mood: + depressed mood Thought Process: goal directed thought process Thought Content: reality based without delusions Suicidal Thoughts: + reports suicidal thoughts and + reports suicidal plan Homicidal Thoughts: denies homicidal thoughts Hallucinations: + auditory hallucinations and + visual hallucinations Cognition: recent memory grossly intact Estimated Intelligence: average estimated intelligence Insight: + limited insight Judgement: + limited judgement Vital Signs (Past 24 Hours) Last Vital Signs Temp 36.8 C 07/24/21 06:55 Pulse 69 07/24/21 06:55 Resp 16 07/24/21 06:55 BP 108/76 07/24/21 06:55 Pulse Ox 99 07/22/21 22:27 Results & Data ([facility]) Current Inpatient Medications Current Inpatient Medications: Current Inpatient Medications Acetaminophen (Acetaminophen 325 Mg Tab) 650 mg PO Q4H PRN PRN Reason: Headache or Minor Fever Stop: 08/21/21 22:14 Al Hydrox/Mg Hydrox/Simethicone (Aluminum/Magnesium Susp 30 Ml Udc) 30 ml PO Q4H PRN PRN Reason: GI Upset Stop: 08/21/21 22:14 Bismuth Subsalicylate (Bismuth Subsalicylate Liqd 236 Ml) 15 ml PO PRN PRN PRN Reason: Loose Stool Stop: 08/21/21 22:14 Clonazepam (Clonazepam 0.5 Mg Tab) 0.5 mg PO BID [facility] Stop: 07/24/21 23:59 Last Admin: 07/24/21 09:24 Dose: 0.5 mg Documented by: Clonazepam (Clonazepam 0.25 Mg Tab) 0.25 mg PO BID [facility] Stop: 08/23/21 20:59 Fluoxetine HCl (Fluoxetine Hcl 10 Mg Cap) 10 mg PO QAM [facility] Stop: 08/23/21 08:59 Last Admin: 07/24/21 09:24 Dose: 10 mg Documented by: Magnesium Hydroxide (Magnesium Hydroxide Susp 30 Ml Udc) 30 ml PO DAILY PRN PRN Reason: Constipation Stop: 08/21/21 22:14 Miscellaneous (Remove Nicoderm Patch) 1 ea N/A DAILY@0859 [facility] Stop: 08/23/21 08:58 Last Admin: 07/24/21 09:24 Dose: Not Given Documented by: Nicotine (Nicotine 21 Mg/24 Hr Tdsy) 21 mg TD QAM [facility] Stop: 08/22/21 12:29 Last Admin: 07/24/21 09:24 Dose: 21 mg Documented by: Olanzapine (Olanzapine 2.5 Mg Tab) 2.5 mg PO BID [facility] Stop: 08/22/21 20:59 Last Admin: 07/24/21 09:25 Dose: 2.5 mg Documented by: Sodium Chloride (Sodium Chloride 0.65% Na Soln 45 Ml ([place])) 1 - 2 sprays NA PRN PRN PRN Reason: Nasal Dryness/Congestion Stop: 08/21/21 22:14 Mental Health & Subst Abuse Tx Psychiatrist Name of Psychiatrist: [facility] Psychiatrist's Psychiatric Appointment Comment: [id number] [facility] [id number] Therapist Name of Therapist: [facility] - Dr. Hicks Therapist's Date of Therapist Appointment: 07/26/21 Therapy Appointment Comment: [address] [place] [id number] Physician Assistant Surgery Name of Physician Assistant Surgery: [employer] [facility] Post Discharge Appointments Primary Care Physician Name Of Family Doctor: Neetu [facility] Time of Appointment with PCP: Follow up as needed Provider Appointment Comment: [address] [place] [address] , [place] [address] Partial or Psych Rehab Name of Partial or Psych Rehab: Skills Psych Rehabilitation Phone Number of Partial or Psych Rehab: Time of Appointment at Partial or Psych Rehab: Follow your regular schedule Partial or Psych Rehab Appointment Comment: [address], [place] [address] Contact Information Discharge Discharge Address: [address] [place] [id number]
[2021-07-25] MEDS: NICOTINE 21 MG/24 HR TDSY TD SCH (08:44)
[2021-07-25] MEDS: FLUoxetine HCL 10 MG CAP PO SCH (08:45)
[2021-07-25] MEDS: clonazePAM 0.25 MG TAB PO SCH ×2 (08:45→20:16)
[2021-07-25] MEDS: OLANZAPINE 2.5 MG TAB PO SCH ×2 (08:46→20:16)
--- NOTE | 2021-07-25 14:26 | Psychiatric Progress Note ---
Date of Service July 25, 2021 Impression / Recommendations Impression This is a 31-year-old female with a reported history of schizoaffective disorder who presents to the hospital with worsening depression and suicidal ideation. Patient will benefit from inpatient hospitalization for purposes of safety, stabilization, and medication management. Patient talks remarkably clear for someone with a diagnosis of schizoaffective disorder. Furthermore her report of visual and audio hallucinations from age 10 onward seem to be quite unlikely, at this time com writer is unsure if patient is exaggerating her symptoms. Regardless she does appear depressed and will benefit from some medication changes to target this. We will start Zyprexa along with Prozac in order to address her mood and hope to stabilize her symptoms. (1) Depression with suicidal ideation: The patient was admitted to the [facility] ([facility] mental health unit) on every 15 minute checks (behavioral with suicide precautions for safety. The patient will participate in group, recreational, and milieu therapies and will be offered additional individual and family sessions as clinically appropriate. 07/25/2021atient doing well, now denying hallucinations or suicidal ideation. We will start discharge planning. 07/24/2021atient making incremental progress. Will lower dose of clonazepam to 0.25 mg p.o. twice daily starting tomorrow. 07/23/2021-Will discontinue her home regimen of Abilify and Lexapro and BuSpar in favor of a regimen of clonazepam, Zyprexa, Prozac. We will start clonazepam at 0.5 mg twice daily. We will start Prozac at 10 mg p.o., tomorrow morning. We will start Zyprexa 2.5 mg p.o. twice daily Protective Factors Assessment Employed: No Interval History Chief Complaint "The medications are good, but I am homesick". Review of Systems Sleep Information Total Hours of Sleep: 7.75 Sleep Comments: pt on q-15 minute checks Meal Information Percent Meal Consumed - Breakfast: 100 Percent Meal Consumed - Lunch: 100 Percent Meal Consumed - Dinner: 80 Subjective Subjective Patient seen, chart reviewed and case discussed with treatment team, nursing and social work. Patient reports a good night of sleep and strong appetite. No side effects reported or observed. Regarding mood, patient reports some improvement which they attribute to the medications as well as the therapy they have received on the unit. She reports that she feels the medications are helping to address her symptoms. She is denying any hallucinations. She is denying any suicidal ideation. Patient reports feeling homesick and would like to be discharged as soon as possible. Together we came up with a plan for to be discharged tomorrow afternoon. Family made aware and is in agreement. I spent 30 minutes with the patient, 50% of which was dedicated to counselling and coordination of care. Physical Exam Psychiatric Orientation: alert and oriented x 3 Apperance: appropriately dressed Eye Contact: + fair eye contact Motor Behavior: no abnormal motor movements Speech: normal rate/rhythm/volume of speech Affect: + depressed affect and + tearful affect Mood: + depressed mood Thought Process: goal directed thought process Thought Content: reality based without delusions Suicidal Thoughts: + reports suicidal thoughts and + reports suicidal plan Homicidal Thoughts: denies homicidal thoughts Hallucinations: + auditory hallucinations and + visual hallucinations Cognition: recent memory grossly intact Estimated Intelligence: average estimated intelligence Insight: + limited insight Judgement: + limited judgement Vital Signs (Past 24 Hours) Last Vital Signs Temp 36.6 C 07/25/21 06:37 Pulse 81 07/25/21 06:37 Resp 16 07/25/21 06:37 BP 126/89 07/25/21 06:37 Pulse Ox 99 07/22/21 22:27 Results & Data ([facility]) Current Inpatient Medications Current Inpatient Medications: Current Inpatient Medications Acetaminophen (Acetaminophen 325 Mg Tab) 650 mg PO Q4H PRN PRN Reason: Headache or Minor Fever Stop: 08/21/21 22:14 Al Hydrox/Mg Hydrox/Simethicone (Aluminum/Magnesium Susp 30 Ml Udc) 30 ml PO Q4H PRN PRN Reason: GI Upset Stop: 08/21/21 22:14 Bismuth Subsalicylate (Bismuth Subsalicylate Liqd 236 Ml) 15 ml PO PRN PRN PRN Reason: Loose Stool Stop: 08/21/21 22:14 Clonazepam (Clonazepam 0.25 Mg Tab) 0.25 mg PO BID FRANCES Stop: 08/24/21 08:59 Last Admin: 07/25/21 08:45 Dose: 0.25 mg Documented by: Fluoxetine HCl (Fluoxetine Hcl 10 Mg Cap) 10 mg PO QAM FRANCES Stop: 08/23/21 08:59 Last Admin: 07/25/21 08:45 Dose: 10 mg Documented by: Magnesium Hydroxide (Magnesium Hydroxide Susp 30 Ml Udc) 30 ml PO DAILY PRN PRN Reason: Constipation Stop: 08/21/21 22:14 Miscellaneous (Remove Nicoderm Patch) 1 ea N/A DAILY@0859 [facility] Stop: 08/23/21 08:58 Last Admin: 07/25/21 08:45 Dose: 1 ea Documented by: Nicotine (Nicotine 21 Mg/24 Hr Tdsy) 21 mg TD QAM [facility] Stop: 08/22/21 12:29 Last Admin: 07/25/21 08:44 Dose: 21 mg Documented by: Olanzapine (Olanzapine 2.5 Mg Tab) 2.5 mg PO BID FRANCES Stop: 08/22/21 20:59 Last Admin: 07/25/21 08:46 Dose: 2.5 mg Documented by: Sodium Chloride (Sodium Chloride 0.65% Na Soln 45 Ml (Yancey)) 1 - 2 sprays NA PRN PRN PRN Reason: Nasal Dryness/Congestion Stop: 08/21/21 22:14 Mental Health & Subst Abuse Tx Psychiatrist Name of Psychiatrist: [facility] Psychiatrist's Date of Appointment with Psychiatrist: 07/28/21 Time of Appointment with Psychiatrist: 5:00 p.m. Psychiatric Appointment Comment: [id number] [facility] [address] Therapist Name of Therapist: [facility] - Dr. Hicks Therapist's Date of Therapist Appointment: 07/31/21 Time of Therapist Appointment: 11:00 a.m. Therapy Appointment Comment: [address] [facility] [address] Natural Sciences Department Chair Name of Natural Sciences Department Chair: GWENDOLYN Ho Phone Number for Natural Sciences Department Chair: [phone] Time of Appointment with Natural Sciences Department Chair: Will follow up with you to schedule appt with bilingual patient support caseworkerrd manager Appointment Comment: [address] [place] [address], [address], [place] [address] Post Discharge Appointments Primary Care Physician Name Of Family Doctor: Neetu Masterson Primary Care Time of Appointment with PCP: Follow up as needed Provider Appointment Comment: [address] [place] [address] [place] [address] Partial or Psych Rehab Name of Partial or Psych Rehab: [facility] Phone Number of Partial or Psych Rehab: Time of Appointment at Partial or Psych Rehab: Follow your regular schedule Partial or Psych Rehab Appointment Comment: [address], [place] [address] Contact Information Discharge Discharge Address: [address] [place] [address], [place] [address]
[2021-07-26 07:57] LABS: Marijuana Quant, GCMS Urine 13 ng/mL (<5)
[2021-07-26] MEDS: clonazePAM 0.25 MG TAB PO SCH (09:36)
[2021-07-26] MEDS: OLANZAPINE 2.5 MG TAB PO SCH (09:37)
[2021-07-26] MEDS: FLUoxetine HCL 10 MG CAP PO SCH (09:37)
[2021-07-26] MEDS: NICOTINE 21 MG/24 HR TDSY TD SCH ×2 (09:41→10:14)
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
== END 2021-07-26 10:58 | disposition home or self-care (01) | DRG 885 ==
LOC: ED 18:10 → 3S 22:05
DX: Z79.899 Other long term (current) drug therapy; R45.851 Suicidal ideations; Z88.5 Allergy status to narcotic agent; F40.01 Agoraphobia with panic disorder; F25.9 Schizoaffective disorder, unspecified; Z87.891 Personal history of nicotine dependence; F32.9 Major depressive disorder, single episode, unspecified; Z81.8 Family history of other mental and behavioral disorders; Z91.5 Personal history of self-harm

== ENCOUNTER 2021-12-19 10:49 | Inpatient (IN) ==
--- NOTE | 2021-12-19 11:32 | Emergency Department Note ---
Impression & Plan Suicidal ideation, Mood disorder, Tetrahydrocannabinol (THC) use disorder, mild, abuse ED Provider Note NAME: GENE ORTEGA AGE: 31 SEX: F : 1990 ARRIVES VIA: Walk-In INFORMANT: Patient ED PROVIDER(S): Faraz Castro DO CHIEF COMPLAINT: Suicidal ideations with a plan HPI: Patient is a 31-year-old female who presents to the ER for suicidal ideations. She notes the symptoms started around November 28. She has been thinking about killing herself by overdosing with medications. She has tried this once before. She admits to hearing intermittent voices that are putting her down. She denies any homicidal ideations. No headache, change in vision. No chest pain or shortness of breath. No upper respiratory symptoms. No belly pain, nausea, vomiting, or diarrhea. No dysuria, urgency, or frequency. No other exacerbating or remitting factors. Symptoms have been significantly worsening over the past several days. She has a history of depression schizophrenia and panic disorder. She has been taking her medications which include Zyprexa and fluoxetine. ROS: See above HPI for pertinent positives & negatives. A total of 10 systems reviewed and were otherwise negative. PAST MEDICAL HISTORY:See Below PAST SURGICAL HISTORY:See Below FAMILY HISTORY:See Below SOCIAL HISTORY:See Below HOME MEDICATIONS:See Below ALLERGIES:See Below VITALS:See Below PHYSICAL EXAMINATION: GENERAL: Sitting up in bed, alert, well appearing, well nourished, no distress, non-toxic EYE EXAM: normal conjunctiva. OROPHARYNX: no exudate, no erythema, lips, buccal mucosa, and tongue normal and mucous membranes are moist NECK: supple, no nuchal rigidity, no adenopathy, non-tender LUNGS: Clear to auscultation. Normal chest wall mechanics HEART: no murmurs, S1 normal and S2 normal ABDOMEN: abdomen soft, non-tender, normo-active bowel sounds, no masses, no rebound or guarding. BACK: Back is symmetrical on inspection and there is no deformity, no midline tenderness, no CVA tenderness. SKIN: no rashes and no bruising UPPER EXTREMITIES: upper extremities are grossly normal. LOWER EXTREMITIES: No pitting edema. NEURO EXAM: Normal sensorium, cranial nerves II-XII grossly intact, normal speech, no gross weakness of arms, no gross weakness of legs. PSYCH: Mitts to suicidal ideations with a plan MEDICAL DECISION MAKING: Patient is a 31-year-old female who presents to the ER for suicidal ideations with a plan to overdose and kill her self. She notes its been getting worse recently. Labs were obtained and showed no significant leukocytosis or anemia. BMP along LFTs bilirubin and TSH was unremarkable. UA was contaminated. No urinary symptoms. Will not treat. Alcohol was negative. Was positive for marijuana. COVID-negative. Patient was evaluated by 3 S. and was taken upstairs at 1635. Observation Status: Indication: Suicidal ideations with a plan Patient with no pertinent family history, was seen first at 1100 hrs and was necessary in order to determine medical stability and avoid unnecessary admission. Upon reevaluation, 5.5 hours of observation revealed that the patient should be admitted. Disposition date and time 12/19/2021 at 1635 Triage Nursing notes reviewed. Limited review of prior medical records performed Vital Signs: reviewed and remarkable for HTN Differential diagnosis: Differential diagnoses includes but is not limited to acute coronary syndrome, myocardial infarction, pericarditis, pulmonary embolus, aortic dissection, pneumonia, pneumothorax, musculoskeletal, shingles, esophageal. ER treatment provided: See below Diagnostics interpreted by me: Laboratory studies: As stated above and show below. Imaging studies: See below Consultation(s): none Procedures: none Critical Care: None Past Med/Surg History Medical History Dissociative and conversion disorder, unspecified Homicidal ideation Panic disorder with agoraphobia Schizoaffective disorder Family History Other Family history non-contributory Social History Smoking Status: Former smoker Tobacco Type: Cigarettes Preferred Language: Serbian Communication Ability: Effective Halal Butcher Required: No Beliefs That Will Affect Care: None Feels Safe at Home: Yes Assistive Devices: Glasses and Hearing Aid - Left Allergies Allergies Allergy/AdvReac Type Severity Reaction Status Date / Time codeine Allergy Intermediate SOB-"RESTLE Verified 12/19/21 15:59 SSNESS" Home Meds Home Medications Medication Instructions Recorded Confirmed fluoxetine 10 mg tablet 10 mg PO DAILY 12/19/21 12/19/21 hydroxyzine HCl 10 mg tablet 10 mg PO DAILY PRN 12/19/21 12/19/21 olanzapine 5 mg tablet 5 mg PO BID 12/19/21 12/19/21 Results & Data (ED) Vital Signs Vital Signs - 24 hr 12/19/21 10:56 12/19/21 15:45 12/19/21 16:34 Temperature 37.3 C Temperature Source Temporal Artery Scan Pulse Rate 85 Pulse Rate [Finger] 80 Respiratory Rate 16 14 18 Respiratory Effort / Characteristics Non-Labored Spontaneous Respiratory Depth Normal Respiratory Pattern Regular Blood Pressure 145/84 H Blood Pressure [Right Arm] 131/82 Blood Pressure Mean 104 Blood Pressure Mean [Right Arm] 98 Pulse Oximetry 96 100 Oxygen Delivery Method Room Air Room Air Room Air Sepsis Recent Fever Within 48 Hours No Sepsis New/Unexplained Change in Mental Status No Sepsis Action Taken by Nursing No Action Required Laboratory Data Result diagrams: 12/19/21 11:44 12/19/21 11:44 Lab Results 12/19/21 12/19/21 12/19/21 Range/Units 11:40 11:44 11:44 WBC 8.51 (4.8-10.8) K/uL RBC 4.98 (4.2-5.4) M/uL Hgb 16.0 (12.0-16.0) g/dL Hct 45.7 (37-47) % MCV 91.8 (80-100) fL MCH 32.1 (25-34) pg MCHC 35.0 (32-36) g/dL RDW Std Deviation 42.3 (36.4-46.3) fL RDW Coeff of Jalen 12.5 (11.5-14.5) % Plt Count 233 (130-400) K/uL MPV 11.8 H (7.4-10.4) fL Immature Gran % (Auto) 0.0 % Neut % (Auto) 57.1 % Lymph % (Auto) 30.9 % [place] % (Auto) 4.8 % Eos % (Auto) 6.6 % Baso % (Auto) 0.6 % Neut # (Auto) 4.86 (1.4-6.5) K/uL Lymph # (Auto) 2.63 (1.2-3.4) K/uL [place] # (Auto) 0.41 (0.11-0.59) K/uL Eos # (Auto) 0.56 H (0-0.5) K/uL Baso # (Auto) 0.05 (0-0.2) K/uL Immature Gran # (Auto) 0.00 (0.00-0.02) K/uL Sodium 138 (136-145) mmol/L Potassium 3.7 (3.5-5.1) mmol/L Chloride 105 (98-107) mmol/L Carbon Dioxide 25 (21-32) mmol/L Anion Gap 8 (3-11) BUN 16 (6-23) mg/dl Creatinine 0.96 (0.6-1.2) mg/dl Est Cr Clr Drug Dosing 83.5 ml/min Est GFR ( Amer) 90.7 ml/min Est GFR (Non-Af Amer) 78.3 ml/min BUN/Creatinine Ratio 16.7 (10-20) Glucose 95 (70-99(Fasting)) mg/dl Calcium 9.5 (8.5-10.1) mg/dl Total Bilirubin 0.4 (0.2-1.0) mg/dl AST 20 (13-39) U/L ALT 33 (7-52) U/L Alkaline Phosphatase 78 (34-104) U/L Total Protein 7.3 (6.0-8.3) gm/dl Albumin 4.4 (3.4-5.0) gm/dl Globulin 2.9 (2.5-4.0) gm/dl Albumin/Globulin Ratio 1.5 (0.9-2) TSH (0.300-4.500) uIu/ml Urine Color Urine Appearance (Clear) Urine pH (4.5-7.5) Ur Specific [place] (1.000-1.030) Urine Protein (Negative) Urine Glucose (UA) (Negative) Urine Ketones (Negative) Urine Blood (Negative) Urine Nitrite (Negative) Urine Bilirubin (Negative) Urine Urobilinogen (Negative) Ur Leukocyte Esterase (Negative) Urine WBC (Auto) (0-5) /hpf Urine RBC (Auto) (0-4) /hpf U Hyaline Cast (Auto) (0-5) /lpf U Epithel Cells (Auto) (0-5) /lpf Urine Bacteria (Auto) (Negative) Urine Yeast (None Prsent) POC Ur Test (NEG) Salicylates (3.0-30) mg/dl Urine Opiates Screen (Neg) Ur Methadone, Qual (Neg) Acetaminophen (10-30) ug/ml Urine Barbiturates (Neg) Ur Phencyclidine (PCP) (Neg) U Amphetamin/Meth Scrn (Neg) MDMA (Ecstasy) Screen (Neg) U Benzodiazepines Scrn (Neg) Ur Cocaine Metabolite (Neg) U Marijuana (THC) Screen (Neg) Ethyl Alcohol mg/dL (<10.0) mg/dl SARS-CoV-2, RNA, NAAT NEGATIVE (NEGATIVE) 12/19/21 12/19/21 12/19/21 Range/Units 11:44 11:44 11:44 WBC (4.8-10.8) K/uL RBC (4.2-5.4) M/uL Hgb (12.0-16.0) g/dL Hct (37-47) % MCV (80-100) fL MCH (25-34) pg MCHC (32-36) g/dL RDW Std Deviation (36.4-46.3) fL RDW Coeff of Jalen (11.5-14.5) % Plt Count (130-400) K/uL MPV (7.4-10.4) fL Immature Gran % (Auto) % Neut % (Auto) % Lymph % (Auto) % [place] % (Auto) % Eos % (Auto) % Baso % (Auto) % Neut # (Auto) (1.4-6.5) K/uL Lymph # (Auto) (1.2-3.4) K/uL [place] # (Auto) (0.11-0.59) K/uL Eos # (Auto) (0-0.5) K/uL Baso # (Auto) (0-0.2) K/uL Immature Gran # (Auto) (0.00-0.02) K/uL Sodium (136-145) mmol/L Potassium (3.5-5.1) mmol/L Chloride (98-107) mmol/L Carbon Dioxide (21-32) mmol/L Anion Gap (3-11) BUN (6-23) mg/dl Creatinine (0.6-1.2) mg/dl Est Cr Clr Drug Dosing ml/min Est GFR ( Amer) ml/min Est GFR (Non-Af Amer) ml/min BUN/Creatinine Ratio (10-20) Glucose (70-99(Fasting)) mg/dl Calcium (8.5-10.1) mg/dl Total Bilirubin (0.2-1.0) mg/dl AST (13-39) U/L ALT (7-52) U/L Alkaline Phosphatase (34-104) U/L Total Protein (6.0-8.3) gm/dl Albumin (3.4-5.0) gm/dl Globulin (2.5-4.0) gm/dl Albumin/Globulin Ratio (0.9-2) TSH 2.376 (0.300-4.500) uIu/ml Urine Color Urine Appearance (Clear) Urine pH (4.5-7.5) Ur Specific [place] (1.000-1.030) Urine Protein (Negative) Urine Glucose (UA) (Negative) Urine Ketones (Negative) Urine Blood (Negative) Urine Nitrite (Negative) Urine Bilirubin (Negative) Urine Urobilinogen (Negative) Ur Leukocyte Esterase (Negative) Urine WBC (Auto) (0-5) /hpf Urine RBC (Auto) (0-4) /hpf U Hyaline Cast (Auto) (0-5) /lpf U Epithel Cells (Auto) (0-5) /lpf Urine Bacteria (Auto) (Negative) Urine Yeast (None Prsent) POC Ur Test (NEG) Salicylates < 3.0 L (3.0-30) mg/dl Urine Opiates Screen (Neg) Ur Methadone, Qual (Neg) Acetaminophen < 3 L (10-30) ug/ml Urine Barbiturates (Neg) Ur Phencyclidine (PCP) (Neg) U Amphetamin/Meth Scrn (Neg) MDMA (Ecstasy) Screen (Neg) U Benzodiazepines Scrn (Neg) Ur Cocaine Metabolite (Neg) U Marijuana (THC) Screen (Neg) Ethyl Alcohol mg/dL < 10.0 (<10.0) mg/dl SARS-CoV-2, RNA, NAAT (NEGATIVE) 12/19/21 12/19/21 12/19/21 Range/Units Unknown Unknown Unknown WBC (4.8-10.8) K/uL RBC (4.2-5.4) M/uL Hgb (12.0-16.0) g/dL Hct (37-47) % MCV (80-100) fL MCH (25-34) pg MCHC (32-36) g/dL RDW Std Deviation (36.4-46.3) fL RDW Coeff of Jalen (11.5-14.5) % Plt Count (130-400) K/uL MPV (7.4-10.4) fL Immature Gran % (Auto) % Neut % (Auto) % Lymph % (Auto) % [place] % (Auto) % Eos % (Auto) % Baso % (Auto) % Neut # (Auto) (1.4-6.5) K/uL Lymph # (Auto) (1.2-3.4) K/uL [place] # (Auto) (0.11-0.59) K/uL Eos # (Auto) (0-0.5) K/uL Baso # (Auto) (0-0.2) K/uL Immature Gran # (Auto) (0.00-0.02) K/uL Sodium (136-145) mmol/L Potassium (3.5-5.1) mmol/L Chloride (98-107) mmol/L Carbon Dioxide (21-32) mmol/L Anion Gap (3-11) BUN (6-23) mg/dl Creatinine (0.6-1.2) mg/dl Est Cr Clr Drug Dosing ml/min Est GFR ( Amer) ml/min Est GFR (Non-Af Amer) ml/min BUN/Creatinine Ratio (10-20) Glucose (70-99(Fasting)) mg/dl Calcium (8.5-10.1) mg/dl Total Bilirubin (0.2-1.0) mg/dl AST (13-39) U/L ALT (7-52) U/L Alkaline Phosphatase (34-104) U/L Total Protein (6.0-8.3) gm/dl Albumin (3.4-5.0) gm/dl Globulin (2.5-4.0) gm/dl Albumin/Globulin Ratio (0.9-2) TSH (0.300-4.500) uIu/ml Urine Color Yellow Urine Appearance Cloudy A (Clear) Urine pH 5.0 (4.5-7.5) Ur Specific [place] 1.008 (1.000-1.030) Urine Protein Negative (Negative) Urine Glucose (UA) Negative (Negative) Urine Ketones Negative (Negative) Urine Blood Negative (Negative) Urine Nitrite Negative (Negative) Urine Bilirubin Negative (Negative) Urine Urobilinogen Negative (Negative) Ur Leukocyte Esterase 1+ H (Negative) Urine WBC (Auto) 10-30 H (0-5) /hpf Urine RBC (Auto) 0-4 (0-4) /hpf U Hyaline Cast (Auto) 1-5 (0-5) /lpf U Epithel Cells (Auto) >30 H (0-5) /lpf Urine Bacteria (Auto) 1+ H (Negative) Urine Yeast Budding A (None Prsent) POC Ur Test NEG (NEG) Salicylates (3.0-30) mg/dl Urine Opiates Screen Neg (Neg) Ur Methadone, Qual Neg (Neg) Acetaminophen (10-30) ug/ml Urine Barbiturates Neg (Neg) Ur Phencyclidine (PCP) Neg (Neg) U Amphetamin/Meth Scrn Neg (Neg) MDMA (Ecstasy) Screen Neg (Neg) U Benzodiazepines Scrn Neg (Neg) Ur Cocaine Metabolite Neg (Neg) U Marijuana (THC) Screen Pos H (Neg) Ethyl Alcohol mg/dL (<10.0) mg/dl SARS-CoV-2, RNA, NAAT (NEGATIVE) Discharge Plan Visit Data Chief Complaint: Mental Health Evaluation Stated Complaint: SUICIDAL THOUGHTS ED Provider: Faraz Castro Discharge Problem: Suicidal ideation, Mood disorder, Tetrahydrocannabinol (THC) use disorder, mild, abuse Discharge Instructions Interventions: ED Discharge Assessment Last Done: 12/19/21 16:34 Forms Stand Alone Forms: My [facility], Suicide Prevention Resources Prescriptions Prescriptions: No Action fluoxetine 10 mg tablet 10 mg PO DAILY RF: 0 olanzapine 5 mg tablet 5 mg PO BID RF: 0 hydroxyzine HCl 10 mg tablet 10 mg PO DAILY PRN (Reason: Anxiety) RF: 0 Referrals Referrals: Carmen Yoo MD [Primary Care Provider] -
[2021-12-19 11:44] LABS: Appearance Urine Cloudy (Clear); Bacteria Urine Automated 1+ (Negative); Bilirubin Urine Negative (Negative); Blood Urine Negative (Negative); Color Urine Yellow; Epithelial Cell Urine Auto >30 /lpf (0-5); Glucose Urine UA Negative (Negative); Ketones Urine Negative (Negative); Leukocyte Esterase Urine 1+ (Negative); Nitrite Urine Negative (Negative); Protein Urine Negative (Negative); Specific Gravity Urine 1.008 (1.000-1.030); Urobilinogen Urine Negative (Negative)
[2021-12-19 12:10] LABS: RBC Urine Automated 0-4 /hpf (0-4)
[2021-12-19 12:11] LABS: Basophils # (auto) 0.05 K/uL (0-0.2); Basophils % (auto) 0.6 %; Eosinophils # (auto) 0.56 K/uL (0-0.5); Eosinophils % (auto) 6.6 %; Hematocrit (blood only) 45.7 % (37-47); Lymphocytes # (auto) 2.63 K/uL (1.2-3.4); Lymphocytes % (auto) 30.9 %; Mean Corpuscular Hemoglobin 32.1 pg (25-34); Mean Corpuscular Volume 91.8 fL (80-100); Mean Platelet Volume 11.8 fL (7.4-10.4); Monocytes # (auto) 0.41 K/uL (0.11-0.59); Monocytes % (auto) 4.8 %; Neutrophils # (auto) 4.86 K/uL (1.4-6.5); Neutrophils % (auto) 57.1 %; Platelet Count 233 K/uL (130-400); RDW Coefficient of Variation 12.5 % (11.5-14.5); RDW Standard Deviation 42.3 fL (36.4-46.3); Red Blood Count 4.98 M/uL (4.2-5.4); White Blood Count 8.51 K/uL (4.8-10.8)
[2021-12-19 12:21] LABS: Amphetamines+Metham, Urine Neg (Neg); Barbiturates, Urine Neg (Neg); Benzodiazepine, Urine Neg (Neg); Cocaine, Urine Neg (Neg); MDMA (Ecstacy), Urine Neg (Neg); Methadone, Urine Neg (Neg); Opiate, Urine Neg (Neg); Phencyclidine, Urine Neg (Neg)
[2021-12-19 12:32] LABS: Albumin Globulin Ratio 1.5 (0.9-2); Albumin Level 4.4 gm/dl (3.4-5.0); BUN Creatinine Ratio 16.7 (10-20); Bilirubin,Total 0.4 mg/dl (0.2-1.0); Calcium 9.5 mg/dl (8.5-10.1); Creatinine Clr Calc Pharmacy 83.5 ml/min; Est GFR (African American) 90.7 ml/min; Est GFR (Non-African American) 78.3 ml/min; Globulin 2.9 gm/dl (2.5-4.0); Potassium 3.7 mmol/L (3.5-5.1); Total Protein 7.3 gm/dl (6.0-8.3)
[2021-12-19 12:34] LABS: Acetaminophen < 3 ug/ml (10-30); Salicylate < 3.0 mg/dl (3.0-30)
[2021-12-19] MEDS ORDERED: ACETAMINOPHEN 325 MG TAB PO PRN (16:22)
[2021-12-19] MEDS ORDERED: MAGNESIUM HYDROXIDE SUSP 30 ML UDC PO PRN (16:22)
[2021-12-19] MEDS ORDERED: ALUMINUM/MAGNESIUM SUSP 30 ML UDC PO PRN (16:22)
[2021-12-19] MEDS ORDERED: BISMUTH SUBSALICYLATE LIQD 236 ML PO PRN (16:22)
[2021-12-19] MEDS ORDERED: hydrOXYzine HCl 25 MG TAB PO PRN ×2 (16:22)
[2021-12-19] MEDS ORDERED: SODIUM CHLORIDE 0.65% NA SOLN 45 ML (OCEAN) PRN (16:22)
[2021-12-19] MEDS: OLANZapine 5 MG TABLET PO SCH (21:01)
[2021-12-20 08:35] LABS: Chol HDL Ratio 3.9
[2021-12-20] MEDS: OLANZapine 5 MG TABLET PO SCH ×2 (08:51→20:40)
[2021-12-20] MEDS ORDERED: FLUoxetine HCL 10 MG CAP PO SCH (09:00)
[2021-12-20] MEDS ORDERED: FLUoxetine HCL 10 MG CAP PO ONE (09:10)
[2021-12-20] MEDS ORDERED: NEOMYCIN/POLYMYX/BACITR OINT 15 GM TUBE EXT PRN (09:11)
--- NOTE | 2021-12-20 09:54 | History & Physical ---
Date of Service December 20, 2021 Impression / Recommendations Impression 31 yo non-binary patient with a history of a schizoaffective disorder dx, mainly hospitalized over past few years with depression with psychotic features and reliably denies bipolar component. No other evidence of thought disorganization to suggest thought disorder in between episodes. (1) Depression with suicidal ideation: (2) Panic disorder with agoraphobia: (3) Excoriation (skin-picking) disorder: The patient was admitted to the [facility] ([facility] mental [facility] unit) on q15 min checks (behavioral with suicide precautions) for safety. The patient will participate in group, recreational, and milieu therapies and will be offered additional individual and family sessions as clinically appropriate. Risks/benefits/alternatives reviewed re: their current medications including but not limited to need for monitoring for TD and metabolic issues with Zyprexa and dosing range of Prozac. They agree to increase Prozac to 20 mg daily. There are no abnormal motor movements at baseline. 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 Needs: ongoing coping skills, increase in socialization Risk Factors Assessment : Yes Do You Have Access To A Gun?: No Health Problems: No Mental Health Diagnoses: Yes Substance Use Disorders: No Previous Attempt: Yes Previous Psychiatric Hospitalization: Yes Protective Factors Assessment Employed: No Stable Relationships: Yes Supportive Family: Yes Good Rapport with Provider: Yes Psychiatric History Identifying Data GENE ORTEGA, identifies as non-binary "Cheli" is a 31-year-old genetic F who currently lives in [place], has a history of recurrent hospitalizations for d epression with hallucinations, and was admitted on 12/19/21 16:22 on a 201 voluntary commitment for suicidal ideation with plan. Chief Complaint "A couple of weeks ago I just starting feeling very low". History of Present Illness Last hospitalization was 07/22 at [facility], denies "much has changed" since but did start a relationship with a partner who identifies male about 1 month ago. States they are relating well to parents but "don't get out much" so feeling more isolated. They have a long history of agoraphobia and excoriation disorder so social activity is limited to going to the grocery store with mother and driving to [place] once a week to see their partner. Finances are somewhat of a stressor as they have exhausted unemployment and have limited options for work due to inability to leave the house. Reports that at times they will experience mood congruent grant telling them they are worthless, etc. They came to the ED as started to feel unsafe with the suicidal thoughts. They deny major changes in sleep/appetite/energy and do not attribute weight gain to Zyprexa. Deny any history of manic euphoria or irritability. They do experience hopelessness about ability to sell their car and find a job that meets their needs. Reports taking meds consistently and attending therapy regularly via telehealth. Past Psychiatric History Current Psychiatric Diagnosis: DID, MDD, MELIZA Outpatient Services: [facility]; therapy with [facility] Previous Psych Admissions: [facility] 07/22, 03/22, 09/20, 2018, 2016 Do You Have Access To A Gun?: No History of Previous Suicide Attempt: Yes (overdose) Describe Attempts in the Past: overdose attempt Past Medication Trials: antipsychotics: Geodon, Haldol (EPS, Artane), Zyprexa, Seroquel antidepressants: Remeron, Prozac, Lexapro, Zoloft other anxiety: propranolol (ineffective), Klonopin, hydroxyzine, Buspar sleep: trazodone, doxepin Allergies Allergy/AdvReac Type Severity Reaction Status Date / Time codeine Allergy Intermediate SOB-"RESTLE Verified 12/19/21 15:59 SSNESS" Home Medications Medication Instructions Recorded Confirmed Type fluoxetine 10 mg tablet 10 mg PO DAILY 12/19/21 12/19/21 History hydroxyzine HCl 10 mg tablet 10 mg PO DAILY PRN 12/19/21 12/19/21 History olanzapine 5 mg tablet 5 mg PO BID 12/19/21 12/19/21 History Family History Family History of: Doesn't Know Alcohol History Hx of Alcohol Use Over the Past 12 Months: No AUDIT Total Score: 0 Smoking Use Have You Smoked or Used Tobacco Products in the Last 30 Days: No tobacco type: cigarettes Smoking Status: Former smoker Substance History Hx of Prescription Med Misuse Over the Past 12 Months: No Hx of Over the Counter Med Misuse Over the Past 12 Months: No Hx of Inhalent Misuse Over the Past 12 Months: No Hx of Organic Substance Use Over the Past 12 Months: Yes (THC product called Delta 8) Hx of Illegal Substances/Street Drug Use Over Past 12 Months: No Problems as a Result of Past Substance Use: None Identified Personal History Living Arrangements: Home Highest Grade Completed: High School Graduate Highest Grade Completed Comment: massage therapy school but doesn't use Employment Status: Unemployed (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, 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)) Marital Status: Single Number Of Children: 0 Beliefs That Will Affect Care: None Current Legal Problems: No Hx Legal Problems: No Hx Traumatic Life Events: No Patient History Medical History (Updated 12/20/21 @ 10:14 by Tasha Ramos MD) Depression with suicidal ideation Dissociative and conversion disorder, unspecified Homicidal ideation Panic disorder with agoraphobia Schizoaffective disorder Family History Other Family history non-contributory Social History Smoking Status: Former smoker Tobacco Type: Cigarettes Preferred Language: Kyrgyz Communication Ability: Effective 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 Person Required: No Beliefs That Will Affect Care: None Feels Safe at Home: Yes Assistive Devices: Glasses and Hearing Aid - Left Review of Systems Review of Systems: All systems reviewed & are unremarkable except as noted in HPI & below Physical Exam Psychiatric: Orientation: alert and oriented x 3 Apperance: appropriately dressed and appropriately groomed Eye Contact: good eye contact Motor Behavior: no abnormal motor movements Speech: normal rate/rhythm/volume of speech Affect: + depressed affect Mood: + depressed mood Thought Process: goal directed thought process Thought Content: reality based without delusions Suicidal Thoughts: denies suicidal intent; + reports suicidal thoughts and + reports suicidal plan Homicidal Thoughts: denies homicidal thoughts Hallucinations: no auditory hallucinations and no visual hallucinations Cognition: attention grossly intact and language grossly intact Estimated Intelligence: consistent with education level Insight: + fair insight Judgement: + fair judgement Vital Signs (Past 24 Hours): Last Vital Signs Temp 36.6 C 12/20/21 06:29 Pulse 73 12/20/21 06:31 Resp 16 12/20/21 06:29 BP 108/75 12/20/21 06:31 Pulse Ox 100 12/19/21 15:45 Exam Statement: A physical exam was performed in the ED by Dr. Castro for the purposes of medical clearance. I accept that physical as correct and adequate for the purposes of the inpatient physical exam. Results & Data ([facility]) Laboratory Results Laboratory Results - last 24 hr 12/19/21 12/19/21 12/19/21 11:40 11:44 11:44 WBC 8.51 RBC 4.98 Hgb 16.0 Hct 45.7 MCV 91.8 MCH 32.1 MCHC 35.0 RDW Std Deviation 42.3 RDW Coeff of Jalen 12.5 Plt Count 233 MPV 11.8 H Immature Gran % (Auto) 0.0 Neut % (Auto) 57.1 Lymph % (Auto) 30.9 [place] % (Auto) 4.8 Eos % (Auto) 6.6 Baso % (Auto) 0.6 Neut # (Auto) 4.86 Lymph # (Auto) 2.63 [place] # (Auto) 0.41 Eos # (Auto) 0.56 H Baso # (Auto) 0.05 Immature Gran # (Auto) 0.00 Sodium 138 Potassium 3.7 Chloride 105 Carbon Dioxide 25 Anion Gap 8 BUN 16 Creatinine 0.96 Est Cr Clr Drug Dosing 83.5 Est GFR ( Amer) 90.7 Est GFR (Non-Af Amer) 78.3 BUN/Creatinine Ratio 16.7 Glucose 95 Fasting Glucose Calcium 9.5 Total Bilirubin 0.4 AST 20 ALT 33 Alkaline Phosphatase 78 Total Protein 7.3 Albumin 4.4 Globulin 2.9 Albumin/Globulin Ratio 1.5 Triglycerides Cholesterol LDL Cholesterol, Calc VLDL Cholesterol, Calc HDL Cholesterol Cholesterol/HDL Ratio TSH Urine Color Urine Appearance Urine pH Ur Specific Edmond Urine Protein Urine Glucose (UA) Urine Ketones Urine Blood Urine Nitrite Urine Bilirubin Urine Urobilinogen Ur Leukocyte Esterase Urine WBC (Auto) Urine RBC (Auto) U Hyaline Cast (Auto) U Epithel Cells (Auto) Urine Bacteria (Auto) Urine Yeast POC Ur Test Salicylates Urine Opiates Screen Ur Methadone, Qual Acetaminophen Urine Barbiturates Ur Phencyclidine (PCP) U Amphetamin/Meth Scrn MDMA (Ecstasy) Screen U Benzodiazepines Scrn Ur Cocaine Metabolite U Marijuana (THC) Screen U Marijuana THC Carboxy Drug Screen Comment Ethyl Alcohol mg/dL SARS-CoV-2, RNA, NAAT NEGATIVE 12/19/21 12/19/21 12/19/21 11:44 11:44 11:44 WBC RBC Hgb Hct MCV MCH MCHC RDW Std Deviation RDW Coeff of Jalen Plt Count MPV Immature Gran % (Auto) Neut % (Auto) Lymph % (Auto) [place] % (Auto) Eos % (Auto) Baso % (Auto) Neut # (Auto) Lymph # (Auto) [place] # (Auto) Eos # (Auto) Baso # (Auto) Immature Gran # (Auto) Sodium Potassium Chloride Carbon Dioxide Anion Gap BUN Creatinine Est Cr Clr Drug Dosing Est GFR ( Amer) Est GFR (Non-Af Amer) BUN/Creatinine Ratio Glucose Fasting Glucose Calcium Total Bilirubin AST ALT Alkaline Phosphatase Total Protein Albumin Globulin Albumin/Globulin Ratio Triglycerides Cholesterol LDL Cholesterol, Calc VLDL Cholesterol, Calc HDL Cholesterol Cholesterol/HDL Ratio TSH 2.376 Urine Color Urine Appearance Urine pH Ur Specific Edmond Urine Protein Urine Glucose (UA) Urine Ketones Urine Blood Urine Nitrite Urine Bilirubin Urine Urobilinogen Ur Leukocyte Esterase Urine WBC (Auto) Urine RBC (Auto) U Hyaline Cast (Auto) U Epithel Cells (Auto) Urine Bacteria (Auto) Urine Yeast POC Ur Test Salicylates < 3.0 L Urine Opiates Screen Ur Methadone, Qual Acetaminophen < 3 L Urine Barbiturates Ur Phencyclidine (PCP) U Amphetamin/Meth Scrn MDMA (Ecstasy) Screen U Benzodiazepines Scrn Ur Cocaine Metabolite U Marijuana (THC) Screen U Marijuana THC Carboxy Drug Screen Comment Ethyl Alcohol mg/dL < 10.0 SARS-CoV-2, RNA, NAAT 12/19/21 12/19/21 12/19/21 Unknown Unknown Unknown WBC RBC Hgb Hct MCV MCH MCHC RDW Std Deviation RDW Coeff of Jalen Plt Count MPV Immature Gran % (Auto) Neut % (Auto) Lymph % (Auto) [place] % (Auto) Eos % (Auto) Baso % (Auto) Neut # (Auto) Lymph # (Auto) [place] # (Auto) Eos # (Auto) Baso # (Auto) Immature Gran # (Auto) Sodium Potassium Chloride Carbon Dioxide Anion Gap BUN Creatinine Est Cr Clr Drug Dosing Est GFR ( Amer) Est GFR (Non-Af Amer) BUN/Creatinine Ratio Glucose Fasting Glucose Calcium Total Bilirubin AST ALT Alkaline Phosphatase Total Protein Albumin Globulin Albumin/Globulin Ratio Triglycerides Cholesterol LDL Cholesterol, Calc VLDL Cholesterol, Calc HDL Cholesterol Cholesterol/HDL Ratio TSH Urine Color Yellow Urine Appearance Cloudy A Urine pH 5.0 Ur Specific Edmond 1.008 Urine Protein Negative Urine Glucose (UA) Negative Urine Ketones Negative Urine Blood Negative Urine Nitrite Negative Urine Bilirubin Negative Urine Urobilinogen Negative Ur Leukocyte Esterase 1+ H Urine WBC (Auto) 10-30 H Urine RBC (Auto) 0-4 U Hyaline Cast (Auto) 1-5 U Epithel Cells (Auto) >30 H Urine Bacteria (Auto) 1+ H Urine Yeast Budding A POC Ur Test NEG Salicylates Urine Opiates Screen Neg Ur Methadone, Qual Neg Acetaminophen Urine Barbiturates Neg Ur Phencyclidine (PCP) Neg U Amphetamin/Meth Scrn Neg MDMA (Ecstasy) Screen Neg U Benzodiazepines Scrn Neg Ur Cocaine Metabolite Neg U Marijuana (THC) Screen Pos H U Marijuana THC Carboxy Drug Screen Comment Ethyl Alcohol mg/dL SARS-CoV-2, RNA, NAAT 12/19/21 12/20/21 Unknown 07:40 WBC RBC Hgb Hct MCV MCH MCHC RDW Std Deviation RDW Coeff of Jalen Plt Count MPV Immature Gran % (Auto) Neut % (Auto) Lymph % (Auto) [place] % (Auto) Eos % (Auto) Baso % (Auto) Neut # (Auto) Lymph # (Auto) [place] # (Auto) Eos # (Auto) Baso # (Auto) Immature Gran # (Auto) Sodium Potassium Chloride Carbon Dioxide Anion Gap BUN Creatinine Est Cr Clr Drug Dosing Est GFR ( Amer) Est GFR (Non-Af Amer) BUN/Creatinine Ratio Glucose Fasting Glucose 84 Calcium Total Bilirubin AST ALT Alkaline Phosphatase Total Protein Albumin Globulin Albumin/Globulin Ratio Triglycerides 76 Cholesterol 186 LDL Cholesterol, Calc 123 VLDL Cholesterol, Calc 15 HDL Cholesterol 48 Cholesterol/HDL Ratio 3.9 TSH Urine Color Urine Appearance Urine pH Ur Specific Edmond Urine Protein Urine Glucose (UA) Urine Ketones Urine Blood Urine Nitrite Urine Bilirubin Urine Urobilinogen Ur Leukocyte Esterase Urine WBC (Auto) Urine RBC (Auto) U Hyaline Cast (Auto) U Epithel Cells (Auto) Urine Bacteria (Auto) Urine Yeast POC Ur Test Salicylates Urine Opiates Screen Ur Methadone, Qual Acetaminophen Urine Barbiturates Ur Phencyclidine (PCP) U Amphetamin/Meth Scrn MDMA (Ecstasy) Screen U Benzodiazepines Scrn Ur Cocaine Metabolite U Marijuana (THC) Screen U Marijuana THC Carboxy Pending Drug Screen Comment Pending Ethyl Alcohol mg/dL SARS-CoV-2, RNA, NAAT Current Inpatient Medications Current Inpatient Medications: Current Inpatient Medications Acetaminophen (Acetaminophen 325 Mg Tab) 650 mg PO Q4H PRN PRN Reason: Headache or Minor Fever Stop: 01/18/22 16:21 Al Hydrox/Mg Hydrox/Simethicone (Aluminum/Magnesium Susp 30 Ml Udc) 30 ml PO Q4H PRN PRN Reason: GI Upset Stop: 01/18/22 16:21 Bismuth Subsalicylate (Bismuth Subsalicylate Liqd 236 Ml) 15 ml PO PRN PRN PRN Reason: Loose Stool Stop: 01/18/22 16:21 Fluoxetine HCl (Fluoxetine Hcl 20 Mg Cap) 20 mg PO DAILY FRANCES Stop: 01/20/22 08:59 Hydroxyzine HCl (Hydroxyzine Hcl 25 Mg Tab) 50 mg PO HSZ PRN PRN Reason: Insomnia Stop: 01/18/22 16:21 Last Admin: 12/19/21 22:03 Dose: 50 mg Documented by: Hydroxyzine HCl (Hydroxyzine Hcl 25 Mg Tab) 25 mg PO Q4H PRN PRN Reason: Anxiety Stop: 01/18/22 16:21 Magnesium Hydroxide (Magnesium Hydroxide Susp 30 Ml Udc) 30 ml PO DAILY PRN PRN Reason: Constipation Stop: 01/18/22 16:21 Neomycin/Polymyxin/Bacitracin (Neomycin/Polymyx/Bacitr Oint 15 Gm Tube) 1 appln EXT BID PRN PRN Reason: forehead Stop: 01/19/22 09:10 Olanzapine (Olanzapine 5 Mg Tablet) 5 mg PO BID FRANCES Stop: 01/18/22 20:59 Last Admin: 12/20/21 08:51 Dose: 5 mg Documented by: Sodium Chloride (Sodium Chloride 0.65% Na Soln 45 Ml (Buchanan)) 1 - 2 sprays NA PRN PRN PRN Reason: Nasal Dryness/Congestion Stop: 01/18/22 16:21
[2021-12-21 08:11] LABS: Marijuana Quant, GCMS Urine 81 ng/mL (<5)
[2021-12-21] MEDS: OLANZapine 5 MG TABLET PO SCH (08:44)
[2021-12-21] MEDS ORDERED: FLUoxetine HCL 20 MG CAP PO SCH (09:00)
--- NOTE | 2021-12-21 09:09 | Discharge Summary ---
Date of Service December 21, 2021 History of Present Illness Last hospitalization was 07/22 at [facility], denies "much has changed" since but did start a relationship with a partner who identifies male about 1 month ago. States they are relating well to parents but "don't get out much" so feeling more isolated. 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 Finances are somewhat of a stressor as they have exhausted unemployment and have limited options for work due to inability to leave the house. Reports that at times they will experience mood congruent grant telling them they are worthless, etc. They came to the ED as started to feel unsafe with the suicidal thoughts. They deny major changes in sleep/appetite/energy and do not attribute weight gain to Zyprexa. Deny any history of manic euphoria or irritability. They do experience hopelessness about ability to sell their car and find a job that meets their needs. Reports taking meds consistently and attending therapy regularly via telehealth. Physical Exam Psychiatric See admission H&P and DOD assessment. Vital Signs (Past 24 Hours) Last Vital Signs Temp 36.5 C 12/21/21 06:34 Pulse 73 12/21/21 06:35 Resp 16 12/21/21 06:34 BP 104/73 12/21/21 06:35 Pulse Ox 100 12/19/21 15:45 Principal Diagnosis depressive disorder Psychiatric Data See daily stay summary. In short, safety was maintained and the patient was cooperative with care. Medication changes included increase in Prozac and they tolerated this well. A family session was held with the patient's mother and safety plan was completed prior to discharge. Cheli signed a 72 hour notice only a few hours after their admission assessment. They reported not feeling "safe" on the unit despite being here several times but had difficulty elaborating other than was feeling home sick and not unusual for their agoraphobia. They felt that they intervened in their suicidal thoughts earlier in the process than usual. They do not want to rescind their notice and deny suicidal thoughts or hallucinations last pm or this am. They do not want additional service referrals. They are attending to ADLs and agree to have family involved in securing meds. Ammo is stored/locked separately from any weapons in the home and they do not have access. There is no criteria for involuntary commitment as patient sought care voluntarily and is without psychosis interfering with their medical decision making. Day of Discharge Assessment Today the patient voices readiness for discharge. They note improvement in mood and deny thoughts to harm self or others. Thoughts remain organized and they are improved from admission. There is no evidence of psychosis. They agree to take mediations as prescribed and keep follow-up appointments. They are stable for discharge to outpatient level of care. Transition of Care Transition Of Care Record: was reviewed with the patient Advance Directives Advance Directives Information Provided: Yes Advance Directives: No Mental Health Advance Directive: No Advance Directives on File: No Living Will: No Power of Gathering Machine Setter: No Advance Directives Reason:: Declines as Mental Health Visit. Risk Factors Assessment : Yes Do You Have Access To A Gun?: No Health Problems: No Mental Health Diagnoses: Yes Substance Use Disorders: No Previous Attempt: Yes Previous Psychiatric Hospitalization: Yes Protective Factors Assessment Employed: No Stable Relationships: Yes Supportive Family: Yes Good Rapport with Provider: Yes Tobacco Cessation at Discharge Tobacco Cessation Medication Prescribed at Discharge: Not Applicable/Non-Smoker Total Time Total Time Spent: Greater Than 30 Minutes Total Time Includes: Examination of the patient, Discharge Planning and Medication Reconciliation Discharge Data Lab Results 12/19/21 12/19/21 12/19/21 11:40 11:44 11:44 WBC 8.51 RBC 4.98 Hgb 16.0 Hct 45.7 MCV 91.8 MCH 32.1 MCHC 35.0 RDW Std Deviation 42.3 RDW Coeff of Jalne 12.5 Plt Count 233 MPV 11.8 H Immature Gran % (Auto) 0.0 Neut % (Auto) 57.1 Lymph % (Auto) 30.9 Slope % (Auto) 4.8 Eos % (Auto) 6.6 Baso % (Auto) 0.6 Neut # (Auto) 4.86 Lymph # (Auto) 2.63 Slope # (Auto) 0.41 Eos # (Auto) 0.56 H Baso # (Auto) 0.05 Immature Gran # (Auto) 0.00 Sodium 138 Potassium 3.7 Chloride 105 Carbon Dioxide 25 Anion Gap 8 BUN 16 Creatinine 0.96 Est Cr Clr Drug Dosing 83.5 Est GFR ( Amer) 90.7 Est GFR (Non-Af Amer) 78.3 BUN/Creatinine Ratio 16.7 Glucose 95 Fasting Glucose Calcium 9.5 Total Bilirubin 0.4 AST 20 ALT 33 Alkaline Phosphatase 78 Total Protein 7.3 Albumin 4.4 Globulin 2.9 Albumin/Globulin Ratio 1.5 Triglycerides Cholesterol LDL Cholesterol, Calc VLDL Cholesterol, Calc HDL Cholesterol Cholesterol/HDL Ratio TSH Urine Color Urine Appearance Urine pH Ur Specific [place] Urine Protein Urine Glucose (UA) Urine Ketones Urine Blood Urine Nitrite Urine Bilirubin Urine Urobilinogen Ur Leukocyte Esterase Urine WBC (Auto) Urine RBC (Auto) U Hyaline Cast (Auto) U Epithel Cells (Auto) Urine Bacteria (Auto) Urine Yeast POC Ur Test Salicylates Urine Opiates Screen Ur Methadone, Qual Acetaminophen Urine Barbiturates Ur Phencyclidine (PCP) U Amphetamin/Meth Scrn MDMA (Ecstasy) Screen U Benzodiazepines Scrn Ur Cocaine Metabolite U Marijuana (THC) Screen U Marijuana THC Carboxy Drug Screen Comment Ethyl Alcohol mg/dL SARS-CoV-2, RNA, NAAT NEGATIVE 12/19/21 12/19/21 12/19/21 11:44 11:44 11:44 WBC RBC Hgb Hct MCV MCH MCHC RDW Std Deviation RDW Coeff of Jalen Plt Count MPV Immature Gran % (Auto) Neut % (Auto) Lymph % (Auto) Slope % (Auto) Eos % (Auto) Baso % (Auto) Neut # (Auto) Lymph # (Auto) Slope # (Auto) Eos # (Auto) Baso # (Auto) Immature Gran # (Auto) Sodium Potassium Chloride Carbon Dioxide Anion Gap BUN Creatinine Est Cr Clr Drug Dosing Est GFR ( Amer) Est GFR (Non-Af Amer) BUN/Creatinine Ratio Glucose Fasting Glucose Calcium Total Bilirubin AST ALT Alkaline Phosphatase Total Protein Albumin Globulin Albumin/Globulin Ratio Triglycerides Cholesterol LDL Cholesterol, Calc VLDL Cholesterol, Calc HDL Cholesterol Cholesterol/HDL Ratio TSH 2.376 Urine Color Urine Appearance Urine pH Ur Specific [place] Urine Protein Urine Glucose (UA) Urine Ketones Urine Blood Urine Nitrite Urine Bilirubin Urine Urobilinogen Ur Leukocyte Esterase Urine WBC (Auto) Urine RBC (Auto) U Hyaline Cast (Auto) U Epithel Cells (Auto) Urine Bacteria (Auto) Urine Yeast POC Ur Test Salicylates < 3.0 L Urine Opiates Screen Ur Methadone, Qual Acetaminophen < 3 L Urine Barbiturates Ur Phencyclidine (PCP) U Amphetamin/Meth Scrn MDMA (Ecstasy) Screen U Benzodiazepines Scrn Ur Cocaine Metabolite U Marijuana (THC) Screen U Marijuana THC Carboxy Drug Screen Comment Ethyl Alcohol mg/dL < 10.0 SARS-CoV-2, RNA, NAAT 12/19/21 12/19/21 12/19/21 Unknown Unknown Unknown WBC RBC Hgb Hct MCV MCH MCHC RDW Std Deviation RDW Coeff of Jalen Plt Count MPV Immature Gran % (Auto) Neut % (Auto) Lymph % (Auto) Slope % (Auto) Eos % (Auto) Baso % (Auto) Neut # (Auto) Lymph # (Auto) Slope # (Auto) Eos # (Auto) Baso # (Auto) Immature Gran # (Auto) Sodium Potassium Chloride Carbon Dioxide Anion Gap BUN Creatinine Est Cr Clr Drug Dosing Est GFR ( Amer) Est GFR (Non-Af Amer) BUN/Creatinine Ratio Glucose Fasting Glucose Calcium Total Bilirubin AST ALT Alkaline Phosphatase Total Protein Albumin Globulin Albumin/Globulin Ratio Triglycerides Cholesterol LDL Cholesterol, Calc VLDL Cholesterol, Calc HDL Cholesterol Cholesterol/HDL Ratio TSH Urine Color Yellow Urine Appearance Cloudy A Urine pH 5.0 Ur Specific [place] 1.008 Urine Protein Negative Urine Glucose (UA) Negative Urine Ketones Negative Urine Blood Negative Urine Nitrite Negative Urine Bilirubin Negative Urine Urobilinogen Negative Ur Leukocyte Esterase 1+ H Urine WBC (Auto) 10-30 H Urine RBC (Auto) 0-4 U Hyaline Cast (Auto) 1-5 U Epithel Cells (Auto) >30 H Urine Bacteria (Auto) 1+ H Urine Yeast Budding A POC Ur Test NEG Salicylates Urine Opiates Screen Neg Ur Methadone, Qual Neg Acetaminophen Urine Barbiturates Neg Ur Phencyclidine (PCP) Neg U Amphetamin/Meth Scrn Neg MDMA (Ecstasy) Screen Neg U Benzodiazepines Scrn Neg Ur Cocaine Metabolite Neg U Marijuana (THC) Screen Pos H U Marijuana THC Carboxy Drug Screen Comment Ethyl Alcohol mg/dL SARS-CoV-2, RNA, NAAT 12/19/21 12/20/21 Unknown 07:40 WBC RBC Hgb Hct MCV MCH MCHC RDW Std Deviation RDW Coeff of Jalen Plt Count MPV Immature Gran % (Auto) Neut % (Auto) Lymph % (Auto) Slope % (Auto) Eos % (Auto) Baso % (Auto) Neut # (Auto) Lymph # (Auto) Slope # (Auto) Eos # (Auto) Baso # (Auto) Immature Gran # (Auto) Sodium Potassium Chloride Carbon Dioxide Anion Gap BUN Creatinine Est Cr Clr Drug Dosing Est GFR ( Amer) Est GFR (Non-Af Amer) BUN/Creatinine Ratio Glucose Fasting Glucose 84 Calcium Total Bilirubin AST ALT Alkaline Phosphatase Total Protein Albumin Globulin Albumin/Globulin Ratio Triglycerides 76 Cholesterol 186 LDL Cholesterol, Calc 123 VLDL Cholesterol, Calc 15 HDL Cholesterol 48 Cholesterol/HDL Ratio 3.9 TSH Urine Color Urine Appearance Urine pH Ur Specific [place] Urine Protein Urine Glucose (UA) Urine Ketones Urine Blood Urine Nitrite Urine Bilirubin Urine Urobilinogen Ur Leukocyte Esterase Urine WBC (Auto) Urine RBC (Auto) U Hyaline Cast (Auto) U Epithel Cells (Auto) Urine Bacteria (Auto) Urine Yeast POC Ur Test Salicylates Urine Opiates Screen Ur Methadone, Qual Acetaminophen Urine Barbiturates Ur Phencyclidine (PCP) U Amphetamin/Meth Scrn MDMA (Ecstasy) Screen U Benzodiazepines Scrn Ur Cocaine Metabolite U Marijuana (THC) Screen U Marijuana THC Carboxy 81 H Drug Screen Comment SEE NOTE Ethyl Alcohol mg/dL SARS-CoV-2, RNA, NAAT Hospital Course (1) Depression with suicidal ideation: (2) Panic disorder with agoraphobia: (3) Excoriation (skin-picking) disorder: The patient [facility] mental [facility] unit) on q15 min checks (behavioral with suicide precautions) for safety. The patient will participate in group, recreational, and milieu therapies and will be offered additional individual and family sessions as clinically appropriate. Risks/benefits/alternatives reviewed re: their current medications including but not limited to need for monitoring for TD and metabolic issues with Zyprexa and dosing range of Prozac. They agree to increase Prozac to 20 mg daily. There are no abnormal motor movements at baseline. Mental Health & Subst Abuse Tx Therapist Name of Therapist: Leighann Yeboah Post Discharge Appointments Primary Care Physician [facility] Sm[facility] Cessation Counseling Tobacco Cessation Medication Prescribed at Discharge: Not Applicable/Non-Smoker Discharge Plan Discharge Items Patient Disposition: Home - Self-Care Reason For Visit: SCHIZOAFFECTIVE DISORDER Discharge Diagnosis: depressive disorder Activity: Resume your previous activity Non-emergency contact: Primary Care Provider, Psychiatrist and Therapist Call non-emergency contact if: you have any medication questions and your symptoms worsen Follow-up/Referrals: Carmen Yoo MD [Primary Care Provider] - Diet: Regular Addtl Attending Provider Instructions: SPECIAL CARE INSTRUCTIONS: 1. Follow through with your scheduled aftercare appointments. If unable to keep an appointment, please call to reschedule. 2. Take your medication only as prescribed. Medication should not be changed or stopped without the approval of your doctor. In the event of worsening symptoms or concerns about side effects, contact your doctor immediately. 3. Utilize new healthy coping skills, anger management skills, and stress management skills learned during your hospitalization. Journal feelings and process them with a support person. Identify stressors or situations that may result in relapse, deterioration or inappropriate behaviors and develop a plan to deal with those issues. 4. If your coping skills are ineffective and you are in crisis, contact your outpatient providers for direction. If unable to reach your providers, please call the [facility] CRISIS LINE AT , go to the [facility] walk-in center at [address] [place] [address] A, [place], or go to the closest Emergency Room. 5. Avoid alcohol and un-prescribed drugs. 6. You have been provided with the Mental Health Advance Directives Pamphlet for your review. 7. Your condition is stable for discharge to outpatient level of care, but recovery is an ongoing process. Ifthoughts to harm yourself or others return, follow the safety plan developed during your stay. Planning for a safe return home includes securing weapons. Our treatment team recommends weaponsbe removed from the home until your outpatient provider reassesses your progress. In rare cases where the items themselvescannot be removed, guns and ammunitionshould be secured separatelyand keys stored by a reliable personoutside of the home. If you were admitted on an involuntary commitment, the police or other legal authorities may be involved in this process. AFTERCARE APPOINTMENTS: * Please call your insurance company prior to your scheduled appointment to confirm your aftercare providers are covered. Take your insurance information to your appointments. WHO TO CALL AND WHEN: Medical Emergencies: For questions or emergencies related to your hospital stay, please contact the Inpatient Behavioral Health Unit at [phone]. A antique furniture reproducer is on-call 24/06 for the Behavioral Health Unit for emergencies At any time you feel your situation is an emergency, you may also call 911 immediately. Pending Studies at Discharge: No Stand-Alone Forms: My [facility], Smoking Cessation Medications and DC Order Prescriptions: New fluoxetine 20 mg Capsule 20 mg PO DAILY 30 Days Qty: 30 RF: 0 Continued olanzapine 5 mg tablet 5 mg PO BID RF: 0 hydroxyzine HCl 10 mg tablet 10 mg PO DAILY PRN (Reason: Anxiety) RF: 0 Discontinued fluoxetine 10 mg tablet 10 mg PO DAILY RF: 0 Discharge Orders: Discharge Order (Routine); Ordered 12/21/21 Ordered By: Tasha Ramos Admission Data Admit Date/Time: 12/19/21 16:22 Attending Provider: Tasha Ramos Admit Provider: Tasha Ramos Primary Care Provider: Carmen Yoo Other Interventions: PSY Interdisciplinary Discharge Planning Last Done: 12/21/21 09:06 Coding Level of Care Code 68795 D/C day mgmt > 30 min Diagnoses Depression with suicidal ideation F32.9; R45.851 Panic disorder with agoraphobia F40.01 Excoriation (skin-picking) disorder F42.4
== END 2021-12-21 11:07 | disposition home or self-care (01) | DRG 881 ==
LOC: ED 10:49 → 3S 16:22